=== PATIENT | male | born 1955 | race Caucasian/White ===

== ENCOUNTER → 2018-04-10 09:38 | Outpatient (CLI) | payer BC, SELFPAY ==
[2018-04-10 12:00] LABS: Absolute Lymphocyte Count 1.26 X10^3/ul (0.83-4.51); Absolute Neutrophil Count 2.5 X10^3/uL (2.0-7.7); Basophil# 0.04 X10^3/uL; Basophil% 0.9 % (0-1); Eosinophil# 0.09 X10^3/uL; Hematocrit 38.9 % (40-54); Hemoglobin 13.1 g/dl (13.0-16.5); Lymphocyte # 1.26 X10^3/ul (4.0); Lymphocyte % 28.1 % (19-41); Mean Corp Hgb Conc 33.7 g/gl (32-36); Mean Corpuscular Volume 95.1 fL (80-94); Mean Platelet Vol. 11.2 fl (6.2-12.0); Monocyte% 13.4 % (0-10); Neutrophil # 2.49 X10^3/uL (2.7-7.7); Neutrophil % 55.4 % (47-70); POSITIVE COUNT NO; POSITIVE DIFFERENTIAL NO; POSITIVE MORPHOLOGY NO; Platelet Count 169 K/mm3 (150-450); RBC Distribution Width CV 14.1 % (11.6-14.6); RBC Distribution Width SD 47.6 fl (35.1-43.9); Red Blood Count 4.09 M/mm3 (4.6-6.2); White Blood Count 4.5 K/mm3 (4.4-11.0)
[2018-04-10 12:18] LABS: Anion Gap 11 (5-15); BUN 10 mg/dL (7-18); BUN/Creat Ratio 10.7 RATIO (10-20); Calcium,Total 8.9 mg/dL (8.5-10.1); Chloride 103 mmol/L (98-107); Creatinine, Serum 0.94 mg/dL (0.70-1.30); EST Glomerular Filtration Rate 87 mL/min (>60); Est Glom Filt Rate - Afr Amer 105 mL/min (>60); Glucose 98 mg/dL (74-106); Magnesium 1.9 mg/dL (1.6-2.6); Potassium 4.1 mmol/L (3.5-5.1); Sodium Level 140 mmol/L (136-145); Thyroid Stim Hormone (TSH) 2.91 uIU/mL (0.358-3.74)
== END ==
PROVIDERS: Family Provider Family Medicine; PCP Family Medicine; Visit Provider Family Medicine
DX: I49.3 Ventricular premature depolarization (principal); I10 Essential (primary) hypertension; R73.01 Impaired fasting glucose
CPT/HCPCS: 36415; 80048; 83036; 83735; 84443; 85025

== ENCOUNTER → 2018-11-07 08:02 | Outpatient (CLI) | payer BC, SELFPAY ==
[2018-09-20 16:01] VITALS: BMI 25.9
[2018-11-08 08:57] LABS: AST(SGOT) 44 U/L (15-37); Alanine Aminotransfer ALT/SGPT 39 U/L (16-61); Albumin, Serum 3.8 g/dL (3.2-5.0); Alkaline Phosphatase 61 U/L (45-117); Bilirubin, Direct 0.16 mg/dL (0.00-0.30); Cholesterol 183 mg/dL (200); Globulin 3.6 g/dL (2.2-4.2); High Density Lipoprotein 78 mg/dL; Protein, Total 7.4 g/dL (6.4-8.2); Triglycerides 78 mg/dL; Very Low Density Lipoprotein 16 mg/dL (5-40)
== END ==
PROVIDERS: Family Provider Family Medicine; PCP Family Medicine; Referring Provider Internal Medicine Cardiovascular Disease; Visit Provider Internal Medicine Cardiovascular Disease
DX: E78.5 Hyperlipidemia, unspecified (principal)
CPT/HCPCS: 80061; 80076

== ENCOUNTER → 2019-07-23 11:14 | Outpatient (CLI) | payer BC, SELFPAY ==
[2019-04-18 13:38] VITALS: BMI 25.4
[2019-07-23 11:50] LABS: Bacteria 0 SEEN /hpf (None Seen); Mucous, Urine 0 SEEN /hpf (<or=2+); Red Blood Cells-Urine 0 SEEN /hpf (0-5); Squamous Epithelial Cells - UA 0 SEEN /hpf (0-5); White Blood Cells 0 SEEN /hpf (0-5)
[2019-07-23 15:19] LABS: Color, Urine Yellow (Yellow); Glucose, Dipstick Normal (Normal); Ketone-Dipstick Negative (Negative); Leukocyte Esterase-Dipstick Negative /ul (Negative); Nitrite-Dipstick Negative (Negative); Occult Blood-Urine Negative /ul (Negative); Protein-Dipstick Negative (Negative); Specific Gravity, Urine 1.005 (1.002-1.030); Urine Bilirubin Dipstick Negative (Negative); Urine Clarity Clear (Clear); Urine Urobilinogen Normal (Normal)
== END ==
PROVIDERS: Family Provider Family Medicine; PCP Family Medicine; Visit Provider Family Medicine
DX: N39.0 Urinary tract infection, site not specified (principal)
CPT/HCPCS: 81002; 87086

== ENCOUNTER → 2019-10-14 13:46 | Outpatient (CLI) | payer BC, SELFPAY ==
[2019-04-18 13:38] VITALS: BMI 25.4
[2019-10-14 14:39] LABS: PSA,Total - Annual Screen 1.05 ng/mL (0.00-4.00)
== END ==
PROVIDERS: PCP Family Medicine; Referring Provider Urology; Visit Provider Urology
DX: N40.1 Benign prostatic hyperplasia with lower urinary tract symptoms (principal)
CPT/HCPCS: 36415; 84153; G0103

== ENCOUNTER → 2019-11-27 06:25 | Outpatient (CLI) | payer BC, SELFPAY ==
[2019-11-22 09:43] VITALS: BMI 26.2
[2019-11-27 06:43] LABS: AST(SGOT) 46 U/L (15-37); Alanine Aminotransfer ALT/SGPT 47 U/L (16-61); Alkaline Phosphatase 69 U/L (45-117); Bilirubin, Direct 0.12 mg/dL (0.00-0.30); Cholesterol 195 mg/dL (200); Globulin 3.9 g/dL (2.2-4.2); High Density Lipoprotein 58 mg/dL; Protein, Total 7.9 g/dL (6.4-8.2); Triglycerides 166 mg/dL; Very Low Density Lipoprotein 33 mg/dL (5-40)
== END ==
PROVIDERS: PCP Family Medicine; Visit Provider Internal Medicine Cardiovascular Disease
DX: E78.5 Hyperlipidemia, unspecified (principal)
CPT/HCPCS: 80061; 80076

== ENCOUNTER → 2020-08-12 09:24 | Outpatient (CLI) | payer BC, SELFPAY ==
[2019-11-22 09:43] VITALS: BMI 26.2
[2020-08-12 12:52] LABS: Absolute Lymphocyte Count 1.55 X10^3/uL (0.83-4.51); Absolute Neutrophil Count 3.1 X10^3/uL (2.0-7.7); Basophil# 0.06 X10^3/uL; Basophil% 1.1 % (0-1); Eosinophil# 0.15 X10^3/uL; Eosinophils% 2.8 % (0-5); Hematocrit 42.8 % (40-54); Hemoglobin 14.1 g/dL (13.0-16.5); Lymphocyte # 1.55 X10^3/ul (4.0); Lymphocyte % 28.7 % (19-41); Mean Corp Hgb Conc 32.9 g/dL (32-36); Mean Corpuscular Hgb 32.4 pg (27.0-32.0); Mean Corpuscular Volume 98.4 fL (80-94); Mean Platelet Vol. 10.8 fl (6.2-12.0); Monocyte# 0.54 X10^3/uL; NRBC Flagged by Analyzer 0 % (0-5); Neutrophil # 3.09 X10^3/uL (2.7-7.7); Neutrophil % 57.2 % (47-70); Platelet Count 222 K/mm3 (150-450); RBC Distribution Width CV 12.9 % (11.6-14.6); RBC Distribution Width SD 46.5 fl (35.1-43.9); Red Blood Count 4.35 M/mm3 (4.6-6.2); White Blood Count 5.4 K/mm3 (4.4-11.0)
[2020-08-12 13:14] LABS: AST(SGOT) 33 U/L (15-37); Alanine Aminotransfer ALT/SGPT 36 U/L (16-61); Albumin, Serum 3.7 g/dL (3.2-5.0); Alkaline Phosphatase 62 U/L (45-117); Bilirubin, Direct 0.18 mg/dL (0.00-0.30); Cholesterol 176 mg/dL (200); Globulin 3.5 g/dL (2.2-4.2); High Density Lipoprotein 65 mg/dL; Protein, Total 7.2 g/dL (6.4-8.2); Triglycerides 130 mg/dL; Very Low Density Lipoprotein 26 mg/dL (5-40)
[2020-08-12 13:18] LABS: Bilirubin, Direct 0.16 mg/dL (0.00-0.30); Thyroid Stim Hormone (TSH) 2.97 uIU/mL (0.358-3.74)
[2020-08-17 08:20] LABS: Anion Gap 9 (5-15); BUN 14 mg/dL (7-18); BUN/Creat Ratio 16.2 RATIO (10-20); Calcium,Total 9.1 mg/dL (8.5-10.1); Chloride 107 mmol/L (98-107); Creatinine, Serum 0.86 mg/dL (0.70-1.30); EST Glomerular Filtration Rate 95 mL/min (>60); Est Glom Filt Rate - Afr Amer 114 mL/min (>60); Glucose 99 mg/dL (74-106); Potassium 4.2 mmol/L (3.5-5.1); Sodium Level 139 mmol/L (136-145)
== END ==
PROVIDERS: Physician Assistant Medical; PCP Family Medicine; Visit Provider Family Medicine
DX: E78.5 Hyperlipidemia, unspecified (principal); I10 Essential (primary) hypertension
CPT/HCPCS: 36415; 80048; 80061; 80076; 82248; 84443; 85025

== ENCOUNTER 2020-11-05 08:02 | Outpatient (RCR) | payer MEDICARE, SELFPAY ==
[2019-11-22 09:43] VITALS: BMI 26.2
[2020-11-05] MEDS: COVID-19 VACC, MRNA(PFIZER)/PF 30 MCG/0.3 ML SYRINGE IM (08:06)
[2020-11-26] MEDS: COVID-19 VACC, MRNA(PFIZER)/PF 30 MCG/0.3 ML SYRINGE IM (08:09)
== END 2020-11-05 23:59 ==
LOC: IMMUN 08:02
PROVIDERS: PCP Family Medicine; Visit Provider Family Medicine
DX: Z23 Encounter for immunization (principal)
CPT/HCPCS: 0001A; 0002A; 91300

== ENCOUNTER → 2021-02-10 09:31 | Outpatient (CLI) | payer BC, SELFPAY ==
[2019-11-22 09:43] VITALS: BMI 26.2
[2021-02-10 10:00] LABS: Cholesterol 170 mg/dL (200); High Density Lipoprotein 82 mg/dL; Triglycerides 118 mg/dL; Very Low Density Lipoprotein 24 mg/dL (5-40)
== END ==
PROVIDERS: PCP Family Medicine; Visit Provider Family Medicine
DX: E78.5 Hyperlipidemia, unspecified (principal)
CPT/HCPCS: 36415; 80061

== ENCOUNTER 2021-07-07 05:32 | Day surgery (SDC) | payer BC, SELFPAY ==
--- NOTE | 2021-07-07 05:39 | EKG12_ITS ---
Test Reason : PRE-OP Blood Pressure : / mmHG Vent. Rate : 084 BPM Atrial Rate : 084 BPM P-R Int : 152 ms QRS Dur : 084 ms QT Int : 368 ms P-R-T Axes : 071 066 034 degrees QTc Int : 434 ms Normal sinus rhythm Nonspecific ST abnormality Abnormal ECG When compared with ECG of 10-OCT-1996 10:22, Previous ECG has undetermined rhythm, needs review Confirmed by PAULA MALDONADO, ANSELMO ([id number]), associate entertainment editor GENNY SIDDIQUI ([id number]) on 07/13/2021 1:29:31 PM Referred By: oByd Alvarez Confirmed By:ANSELMO MITCHELL MD
[2021-07-07 06:03] VITALS: BP 149/78; PULSE 85; RESP 16; TEMP 36.4; O2SAT 100; BMI 26.0
[2021-07-07] MEDS: Lactated Ringers 1,000 ML 100 ML IV (06:18)
[2021-07-07 06:20] LABS: Hematocrit 40.3 % (40-54); Hemoglobin 13.6 g/dL (13.0-16.5); Mean Corp Hgb Conc 33.7 g/dL (32-36); Mean Corpuscular Hgb 34.7 pg (27.0-32.0); Mean Corpuscular Volume 102.8 fL (80-94); Mean Platelet Vol. 9.5 fl (6.2-12.0); Platelet Count 211 K/mm3 (150-450); RBC Distribution Width CV 12.7 % (11.6-14.6); RBC Distribution Width SD 47.7 fl (35.1-43.9); Red Blood Count 3.92 M/mm3 (4.6-6.2); White Blood Count 5.3 K/mm3 (4.4-11.0)
[2021-07-07 06:38] LABS: Anion Gap 8 (5-15); BUN 13 mg/dL (7-18); BUN/Creat Ratio 14.1 RATIO (10-20); Calcium,Total 9.3 mg/dL (8.5-10.1); Chloride 107 mmol/L (98-107); Creatinine, Serum 0.92 mg/dL (0.70-1.30); EST Glomerular Filtration Rate 87 mL/min (>60); Est Glom Filt Rate - Afr Amer 106 mL/min (>60); Estimated Creatinine Clearance 80.05 ml/min; Glucose 115 mg/dL (74-106); Potassium 4.2 mmol/L (3.5-5.1); Sodium Level 139 mmol/L (136-145)
[2021-07-07] MEDS: Cefazolin 2 GM in 0.9% Normal Saline 100 ML IV (07:28)
--- NOTE | 2021-07-07 07:30 | PROS_PTH ---
PATIENT: YAYA BETANCOURT [place]: [facility] [place] U[place][id number] AGE/SX: 66/M ROOM: RE07/07/[address]: Dr. Boyd Alvarez MD : 1955 BED: DIS: 07/07/2021 SPEC #: [id number] RECD: 07/07/21 10:29 STATUS: HUMERA MILLER #: [id number] CYNDEE: 07/07/21 07:[address]: Boyd Alvarez DEPT: SURGICAL PATHOLOGY RECD BY: Zahida Olsen ENTERED: 07/07/21 13:10 SP TYPE: TURP OTHR DR: Dr. Ramon Arias MD Tissues: Prostate, NOS Procedures: Surgery Specimen Level IV HEADER OPERATION: Cysto, TUR prostate, Olympus PRE-OP DIAGNOSIS: BPH TISSUE SUBMITTED: Prostate chips MICROSCOPIC DIAGNOSIS Prostate, transurethral resection: Benign nodular hyperplasia, glandular and stromal types. Chronic inflammation. Urothelium with chronic and mild acute inflammation. AM:ray 07/08/2021 MICROSCOPIC DESCRIPTION Slides are reviewed. GROSS DESCRIPTION Received is one container labeled with the patient's name and designated prostate tissue. The specimen consists of multiple irregular fragments of pink-ramirez, rubbery, soft tissue that in aggregate weigh 3.3 gm and measure in aggregate 5 x 6 x 0.3 cm. The entire specimen is submitted in three cassettes. / AM:ray 07/07/21 TC:3 CPT: 24579
--- NOTE | 2021-07-07 07:34 | HP.PCM_ITS ---
HPI - General HPI Narrative YAYA BETANCOURT, is a 66 M who presents for TURP. [facility] Medical History (Updated 06/30/21 @ 10:27 by Kaya Mesa) Alcohol use Asthma Asthma Cardiology follow-up encounter [place] High cholesterol History of echocardiogram history of elbow pin Hx of sinus tachycardia Hyperlipidemia Hypertension Hypertension Hypertension Leg cramps Non-smoker Prostate disease Wears dentures Wears glasses Home Medications albuterol sulfate 1 puff IH Q4H PRN PRN 07/27/17 [History Last Taken Unknown] ibuprofen 200 mg PO Q6H PRN PRN 07/27/17 [History Last Taken Unknown] lisinopril 5 mg PO DAILY 07/27/17 [History Last Taken 07/07/21] rosuvastatin 10 mg PO DAILY 07/27/17 [History Last Taken Unknown] triamcinolone acetonide 55 mcg nasal spray aerosol 1 spray INTRANASAL DAILY PRN 04/18/19 [History Last Taken Unknown] diltiazem HCl 120 mg capsule,extended release 24 hr 120 mg PO DAILY #90 cap 10/18/19 [Rx Last Taken 07/07/21] alfuzosin 10 mg tablet,extended release 24 hr 10 mg PO DAILY 11/22/19 [History Last Taken Unknown] ciprofloxacin HCl [Cipro] 500 mg PO BID #10 tab 07/07/21 [Rx Last Taken Unknown] Allergy/AdvReac Type Severity Reaction Status Date / Time shellfish derived AdvReac Intermediate vomiting Verified 07/07/21 05:56 Family History Father , age 80+ in his sleep, assumed cardiac CAD (coronary artery disease) Surgical History (Updated 06/30/21 @ 10:27 by Kaya Mesa) H/O hernia repair History of left heart catheterization (07/28/17) Hx of colonoscopy Social History (Updated 11/22/19 @ 10:[address] Moshe Bryant MD) Smoking Status: Never smoker alcohol intake: never Vital Signs Vital Signs Vital Signs: 07/07/21 06:03 Temperature 97.6 F L Temperature Source Temporal Pulse Rate 85 Respiratory Rate 16 Respiratory Pattern Normal Blood Pressure 149/78 H Blood Pressure Mean 101 Blood Pressure Source Monitor Blood Pressure Position Semi-Fowlers Blood Pressure Location Right Arm Pulse Ox 100 Oxygen Delivery Method Room Air Weight Weight: 80 kg Body Mass Index (BMI) 26.0 Results Lab / Micro Data Result Diagrams: 07/07/21 06:05 07/07/21 06:05 Labs: Laboratory Results - last 24 hr 07/07/21 06:05: WBC 5.3, RBC 3.92 L, Hgb 13.6, Hct 40.3, MCV 102.8 H, MCH 34.7 H , MCHC 33.7, RDW Std Deviation 47.7 H, RDW Coeff of Marilee 12.7, Plt Count 211, MPV 9.5 07/07/21 06:05: Sodium 139, Potassium 4.2, Chloride 107, Carbon Dioxide 24.0, Anion Gap 8, BUN 13, Creatinine 0.92, Estim Creat Clear Calc 80.05, Est GFR (MDRD) Af Amer 106, Est GFR (MDRD) Non-Af 87, BUN/Creatinine Ratio 14.1, Glucose 115 H, Calcium 9.3
--- NOTE | 2021-07-07 07:35 | PCM.OPRPT ---
Report of Operation Date of Procedure: 07/07/21 Pre-Operative Diagnosis: bph with obstruction Post-Operative Diagnosis: same Surgery/Procedure Performed:: turp Description of Surgical Findings:: In the preoperative setting I discussed with the patient how the surgery would be done with expect afterwards. We discussed how a prostate resection is done and we discussed the risk of the surgery including, bleeding, infection, retrograde ejaculation, changes with ejaculation or intercourse,. We discussed the possibility that the resection of the prostate may not alleviate his urinary symptoms. We discussed the small risk of developing scar tissue along the urethral channel and strictures. We also discussed the chance of the prostate could grow back and he may need further surgery or treatment in the future for prostate problems. Patient was taken back to the operating room, timeout procedure was performed, he was identified and marked and placed on the operating room table. He underwent general anesthesia. He was placed in dorsolithotomy position. Penis and testicles were prepped and draped in usual sterile fashion. Went into the bladder using the visual obturator with a resectoscope. Once inside the bladder identified the right and left ureteral orifice. I then identified the prostate and the anatomy of the prostate. I marked out the area of the sphincter and the verumontanum was identified. I then proceeded with the prostate resection first resected the median lobe. And then resected the right lobe of the prostate. Then to resect the left lobe of the prostate. I then resected the apical tissue of the prostate. This was a complete resection of all obstructive tissue. I then made sure that there was no injury to the sphincter or the verumontanum was still intact. At the end of the resection all the chips were Ellik out of the bladder. I then identified the left and right ureteral orifice and these were confirmed to be in good position and effluxing and not injured. The resectoscope was removed, a 22 Georgian catheter was placed into the bladder on continuous irrigation. And the urine was fairly light pink color and draining normally. He was taken back to the PACU in good condition. CPT 91619 Surgeon: hao Type of Anesthesia: General Drains: 20 fr wu Admit VTE Documentation VTE Present on Admission: No VTE Mechan Device Prophylaxis: SCD's VTE Pharm Prophylaxis ordered?: No
--- NOTE | 2021-07-07 08:18 | DCINST_ITS ---
Discharge Instructions Diet Discharge Diet: No restrictions Activity Discharge Activity: Return to Normal Activity and May Not Drive (while taking narcotic pain medications.) Dressing / Incision Call your doctor if you observe: Fever of 101 or Higher Catheter: Cardona to leg bag and Cardona to large bag Drain: [place] Additional Dressing/Incision Instructions:: remove cath in three days Follow Up Care Please Follow Up With: Boyd Alvarez MD When: Call [phone] for an appointment Test Results: Test results from this visit will be discussed in further detail at your follow-up appointment, if applicable. Discharge Plan Admission Primary Reason for Your Visit: TUR Attending Provider: Boyd Alvarez Primary Care Provider: Ramon Arias Instructions Patient Instructions: [facility] Discharge Orders/Prescriptions Prescriptions: New ciprofloxacin HCl [Cipro] 500 mg tablet 500 mg PO BID Qty: 10 RF: 0 No Action alfuzosin 10 mg tablet extended release 24 hr 10 mg PO DAILY RF: 0 ibuprofen 200 MG tablet 200 mg PO Q6H PRN PRN (Reason: Pain) RF: 0 lisinopril 5 MG tablet 5 mg PO DAILY RF: 0 albuterol sulfate 6.7 GM HFA aerosol inhaler 1 puff IH Q4H PRN PRN (Reason: Sob &/Or Wheezing) RF: 0 rosuvastatin 10 MG tablet 10 mg PO DAILY RF: 0 triamcinolone acetonide 55 mcg aerosol,spray 1 spray INTRANASAL DAILY PRN (Reason: Congestion) RF: 0 diltiazem HCl 120 mg capsule,extended release 24hr 120 mg PO DAILY Qty: 90 RF: 3 Referrals / Follow Up: Boyd Alvarez MD [STAFF PHYSICIAN] - Ramon Arias MD [Primary Care Provider] - Disposition Disposition (needs filled in before D/C Order can be placed): Home, Self Care
[2021-07-07 08:30] VITALS: BP 115/83; BP 149/78; PULSE 88; RESP 16; TEMP 36.4; O2SAT 97
[2021-07-07 08:44] VITALS: BP 117/78; BP 149/78; PULSE 86; RESP 16; O2SAT 95
[2021-07-07 09:00] VITALS: BP 117/79; BP 149/78; PULSE 77; RESP 16; O2SAT 97
[2021-07-07 09:10] VITALS: BP 120/81; BP 149/78; PULSE 75; RESP 16; TEMP 36.3; O2SAT 97
[2021-07-07] MEDS: Acetaminophen 500 MG Tablet 1000 MG PO (09:45)
[2021-07-07 10:26] VITALS: BP 120/82; BP 149/78; PULSE 83; RESP 16; TEMP 36.1; O2SAT 99
== END 2021-07-07 10:38 | disposition home or self-care (01) ==
LOC: SDC 05:34 → AC 05:35
PROVIDERS: Anesthesiology; PCP Family Medicine; Referring Provider Urology; Visit Provider Urology
PROC: (CPT 52601; principal; 2021-07-07 07:20)
DX: N40.1 Benign prostatic hyperplasia with lower urinary tract symptoms (principal); N13.8 Other obstructive and reflux uropathy; E78.5 Hyperlipidemia, unspecified; I10 Essential (primary) hypertension; E78.00 Pure hypercholesterolemia, unspecified; J45.909 Unspecified asthma, uncomplicated; Z79.899 Other long term (current) drug therapy
CPT/HCPCS: 52601; 80048; 85027; 88305; 93005; J7120; J2405

== ENCOUNTER → 2021-07-27 | Outpatient (CLI) | payer BC, SELFPAY | END | disposition home or self-care (01) | PROVIDERS: PCP Family Medicine; Referring Provider Urology; Visit Provider Urology | DX: R31.0 Gross hematuria (principal) | CPT/HCPCS: 87086; 87088 ==

== ENCOUNTER 2021-09-22 09:34 | Outpatient (CLI) | payer BC, SELFPAY ==
[2021-09-22 09:41] LABS: Absolute Lymphocyte Count 1.26 X10^3/uL (0.83-4.51); Absolute Neutrophil Count 2.6 X10^3/uL (2.0-7.7); Basophil# 0.04 X10^3/uL; Basophil% 0.9 % (0-1); Eosinophil# 0.06 X10^3/uL; Eosinophils% 1.3 % (0-5); Hematocrit 39.1 % (40-54); Hemoglobin 13.3 g/dL (13.0-16.5); Lymphocyte # 1.26 X10^3/ul (0.83-4.51); Lymphocyte % 28.1 % (19-41); Mean Corpuscular Hgb 33.5 pg (27.0-32.0); Mean Corpuscular Volume 98.5 fL (80-94); Mean Platelet Vol. 9.7 fl (6.2-12.0); Monocyte# 0.49 X10^3/uL; Monocyte% 10.9 % (0-10); NRBC Flagged by Analyzer 0 % (0-5); Neutrophil # 2.63 X10^3/uL (2.7-7.7); Neutrophil % 58.6 % (47-70); Platelet Count 193 K/mm3 (150-450); RBC Distribution Width CV 14.8 % (11.6-14.6); RBC Distribution Width SD 54.4 fl (35.1-43.9); Red Blood Count 3.97 M/mm3 (4.6-6.2); White Blood Count 4.5 K/mm3 (4.4-11.0)
[2021-09-22 10:27] LABS: ALB/GLOB Ratio 0.9 RATIO (0.9-2.4); AST(SGOT) 79 U/L (15-37); Alanine Aminotransfer ALT/SGPT 48 U/L (16-61); Albumin, Serum 3.6 g/dL (3.2-5.0); Alkaline Phosphatase 91 U/L (45-117); Anion Gap 9 (5-15); BUN 15 mg/dL (7-18); BUN/Creat Ratio 17.7 RATIO (10-20); Calcium,Total 9.1 mg/dL (8.5-10.1); Chloride 103 mmol/L (98-107); Cholesterol 167 mg/dL (200); Creatinine, Serum 0.85 mg/dL (0.70-1.30); EST Glomerular Filtration Rate 96 mL/min (>60); Est Glom Filt Rate - Afr Amer 116 mL/min (>60); Globulin 4.1 g/dL (2.2-4.2); Glucose 90 mg/dL (74-106); High Density Lipoprotein 95 mg/dL; Potassium 3.9 mmol/L (3.5-5.1); Protein, Total 7.7 g/dL (6.4-8.2); Sodium Level 138 mmol/L (136-145); Thyroid Stim Hormone (TSH) 2.38 uIU/mL (0.358-3.74); Triglycerides 114 mg/dL; Very Low Density Lipoprotein 23 mg/dL (5-40)
== END 2021-09-22 23:59 | disposition short-term general hospital (02) ==
LOC: LAB.FUTURE 09:34 → LAB 09:37
PROVIDERS: PCP Family Medicine; Visit Provider Family Medicine
DX: I47.2 Ventricular tachycardia (principal); E78.5 Hyperlipidemia, unspecified; I10 Essential (primary) hypertension
CPT/HCPCS: 36415; 80053; 80061; 84443; 85025

== ENCOUNTER 2022-01-20 05:25 | Day surgery (SDC) | payer BC, SELFPAY ==
[2022-01-20 05:59] VITALS: BP 124/80; PULSE 65; RESP 16; TEMP 36.2; O2SAT 100; BMI 25.5
[2022-01-20] MEDS: Lactated Ringers 1,000 ML 15 ML IV (06:02)
--- NOTE | 2022-01-20 06:30 | COLBX_PTH ---
PATIENT: YAYA BETANCOURT LOC: [facility] U#:[id number] AGE/SX: 66/M ROOM: RE01/20/[address]: Dr. Sagar Ulrich DO : 1955 BED: DIS: 01/20/2022 SPEC #: [id number] RECD: 01/20/22 11:26 STATUS: HUMERA PAUL #: [id number] CYNDEE: 01/20/22 06:[address]: Sagar Ulrich DEPT: SURGICAL PATHOLOGY RECD BY: Zahida Olsen ENTERED: 01/20/22 13:04 SP TYPE: COLON BX OTHR DR: Dr. Ramon Arias MD Tissues: A - Descending colon B - Transverse colon C - Descending colon Procedures: Surgery Specimen Level IV HEADER OPERATION: [place] [place] PRE-OP DIAGNOSIS: Positive colorectal cancer screening using Cologuard TISSUE SUBMITTED: A ? Descending polyp, B ? Transverse polyp, C ? Descending polyp #2 MICROSCOPIC DIAGNOSIS A. Descending colon polyp #1, biopsy: Tubular adenoma. B. Transverse colon polyp, biopsy: Fragments of tubular adenoma. C. Descending colon polyp #2, biopsy: Cauterized fragment of benign colonic mucosa. AM:ray 01/21/2022 MICROSCOPIC DESCRIPTION Slides are reviewed. GROSS DESCRIPTION A - Received in fixative is one container labeled with the patient's name and designated descending polyp. The specimen consists of one irregular fragment of light ramirez soft tissue that measures 0.6 x 0.6 x 0.2 cm. The specimen is totally submitted in one cassette. B - Received in fixative is one container labeled with the patient's name and designated transverse polyp. The specimen consists of multiple irregular fragments of light ramirez soft tissue that in aggregate measure 1 x 0.5 x 0.1 cm. The specimen is totally submitted in one cassette. C - Received in fixative is one container labeled with the patient's name and designated descending polyp #2. The specimen consists of one irregular fragment of light ramirez soft tissue that measures 0.3 x 0.3 x 0.2 cm. The specimen is totally submitted in one cassette. / AM:ray 01/20/2022 TC:5 CPT: 58578 x3
--- NOTE | 2022-01-20 06:35 | HP.PCM_ITS ---
History and Physical Date of Admission: 01/20/22 TRISH BETANCOURT, is a 66 M who presents to the office today for positive Cologuard test. He had the test done for screening for colon cancer. His last colonoscopy was in 2011. No personal or FH polyps or colon cancer. He had no GI complaints. No change in stool. No diarrhea or constipation. No hematochezia, melena. No abd pain. Rare indigestion from spicy food. No heartburn or dysphagia. ROS Const Constitutional: No fatigue, fever(s), headache(s), weight change, sleep problems, abnormal sleep pattern or change in appetite ENT ENT: No headache(s), difficulty swallowing, hoarseness or sore throat Resp Respiratory: No cough, hemoptysis or shortness of breath Cardio Cardiology: No chest pain at rest or generalized swelling Gastro GI: No abdominal pain, belching, bloating, change in bowel habits, change in stool character, coffee ground emesis, constipation, cramping, diarrhea, he artburn, difficulty swallowing, feeling full early, excessive flatus, incontinent of stools, Vomiting blood/hematemesis, Blood in stool, loose stools, Black,tarry stools, nausea/dyspepsia, pain with swallowing or vomiting Musc Musculoskeletal: Positive for muscle cramps; No joint pain, back pain, joint swelling, numbness or tingling Skin Skin: No itchy eyes or rash Neuro Neurology: No behavioral changes, confusion, headache(s), numbness or tingling Psych Psychiatric: No abnormal sleep pattern, No anxiety, No behavioral changes, No change in appetite, No confusion and No depression Endo Endocrine: No cold intolerance, fatigue, heat intolerance, increased thirst/drinking or weight change Aller/Imm Allergy/Immunologic: No food intolerance or itchy eyes Regis/Lymp Hematologic/Lymphatic: No easy bleeding, easy bruising or enlarged lymph nodes Exam Const General: cooperative, healthy appearing, no acute distress, well developed and well groomed Eyes Sclera: sclerae normal Resp Effort & Inspection: normal respiratory effort GI Inspection: normal to inspection Quality Reporting Tobacco Screening ([facility] 138) Smoking Status: Never smoker Assessment and Plan Assessment and Plan (1) Positive colorectal cancer screening using Cologuard test: Status: Acute Plan: 66-year-old man with positive Cologuard test done for colon cancer screening. He will be scheduled for colonoscopy. I have re-examined the patient. There are no clinical changes since date of exam.
[2022-01-20 07:10] VITALS: BP 102/71; BP 124/80; PULSE 68; RESP 16; TEMP 36.3; O2SAT 100
[2022-01-20 07:15] VITALS: BP 106/72; BP 124/80; PULSE 71; RESP 16; O2SAT 100
--- NOTE | 2022-01-20 07:15 | OP.CCLET_ITS ---
05/24/2022 Ramon Arias Re : Colonoscopy procedure for Yonas Brasher [place] This procedure was performed on January. My impressions and recommendations are as follows: Impressions : - Severe diverticulosis in the entire examined colon. There was no evidence of diverticular bleeding. - Three 1 to 2 mm polyps in the descending colon and in the transverse colon, removed with a hot snare. Resected and retrieved. Recommendations : - Repeat colonoscopy in 3 years for surveillance. - Continue present medications. - No aspirin, ibuprofen, naproxen, or other non-steroidal anti-inflammatory drugs for 7 days. - No aspirin, ibuprofen, naproxen, or other non-steroidal anti-inflammatory drugs for 7 days after polyp removal. My findings are described in the full procedure note, which is enclosed. If I can be of further assistance, please feel free to contact me at . Sincerely, Sagar Friend, 01/20/2022 7:14:43 AM This report has been signed electronically.
--- NOTE | 2022-01-20 07:15 | OP.COLON_ITS ---
Patient Name: Yonas Brasher Procedure Date: 01/20/2022 6:20 AM Date of : 1955 Age: 66 Procedure: Colonoscopy Indications: Screening for colorectal malignant neoplasm Providers: Sagar Ulrich DO Medicines: Monitored Anesthesia Care Patient Profile: This is a 66 year old male. Refer to note in patient chart for documentation of history and physical. Last Colonoscopy: date unknown. Unable to locate last colonoscopy report. Complications: No immediate complications. Procedure: Pre-Anesthesia Assessment: - Prior to the procedure, a History and Physical was performed, and patient medications and allergies were reviewed. The patient is competent. The risks and benefits of the procedure and the sedation options and risks were discussed with the patient. All questions were answered and informed consent was obtained. Patient identification and proposed procedure were verified by the physician. Mental Status Examination: alert and oriented. Airway Examination: normal oropharyngeal airway and neck mobility. Respiratory Examination: clear to auscultation. CV Examination: normal. Prophylactic Antibiotics: The patient does not require prophylactic antibiotics. Prior Anticoagulants: The patient has taken no previous anticoagulant or antiplatelet agents. ASA Grade Assessment: II - A patient with mild systemic disease. After reviewing the risks and benefits, the patient was deemed in satisfactory condition to undergo the procedure. The anesthesia plan was to use moderate sedation / analgesia (conscious sedation). Immediately prior to administration of medications, the patient was re-assessed for adequacy to receive sedatives. The heart rate, respiratory rate, oxygen saturations, blood pressure, adequacy of pulmonary ventilation, and response to care were monitored throughout the procedure. The physical status of the patient was re-assessed after the procedure. After I obtained informed consent, the scope was passed under direct vision. Throughout the procedure, the patient's blood pressure, pulse, and oxygen saturations were monitored continuously. The colonoscope was introduced through the anus and advanced to the ileocecal valve. The colonoscopy was performed without difficulty. The patient tolerated the procedure well. The quality of the bowel preparation was good. Scope In: 6:41:36 AM Scope Withdrawal Time 0 hours 13 minutes 51 seconds Scope Out: 7:06:10 AM Total Procedure Duration Time 0 hours 24 minutes 34 seconds Findings: The perianal and digital rectal examinations were normal. Scattered large-mouthed diverticula were found in the entire colon. There was no evidence of diverticular bleeding. Three sessile polyps were found in the descending colon and transverse colon. The polyps were 1 to 2 mm in size. These polyps were removed with a hot snare. Resection and retrieval were complete. Verification of patient identification for the specimen was done. Estimated blood loss was minimal. To prevent bleeding after the polypectomy, two hemostatic clips were successfully placed. There was no bleeding at the end of the procedure. Impression: - Severe diverticulosis in the entire examined colon. There was no evidence of diverticular bleeding. - Three 1 to 2 mm polyps in the descending colon and in the transverse colon, removed with a hot snare. Resected and retrieved. Recommendation: - Repeat colonoscopy in 3 years for surveillance. - Continue present medications. - No aspirin, ibuprofen, naproxen, or other non-steroidal anti-inflammatory drugs for 7 days. - No aspirin, ibuprofen, naproxen, or other non-steroidal anti-inflammatory drugs for 7 days after polyp removal. Procedure Code(s): --- Professional --- 92393, Colonoscopy, flexible; with removal of tumor(s), polyp(s), or other lesion(s) by snare technique CPT copyright 2017 [employer]. All rights reserved. The codes documented in this report are preliminary and upon fagoter review may be revised to meet current compliance requirements. Sagar Ulrich DO 01/20/2022 7:14:43 AM This report has been signed electronically. Number of Addenda: 1 Note Initiated On: 01/20/2022 6:20 AM Addendum Number: 1 Addendum Date: 05/24/2022 6:32:00 AM MAC was used as sedation for this procedure. Sagar Ulrich DO 05/24/2022 6:32:04 AM This report has been signed electronically.
[2022-01-20 07:20] VITALS: BP 117/79; BP 124/80; PULSE 70; RESP 16; O2SAT 100
[2022-01-20 07:24] VITALS: BP 113/83; BP 124/80; PULSE 68; RESP 16; TEMP 36.1; O2SAT 99
[2022-01-20 07:28] VITALS: BP 124/80
== END 2022-01-20 07:57 | disposition home or self-care (01) ==
LOC: EN 05:32 → AC 05:32
PROVIDERS: PCP Family Medicine; Referring Provider Family Medicine; Visit Provider Internal Medicine Gastroenterology
PROC: 0DJD8ZZ Inspection of Lower Intestinal Tract, Via Natural or Artificial Opening Endoscopic (ICD-10-PCS; CPT 45378; principal; 2022-01-20 06:25)
DX: Z12.11 Encounter for screening for malignant neoplasm of colon (principal); D12.4 Benign neoplasm of descending colon; D12.3 Benign neoplasm of transverse colon; E78.5 Hyperlipidemia, unspecified; I10 Essential (primary) hypertension; J45.909 Unspecified asthma, uncomplicated; Z79.899 Other long term (current) drug therapy; K57.30 Diverticulosis of large intestine without perforation or abscess without bleeding
CPT/HCPCS: 45385; 88305; J7120; J2405

== ENCOUNTER → 2022-04-05 | Outpatient (CLI) | payer BC, SELFPAY ==
[2022-04-05 10:46] LABS: PSA,Total - Annual Screen 0.37 ng/mL (0.00-4.00)
== END | disposition home or self-care (01) ==
PROVIDERS: PCP Family Medicine; Visit Provider Urology
DX: Z12.5 Encounter for screening for malignant neoplasm of prostate (principal)
CPT/HCPCS: 84153; G0103

== ENCOUNTER → 2022-09-22 | Outpatient (CLI) | payer BC, SELFPAY ==
[2022-09-22 18:16] LABS: Estradiol 22.9 pg/mL
[2022-09-24 14:51] LABS: HCG BETA-SUBUNIT QUANT. < 1 mIU/mL (0-3)
== END | disposition home or self-care (01) ==
LOC: BFHLAB 15:52
PROVIDERS: PCP Family Medicine; Visit Provider Family Medicine
DX: N62 Hypertrophy of breast (principal)
CPT/HCPCS: 36415; 82670; 83002; 84146; 84403; 84702

== ENCOUNTER → 2022-10-19 | Outpatient (CLI) | payer BC, SELFPAY | END | disposition home or self-care (01) | LOC: LAB.FUTURE 08:24 → LAB 08:24 | PROVIDERS: PCP Family Medicine; Visit Provider Family Medicine | DX: N62 Hypertrophy of breast (principal) | CPT/HCPCS: 36415; 84403 ==

== ENCOUNTER → 2023-04-11 | Outpatient (CLI) | payer BC, SELFPAY ==
[2023-04-11 11:17] LABS: PSA,Total - Annual Screen 0.37 ng/mL (0.00-4.00)
== END | disposition home or self-care (01) ==
LOC: LAB 10:35
PROVIDERS: Visit Provider Urology
DX: Z12.5 Encounter for screening for malignant neoplasm of prostate (principal)
CPT/HCPCS: 36415; 84153; G0103

== ENCOUNTER → 2023-06-28 | Outpatient (CLI) | payer MEDICARE, SELFPAY ==
[2023-06-28 12:15] LABS: Absolute Lymphocyte Count 0.91 X10^3/uL (0.83-4.51); Absolute Neutrophil Count 4.3 X10^3/uL (2.0-7.7); Basophil# 0.05 X10^3/uL; Basophil% 0.9 % (0-1); Eosinophil# 0.08 X10^3/uL; Eosinophils% 1.4 % (0-5); Hemoglobin 12.5 g/dL (13.0-16.5); Lymphocyte # 0.91 X10^3/ul (0.83-4.51); Lymphocyte % 15.8 % (19-41); Mean Corp Hgb Conc 32.9 g/dL (32-36); Mean Corpuscular Hgb 36.2 pg (27.0-32.0); Mean Corpuscular Volume 110.1 fL (80-94); Mean Platelet Vol. 10.6 fl (6.2-12.0); Monocyte# 0.37 X10^3/uL; Monocyte% 6.4 % (0-10); NRBC Flagged by Analyzer 0 % (0-5); Neutrophil # 4.34 X10^3/uL (2.7-7.7); Neutrophil % 75.2 % (47-70); Platelet Count 103 K/mm3 (150-450); RBC Distribution Width CV 13.8 % (11.6-14.6); RBC Distribution Width SD 56.1 fl (35.1-43.9); Red Blood Count 3.45 M/mm3 (4.6-6.2); White Blood Count 5.8 K/mm3 (4.4-11.0)
[2023-06-28 12:50] LABS: ALB/GLOB Ratio 0.7 RATIO (0.9-2.4); AST(SGOT) 217 U/L (15-37); Alanine Aminotransfer ALT/SGPT 64 U/L (16-61); Albumin, Serum 3.3 g/dL (3.2-5.0); Alkaline Phosphatase 232 U/L (45-117); Anion Gap 13 (5-15); BUN 12 mg/dL (7-18); Calcium,Total 9.1 mg/dL (8.5-10.1); Chloride 102 mmol/L (98-107); Cholesterol 136 mg/dL (200); Creatinine, Serum 0.93 mg/dL (0.70-1.30); EST Glomerular Filtration Rate 87 mL/min (>60); Est Glom Filt Rate - Afr Amer 105 mL/min (>60); Globulin 4.8 g/dL (2.2-4.2); Glucose 97 mg/dL (74-106); High Density Lipoprotein 82 mg/dL; Potassium 4.2 mmol/L (3.5-5.1); Protein, Total 8.1 g/dL (6.4-8.2); Sodium Level 136 mmol/L (136-145); Triglycerides 97 mg/dL; Very Low Density Lipoprotein 19 mg/dL (5-40)
== END | disposition home or self-care (01) ==
PROVIDERS: PCP Nurse Practitioner Family; Visit Provider Nurse Practitioner Family
DX: I10 Essential (primary) hypertension (principal); E78.5 Hyperlipidemia, unspecified
CPT/HCPCS: 36415; 80053; 80061; 85025

== ENCOUNTER → 2024-01-03 | Outpatient (CLI) | payer MEDICARE, SELFPAY ==
[2024-01-03 12:37] LABS: Absolute Lymphocyte Count 1.86 X10^3/uL (0.83-4.51); Absolute Neutrophil Count 2.4 X10^3/uL (2.0-7.7); Basophil# 0.09 X10^3/uL; Basophil% 1.8 % (0-1); Eosinophil# 0.17 X10^3/uL; Eosinophils% 3.4 % (0-5); Hematocrit 39.2 % (40-54); Hemoglobin 12.9 g/dL (13.0-16.5); Lymphocyte # 1.86 X10^3/ul (0.83-4.51); Mean Corp Hgb Conc 32.9 g/dL (32-36); Mean Corpuscular Hgb 33.1 pg (27.0-32.0); Mean Corpuscular Volume 100.5 fL (80-94); Mean Platelet Vol. 10.2 fl (6.2-12.0); Monocyte# 0.49 X10^3/uL; Monocyte% 9.7 % (0-10); NRBC Flagged by Analyzer 0 % (0-5); Neutrophil # 2.41 X10^3/uL (2.7-7.7); Neutrophil % 47.9 % (47-70); Platelet Count 268 K/mm3 (150-450); RBC Distribution Width CV 13.7 % (11.6-14.6); RBC Distribution Width SD 50.2 fl (35.1-43.9)
[2024-01-03 13:16] LABS: ALB/GLOB Ratio 0.8 RATIO (0.9-2.4); AST(SGOT) 54 U/L (15-37); Alanine Aminotransfer ALT/SGPT 38 U/L (16-61); Albumin, Serum 3.7 g/dL (3.2-5.0); Alkaline Phosphatase 102 U/L (45-117); Anion Gap 5 (5-15); BUN 9 mg/dL (7-18); Calcium,Total 9.7 mg/dL (8.5-10.1); Chloride 105 mmol/L (98-107); Cholesterol 188 mg/dL (200); EST Glomerular Filtration Rate 79 mL/min (>60); Est Glom Filt Rate - Afr Amer 96 mL/min (>60); Globulin 4.4 g/dL (2.2-4.2); Glucose 103 mg/dL (74-106); High Density Lipoprotein 64 mg/dL; Potassium 4.2 mmol/L (3.5-5.1); Protein, Total 8.1 g/dL (6.4-8.2); Sodium Level 135 mmol/L (136-145); Triglycerides 238 mg/dL; Very Low Density Lipoprotein 48 mg/dL (5-40)
== END | disposition home or self-care (01) ==
LOC: BFHLAB 10:21
PROVIDERS: PCP Nurse Practitioner Family; Referring Provider Nurse Practitioner Family; Visit Provider Nurse Practitioner Family
DX: I10 Essential (primary) hypertension (principal); Z98.890 Other specified postprocedural states; Z90.79 Acquired absence of other genital organ(s); E78.5 Hyperlipidemia, unspecified
CPT/HCPCS: 36415; 80053; 80061; 85025

== ENCOUNTER → 2025-01-03 | Outpatient (CLI) | payer MEDICARE, SELFPAY ==
[2025-01-03 12:34] LABS: Absolute Lymphocyte Count 1.02 X10^3/uL (0.83-4.51); Absolute Neutrophil Count 5.8 X10^3/uL (2.0-7.7); Basophil# 0.09 X10^3/uL; Basophil% 1.2 % (0-1); Eosinophil# 0.09 X10^3/uL; Eosinophils% 1.2 % (0-5); Hematocrit 31.3 % (40-54); Hemoglobin 10.9 g/dL (13.0-16.5); Lymphocyte # 1.02 X10^3/ul (0.83-4.51); Lymphocyte % 13.3 % (19-41); Mean Corp Hgb Conc 34.8 g/dL (32-36); Mean Corpuscular Hgb 34.7 pg (27.0-32.0); Mean Corpuscular Volume 99.7 fL (80-94); Monocyte# 0.68 X10^3/uL; Monocyte% 8.9 % (0-10); NRBC Flagged by Analyzer 0 % (0-5); Neutrophil # 5.75 X10^3/uL (2.7-7.7); Neutrophil % 74.9 % (47-70); Platelet Count 214 K/mm3 (150-450); RBC Distribution Width CV 15.9 % (11.6-14.6); RBC Distribution Width SD 57.5 fl (35.1-43.9); Red Blood Count 3.14 M/mm3 (4.6-6.2); White Blood Count 7.7 K/mm3 (4.4-11.0)
[2025-01-03 13:02] LABS: ALB/GLOB Ratio 0.7 RATIO (0.9-2.4); AST(SGOT) 119 U/L (<=37); Alanine Aminotransfer ALT/SGPT 29 U/L (<=46); Albumin, Serum 3.3 g/dL (3.4-4.8); Alkaline Phosphatase 430 U/L (40-129); Anion Gap 12 (5-15); BUN 4 mg/dL (4-19); BUN/Creat Ratio 5.6 RATIO (10-20); Carbon Dioxide 21.5 mmol/L (21.0-32.0); Chloride 96 mmol/L (98-108); Cholesterol 117 mg/dL (<=200); Creatinine, Serum 0.77 mg/dL (0.70-1.20); EST Glomerular Filtration Rate 98 (>60); Globulin 4.9 g/dL (2.2-4.2); Glucose 98 mg/dL (70-99); High Density Lipoprotein 44 mg/dL; Low Density Lipoprotein Calc. 57 mg/dL; PSA,Total - Annual Screen 0.41 ng/mL (0.02-4.00); Potassium 4.2 mmol/L (3.3-5.1); Protein, Total 8.2 g/dL (5.9-8.4); Sodium Level 129 mmol/L (133-145); Total Bilirubin 2.02 mg/dL (0.00-1.30); Triglycerides 81 mg/dL; Very Low Density Lipoprotein 16 mg/dL (5-40); cholesterol:hdl ratio screen 2.69
== END | disposition home or self-care (01) ==
LOC: MTLAB 09:32
PROVIDERS: PCP Nurse Practitioner Family; Referring Provider Nurse Practitioner Family; Visit Provider Nurse Practitioner Family
DX: I10 Essential (primary) hypertension (principal); E78.5 Hyperlipidemia, unspecified; Z12.5 Encounter for screening for malignant neoplasm of prostate; Z90.79 Acquired absence of other genital organ(s); Z98.890 Other specified postprocedural states
CPT/HCPCS: 36415; 80053; 80061; 84153; 85025; G0103

== ENCOUNTER 2025-02-12 14:00 | Outpatient (CLI) | payer MEDICARE, SELFPAY ==
--- NOTE | 2025-02-18 08:22 | EKG12_ITS ---
Test Reason : PREOP Blood Pressure : */* mmHG Vent. Rate : 82 BPM Atrial Rate : 82 BPM P-R Int : 144 ms QRS Dur : 78 ms QT Int : 396 ms P-R-T Axes : 50 51 -2 degrees QTcB Int : 462 ms Sinus rhythm with Premature atrial complexes ST & T wave abnormality, consider inferior ischemia Abnormal ECG Confirmed by PAULA MALDONADO, ANSELMO ([id number]), purchasing expeditor GENNY SIDDIQUI ([id number]) on 02/18/2025 1:31:08 PM Referred By: James Rawls Confirmed By: ANSELMO MITCHELL MD
[2025-02-18 09:54] LABS: International Normalized Ratio 1.3; Prothrombin Time (Protime)PT. 16.9 SECONDS (11.7-14.9)
[2025-02-18 09:55] LABS: Partial Thromboplast Time 37.3 Seconds (24.1-36.2)
[2025-02-18 10:22] LABS: ALB/GLOB Ratio 0.7 RATIO (0.9-2.4); AST(SGOT) 116 U/L (<=37); Alanine Aminotransfer ALT/SGPT 24 U/L (<=46); Albumin, Serum 3.5 g/dL (3.4-4.8); Alkaline Phosphatase 451 U/L (40-129); Anion Gap 13 (5-15); BUN 6 mg/dL (4-19); BUN/Creat Ratio 6.4 RATIO (10-20); Calcium,Total 9.4 mg/dL (7.6-11.0); Chloride 90 mmol/L (98-108); Creatinine, Serum 0.92 mg/dL (0.70-1.20); EST Glomerular Filtration Rate 90 (>60); Globulin 4.8 g/dL (2.2-4.2); Glucose 104 mg/dL (70-99); Potassium 4.2 mmol/L (3.3-5.1); Protein, Total 8.3 g/dL (5.9-8.4); Sodium Level 125 mmol/L (133-145); Total Bilirubin 4.27 mg/dL (0.00-1.30)
--- NOTE | 2025-02-19 19:18 | PAT.ANESEVAL ---
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 When Was Last Pacemaker Check QUESTION #4 FULL TEXT: You/Your Family Experience fever (hyperthermia) with Anesthesia Last Oral Intake Last Oral intake: Last Oral Intake NPO since Meds taken in AM with sips of water? Meds patient instructed to take am of surgery PONV PONV - beauty sales advisor: PONV - beauty sales advisor Female No 02/12/25 14:02 HX of Motion Sickness No 02/12/25 14:02 HX of N/V After Surgery No 02/12/25 14:02 Non-Smoker Yes 02/12/25 14:02 Duration of Surgery greater Yes 02/12/25 14:02 than 60 minutes Number of Risk Factors 2 02/12/25 14:02 PONV Score Moderate Risk 02/12/25 14:02 Height & Weight Height & Weight: Anesthesia: Height & Weight Height 5 ft 9 in 02/10/25 13:15 Respiratory Assessment Respiratory Assessment - beauty sales advisor: Respiratory Tract Infection Hx - beauty sales advisor Hx Respiratory Tract Infection No 02/12/25 14:02 STOP Sleep Apnea STOP Sleep Apnea - beauty sales advisor: STOP Sleep Apnea - beauty sales advisor Hx Hypertension Yes: CONTROLLED WITH MED 02/12/25 14:02 Hx Sleep Apnea No 02/12/25 14:02 CPAP BIPAP Do you snore loudly (louder No 02/12/25 14:02 than talking or can be heard Do you often feel tired/ No 02/12/25 14:02 fatigued/ sleepy during daytime? Has anyone observed you stop No 02/12/25 14:02 breathing during sleep? STOP Results Negative 02/12/25 14:02 QUESTION #5 FULL TEXT : Do you snore loudly (louder than talking or can be heard through closed doors)? 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 Specify any problems Hx of Preganancy in last 3 N/A 02/12/25 14:02 Months Nurse Filling Out Transfusion DSCHRIBER 02/12/25 14:02 & Questions: Date: 02/12/25 02/12/25 14:02 Time: 14:03 02/12/25 14:02 Patient unable to answer at this time (ie. confused, unrespo /Reproduction History /Reproductive History - beauty sales advisor: /Reproductive Hx- beauty sales advisor Hx Now No 02/12/25 14:02 Gestational Age (in weeks): EDC: Hx Hx Para Hx Section SAB No 02/12/25 14:02 [facility] Medical History (Updated 02/12/25 @ 14:08 by Kaya Mesa) Arthritis Wears glasses Wears dentures Alcohol use High cholesterol Non-smoker Asthma Hypertension History of echocardiogram Cardiology follow-up encounter Hx of sinus tachycardia history of elbow pin Home Medications ?Medication ?Instructions ?Recorded ?Last Taken ?Type albuterol sulfate 90 mcg/actuation 1 puff IH Q4H PRN PRN Sob &/Or 07/27/17 Unknown History aerosol inhaler Wheezing ibuprofen 200 mg tablet 200 mg PO Q6H PRN PRN Pain 07/27/17 Unknown History lisinopril 5 mg tablet 5 mg PO DAILY 07/27/17 01/20/22 History rosuvastatin 10 mg tablet 10 mg PO QHS 07/27/17 Unknown History diltiazem HCl 120 mg 120 mg PO DAILY #90 caps 10/18/19 01/20/22 Rx capsule,extended release 24 hr fluticasone propionate 50 1 spray intranasal PRN PRN 01/14/22 Unknown History mcg/actuation nasal ALLERGIES spray,suspension (Flonase Allergy Relief) Allergy/AdvReac Type Severity Reaction Status Date / Time shellfish derived AdvReac Intermediate vomiting Verified 02/12/25 14:00 Family History Father , age 80+ in his sleep, assumed cardiac CAD (coronary artery disease) Surgical History (Updated 02/12/25 @ 14:08 by Kaya Mes[place]) Hx of transurethral resection of prostate Hx of colonoscopy History of left heart catheterization (07/28/17) H/O hernia repair Social History Smoking Status: Never smoker alcohol intake: never Audit: Pertinent Findings Pertinent Findings EKG Perinent findings: February 18, 2025. Sinus rhythm with PACs. ST and T wave abnormality consider inferior ischemia. Additional pertinent findings: Sodium is 125 on latest chemistry. Patient needs to be above 130. May need to make arrangements for preop admission and correction prior to any planned surgery. Recommendation Anesthesia Recommendation Anesthesia recommendation: F/U recommended (Patient needs workup of ischemia on EKG. He also needs a plan of action to correct his sodium which is currently 125.)
== END 2025-02-12 19:00 | disposition home or self-care (01) ==
LOC: SDC 06-25 10:13
PROVIDERS: Student in an Organized Health Care Education/Training Program; PCP Nurse Practitioner Family; Referring Provider Surgery; Visit Provider Surgery
DX: Z01.818 Encounter for other preprocedural examination (principal)
CPT/HCPCS: 36415; 80053; 85610; 85730; 93005

== ENCOUNTER → 2025-03-25 | Outpatient (CLI) | payer MEDICARE, SELFPAY ==
--- NOTE | 2025-03-25 08:07 | US_ITS ---
PROCEDURE: ABD LIMITED W/ ELASTOGRAPHY 03/25/2025 REASON FOR EXAM: ASSESS FOR ABNORMALITIES COMPARISON: None FINDINGS: Liver: Diffusely echogenic suggesting fatty infiltration. Hepatomegaly. The liver measures 19.2 cm. Gallbladder: Multiple echogenic gallstones are identified. Small amount of pericholecystic fluid as well as small amount of fluid surrounding the liver. The gallbladder wall is thickened measuring 5 mm. Common bile duct: Normal measuring 5 mm . Pancreas: Visualized portions are unremarkable. The distal body and tail are obscured by bowel gas. Other: Visualized portions of the right kidney are unremarkable. No right upper quadrant ascites. US/ABD Limited w/ Elastography IMPRESSION: Hepatomegaly and diffuse fatty infiltration of the liver. Multiple gallstones. Mild degree of bladder wall thickening with small amount of pericholecystic and Marilyn hepatic fluid. Reading Location: [id number]
== END | disposition home or self-care (01) ==
PROVIDERS: PCP Nurse Practitioner Family; Referring Provider Nurse Practitioner Family; Visit Provider Nurse Practitioner Family
DX: R79.89 Other specified abnormal findings of blood chemistry (principal)
CPT/HCPCS: 76705; 76981

== ENCOUNTER 2025-04-09 02:24 | Inpatient (IN) | payer MEDICARE, SELFPAY ==
[2025-04-09] VITALS (36 sets, daily range): BP systolic 98–141; BP diastolic 53–97; PULSE 82–108; RESP 16–23; TEMP 36.1–37.5; O2SAT 92–100; BMI 26.1; BMI 25.9
--- NOTE | 2025-04-09 02:54 | CT_ITS ---
PROCEDURE: CTA CHST, ABD, PEL W AND/OR WO 04/09/2025 REASON FOR EXAM: GI BLEED / ? ESOPHAGEAL VARICES TECHNIQUE: CTA CHST, ABD, PEL W AND/OR WO coronal and Sagittal reconstruction series were provided. One or more dose reduction techniques were used (e.g., Automated exposure control, adjustment of the mA and/or kV according to patient size, use of iterative reconstruction technique. CONTRAST: Isovue-370 VOLUME: 100 mL RADIATION DOSE SUMMARY: CTDlvol: 16.51 mGy DLP: 178 mGycm COMPARISON: Ultrasound on 03/25/2025. FINDINGS: Moderate coronary artery calcifications. Mild left pleural effusion. Passive atelectatic airspace disease of the left lower lobe. Hepatomegaly. Hepatic steatosis. Diffuse irregularity of the hepatic contour. Cholelithiasis. Diffuse thickening of the wall of the gallbladder. Mild ascites. Right posterolateral bladder diverticulum measuring 4.3 cm. Bilateral fat containing inguinal hernias without incarceration. Ascitic fluid is noted in the left inguinal canal. Small sliding hiatal hernia. Diffuse thickening of the stomach suggestive of gastritis. Acute hemorrhagic products are noted in the gastric lumen. No CT evidence of active bleeding during the time of the exam. Diffuse thickening of the small bowels, possibly secondary to chronic parenchymal liver disease/ascites and/or enteritis. Normal enhancement of the main pulmonary artery and right and left pulmonary arteries. Normal enhancement of the bilateral peripheral pulmonary arteries. There is no demonstrated pulmonary embolism. Normal thoracic aorta and visualized great vessels. There is no demonstrated aortic dissection. Normal heart and pericardium. Normal mediastinum. Normal hilar regions. Normal visualized trachea and bronchi. Normal extrahepatic biliary system. Normal spleen. Normal pancreas. Normal bilateral adrenal glands. Normal size of the right kidney. There is no right renal mass. There are no right renal calculi. There is no right hydronephrosis. Normal visualized right ureter. Normal size of the left kidney. There is no left renal mass. There are no left renal calculi. There is no left hydronephrosis. Normal visualized left ureter. The appendix is visualized and appears normal. Mild calcified atheromatous plaques of the abdominal aorta. Normal inferior vena cava. Normal retroperitoneum. There is no pelvic mass lesion or lymphadenopathy. CT/CTA Chst, Abd, Pel W and/or WO IMPRESSION: Moderate coronary artery calcifications. Mild left pleural effusion. Passive atelectatic airspace disease of the left lower lobe. Hepatomegaly. Hepatic steatosis. Diffuse irregularity of the hepatic contour, probably chronic parenchymal liver disease. Cholelithiasis. Diffuse thickening of the wall of the gallbladder. Mild ascites. Right posterolateral bladder diverticulum measuring 4.3 cm. Bilateral fat containing inguinal hernias without incarceration. Ascitic fluid is noted in the left inguinal canal. Small sliding hiatal hernia. Diffuse thickening of the stomach suggestive of gastritis. Acute hemorrhagic products are noted in the gastric lumen. No CT evidence of active bleeding during the time of the exam. Diffuse thickening of the small bowels, possibly secondary to chronic parenchym al liver disease/ascites and/or enteritis. Reading Location: [id number]
[2025-04-09] MEDS: 0.9% Normal Saline (1000mL) 1,000 ML 999 ML IV ×2 (03:03→04:39)
[2025-04-09 03:19] LABS: Hematocrit 18.4 % (40-54); Hemoglobin 6.5 g/dL (13.0-16.5); Immature Granulocytes Count 0.040 X10^3/uL (0.0-0.0); Mean Corp Hgb Conc 35.3 g/dL (32-36); Mean Corpuscular Volume 100.5 fL (80-94); Mean Platelet Vol. 11.1 fl (6.2-12.0); NRBC Flagged by Analyzer 0 % (0-5); Platelet Count 213 K/mm3 (150-450); RBC Distribution Width CV 14.6 % (11.6-14.6); RBC Distribution Width SD 52.3 fl (35.1-43.9); Red Blood Count 1.83 M/mm3 (4.6-6.2); White Blood Count 12.8 K/mm3 (4.4-11.0)
[2025-04-09 03:33] LABS: Prothrombin Time (Protime)PT. 19.5 SECONDS (11.7-14.9)
[2025-04-09 03:34] LABS: Ammonia 37.0 umol/L (16-60); Partial Thromboplast Time 33.7 Seconds (24.1-36.2)
[2025-04-09 03:35] LABS: AST(SGOT) 44 U/L (<=37); Alanine Aminotransfer ALT/SGPT 14 U/L (<=46); Albumin, Serum 2.7 g/dL (3.4-4.8); Alcohol, Blood (Medical)-Serum < 10.1 mg/dL (<=10.0); Alkaline Phosphatase 221 U/L (40-129); Anion Gap 14 (5-15); BUN 31 mg/dL (4-19); BUN/Creat Ratio 29.6 RATIO (10-20); Bilirubin, Direct 1.64 mg/dL (0.00-0.30); Calcium,Total 9.0 mg/dL (7.6-11.0); Carbon Dioxide 19.6 mmol/L (21.0-32.0); Chloride 98 mmol/L (98-108); Estimated Creatinine Clearance 67.98 ml/min (50-250); Globulin 3.7 g/dL (2.2-4.2); Glucose 115 mg/dL (70-99); Lipase 22 U/L (13-75); Magnesium 1.8 mg/dL (1.5-2.2); Potassium 4.3 mmol/L (3.3-5.1)
--- OUTSIDE RECORDS SUMMARY | 2025-04-09 03:42 | XMS RPT_ITS | CCD ---
Author Organization [facility] Care Team Providers Care Care Center Manager Name Role Phone Iris RN, Radha A Unavailable Unavailable Iris RN, Radha A Unavailable Unavailable Iris RN, Radha A Unavailable Unavailable Barton, Natalie Unavailable Unavailable Iris RN, Radha A Unavailable Unavailable HARVEY Cleary, Amberly Caceres Unavailable Unavailabl e Dr. Ramon Arias Primary Care Provider Dr. Ramon Arias Referring Provider Telly LITIGATION LEGAL ASSISTANT, LITIGATION LEGAL ASSISTANT-C Eleanor Caceres Attending Provider Dr. Sagar Ulrich Attending Provider Dr. Sagar Ulrich Other Provider Dr. Ramon Arias Primary Care Provider Dr. Ramon Arias Referring Provider JENNIFER Fitch Attending Provider Dr. West Abbott Attending Provider Telly LITIGATION LEGAL ASSISTANT, LITIGATION LEGAL ASSISTANT-C Eleanor Caceres Attending Provider Arnulfo LITIGATION LEGAL ASSISTANT-C, Inga Primary Care Provider Arnulfo LITIGATION LEGAL ASSISTANT-C, Inga Attending Provider Arnulfo LITIGATION LEGAL ASSISTANT-C, Inga Referring Provider Sinai MALDONADO, Dr. Ramirez Attending Provider Antonio MALDONADO, Dr. Boyd Mccarty Referring Provider [phone] Dr. West Abbott MD Attending Provider Issa MALDONADO, Dr. Linton Referring Provider Unavaila ble West Abbott Attending Unavailable Inga Arredondo Primary Care Unavailable Royer Parsons Referring Unavailable Arnulfo, Inga Attending Unavailable Arnulfo, Inga Referring Unavailable Arnulfo, Inga Primary Care Unavailable Arnulfo, Inga Primary Care Unavailable Arnulfo, Inga Attending Unavailable West Abbott Attending Unavailable Scar, [place] Referring Unavailable Arnulfo, Inga Primary Care Unavailable Arnulfo, Inga Referring Unavailable West Abbott Attending Unavailable Arnulfo, Inga Primary Care Unavailable Arnulfo, Inga Primary Care Unavailable Boyd Alvarez Referring Unavailable James Rawls Attending Unavailable James Rawls Referring Unavailable Arnulfo, Inga Primary Care Unavailable Royer Parsons Consulting Unavailable James Rawls Attending Unavailable Arnulfo, Inga Referring Unavailable Arnulfo, Inga Primary Care Unavailable Arnulfo, Inga Attending Unavailable Allergies Allergy Classification Reported Allergen(s) Allergy Type Date of Onset Reaction(s) Facility (10 sources) Shellfish; Translations: [shellfish derived] Propensity to adverse reactions 01-20-2022 [facility] Medications Current Medications Medication Drug Class(es) Dates Sig (Normalized) Sig (Original) Albuterol Sulfate (15 sources) beta2-Adrenergic Agonist Start: 07-27-2017 take 1 puff(s) by inhalation every four hours as needed Albuterol Sulfate Active 1 PUFF IH EVERY 4 HOURS NEEDED July 27, 2017 2:45pm Start: 07-27-2017 Albuterol Sulf ate 6.7 GM HFA aerosol inhaler Active 1 NMA IH EVERY 4 HOURS NEEDED as needed for Sob &/Or Wheezing July 27, 2017 1:00am Start: 07-27-2017 take 1 puff(s) by in halation every four hours as needed Albuterol Sulfate Active 1 PUFF IH EVERY 4 HOURS NEEDED July 27, 2017 12:00am Start: 07-27-2017 take 1 puff(s) by in halation every four hours as needed Albuterol Sulfate Active 1 PUFF IH EVERY 4 HOURS NEEDED July 27, 2017 1:00am Start: 05-24-2017 PROVENTIL HFA AERS 90 mcg/inh - Q4H as needed ALBUTEROL SULFATE AERS [id number] Aliyah Dominguez RN fluticasone propionate 0.05 mg/actuat metered dose nasal spray (9 sources) Corticosteroid Start: 01-14-2022 Fluticasone Pr opionate (Flonase Allergy Relief) 50 mcg/actuation [place],Suspension Active 1 NMA INTRANASAL NEEDED as needed for ALLERGIES January 14, 2022 12:00am Start: 01-14-2022 Fluticasone Pr opionate (Flonase Allergy Relief) 50 mcg/actuation [place],Suspension Active 1 SPRAY INTRANASAL NEEDED January 13, 2022 11:00pm lisinopril 5 mg oral tablet (15 sources) Angiotensin Converting Enzyme Inhibitor Start: 07-27-2017 take 1 tablet by mouth once daily Lisinopril 5 MG tablet Active 5 mg PO DAILY July 27, 2017 1:00am Start: 05-24-2017 take 1 tablet by estela th once daily LISINOPRIL 5 MG TABS One tablet by mouth daily LISINOPRIL [id number] Aliyah Dominguez RN rosuvastatin calcium 10 mg oral tablet (15 sources) HMG-CoA Reductase Inhibitor Start: 07-27-2017 take 1 tablet by mouth at bedtime Rosuvastatin 10 MG tablet Active 10 mg PO AT BEDTIME July 27, 2017 1:00am Start: 05-24-2017 take 1 tablet by estela th once daily CRESTOR 10 MG TABS One tablet by mouth daily ROSUVASTATIN CALCIUM [id number] Aliyah Dominguez RN Completed/Discontinued Medications Medication Drug Class(es) Dates Sig (Normalized) Sig (Original) 24 hr alfuzosin hydrochloride 10 mg extended release oral tablet (9 sources) alpha-Adrenergic Mayela Start: 11-22-2019 End: 11-01-2021 take 1 tablet by mouth once daily at mealtime Alfuzosin 10 mg tablet extended release 24 hr Discontinued 10 mg PO DAILY November 22, 2019 12:00am November 01, 2021 10:47am administer after the same meal each day amoxicillin 875 mg / clavulanate 125 mg oral tablet (9 sources) Penicillin-class Antibacterial Start: 09-02-2017 End: 02-15-2018 Amoxicillin-Pot Clavulanate 875-125 mg tablet Discontinued 1 {tbl} PO TWICE A DAY 20 0 September 02, 2017 1:00am February 15, 2018 4:01pm Acute sinusitis, unspecified sinus infection Start: 09-02-2017 End: 02-15-2018 take 1 tablet by mouth twice daily Amoxicillin-Pot Clavulanate Discontinued 1 TABLET PO TWICE A DAY September 02, 2017 12:00am February 15, 2018 3:01pm aspirin 81 mg delayed release oral tablet (6 sources) Nonsteroidal Anti-inflammatory Drug Start: 05-24-2017 take 1 tablet by mouth once daily ASPIRIN EC 81 MG TBEC One tablet by mouth daily ASPIRIN [id number] Aliyah Dominguez RN ciprofloxacin 500 mg oral tablet (9 sources) Quinolone Antimicrobial Start: 07-07-2021 End: 11-01-2021 take 1 tablet by mouth twice daily Ciprofloxacin Hcl (Cipro) 500 mg tablet Discontinued 500 mg PO TWICE A DAY July 07, 2021 1:00am November 01, 2021 10:47am clopidogrel 75 mg oral tablet (13 sources) [id number] Platelet Inhibitor Start: 07-27-2017 End: 09-02-2017 take 1 tablet by mouth once daily Clopidogrel 75 MG tablet Discontinued 75 mg PO DAILY July 27, 2017 1:00am September 02, 2017 12:13pm Start: 07-18-2017 take 1 tablet by estela th once daily PLAVIX 75 MG TABS One tablet by mouth daily CLOPIDOGREL BISULFATE [id number] Moshe Bryant MD 24 hr dilTIAZem hydrochloride 120 mg extended release oral capsule (20 sources) Calcium Channel Mayela Start: 07-27-2017 End: 10-18-2019 take 1 capsule by mouth once daily Diltiazem Hcl 120 mg capsule,extended release 24hr Discontinued 120 mg PO DAILY 90 September 20, 2018 5:06pm October 18, 2019 2:54pm Start: 05-30-2017 take 1 tablet by estela th once daily CARDIZEM CD 120 MG [id number] One tablet by mouth daily DILTIAZEM HCL COATED BEADS [id number] Moshe Bryant MD ibuprofen 200 mg oral tablet (15 sources) Nonsteroidal Anti-inflammatory Drug Start: 07-27-2017 End: 03-20-2025 take 1 tablet by mouth every six hours as needed for pain Ibuprofen 200 MG tablet Discontinued 200 mg PO EVERY 6 HOURS NEEDED as needed for Pain July 27, 2017 1:00am March 20, 2025 11:37am Start: 05-30-2017 IBUPROFEN 200 MG TABS as needed IBUPROFEN [id number] Moshe Bryant MD sildenafil 100 mg oral tablet (15 sources) Phosphodiesterase 5 Inhibitor Start: 07-27-2017 End: 09-20-2018 take 1 tablet by mouth once daily as needed Sildenafil 100 MG tablet Discontinued 100 mg PO DAILY as needed for ED July 27, 2017 1:00am September 20, 2018 5:06pm Start: 05-24-2017 take 1 tablet by estela th once daily as needed VIAGRA 100 MG TABS 1 tablet by mouth daily as needed before intercourse SILDENAFIL CITRATE [id number] Aliyah Dominguez RN triamcinolone acetonide 0.055 mg/actuat metered dose nasal spray (20 sources) Corticosteroid Start: 04-18-2019 End: 11-01-2021 Triamcinolone Acetonide 55 mcg aerosol,spray Discontinued 1 NMA INTRANASAL DAILY as needed for Congestion April 18, 2019 1:46pm November 01, 2021 10:48am Start: 07-27-2017 End: 04-18-2019 Triamcinolone Acetonide 1 SP RAY aerosol,spray Discontinued 1 NMA NS DAILY July 27, 2017 1:00am April 18, 2019 1:46pm Start: 07-27-2017 End: 11-01-2021 Triamcinolone Acetonide Disc ontinued 1 SPRAY INTRANASAL DAILY April 18, 2019 12:46pm November 01, 2021 9:48am Start: 05-30-2017 NASACORT ALLER GY 24HR 55 MCG/ACT AERO prn TRIAMCINOLONE ACETONIDE [id number] Moshe Bryant MD Problems Active Problems Problem Classification Problem Date Documented Da te Episodic/Chronic Abdominal hernia (7 sources) Left inguinal hernia ; Translations: [Unilateral inguinal hernia, without obstruction or gangrene, not specified as recurrent] Onset: 5 02-10-2025 Episodic Asthma (15 sources) Asthma; Translations: [Unspecified asthma, uncomplicated] Onset: 7 05-24-2017 Chronic Cardiac dysrhythmias (3 sources) Wide QRS ventricular tachycardia; Translations: [Ventricular tachycardia] Onset: 5 Chronic Cardiac dysrhythmias (13 sources) Palpitations; Translations: [Tachycardia] Onset: 7 05-30-2017 Episodic Disorders of lipid metabolism (16 sources) Hyperlipidemia; Translations: [Hyperlipidemia, unspecified] Onset: 7 05-24-2017 Chronic Diverticulosis and diverticulitis (9 sources) Diverticulosis of colon; Translations: [Diverticulosis of large intestine without perforation or abscess without bleeding] Chronic Essential hypertension (20 sources) Hypertensive disorder; Translations: [Essential (primary) hypertension] Onset: 7 05-24-2017 Chronic Fracture of lower limb (9 sources) Closed fracture of medial malleolus; Translations: [Nondisplaced fracture of medial malleolus of right tibia, subsequent encounter for closed fracture with routine healing] Episodic Nonspecific chest pain (8 sources) Chest pain; Translations: [Chest pain, unspecified] Onset: 7 05-30-2017 Episodic Osteoarthritis (2 sources) Arthritis; Translations: [Unspecified osteoarthritis, unspecified site] 03-20-2025 Chronic Other and unspecified benign neoplasm (8 sources) Tubular adenoma of colon; Translations: [Benign neoplasm of colon, unspecified] 02-03-2022 Episodic Other and unspecified benign neoplasm (1 source) Benign neoplasm of colon, unspecified; Translations: [Benign neoplasm of colon] Episodic Other gastrointestinal disorders (9 sources) Stool DNA-based colorectal cancer screening positive; Translations: [Other fecal abnormalities] 11-01-2021 Episodic Other gastrointestinal disorders (1 source) Other fecal abnormalities; Translations: [Abnormal feces] Episodic Other screening for suspected conditions (not mental disorders or infectious disease) (5 sources) Electrocardiogram abnormal; Translations: [Abnormal electrocardiogram [ECG] [EKG]] Onset: 5 02-20-2025 Episodic Sprains and strains (9 sources) Strain of tendon of foot and ankle; Translations: [Strain of unspecified muscle and tendon at ankle and foot level, right foot, initial encounter] Episodic Past or Other Problems Problem Classification Problem Date Documented Da te Episodic/Chronic Conditions associated with dizziness or vertigo (6 sources) Dizziness and giddiness; Translations: [Dizziness and giddiness] Onset: 05-30-2017 05-30-2017 Episodic Other lower respiratory disease (6 sources) Dyspnea; Translations: [Shortness of breath] Onset: 05-24-2017 05-24-2017 Episodic Unclassified (8 sources) history of elbow pin 03-16-2022 Comment on above: CHILD Results Test Name Value Interpretation Reference Range Facility Cardiology Visit Reporton Cardiology Visit Report [facility] [address] [place] [address] OFFICE VISIT Date of Service: 04/02/25 MR#: [id number] Acct: [id number] Name: YAYA BETANCOURT Rep #: [id number] : 1955 Provider: Dr. West Abbott MD Age/Sex: 69/M Location[place] [facility] Status: Signed HPI HPI History of Present Illness Details: 69-year-old man who is here for preoperative cardiac evaluation for hernia surgery. He is a gentleman who was seen by us in 2017 at that time with chest discomfort and underwent a cardiac catheterization which demonstrated no evidence of obstructive coronary disease. He at that time was noted to have a stress echo with inducible ischemia. Since then he tells me that he has done well denying any chest pain or shortness of breath or paroxysmal nocturnal dyspnea or pedal edema he has had no neck arm or jaw discomfort suggest angina. He has been compliant with his medications. He had an electrocardiogram done with demonstrated sinus rhythm with premature atrial complexes at a rate of 82 bpm and T wave inversions noted in lead III and aVF and inferior ischemia cannot be completely excluded. This EKG does not appear to be terribly different from an EKG in 2020. It appears that he has not had any interim problems he denies any shortness of breath or paroxysmal nocturnal dyspnea. His physical exam today demonstrates clear lung brunner regular rate and rhythm with soft 2/6 systolic murmur noted left sternal border and no pedal edema his electrocardiogram demonstrates sinus rhythm with a rate of 98 bpm and occasional premature ventricular complexes noted. Intake Vital Signs 02/10/25 13:15 04/02/25 11:02 Height 5 ft 9 in 5 ft 9 in Weight: 178 lb BMI 26.2 BP 147/75 H Blood Pressure Location Lt brachial Position Sitting Respiration 16 Pulse 98 Pulse Source Monitor Intake Visit Reasons: ABN EKG/SURG CL (CALABRETTA Extension Service Supervisor Required: No Accompanied by: Self Is patient in pain?: No Allergies shellfish derived Adverse Reaction (Intermediate, Verified 04/02/25 11:06) vomiting Medications ???Medication ???Instructions ???Recorded ???Confirmed ???Type albuterol sulfate 90 mcg/actuation 1 puff IH Q4H PRN PRN Sob /Or 1 09/27/16 04/02/25 History aerosol inhaler Wheezing lisinopril 5 mg tablet 5 mg PO DAILY 07/27/17 04/02/25 Hi story rosuvastatin 10 mg tablet 10 mg PO QHS 07/27/17 04/02/25 His tory fluticasone propionate 50 1 spray intranasal PRN PRN 2 04/02/25 History mcg/actuation nasal ALLERGIES spray,suspension (Flonase Allergy Relief) diltiazem HCl 240 mg 240 mg PO DAILY #90 caps 04/02/25 04/02/25 Rx capsule,extended release 24 hr Have you fallen in the past year?: No PFSH Medical History Abnormal EKG Arthritis Asthma Chest pain Colonic diverticular disease Hyperlipidemia Hypertension Left inguinal hernia Preop cardiovascular exam Tubular adenoma of colon Wide-complex tachycardia Surgical History H/O hernia repair History of left heart catheterization (07/28/17) Hx of transurethral resection of prostate Family History Father , age 80+ in his sleep, assumed cardiac CAD (coronary artery disease) Social History Smoking Status: Never smoker alcohol intake: current ROS Const Const: Negative for fatigue, weakness, headache(s), daytime sleepiness or difficulty sleeping ENT ENT: Negative for headache(s), dizziness or Nosebleed/epistaxis Cardio Chest Pain: No Palpitations: No Edema: None Resp Respiratory: Negative for SOB with activity, SOB at rest, SOB orthopnea SOB lying down or Cough GI GI: Negative nausea, vomiting or heartburn Neuro Neuro: Negative for dizziness, lightheadedness, near syncope, headache(s) or weakness Endo Endo: Negative for fatigue Supplemental Info Supplemental Information Labs: LDL Cholesterol 76 mg/dL (0-130) HDL Cholesterol 44 mg/dL (40-) Cholesterol 117 mg/dL (<=200) Triglycerides 81 mg/dL (-199) Diagnostics: Electrocardiogram Pulmonary: No Data to Display Past Visits: Cardiology Visit 04/02/25 Assessment and Plan Assessment and Plan (1) Preop cardiovascular exam: Status: Acute Plan: In terms of preoperative cardiovascular evaluation he appears to be fairly stable for hernia surgery. I would recommend that we obtain an echocardiogram and unless there is wall motion abnorma lities or significant reduction in ejection fraction I would recommend that he proceed with the surgery without any other testing. I hav (more content not included)... Normal [facility] ABD Limited w/ Elastographyo n 03-25-2025 ABD Limited w/ Elastography [facility] Imaging Services [address] [place], [place] [address] ABD Limited w/ Elastography MR#: [id number] Acct: [id number] Name: YAYA BETANCOURT Rep #: [id number] : 1955 M 69 From: Jaren calvin MD PCP: SRIDEVI Miller Status: REG CLI Study: ABD Limited w/ Elastography Date of Exam: 01/12 Exam# [id number] Ordering Dr: Inga Arredondo PROCEDURE: ABD LIMITED W/ ELASTOGRAPHY 03/25/2025 REASON FOR EXAM: ASSESS FOR ABNORMALITIES COMPARISON: None FINDINGS: Liver: Diffusely echogenic suggesting fatty infiltration. Hepatomegaly. The liver measures 19.2 cm. Gallbladder: Multiple echogenic gallstones are identified. Small amount of pericholecystic fluid as well as small amount of fluid surrounding the liver. The gallbladder wall is thickened measuring 5 mm. Common bile duct: Normal measuring 5 mm . Pancreas: Visualized portions are unremarkable. The distal body and tail are obscured by bowel gas. Other: Visualized portions of the right kidney are unremarkable. No right upper quadrant ascites. US/ABD Limited w/ Elastography IMPRESSION: Hepatomegaly and diffuse fatty infiltration of the liver. Multiple gallstones. Mild degree of bladder wall thickening with small amount of pericholecystic and Marilyn hepatic fluid. Reading Location: [facility] CC: LITIGATION LEGAL ASSISTANT-C Inga Arredondo Paint Grinder: Signed Normal [facility] MR/PAT.Wanda 02-19-2025 MR/PAT.LILIA [facility] Medical Records Department [address] [place] [address] PAT - Anesthesia 02/19/251917 MR#: [id number] Acct: [id number] Name: YAYA BETANCOURT Rep #: [id number] : 1955 69 From: Abdullahi Balderas MD PCP: Inga Arredondo, LITIGATION LEGAL ASSISTANT-C Status:PRE SD Y Race: C Location: [facility] [place] Pre-Assessment Diagnosis/Proposed Procedure Planned Operative Procedure(s): LAP ROBOTIC LEFT INGUINAL HERNIA REPAIR Anesthesia History Anesthesia History - in store marketer: Anesthesia History - in store marketer Hx Hospitalization No 02/12/25 14:02 Any Problems With Anesthesia No 02/12/25 14:02 Cholinesterase deficiency No 02/12/25 14:02 You/Your Family Experience No 02/12/25 14:02 fever (hyperthermia) with Relationship Recent Exposure to Contagious No 01/20/22 05:59 Disease Does patient have nerve No 02/12/25 14:02 stimulator Patient instructed to have device shut off --Does patient have Pacemaker or ICD? When Was Last Pacemaker Check QUESTION #4 FULL TEXT: You/Your Family Experience fever (hyperthermia) with Anesthesia Last Oral Intake Last Oral intake: Last Oral Intake NPO since Meds taken in AM with sips of water? Meds patient instructed to take am of surgery PONV PONV - in store marketer: PONV - in store marketer Female No 02/12/25 14:02 HX of Motion Sickness No 02/12/25 14:02 HX of N/V After Surgery No 02/12/25 14:02 Non-Smoker Yes 02/12/25 14:02 Duration of Surgery greater Yes 02/12/25 14:02 than 60 minutes Number of Risk Factors 2 02/12/25 14:02 PONV Score Moderate Risk 02/12/25 14:02 Height Weight Height Weight: Anesthesia: Height Weight Height 5 ft 9 in 02/10/25 13:15 Respiratory Assessment Respiratory Assessment - in store marketer: Respiratory Tract Infection Hx - in store marketer Hx Respiratory Tract Infection No 02/12/25 14:02 STOP Sleep Apnea STOP Sleep Apnea - in store marketer: STOP Sleep Apnea - in store marketer Hx Hypertension Yes: CONTROLLED WITH MED 02/12/25 14:02 Hx Sleep Apnea No 02/12/25 14:02 CPAP BIPAP Do you snore loudly (louder No 02/12/25 14:02 than talking or can be heard Do you often feel tired/ No 02/12/25 14:02 fatigued/ sleepy during daytime? Has anyone observed you stop No 02/12/25 14:02 breathing during sleep? STOP Results Negative 02/12/25 14:02 QUESTION #5 FULL TEXT : Do you snore loudly (louder than talking or can be heard through closed doors)? Tobacco Use History Tobacco Use History - in store marketer: Tobacco Use History - in store marketer Tobacco Use Smoking Status Never smoker 02/12/25 14:02 Hx Tobacco Use No 02/12/25 14:02 Years Smoking Packs Smoked per Day Smoking Cessation Date was within the last 15 years Hx Smoking Cessation Date Hx Smoking Cessation Counseling Hematologic Medial History Hematologic Hx - in store marketer: Hematologic Medical Hx - internet researcher Hx of Blood Transfusion No 02/12/25 14:02 Hx of Transfusion in last 3 No 02/12/25 14:02 Months Date of Last Transfusion (if within last 3 months) Ever experience any problems No 02/12/25 14:02 with transfusion(s)? Specify any problems Hx of Preganancy in last 3 N/A 02/12/25 14:02 Months Nurse Filling Out Transfusion DSCHRIBER 02/12/25 14:02 Questions: Date: 02/12/25 02/12/25 14:02 Time: 14:03 02/12/25 14:02 Patient unable to answer at this time (ie. confused, unrespo /Reproduction History /Reproductive History - in store marketer: /Reproductive Hx- in store marketer Hx Now No 02/12/25 14:02 Gestational Age (in weeks): EDC: Hx Hx Para Hx Section SAB No 02/12/25 14:02 [facility] Medical History (Updated 02/12/25 @ 14:08 by Kaya Mesa) Arthritis Wears glasses Wears dentures Alcohol use High cholesterol Non-smoker Asthma Hypertension History of echocardiogram Cardiology follow-up encounter Hx of sinus tachycardia history of elbow pin Home Medications ???Medication ???Instructions ???Recorded ???Last Taken ???Type albuterol sulfate 90 mcg/actuation 1 puff IH Q4H PRN PRN Sob /Or 1 09/27/16 Unknown History aerosol inhaler Wheezing ibuprofen 200 mg tablet 200 mg PO Q6H PRN PRN Pain 7 Unknown History lisinopril 5 mg tablet 5 mg PO DAILY 07/27/17 01/20/22 Hi story rosuvastatin 10 mg tablet 10 mg PO QHS 07/27/17 Unknown Hist ory diltiazem HCl 120 mg 120 mg PO DAILY #90 caps 10/18/19 01/20/22 Rx capsule,extended release 24 hr fluticasone propionate 50 1 spray intranasal PRN PRN 2 Unknown History mcg/actuation nasal ALLERGIES (more content not included)... Normal [facility] 12 Lead EKGon 02-18-2025 12 Lead EKG [facility] Cardiovascular Services [address] [place] [address] 12 Lead EKG 02/18/25 0831 MR#: [id number] Acct: [id number] Name: YAYA BETANCOURT Rep #: [id number] : 1955 69 From: West Abbott MD Attending Dr: Dr. James Rawls MD Status: PRE [facility] Ordering Dr: Royer Parsons MD Date: 02/18/25 Location: [facility] Sex: M C Admitted: Test Reason : PREOP Blood Pressure : */* mmHG Vent. Rate : 82 BPM Atrial Rate : 82 BPM P-R Int : 144 ms QRS Dur : 78 ms QT Int : 396 ms P-R-T Axes : 50 51 -2 degrees QTcB Int : 462 ms Sinus rhythm with Premature atrial complexes ST T wave abnormality, consider inferior ischemia Abnormal ECG Confirmed by WEST ABBOTT MD ([id number]), editor news GENNY SIDDIQUI ([id number]) on 02/18/2025 1:31:08 PM Referred By: James Rawls Confirmed By: WEST ABBOTT MD 02/18/25 1331 Date West Abbott MD CC: SRIDEVI Arredondo; Dr. James Rawls MD; Dr. Royer Parsons MD Signed Normal [facility] Comprehensive Metabolic Prof ilon 02-18-2025 Albumin [Mass/Vol] 3.5 g/dL Normal 3.4-4.8 [facility] Comment on above: Performed By: #### L 300.3900, L500.4050, L300.4310 #### [facility] [address] [place], [address] Albumin/Globulin [Mass ratio] 0.7 {ratio} Low 0.9-2.4 [facility] Comment on above: Performed By: #### L 300.3900, L500.4050, L300.4310 #### [facility] [address] [place], [address] ALK PHOS 451 U/L High 40-129 [facility] Comment on above: Performed By: #### L 300.3900, L500.4050, L300.4310 #### [facility] [address] [place], [address] ALT [Catalytic activity/Vol] 24 U/L Normal <=46 [facility] Comment on above: Performed By: #### L 300.3900, L500.4050, L300.4310 #### [facility] [address] [place], [address] AST [Catalytic activity/Vol] 116 U/L High <=37 [facility] Comment on above: Performed By: #### L 300.3900, L500.4050, L300.4310 #### [facility] [address] [place], [address] Bilirubin [Mass/Vol] 4.27 mg/dL High 0.00-1.30 [facility] Comment on above: Performed By: #### L 300.3900, L500.4050, L300.4310 #### [facility] [address] [place], [address] BUN/CRE 6.4 RATIO Low 10-20 [facility] Comment on above: Performed By: #### L 300.3900, L500.4050, L300.4310 #### [facility] [address] [place], [address] Calcium [Mass/Vol] 9.4 mg/dL Normal 7.6-11.0 [facility] Comment on above: Performed By: #### L 300.3900, L500.4050, L300.4310 #### [facility] [address] [place], [address] Chloride [Moles/Vol] 90 mmol/L Low 98-108 [facility] Comment on above: Performed By: #### L 300.3900, L500.4050, L300.4310 #### [facility] [address] [place], [address] CO2 [Moles/Vol] 22.0 mmol/L Normal 21.0-32.0 [facility] Comment on above: Performed By: #### L 300.3900, L500.4050, L300.4310 #### [facility] [address] [place], [address] Creatinine [Mass/Vol] 0.92 mg/dL Normal 0.70-1.20 [facility] Comment on above: Performed By: #### L 300.3900, L500.4050, L300.4310 #### [facility] [address] [place], [address] GAP 13 Normal 5-15 [facility] Comment on above: Performed By: #### L 300.3900, L500.4050, L300.4310 #### [facility] [address] [place], [address] GFR/1.73 sq M.predicted among non-blacks MDRD (S/P/Bld) [Vol rate/Area] 90 mL/min/{1.73_m2} Normal >60 [facility] Comment on above: Result Comment: mL/m in/1.73m2 CKD-EPI Creatinine Equation (2020) Performed By: #### L 300.3900, L500.4050, L300.4310 #### [facility] [address] [place], [address] Globulin (S) [Mass/Vol] 4.8 g/dL High 2.2-4.2 [facility] Comment on above: Performed By: #### L 300.3900, L500.4050, L300.4310 #### [facility] [address] [place], [address] Glucose [Mass/Vol] 104 mg/dL High 70-99 [facility] Comment on above: Performed By: #### L 300.3900, L500.4050, L300.4310 #### [facility] [address] [place], [address] Potassium [Moles/Vol] 4.2 mmol/L Normal 3.3-5.1 [facility] Comment on above: Performed By: #### L 300.3900, L500.4050, L300.4310 #### [facility] [address] [place], [address] Sodium [Moles/Vol] 125 mmol/L Low 133-145 [facility] Comment on above: Performed By: #### L 300.3900, L500.4050, L300.4310 #### [facility] [address] [place], [address] T PROT 8.3 g/dL Normal 5.9-8.4 [facility] Comment on above: Performed By: #### L 300.3900, L500.4050, L300.4310 #### [facility] [address] [place], [address] Urea nitrogen [Mass/Vol] 6 mg/dL Normal 4-19 [facility] Comment on above: Performed By: #### L 300.3900, L500.4050, L300.4310 #### [facility] [address] [place], [address] Partial Thromboplast Timeon 02-18-2025 aPTT Coag (Bld) [Time] 37.3 s High 24.1-36.2 [facility] Comment on above: Performed By: #### L 300.3900, L500.4050, L300.4310 #### [facility] [address] [place], [address] Prothrombin Time w/INRon INR Coag (PPP) [Relative time] 1.3 {INR} Normal [facility] Comment on above: Performed By: #### L 300.3900, L500.4050, L300.4310 #### [facility] [address] [place], [address] PT Coag (PPP) [Time] 16.9 s High 11.7-14.9 [facility] Comment on above: Performed By: #### L 300.3900, L500.4050, L300.4310 #### [facility] [address] [place], [address] Surgery Visit Reporton 02-10 Surgery Visit Report [facility] [address] [place] [address] OFFICE VISIT Date of Service: 02/10/25 MR#: [id number] Acct: [id number] Name: YAYA BETANCOURT Rep #: [id number] : [id number] Provider: Dr. James alonso MD Age/Sex: 69/M Location: [facility] Status: Signed Intake Vital Signs 02/03/22 07:53 02/10/25 13:15 Height 5 ft 9 in 5 ft 9 in Weight: 183 lb BMI 27.0 BP 108/69 Blood Pressure Location Rt brachial Position Sitting Respiration 17 Pulse 88 Pulse Source Monitor Temp 97.4 F L Temp Source Temporal Pulse Oximetry (%) 96 Oxygen Delivery Method room air Intake Visit Reasons: INGUINAL HERNIA Chief Complaint: inguinal hernia Is patient in pain?: No Allergies shellfish derived Adverse Reaction (Intermediate, Verified 02/10/25 13:16) vomiting Medications ???Medication ???Instructions ???Recorded ???Confirmed ???Type albuterol sulfate 90 mcg/actuation 1 puff IH Q4H PRN PRN Sob /Or 1 09/27/16 02/10/25 History aerosol inhaler Wheezing ibuprofen 200 mg tablet 200 mg PO Q6H PRN PRN Pain 7 02/10/25 History lisinopril 5 mg tablet 5 mg PO DAILY 07/27/17 02/10/25 Hi story rosuvastatin 10 mg tablet 10 mg PO DAILY 07/27/17 02/10/25 H istory diltiazem HCl 120 mg 120 mg PO DAILY #90 caps 10/18/19 02/10/25 Rx capsule,extended release 24 hr fluticasone propionate 50 1 spray intranasal PRN PRN 2 02/10/25 History mcg/actuation nasal ALLERGIES spray,suspension (Flonase Allergy Relief) Have you fallen in the past year?: No PFSH Medical History (Updated 02/10/25 @ 13:14 by Maribel Kumar) Wears glasses Wears dentures Alcohol use High cholesterol Leg cramps Non-smoker Asthma Hypertension History of echocardiogram Cardiology follow-up encounter Hx of sinus tachycardia Asthma Hyperlipidemia Hypertension Hay fever Hypertension history of elbow pin Surgical History Hx of transurethral resection of prostate Hx of colonoscopy History of left heart catheterization (07/28/17) H/O hernia repair Family History Father , age 80+ in his sleep, assumed cardiac CAD (coronary artery disease) Social History Smoking Status: Never smoker alcohol intake: never HPI HPI HPI: Patient is a 69-year-old male here with left inguinal hernia. He reports has been out for several years. He says that originally it did not hurt but now when he sneezes or coughs it hurts ROS General General: No weight change, appetite, fatigue, colon cancer, breast cancer or weakness HEENT HEENT: No difficulty swallowing, eye injury, eye surgery, swollen glands or hoarseness Endo Endocrine: No thyroid disease, diabetes mellitus, thyroid cancer, Hair loss, heat intolerance or cold intolerance Skin Skin: No rash or changing moles Musc Musculoskeletal: Yes arthritis; No back problems, rheumatoid arthritis, gout or joint pain Cardio Cardiovascular: Yes high blood pressure; No murmur, pacemaker, heart disease, atrial fibrillation, heart attack, heart stent, palpitations, shortness of breath with exertion or chest pain Psych Psychiatric: No depression, anxiety or hearing voices Resp Respiratory: Yes shortness of breath, No sleep apnea, No cough, No COPD, Yes asthma, No emphysema and No wheezing Gastro Gastrointestinal: No abdominal pain, No nausea or vomiting, No diarrhea, No constipation, No blood in stool, No acid reflux, Yes hemorrhoids, No ulcers, No gallbladder problem and No black,tarry stools Regis Hematologic: No blood thinners, No blood disorders, No bleeding, No anemia and No blood clots Neuro Neurologic: No system reviewed and no additional complaints, except as documented, No as per HPI, No abnormal gait, No abnormal hearing, No abnormal movements, No abnormal speech, No behavioral changes, No burning sensations, No confusion, No convulsions, No disequilibrium, No dizziness, No localized weakness, No frequent falls, No headache(s), No lack of coordination, No loss of vision, No memory loss, No numbness, No other visual disturbances, No radicular pain, No restless legs, No sensory deficit, No syncope, No tingling, No tremor(s), No weakness and No other Exam Const General: cooperative Orientation: alert and oriented x3 HENMT Head: normal to inspection Neck Neck: normal visual inspection and full ROM Chest Chest palpation inspection: normal inspection of the chest Resp Effort Inspection: normal respiratory effort Auscultation: clear to auscultation bilaterally Cardio Rate: regular rate Rhythm: regular rhythm GI Inspection: non-distende (more content not included)... Normal [facility] Absolute lymphocyte countOrd ered By: Brookfield Arnulfo on 01-03-2025 Lymphocytes Auto (Unsp spec) [#/Vol] 1.02 10*3/uL 0.83-4.51 [facility] Absolute neutrophil countOrd ered By: [facility] 01-[facility]-2025 Neutrophils (Bld) [#/Vol] 5.8 10*3/uL 2.0-7.7 [facility] Anion gap in Serum or Plasma Ordered By: [facility] on 01-03-2025 Anion gap [Moles/Vol] 12 mmol/L 5-15 [facility] Automated lymphocyte count a s percentage of total leukocytesOrdered By: [facility] on 01-03-2025 Lymphocytes/100 WBC Auto (Unsp spec) 13.3 % Low 19-41 [facility] BUN/creatinine ratioOrdered By: [facility] on 01-03-2025 Urea nitrogen/Creatinine [Mass ratio] 5.6 mg/mg Low 10-20 [facility] Basophil percentageOrdered B y: [facility] on 01-03-2025 Basophils/100 WBC (Bld) 1.2 % High 0-1 [facility] Bilirubin, totalOrdered By: [facility] on 01-03-2025 Bilirubin [Mass/Vol] 2.02 mg/dL High 0.00-1.30 [facility] CBC W/Diff, Automatedon 12-19 Absolute Lymph 1.02 X10 3/uL Normal 0.83-4.51 [facility] Comment on above: Performed By: #### L 501.9910, L500.4050, L500.4100, L100.0100 #### [facility] [address] [place], [address] Absolute Neut 5.8 X10 3/uL Normal 2.0-7.7 [facility] Comment on above: Performed By: #### L 501.9910, L500.4050, L500.4100, L100.0100 #### [facility] [address] [place], [address] Basophils/100 WBC (Bld) 1.2 % High 0-1 [facility] Comment on above: Performed By: #### L 501.9910, L500.4050, L500.4100, L100.0100 #### [facility] [address] [place], [address] Eosinophils/100 WBC (Bld) 1.2 % Normal 0-5 [facility] Comment on above: Performed By: #### L 501.9910, L500.4050, L500.4100, L100.0100 #### [facility] [address] [place], [address] Erythrocyte distribution width (RBC) [Ratio] 15.9 % High 11.6-14.6 [facility] Comment on above: Performed By: #### L 501.9910, L500.4050, L500.4100, L100.0100 #### [facility] [address] [place], [address] Hematocrit (Bld) [Volume fraction] 31.3 % Low 40-54 [facility] Comment on above: Performed By: #### L 501.9910, L500.4050, L500.4100, L100.0100 #### [facility] [address] [place], [address] Hemoglobin (Bld) [Mass/Vol] 10.9 g/dL Low 13.0-16.5 [facility] Comment on above: Performed By: #### L 501.9910, L500.4050, L500.4100, L100.0100 #### [facility] [address] [place], [address] IG% 0.500 Normal 0.0-0.9 [facility] Comment on above: Result Comment: IG% - Immature Granulocytes (promyelocytes, myelocytes and metamyelocytes) > 1% indicates that a LEFT SHIFT is Present. Performed By: #### L 501.9910, L500.4050, L500.4100, L100.0100 #### [facility] [address] [place], [address] Lymphocytes/100 WBC (Bld) 13.3 % Low 19-41 [facility] Comment on above: Performed By: #### L 501.9910, L500.4050, L500.4100, L100.0100 #### [facility] [address] [place], [address] MCH (RBC) [Entitic mass] 34.7 pg High 27.0-32.0 [facility] Comment on above: Performed By: #### L 501.9910, L500.4050, L500.4100, L100.0100 #### [facility] [address] [place], [address] MCHC (RBC) [Mass/Vol] 34.8 g/dL Normal 32-36 [facility] Comment on above: Performed By: #### L 501.9910, L500.4050, L500.4100, L100.0100 #### [facility] [address] [place], [address] MCV (RBC) [Entitic vol] 99.7 fL High 80-94 [facility] Comment on above: Performed By: #### L 501.9910, L500.4050, L500.4100, L100.0100 #### [facility] [address] [place], [address] Monocytes/100 WBC (Bld) 8.9 % Normal 0-10 [facility] Comment on above: Performed By: #### L 501.9910, L500.4050, L500.4100, L100.0100 #### [facility] [address] [place], [address] Neutrophils/100 WBC (Bld) 74.9 % High 47-70 [facility] Comment on above: Performed By: #### L 501.9910, L500.4050, L500.4100, L100.0100 #### [facility] [address] [place], [address] Nucleated RBC (Bld) [#/Vol] 0 10*3/uL Normal 0-5 [facility] Comment on above: Performed By: #### L 501.9910, L500.4050, L500.4100, L100.0100 #### [facility] [address] [place], [address] Platelet mean volume (Bld) [Entitic vol] 11.0 fL Normal 6.2-12.0 [facility] Comment on above: Performed By: #### L 501.9910, L500.4050, L500.4100, L100.0100 #### [facility] [address] [place], [address] Platelets (Bld) [#/Vol] 214 10*3/uL Normal 150-450 [facility] Comment on above: Performed By: #### L 501.9910, L500.4050, L500.4100, L100.0100 #### [facility] [address] [place], [address] RBC (Bld) [#/Vol] 3.14 10*6/uL Low 4.6-6.2 [facility] Comment on above: Performed By: #### L 501.9910, L500.4050, L500.4100, L100.0100 #### [facility] [address] [place], [address] RDW SD 57.5 fl High 35.1-43.9 [facility] Comment on above: Performed By: #### L 501.9910, L500.4050, L500.4100, L100.0100 #### [facility] [address] [place], [address] WBC (Bld) [#/Vol] 7.7 10*3/uL Normal 4.4-11.0 [facility] Comment on above: Performed By: #### L 501.9910, L500.4050, L500.4100, L100.0100 #### [facility] [address] [place], [address] Calculated very low density lipoprotein (VLDL) cholesterol measurementOrdered By: Inga Arredondo on 01-03-2025 Calculated very low density lipoprotein (VLDL) cholesterol measurement 16 mg/dL 5-40 [facility] Carbon dioxide, total [Moles /volume] in Central venous bloodOrdered By: Inga Arredondo on 01-03-2025 CO2 [Moles/Vol] 21.5 mmol/L 21.0-32.0 [facility] Chloride assayOrdered By: Ra kerwin Arredondo on 01-03-2025 Chloride [Moles/Vol] 96 mmol/L Low 98-108 [facility] Comprehensive Metabolic Prof ilon 01-03-2025 Albumin [Mass/Vol] 3.3 g/dL Low 3.4-4.8 [facility] Comment on above: Performed By: #### L 501.9910, L500.4050, L500.4100, L100.0100 #### [facility] [address] [place], [address] Albumin/Globulin [Mass ratio] 0.7 {ratio} Low 0.9-2.4 [facility] Comment on above: Performed By: #### L 501.9910, L500.4050, L500.4100, L100.0100 #### [facility] [address] [place], [address] ALK PHOS 430 U/L High 40-129 [facility] Comment on above: Performed By: #### L 501.9910, L500.4050, L500.4100, L100.0100 #### [facility] [address] [place], [address] ALT [Catalytic activity/Vol] 29 U/L Normal <=46 [facility] Comment on above: Performed By: #### L 501.9910, L500.4050, L500.4100, L100.0100 #### [facility] [address] [place], [address] AST [Catalytic activity/Vol] 119 U/L High <=37 [facility] Comment on above: Performed By: #### L 501.9910, L500.4050, L500.4100, L100.0100 #### [facility] [address] [place], [address] Bilirubin [Mass/Vol] 2.02 mg/dL High 0.00-1.30 [facility] Comment on above: Performed By: #### L 501.9910, L500.4050, L500.4100, L100.0100 #### [facility] [address] [place], [address] BUN/CRE 5.6 RATIO Low 10-20 [facility] Comment on above: Performed By: #### L 501.9910, L500.4050, L500.4100, L100.0100 #### [facility] [address] [place], [address] Calcium [Mass/Vol] 9.0 mg/dL Normal 7.6-11.0 [facility] Comment on above: Performed By: #### L 501.9910, L500.4050, L500.4100, L100.0100 #### [facility] [address] [place], [address] Chloride [Moles/Vol] 96 mmol/L Low 98-108 [facility] Comment on above: Performed By: #### L 501.9910, L500.4050, L500.4100, L100.0100 #### [facility] [address] [place], [address] CO2 [Moles/Vol] 21.5 mmol/L Normal 21.0-32.0 [facility] Comment on above: Performed By: #### L 501.9910, L500.4050, L500.4100, L100.0100 #### [facility] [address] [place], [address] Creatinine [Mass/Vol] 0.77 mg/dL Normal 0.70-1.20 [facility] Comment on above: Performed By: #### L 501.9910, L500.4050, L500.4100, L100.0100 #### [facility] [address] [place], [address] GAP 12 Normal 5-15 [facility] Comment on above: Performed By: #### L 501.9910, L500.4050, L500.4100, L100.0100 #### [facility] [address] [place], [address] GFR/1.73 sq M.predicted among non-blacks MDRD (S/P/Bld) [Vol rate/Area] 98 mL/min/{1.73_m2} Normal >60 [facility] Comment on above: Result Comment: mL/m in/1.73m2 CKD-EPI Creatinine Equation (2020) Performed By: #### L 501.9910, L500.4050, L500.4100, L100.0100 #### [facility] [address] [place], [address] Globulin (S) [Mass/Vol] 4.9 g/dL High 2.2-4.2 [facility] Comment on above: Performed By: #### L 501.9910, L500.4050, L500.4100, L100.0100 #### [facility] [address] [place], [address] Glucose [Mass/Vol] 98 mg/dL Normal 70-99 [facility] Comment on above: Performed By: #### L 501.9910, L500.4050, L500.4100, L100.0100 #### [facility] [address] [place], [address] Potassium [Moles/Vol] 4.2 mmol/L Normal 3.3-5.1 [facility] Comment on above: Performed By: #### L 501.9910, L500.4050, L500.4100, L100.0100 #### [facility] [address] [place], [address] Sodium [Moles/Vol] 129 mmol/L Low 133-145 [facility] Comment on above: Performed By: #### L 501.9910, L500.4050, L500.4100, L100.0100 #### [facility] [address] [place], [address] T PROT 8.2 g/dL Normal 5.9-8.4 [facility] Comment on above: Performed By: #### L 501.9910, L500.4050, L500.4100, L100.0100 #### [facility] [address] [place], [address] Urea nitrogen [Mass/Vol] 4 mg/dL Normal 4-19 [facility] Comment on above: Performed By: #### L 501.9910, L500.4050, L500.4100, L100.0100 #### [facility] [address] [place], [address] Eosinophil percentageOrdered By: Inga Arredondo on 01-03-2025 Eosinophils/100 WBC (Bld) 1.2 % 0-5 [facility] Erythrocyte distribution wid th ratioOrdered By: Inga Arredondo on 01-03-2025 Erythrocyte distribution width (RBC) [Ratio] 15.9 % High 11.6-14.6 [facility] Erythrocyte distribution wid th standard deviationOrdered By: Inga Arredondo on 01-03-2025 Erythrocyte distribution width (RBC) [Ratio] 57.5 fl High 35.1-43.9 [facility] Glomerular filtration rate ( GFR) estimation/1.73 sq m using serum, plasma, or whole bOrdered By: Inga Arredondo on 01-03-2025 GFR/1.73 sq M.predicted among non-blacks MDRD (S/P/Bld) [Vol rate/Area] 98 mL/min/{1.73_m2} >60 [facility] Comment on above: mL/min/1.73m2 CKD-EP I Creatinine Equation (2020) Hematocrit Auto (Bld) [Volum e fraction]Ordered By: Inga Arredondo on 01-03-2025 Hematocrit (Bld) [Volume fraction] 31.3 % Low 40-54 [facility] Hemoglobin measurementOrdere d By: Ingasharad Arredondo on 01-03-2025 Hemoglobin (Bld) [Mass/Vol] 10.9 g/dL Low 13.0-16.5 [facility] Immature granulocytes/100 WB C Auto (Bld)Ordered By: Inga Arredondo on 01-03-2025 Immature granulocytes/100 WBC (Bld) 0.500 % 0.0-0.9 [facility] Comment on above: IG% - Immature Granu locytes (promyelocytes, myelocytes and metamyelocytes) > 1% indicates that a LEFT SHIFT is Present. LDL calc ser/plasOrdered By: Ingasharad Arredondo on 01-03-2025 Cholesterol in LDL [Mass/Vol] 57 mg/dL [facility] Comment on above: Dyhcqppary=131-948 m g/dL & Higher Ktkp=699 mg/dL or greater Laboratory - Chemistry and C hemistry - challengeOrdered By: Inga Arredondo on 01-03-2025 AST [Catalytic activity/Vol] 119 U/L High <38 [facility] Lipid Profileon 01-03-2025 CHOL:HDL 2.69 Normal [facility] Comment on above: Performed By: #### L 501.9910, L500.4050, L500.4100, L100.0100 #### [facility] [address] [place], [address] Cholesterol [Mass/Vol] 117 mg/dL Normal <=200 [facility] Comment on above: Result Comment: Chol esterol level, Desirable <200 mg/dL Borderline high cholesterol 200-239 mg/dL High cholesterol >=240 mg/dL Recommendations of the NCEP Adult Treatment Panel for the following risk-cutoff thresholds for the [place] population. Performed By: #### L 501.9910, L500.4050, L500.4100, L100.0100 #### [facility] [address] [place], [address] Cholesterol in HDL [Mass/Vol] 44 mg/dL Normal [facility] Comment on above: Result Comment: Lynette onal Cholesterol Education Program (NCEP) guidelines: <40 mg/dL: Low HDL-cholesterol (major risk factor for CHD) >= 60 mg/dL: High HDL-cholesterol (negative risk factor for CHD) HDL-cholesterol is affected by a number of factors, e.g. smoking, exercise, hormones, sex and age. Performed By: #### L 501.9910, L500.4050, L500.4100, L100.0100 #### [facility] [address] [place], [address] Cholesterol in LDL [Mass/Vol] 57 mg/dL Normal [facility] Comment on above: Result Comment: Bord tyuoro=503-825 mg/dL Higher Yhqk=742 mg/dL or greater Performed By: #### L 501.9910, L500.4050, L500.4100, L100.0100 #### [facility] [address] [place], [address] Cholesterol in VLDL [Mass/Vol] 16 mg/dL Normal 5-40 [facility] Comment on above: Performed By: #### L 501.9910, L500.4050, L500.4100, L100.0100 #### [facility] [address] [place], [address] Triglyceride [Mass/Vol] 81 mg/dL Normal [facility] Comment on above: Result Comment: The drugs N-Acetylcysteine and Metamizole may falsely depress this assay. Normal range: <150 mg/dL Borderline High: 150-199 mg/dL High: 200-499 mg/dL Very High: >500 mg/dL Performed By: #### L 501.9910, L500.4050, L500.4100, L100.0100 #### [facility] [address] [place], [address] MCV (mean corpuscular volume ) determinationOrdered By: Inga Arredondo on 01-03-2025 MCV (RBC) [Entitic vol] 99.7 fL High 80-94 [facility] Mean corpuscular hemoglobin (MCH) determinationOrdered By: Inga Arredondo on 01-03-2025 MCH (RBC) [Entitic mass] 34.7 pg High 27.0-32.0 [facility] Mean corpuscular hemoglobin concentration (MCHC) determinationOrdered By: Inga Arredondo on 01-03-2025 MCHC (RBC) [Mass/Vol] 34.8 g/dL 32-36 [facility] Mean platelet volume determi nationOrdered By: Inga Arredondo on 01-03-2025 Platelet mean volume (Bld) [Entitic vol] 11.0 fL 6.2-12.0 [facility] Monocyte percentageOrdered B y: Inga Arredondo on 01-03-2025 Monocytes/100 WBC (Bld) 8.9 % 0-10 [facility] Neutrophil percentageOrdered By: Inga Arredondo on 01-03-2025 Neutrophils/100 WBC (Bld) 74.9 % High 47-70 [facility] Nucleated red blood cell per centageOrdered By: Inga Arredondo on 01-03-2025 Nucleated RBC/100 WBC (Bld) [Ratio] 0 % 0-5 [facility] PSA,Total - Annual Screenon 01-03-2025 PSA,TOT SCREEN 0.41 ng/mL Normal 0.02-4.00 [facility] Comment on above: Result Comment: This test was performed using the [employer] tPSA method. Measured values of a patient??sample can vary depending on the testing procedure used. PSA values determined on patient samples by different testing procedures cannot be used interchangeably. If there is a change in PSA assays while monitoring therapy, sequential testing should be performed to confirm baseline values. Performed By: #### L 501.9910, L500.4050, L500.4100, L100.0100 ####[facility] [id number] [place], [address] Platelet countOrdered By: Ra kerwin Arredondo on 01-03-2025 Platelets (Bld) [#/Vol] 214 10*3/uL 150-450 [facility] Potassium measurement (mass/ volume)Ordered By: Inga Arredondo on 01-03-2025 Potassium (Unsp spec) [Mass/Vol] 4.2 mmol/L 3.3-5.1 [facility] RBC Auto (Bld) [#/Vol]Ordere d By: Inga Arredondo on 01-03-2025 RBC (Bld) [#/Vol] 3.14 10*6/uL Low 4.6-6.2 [facility] Screening total cholesterol/ high density lipoprotein (HDL) cholesterol ratioOrdered By: Inga Arredondo on 01-03-2025 Cholesterol.total/Noni sterol in HDL [Mass ratio] 2.69 {ratio} [facility] Serum creatinine measurement (mass/volume)Ordered By: Inga Arredondo on 01-03-2025 Creatinine [Mass/Vol] 0.77 mg/dL 0.70-1.20 [facility] Serum globulin measurementOr dered By: Inga Arredondo on 01-03-2025 Globulin (S) [Mass/Vol] 4.9 g/dL High 2.2-4.2 [facility] Serum glucose measurement (m ass/volume)Ordered By: Inga Arredondo on 01-03-2025 Glucose [Mass/Vol] 98 mg/dL 70-99 [facility] Serum or plasma alanine crowley otransferase (ALT) measurementOrdered By: Inga Arredondo on 01-03-2025 ALT [Catalytic activity/Vol] 29 U/L <47 [facility] Serum or plasma albumin oswald urement (mass/volume)Ordered By: Inga Arredondo on 01-03-2025 Albumin [Mass/Vol] 3.3 g/dL Low 3.4-4.8 [facility] Serum or plasma albumin/glob ulin mass ratioOrdered By: Ingasharad Arredondo on 01-03-2025 Albumin/Globulin [Mass ratio] 0.7 {ratio} Low 0.9-2.4 [facility] Serum or plasma alkaline daniel sphatase measurementOrdered By: Ingasharad Arredondo 01-03-2025 ALP [Catalytic activity/Vol] 430 U/L High 40-129 [facility] Serum or plasma calcium oswald urement (mass/volume)Ordered By: Inga Arredondo 01-03-2025 Calcium [Mass/Vol] 9.0 mg/dL 7.6-11.0 [facility] Serum or plasma cholesterol in HDL measurement (mass/volume)Ordered By: Ingasharad Arredondo 01-03-2025 Cholesterol in HDL [Mass/Vol] 44 mg/dL >40 [facility] Comment on above: National Cholesterol Education Program (NCEP) guidelines:<40 mg/dL: Low HDL-cholesterol (major risk factor for CHD)>= 60 mg/dL: High HDL-cholesterol (negative risk factor for CHD)HDL-cholesterol is affected by a number of factors, e.g. smoking, exercise, hormones, sex and age. Serum or plasma cholesterol measurement (mass/volume)Ordered By: Inga Arredondo on 01-03-2025 Cholesterol [Mass/Vol] 117 mg/dL <201 [facility] Comment on above: Cholesterol level, D esirable <200 mg/dLBorderline high cholesterol 200-239 mg/dLHigh cholesterol >=240 mg/dLRecommendations of the NCEP Adult Treatment Panel for the following risk-cutoff thresholds for the [place] population. Serum or plasma urea nitroge n measurement (mass/volume)Ordered By: Inga Arredondo on 01-03-2025 Urea nitrogen [Mass/Vol] 4 mg/dL 4-19 [facility] Sodium levelOrdered By: Suni Arredondo on 01-03-2025 Sodium [Moles/Vol] 129 mmol/L Low 133-145 [facility] Total proteinOrdered By: Tam Arredondo on 01-03-2025 Protein [Mass/Vol] 8.2 g/dL 5.9-8.4 [facility] Triglycerides measurementOrd ered By: Inga Arredondo on 01-03-2025 Triglyceride [Mass/Vol] 81 mg/dL <199 [facility] Comment on above: The drugs N-Acetylcy steine and Metamizole may falsely depress this assay. Normal range: <150 mg/dLBorderline High: 150-199 mg/dLHigh: 200-499 mg/dLVery High: >500 mg/dL White blood cell (WBC) count Ordered By: Inga Hernandezgar on 01-03-2025 WBC (Bld) [#/Vol] 7.7 10*3/uL 4.4-11.0 [facility] Absolute lymphocyte countOrd ered By: Inga Hernandezgar on 06-28-2023 Lymphocytes Auto (Unsp spec) [#/Vol] 0.91 10*3/uL 0.83-4.51 [facility] Basophil percentageOrdered B y: Inga Arredondo on 06-28-2023 Basophils/100 WBC (Bld) 0.9 % 0-1 [facility] Bilirubin [Mass/Vol] 2.00 mg/dL 0.20-1.00 [facility] Comment on above: For patients on eltr ombopag therapy, use of Dimension [place] TBIL is not recommended. Chloride [Moles/Vol] 102 mmol/L 98-107 [facility] Cholesterol [Mass/Vol] 136 mg/dL <200 [facility] Comment on above: <200 mg/dL Desirable 200-240 mg/dL Borderline >240 mg/dL High Risk Eosinophils/100 WBC (Bld) 1.4 % 0-5 [facility] Glucose [Mass/Vol] 97 mg/dL 74-106 [facility] Neutrophils (Bld) [#/Vol] 4.3 10*3/uL 2.0-7.7 [facility] Neutrophils/100 WBC (Bld) 75.2 % 47-70 [facility] Potassium [Moles/Vol] 4.2 mmol/L 3.5-5.1 [facility] Protein [Mass/Vol] 8.1 g/dL 6.4-8.2 [facility] Sodium [Moles/Vol] 136 mmol/L 136-145 [facility] Triglyceride [Mass/Vol] 97 mg/dL <199 [facility] Comment on above: The drugs N-Acetylcy steine and Metamizole may falsely depress this assay.Serum Triglycerides Reference Interval Normal <150 mg/dL Borderline high 150 - 199 mg/dL High 200 - 499 mg/dL Very High > or = 500 mg/dL WBC (Bld) [#/Vol] 5.8 10*3/uL 4.4-11.0 [facility] Blood erythrocytes count (nu mber/volume)Ordered By: Inga Arredondo on 06-28-2023 RBC (Bld) [#/Vol] 3.45 10*6/uL 4.6-6.2 [facility] Blood hemoglobin measurement (mass/volume)Ordered By: Inga Arredondo on 06-28-2023 Hemoglobin (Bld) [Mass/Vol] 12.5 g/dL 13.0-16.5 [facility] Blood lymphocytes/100 leukoc ytesOrdered By: Inga Arredondo on 06-28-2023 Lymphocytes/100 WBC (Bld) 15.8 % 19-41 [facility] Blood monocytes/100 leukocyt esOrdered By: Inga Arredondo on 06-28-2023 Monocytes/100 WBC (Bld) 6.4 % 0-10 [facility] Blood platelet mean volumeOr dered By: Inga Arredondo on 06-28-2023 Platelet mean volume (Bld) [Entitic vol] 10.6 fL 6.2-12.0 [facility] Determination of erythrocyte mean corpuscular volume (MCV)Ordered By: Inga Arredondo on 06-28-2023 MCV (RBC) [Entitic vol] 110.1 fL 80-94 [facility] Hematocrit Auto (Bld) [Volum e fraction]Ordered By: Inga Arredondo on 06-28-2023 Hematocrit (Bld) [Volume fraction] 38.0 % 40-54 [facility] Laboratory - Chemistry and C hemistry - challengeOrdered By: Inga Arredondo on 06-28-2023 ALP [Catalytic activity/Vol] 232 U/L 45-117 [facility] ALT [Catalytic activity/Vol] 64 U/L 16-61 [facility] CO2 [Moles/Vol] 21.0 mmol/L 21.0-32.0 [facility] Globulin (S) [Mass/Vol] 4.8 g/dL 2.2-4.2 [facility] Urea nitrogen/Creatinine [Mass ratio] 13.0 mg/mg 10-20 [facility] Laboratory - Hematology and Cell countsOrdered By: Inga Arredondo on 06-28-2023 Erythrocyte distribution width (RBC) [Entitic vol] 56.1 fL 35.1-43.9 [facility] Erythrocyte distribution width (RBC) [Ratio] 13.8 % 11.6-14.6 [facility] Immature granulocytes/100 WBC (Bld) 0.300 % 0.0-0.9 [facility] Comment on above: IG% - Immature Granu locytes (promyelocytes, myelocytes and metamyelocytes) > 1% indicates that a LEFT SHIFT is Present. MCH (RBC) [Entitic mass] 36.2 pg 27.0-32.0 [facility] Nucleated RBC/100 WBC (Bld) [Ratio] 0 % 0-5 [facility] MCHC Auto (RBC) [Mass/Vol]Or dered By: Inga Arredondo on 06-28-2023 MCHC (RBC) [Mass/Vol] 32.9 g/dL 32-36 [facility] No Panel InformationOrdered By: Inga Arredondo on 06-28-2023 Estimated GFR (MDRD) Amer 105 mL/min >60 [facility] Comment on above: GFR Calc Estimated GFR (MDRD) Non-Af Amer 87 mL/min >60 [facility] Comment on above: Non- GFR Calc Platelets bldOrdered By: Tam Arredondo on 06-28-2023 Platelets (Bld) [#/Vol] 103 10*3/uL 150-450 [facility] Serum or plasma albumin oswald urement (mass/volume)Ordered By: Inga Arredondo on 06-28-2023 Albumin [Mass/Vol] 3.3 g/dL 3.2-5.0 [facility] Serum or plasma albumin/glob ulin mass ratioOrdered By: Inga Arredondo on 06-28-2023 Albumin/Globulin [Mass ratio] 0.7 {ratio} 0.9-2.4 [facility] Serum or plasma calcium oswald urement (mass/volume)Ordered By: Inga Arredondo on 06-28-2023 Calcium [Mass/Vol] 9.1 mg/dL 8.5-10.1 [facility] Serum or plasma cholesterol in HDL measurement (mass/volume)Ordered By: Inga Arredondo on 06-28-2023 Cholesterol in HDL [Mass/Vol] 82 mg/dL >40 [facility] Comment on above: The drugs N-Acetylcy steine and Metamizole may falsely depress this assay. Reference Range HDL <40 mg/dL Low HDL Cholesterol HDL >or= 60 mg/dL High HDL Cholesterol Serum or plasma cholesterol in VLDL measurement (mass/volume)Ordered By: Inga Arredondo on 06-28-2023 Cholesterol in VLDL [Mass/Vol] 19 mg/dL 5-40 [facility] Serum or plasma creatinine m easurement (mass/volume)Ordered By: Inga Arredondo on 06-28-2023 Creatinine [Mass/Vol] 0.93 mg/dL 0.70-1.30 [facility] Comment on above: The validity of the calculated GFR & GFRAA in patients over 70 years has not been determined. Clinical correlation is essential. Serum or plasma low density lipoprotein (LDL) cholesterol measurement (mass/volume)Ordered By: Inga Arredondo on 06-28-2023 Cholesterol in LDL [Mass/Vol] 35 mg/dL 0-130 [facility] Serum or plasma urea nitroge n measurement (mass/volume)Ordered By: Inga Arredondo 06-28-2023 Urea nitrogen [Mass/Vol] 12 mg/dL 7-18 [facility] Thin prep Papanicolaou smear with manual screeningOrdered By: Inga Arredondo 06-28-2023 Thin prep Papanicolaou smear with manual screening 217 U/L 15-37 [facility] Thin prep Papanicolaou smear with manual screening 13 5-15 [facility] No Panel InformationOrdered By: Boyd Alvarez on 04-11-2023 Prostate Specific Antigen Screen 0.37 ng/mL 0.00-4.00 [facility] Comment on above: This test was perfor med using the TPSA assay method for the[employer] chemistry system. Values obtained with differentassay methods cannot be used interchangably.When changing PSA assays in the course of monitoring apatient, additional sequential testing should be carriedout to confirm baseline values. Basophil percentageOrdered B y: Dr. Steinberg on 09-22-2022 Testosterone [Mass/Vol] 101.16 ng/dL [facility] Comment on above: CENTRAL 90% REFERENC E RANGES MALE AGE <50 197.44 - 669.58 ng/dL MALE AGE > or = 50 187.72 - 684.19 ng/dL FEMALE AGE <50 8.38 - 35.01 ng/dL FEMALE AGE > or = 50 <7.00 - 35.92 ng/dL Effective as of 03/16/21 No Panel InformationOrdered By: Dr. Steinberg on 09-22-2022 HCG Beta Subunit < 1 mIU/mL 0-3 [facility] Comment on above: [employer] ECLIA methodol ogyPerformed at: [employer] [facility] [address] [id number] Director: Shashi Reeves PhD, Phone: [phone] Luteinizing Hormone 5.0 mIU/mL [facility] Comment on above: NORMAL REFERENCE RAN GES FEMALE FOLLICULAR 1.9 - 26.2 mIU/mL MID-CYCLE PEAK 22.8 - 76.1 mIU/mL LUTEAL 0.6 - 16.6 mIU/mL POST-MENOPAUSAL ON MHT 1.1 - 52.4 mIU/mL NOT ON MHT 8.6 - 61.8 mIU/mL MALE 1.2 - 10.6 mIU/mL Serum or plasma estradiol (E 2) measurement (mass/volume)Ordered By: Dr. Steinberg on 09-22-2022 E2 [Mass/Vol] 22.9 pg/mL [facility] Comment on above: NORMAL REFERENCE RAN GES FEMALE FOLLICULAR 21.4 - 164.8 pg/mL MID-CYCLE PEAK 49.9 - 367.2 pg/mL LUTEAL 40.2 - 259.0 pg/mL POST-MENOPAUSAL ON MHT <11.0 - 462.1 pg/mL NOT ON MHT <11.0 - 58.3 pg/mL MALE <11.0 - 52.5 pg/mL NOTE:[employer] HAS CONFIRMED THE DRUG FULVETRANT (FASLODEX) MAY CAUSE FALSELY ELEVATED ESTRADIOL RESULTS WHEN USING THIS TEST METHOD. IF PATIENT IS TAKING FULVESTRANT AN ALTERNATIVE METHOD SHOULD BE USED TO DETERMINE ESTRADIOL CONCENTRATION. Serum or plasma prolactin me asurement (mass/volume)Ordered By: Dr. Steinberg on 09-22-2022 Prolactin [Mass/Vol] 10.0 ng/mL [facility] Comment on above: NORMAL REFERENCE RAN GES FEMALE NON- 2.2 - 30.3 ng/mL 8.1 - 347.6 ng/mL POST-MENOPAUSAL 0.7 - 31.5 ng/mL MALE 2.5 - 17.4 ng/mL No Panel Informationon 04-05 Prostate Specific Antigen Screen 0.37 ng/mL 0.00-4.00 [facility] Work Phone: Comment on above: This test was perfor med using the TPSA assay method for the[employer] system. Values obtained with differentassay methods cannot be used interchangably.When changing PSA assays in the course of monitoring apatient, additional sequential testing should be carriedout to confirm baseline values. Absolute lymphocyte counton 09-22-2021 Lymphocytes Auto (Unsp spec) [#/Vol] 1.26 10*3/uL 0.83-4.51 [facility] Work Phone: Basophil percentageon 2021 Basophils/100 WBC (Bld) 0.9 % 0-1 [facility] Work Phone: Bilirubin [Mass/Vol] 0.60 mg/dL 0.20-1.00 [facility] Work Phone: Comment on above: For patients on eltr ombopag therapy, use of Dimension [place] TBIL is not recommended. Chloride [Moles/Vol] 103 mmol/L 98-107 [facility] Work Phone: Cholesterol [Mass/Vol] 167 mg/dL <200 [facility] Work Phone: [phone] Comment on above: <200 mg/dL Desirable 200-240 mg/dL Borderline >240 mg/dL High Risk Eosinophils/100 WBC (Bld) 1.3 % 0-5 [facility] Work Phone: Glucose [Mass/Vol] 90 mg/dL 74-106 [facility] Work Phone: Neutrophils (Bld) [#/Vol] 2.6 10*3/uL 2.0-7.7 [facility] Work Phone: Neutrophils/100 WBC (Bld) 58.6 % 47-70 [facility] Work Phone: Potassium [Moles/Vol] 3.9 mmol/L 3.5-5.1 [facility] Work Phone: Protein [Mass/Vol] 7.7 g/dL 6.4-8.2 [facility] Work Phone: Sodium [Moles/Vol] 138 mmol/L 136-145 [facility] Work Phone: Triglyceride [Mass/Vol] 114 mg/dL [facility] Work Phone: Comment on above: The drugs N-Acetylcy steine and Metamizole may falsely depress this assay.Serum Triglycerides Reference Interval Normal <150 mg/dL Borderline high 150 - 199 mg/dL High 200 - 499 mg/dL Very High > or = 500 mg/dL WBC (Bld) [#/Vol] 4.5 10*3/uL 4.4-11.0 [facility] Work Phone: Blood erythrocytes count (nu mber/volume)on 09-22-2021 RBC (Bld) [#/Vol] 3.97 10*6/uL 4.6-6.2 [facility] Work Phone: Blood hemoglobin measurement (mass/volume)on 09-22-2021 Hemoglobin (Bld) [Mass/Vol] 13.3 g/dL 13.0-16.5 [facility] Work Phone: Blood lymphocytes/100 leukoc yteson 09-22-2021 Lymphocytes/100 WBC (Bld) 28.1 % 19-41 [facility] Work Phone: Blood monocytes/100 leukocyt eson 09-22-2021 Monocytes/100 WBC (Bld) 10.9 % 0-10 [facility] Work Phone: Blood platelet mean volumeon 09-22-2021 Platelet mean volume (Bld) [Entitic vol] 9.7 fL 6.2-12.0 [facility] Work Phone: Determination of erythrocyte mean corpuscular volume (MCV)on 09-22-2021 MCV (RBC) [Entitic vol] 98.5 fL 80-94 [facility] Work Phone: Hematocrit Auto (Bld) [Volum e fraction]on 09-22-2021 Hematocrit (Bld) [Volume fraction] 39.1 % 40-54 [facility] Work Phone: Laboratory - Chemistry and C hemistry - challengeon 09-22-2021 ALP [Catalytic activity/Vol] 91 U/L 45-117 [facility] Work Phone: ALT [Catalytic activity/Vol] 48 U/L 16-61 [facility] Work Phone: CO2 [Moles/Vol] 26.0 mmol/L 21.0-32.0 [facility] Work Phone: Globulin (S) [Mass/Vol] 4.1 g/dL 2.2-4.2 [facility] Work Phone: Urea nitrogen/Creatinine [Mass ratio] 17.7 mg/mg 10-20 [facility] Work Phone: Laboratory - Hematology and Cell countson 09-22-2021 Erythrocyte distribution width (RBC) [Entitic vol] 54.4 fL 35.1-43.9 [facility] Work Phone: Erythrocyte distribution width (RBC) [Ratio] 14.8 % 11.6-14.6 [facility] Work Phone: Immature granulocytes/100 WBC (Bld) 0.200 % 0.0-0.9 [facility] Work Phone: Comment on above: IG% - Immature Granu locytes (promyelocytes, myelocytes and metamyelocytes) > 1% indicates that a LEFT SHIFT is Present. MCH (RBC) [Entitic mass] 33.5 pg 27.0-32.0 [facility] Work Phone: Nucleated RBC/100 WBC (Bld) [Ratio] 0 % 0-5 [facility] Work Phone: MCHC Auto (RBC) [Mass/Vol]on 09-22-2021 MCHC (RBC) [Mass/Vol] 34.0 g/dL 32-36 [facility] Work Phone: No Panel Informationon 09-22 Estimated GFR (MDRD) Amer 116 mL/min >60 [facility] Work Phone: Comment on above: GFR Calc Estimated GFR (MDRD) Non-Af Amer 96 mL/min >60 [facility] Work Phone: Comment on above: Non- GFR Calc Thyroid Stimulating Hormone (TSH) 2.38 uIU/mL 0.358-3.74 [facility] Work Phone: Platelets bldon 09-22-2021 Platelets (Bld) [#/Vol] 193 10*3/uL 150-450 [facility] Work Phone: Serum or plasma albumin owsald urement (mass/volume)on 09-22-2021 Albumin [Mass/Vol] 3.6 g/dL 3.2-5.0 [facility] Work Phone: Serum or plasma albumin/glob ulin mass ratioon 09-22-2021 Albumin/Globulin [Mass ratio] 0.9 {ratio} 0.9-2.4 [facility] Work Phone: Serum or plasma calcium oswald urement (mass/volume)on 09-22-2021 Calcium [Mass/Vol] 9.1 mg/dL 8.5-10.1 [facility] Work Phone: Serum or plasma cholesterol in HDL measurement (mass/volume)on 09-22-2021 Cholesterol in HDL [Mass/Vol] 95 mg/dL [facility] Work Phone: Comment on above: The drugs N-Acetylcy steine and Metamizole may falsely depress this assay. Reference Range HDL <40 mg/dL Low HDL Cholesterol HDL >or= 60 mg/dL High HDL Cholesterol Serum or plasma cholesterol in VLDL measurement (mass/volume)on 09-22-2021 Cholesterol in VLDL [Mass/Vol] 23 mg/dL 5-40 [facility] Work Phone: Serum or plasma creatinine m easurement (mass/volume)on 09-22-2021 Creatinine [Mass/Vol] 0.85 mg/dL 0.70-1.30 [facility] Work Phone: Comment on above: The validity of the calculated GFR & GFRAA in patients over 70 years has not been determined. Clinical correlation is essential. Serum or plasma low density lipoprotein (LDL) cholesterol measurement (mass/volume)on 09-22-2021 Cholesterol in LDL [Mass/Vol] 49 mg/dL 0-130 [facility] Work Phone: Serum or plasma urea nitroge n measurement (mass/volume)on 09-22-2021 Urea nitrogen [Mass/Vol] 15 mg/dL 7-18 [facility] Work Phone: Thin prep Papanicolaou smear with manual screeningon 09-22-2021 Thin prep Papanicolaou smear with manual screening 79 U/L 15-37 [facility] Work Phone: Thin prep Papanicolaou smear with manual screening 9 5-15 [facility] Work Phone: Lab Report: Basic Metabolic Profile (BMP)on 07-19-2017 Anion gap 8 mmol/L Invalid Interpretation Code 5-15 [facility] Work Phone: [phone] BUN/Creatinine Ratio 11.9 RATIO Invalid Interpretation Code 10-20 [facility] Work Phone: [phone] Calcium 9.3 mg/dL Invalid Interpretation Code 8.5-10.1 [facility] Work Phone: [phone] Chloride 105 mmol/L Invalid Interpretation Code 98-107 [facility] Work Phone: [phone] CO2 29.0 mmol/L Invalid Interpretation Code 21.0-32.0 [facility] Work Phone: [phone] Creatinine 1.01 mg/dL Invalid Interpretation Code 0.70-1.30 [facility] Work Phone: [phone] eGFR (non-black) 80 mL/min/{1.73_m2} Invalid Interpretation Code >60 [facility] Work Phone: [phone] eGFR (non-black) 97 mL/min/{1.73_m2} Invalid Interpretation Code >60 [facility] Work Phone: [phone] Glucose mass conc 70 mg/dL Invalid Interpretation Code 70-110 [facility] Work Phone: [phone] Potassium molar conc 3.5 mmol/L Invalid Interpretation Code 3.5-5.1 [facility] Work Phone: [phone] Sodium 142 mmol/L Invalid Interpretation Code 136-145 [facility] Work Phone: [phone] Urea nitrogen 12 mg/dL Invalid Interpretation Code 7-18 [facility] Work Phone: [phone] Lab Report: CBC W/Diff, Auto matedon 07-19-2017 Absolute Neut 3.5 X10 3/UL Invalid Interpretation Code 2.0-7.7 [facility] Work Phone: [phone] Basophils/100 WBC Auto (Bld) 0.6 % Invalid Interpretation Code 0-1 [facility] Work Phone: [phone] Eosinophils/100 leukocytes 3.2 % Invalid Interpretation Code 0-5 [facility] Work Phone: [phone] Erythrocyte distribution width Auto Ratio (RBC) 13.1 % Invalid Interpretation Code 11.6-14.6 [facility] Work Phone: [phone] Erythrocytes (RBC) 4.21 10*6/uL Low 4.6-6.[address] [facility] Work Phone: [phone] Hematocrit (HCT) 40.5 % Invalid Interpretation Code 40-54 [facility] Work Phone: [phone] Hemoglobin mass conc (Bld) 13.1 g/dL Invalid Interpretation Code 13.0-16.5 [facility] Work Phone: [phone] Immature granulocytes/100 WBC (Bld) 0.000 % Invalid Interpretation Code 0.0-0.9 [facility] Work Phone: [phone] Lymphocytes 2.60 X10 3/UL Invalid Interpretation Code 0.83-4.51 [facility] Work Phone: [phone] Lymphocytes/100 leukocytes 37.2 % Invalid Interpretation Code 19-41 [facility] Work Phone: [phone] 31.1 pg Invalid Interpretation Code 27.0-32.0 [facility] Work Phone: [phone] MCHC mass conc (RBC) 32.3 G/GL Invalid Interpretation Code 32-36 [facility] Work Phone: [phone] MCV 96.2 fL High 80-94 [facility] Work Phone: [phone] Monocytes/100 leukocytes 9.2 % Invalid Interpretation Code 0-10 [facility] Work Phone: [phone] Neutrophils/100 WBC Auto (Bld) 49.8 % Invalid Interpretation Code 47-70 [facility] Work Phone: [phone] Platelets 317 10*3/mm3 Invalid Interpretation Code 150-450 [facility] Work Phone: [phone] PMV by Mariely 9.9 fL Invalid Interpretation Code 6.2-12.0 [facility] Work Phone: RDW SD 45.7 fL High 35.1-43.9 [facility] Work Phone: [phone] WBC (Leukocytes) 7.0 10*3/uL Invalid Interpretation Code 4.4-11.0 [facility] Work Phone: Lab Report: Prothrombin Time w/INRon 07-19-2017 INR Coag RelTime (PPP) 1.0 {INR} Invalid Interpretation Code [facility] Work Phone: [phone] Prothrombin time (PT) Coag time (PPP) 13.1 s Invalid Interpretation Code 11.7-14.9 [facility] Work Phone: [phone] Office Visiton 07-18-2017 Documentation of current medications (procedure) Done Invalid Interpretation Code [facility] Work Phone: [phone] Replaced Document: Lacey Ruggiero CG Observationson 07-18-2017 EKG QRS axis 37 deg Invalid Interpretation Code [facility] Work Phone: [phone] Interpretation Sinus Rhythm WITHIN NORMAL LIMITS Invalid Interpretation Code [facility] Work Phone: [phone] P Elrod 42 deg Invalid Interpretation Code [facility] Work Phone: [phone] OK Interval 176 ms Invalid Interpretation Code [facility] Work Phone: [phone] Pulse (Heart Rate) 76 /min Invalid Interpretation Code [facility] Work Phone: [phone] QRS Duration 92 ms Invalid Interpretation Code [facility] Work Phone: [phone] QT Interval new path ms Invalid Interpretation Code [facility] Work Phone: [phone] QTc Fang 408 ms Invalid Interpretation Code [facility] Work Phone: [phone] T Elrod -1 deg Invalid Interpretation Code [facility] Work Phone: [phone] Clinical Lists Update: Prelo retirement actuary 07-10-2017 Left ventricular Ejection fraction 65 % Invalid Interpretation Code [facility] Work Phone: [phone] Lab Report: Basic Metabolic Profile (BMP)on 06-07-2017 Anion gap 8 mmol/L Invalid Interpretation Code 5-15 [facility] Work Phone: [phone] BUN/Creatinine Ratio 8.9 RATIO Low 10-[address] [facility] Work Phone: [phone] Calcium 9.2 mg/dL Invalid Interpretation Code 8.5-10.1 [facility] Work Phone: [phone] Chloride 104 mmol/L Invalid Interpretation Code 98-107 [facility] Work Phone: [phone] CO2 27.0 mmol/L Invalid Interpretation Code 21.0-32.0 [facility] Work Phone: [phone] Creatinine 0.90 mg/dL Invalid Interpretation Code 0.70-1.30 [facility] Work Phone: [phone] eGFR (non-black) 91 mL/min/{1.73_m2} Invalid Interpretation Code >60 [facility] Work Phone: [phone] eGFR (non-black) 110 mL/min/{1.73_m2} Invalid Interpretation Code >60 [facility] Work Phone: [phone] Glucose mass conc 98 mg/dL Invalid Interpretation Code 70-110 [facility] Work Phone: [phone] Potassium molar conc 3.9 mmol/L Invalid Interpretation Code 3.5-5.1 [facility] Work Phone: [phone] Sodium 139 mmol/L Invalid Interpretation Code 136-145 [facility] Work Phone: [phone] Urea nitrogen 8 mg/dL Invalid Interpretation Code 7-18 [facility] Work Phone: [phone] Lab Report: CBC W/Diff, Auto matedon 06-07-2017 Absolute Neut 2.6 X10 3/UL Invalid Interpretation Code 2.0-7.7 [facility] Work Phone: [phone] Basophils/100 WBC Auto (Bld) 0.9 % Invalid Interpretation Code 0-1 [facility] Work Phone: [phone] Eosinophils/100 leukocytes 2.6 % Invalid Interpretation Code 0-5 [facility] Work Phone: [phone] Erythrocyte distribution width Auto Ratio (RBC) 12.8 % Invalid Interpretation Code 11.6-14.6 [facility] Work Phone: [phone] Erythrocytes (RBC) 4.09 10*6/uL Low 4.6-6.2 [facility] Work Phone: [phone] Hematocrit (HCT) 40.8 % Invalid Interpretation Code 40-54 [facility] Work Phone: [phone] Hemoglobin mass conc (Bld) 13.7 g/dL Invalid Interpretation Code 13.0-16.5 [facility] Work Phone: [phone] Immature granulocytes/100 WBC (Bld) 0.200 % Invalid Interpretation Code 0.0-0.9 [facility] Work Phone: Lymphocytes 1.79 X10 3/UL Invalid Interpretation Code 0.83-4.51 [facility] Work Phone: [phone] Lymphocytes/100 leukocytes 33.6 % Invalid Interpretation Code 19-41 [facility] Work Phone: [phone] MCH 33.5 pg High 27.0-32.0 [facility] Work Phone: [phone] MCHC mass conc (RBC) 33.6 G/GL Invalid Interpretation Code 32-36 [facility] Work Phone: [phone] MCV 99.8 fL High 80-94 [facility] Work Phone: [phone] Monocytes/100 leukocytes 13.5 % High 0-10 [facility] Work Phone: [phone] Neutrophils/100 WBC Auto (Bld) 49.2 % Invalid Interpretation Code 47-70 [facility] Work Phone: [phone] Platelets 222 10*3/mm3 Invalid Interpretation Code 150-450 [facility] Work Phone: [phone] PMV by Mariely 10.1 fL Invalid Interpretation Code 6.2-12.0 [facility] Work Phone: [phone] RDW SD 45.9 fL High 35.1-43.9 [facility] Work Phone: [phone] WBC (Leukocytes) 5.3 10*3/uL Invalid Interpretation Code 4.4-11.0 [facility] Work Phone: [phone] Lab Report: Liver Profileon 06-07-2017 Alanine aminotransferase (ALT) 54 U/L Invalid Interpretation Code 12-78 [facility] Work Phone: [phone] Albumin 3.9 g/dL Invalid Interpretation Code 3.4-5.0 [facility] Work Phone: [phone] Alkaline phosphatase (ALP) 65 U/L Invalid Interpretation Code 45-117 [facility] Work Phone: [phone] Aspartate aminotransferase (AST) 38 U/L High 15-37 [facility] Work Phone: [phone] Bilirubin (direct) 0.14 mg/dL Invalid Interpretation Code 0.00-0.30 [facility] Work Phone: [phone] Bilirubin (total) 0.60 mg/dL Invalid Interpretation Code 0.20-1.00 [facility] Work Phone: [phone] Globulin 3.9 g/dL Invalid Interpretation Code 2.2-4.2 [facility] Work Phone: [phone] Protein 7.8 g/dL Invalid Interpretation Code 6.4-8.2 [facility] Work Phone: [phone] Lab Report: Magnesiumon 05-21 Magnesium 2.2 mg/dL Invalid Interpretation Code 1.8-2.4 [facility] Work Phone: [phone] Lab Report: T4 Total, Thyrox inon 06-07-2017 Thyroxine (T4) 7.0 ug/dL Invalid Interpretation Code 4.5-12.1 [facility] Work Phone: [phone] Lab Report: Thyroid Stim Hor emilie (TSH)on 06-07-2017 Thyroid stimulating hormone (TSH) 3.99 u[iU]/mL High 0.358-3.74 [facility] Work Phone: [phone] Office Visiton 05-30-2017 Documentation of current medications (procedure) Done Invalid Interpretation Code [facility] Work Phone: [phone] Fall risk assessment No Invalid Interpretation Code [facility] Work Phone: [phone] Clinical Lists Update: Prelo retirement actuary 05-24-2017 Tobacco use CPHS Never smoker Invalid Interpretation Code [facility] Work Phone: [phone] Vital Signs Date Time Vital Sign Value Performing Clinician Yudith clay 04-02-2025 11:02-0400 Body height 175.26 cm Inga Arredondo LITIGATION LEGAL ASSISTANT-C Work Phone: [facility] 04-02-2025 11:02-0400 Body mass index (BMI) [Ratio] 26.2 kg/m2 Inga Arredondo LITIGATION LEGAL ASSISTANT-C Work Phone: [facility] 04-02-2025 11:02-0400 Body weight 80.73 kg Inga Arredondo LITIGATION LEGAL ASSISTANT-C Work Phone: [facility] 04-02-2025 11:02-0400 Diastolic blood pressure 75 mm[Hg] Inga Arnulfo LITIGATION LEGAL ASSISTANT-C Work Phone: [facility] 04-02-2025 11:02-0400 Heart rate 98 /min Inga Arnulfo LITIGATION LEGAL ASSISTANT-C Work Phone: [facility] 04-02-2025 11:02-0400 Respiratory rate 16 /min Inga Arnulfo LITIGATION LEGAL ASSISTANT-C Work Phone: [facility] 04-02-2025 11:02-0400 Systolic blood pressure 147 mm[Hg] Inga Arnulfo LITIGATION LEGAL ASSISTANT-C Work Phone: [facility] 02-10-2025 13:15-0400 Body height 175.26 cm Inga Arnulfo LITIGATION LEGAL ASSISTANT-C Work Phone: [facility] 02-10-2025 13:15-0400 Body mass index (BMI) [Ratio] 27 kg/m2 Inga Arnulfo LITIGATION LEGAL ASSISTANT-C Work Phone: [facility] 02-10-2025 13:15-0400 Body temperature 97.4 [degF] Inga Arnulfo LITIGATION LEGAL ASSISTANT-C Work Phone: [facility] 02-10-2025 13:15-0400 Body weight 83 kg Inga Arnulfo LITIGATION LEGAL ASSISTANT-C Work Phone: [facility] 02-10-2025 13:15-0400 Diastolic blood pressure 69 mm[Hg] Inga Arnulfo LITIGATION LEGAL ASSISTANT-C Work Phone: [facility] 02-10-2025 13:15-0400 Heart rate 88 /min Inga Arnulfo LITIGATION LEGAL ASSISTANT-C Work Phone: [facility] 02-10-2025 13:15-0400 Respiratory rate 17 /min Inga Arnulfo LITIGATION LEGAL ASSISTANT-C Work Phone: [facility] 02-10-2025 13:15-0400 SaO2% (BldA) [Mass fraction] 96 % Inga Arnulfo LITIGATION LEGAL ASSISTANT-C Work Phone: [facility] 02-10-2025 13:15-0400 Systolic blood pressure 108 mm[Hg] Inga Arnulfo LITIGATION LEGAL ASSISTANT-C Work Phone: [facility] 02-03-2022 07:53-0400 Body height 175.[address] Ramon Arias Work Phone: [facility] Work Phone: 02-03-2022 07:53-0400 Body mass index (BMI) [Ratio] 25.9 kg/m2 Dr. Ramon Arias Work Phone: [facility] Work Phone: 02-03-2022 07:53-0400 Body weight 79.[address] Ramon Arias Work Phone: [facility] Work Phone: 02-03-2022 07:53-0400 Diastolic blood pressure 93 mm[Hg] Dr. Ramon Arias Work Phone: [facility] Work Phone: 02-03-2022 07:53-0400 Heart rate 82 /min Dr. Ramon Arias Work Phone: [facility] Work Phone: 02-03-2022 07:53-0400 SaO2% (BldA) [Mass fraction] 98 % Dr. Ramon Arias Work Phone: [facility] Work Phone: 02-03-2022 07:53-0400 Systolic blood pressure 151 mm[Hg] Dr. Ramon Arias Work Phone: [facility] Work Phone: 01-25-2022 09:20-0400 Body mass index (BMI) [Ratio] 25.9 kg/m2 Dr. Ramon Arias Work Phone: [facility] Work Phone: 01-25-2022 09:20-0400 Body temperature 97.8 [degF] Dr. Ramon Arias Work Phone: [facility] Work Phone: 01-25-2022 09:20-0400 Body weight 79.[address] Ramon Arias Work Phone: [facility] Work Phone: 01-25-2022 09:20-0400 Diastolic blood pressure 78 mm[Hg] Dr. Ramon Arias Work Phone: [facility] Work Phone: 01-25-2022 09:20-0400 Heart rate 94 /min Dr. Ramon Arias Work Phone: [facility] Work Phone: 01-25-2022 09:20-0400 Respiratory rate 15 /min Dr. Ramon Arias Work Phone: [facility] Work Phone: 01-25-2022 09:20-0400 SaO2% (BldA) [Mass fraction] 99 % Dr. Ramon Arias Work Phone: [facility] Work Phone: 01-25-2022 09:20-0400 Systolic blood pressure 138 mm[Hg] Dr. Ramon Arias Work Phone: [facility] Work Phone: 01-20-2022 07:24-0400 Body temperature 97 [degF] Dr. Ramon Arias Work Phone: [facility] Work Phone: 01-20-2022 07:24-0400 Diastolic blood pressure 83 mm[Hg] Dr. Ramon Arias Work Phone: [facility] Work Phone: 01-20-2022 07:24-0400 Heart rate 68 /min Dr. Ramon Arias Work Phone: [facility] Work Phone: 01-20-2022 07:24-0400 Respiratory rate 16 /min Dr. Ramon Arias Work Phone: [facility] Work Phone: 01-20-2022 07:24-0400 SaO2% (BldA) [Mass fraction] 99 % Dr. Ramon Arias Work Phone: [facility] Work Phone: 01-20-2022 07:24-0400 Systolic blood pressure 113 mm[Hg] Dr. Ramon Arias Work Phone: [facility] Work Phone: 01-20-2022 05:59-0400 Body height 175.[address] Ramon Arias Work Phone: [facility] Work Phone: 01-20-2022 05:59-0400 Body mass index (BMI) [Ratio] 25.5 kg/m2 Dr. Ramon Arias Work Phone: [facility] Work Phone: 01-20-2022 05:59-0400 Body weight 78.[address] Ramon Arias Work Phone: [facility] Work Phone: 07-18-2017 12:50-0500 BMI (Body Mass Index) 26.34 kg/m2 [facility] Work Phone: 07-18-2017 12:50-0500 BP Diastolic 68 mm[Hg] [facility] Work Phone: 07-18-2017 12:50-0500 BP Systolic 128 mm[Hg] Natalie Mick [facility] Work Phone: 07-18-2017 12:50-0500 Height 176.53 cm [facility] Barton [facility] Work Phone: 07-18-2017 12:50-0500 Pulse (Heart Rate) 78 /min [facility] Work Phone: 07-18-2017 12:50-0500 Respiratory Rate 16 /min [facility] Work Phone: 07-18-2017 12:50-0500 Weight 82.1 kg [facility] Work Phone: 05-30-2017 11:59-0400 BMI (Body Mass Index) 24.16 kg/m2 [facility] Work Phone: 05-30-2017 11:59-0400 BP Diastolic 78 mm[Hg] [facility] Work Phone: 05-30-2017 11:59-0400 BP Systolic 126 mm[Hg] [facility] Work Phone: 05-30-2017 11:59-0400 Height 176.53 cm [facility] Work Phone: 05-30-2017 11:59-0400 Pulse (Heart Rate) 88 /min [facility] Work Phone: 05-30-2017 11:59-0400 Respiratory Rate 18 /min [facility] Work Phone: 05-30-2017 11:59-0400 Weight 75.3 kg [facility] Work Phone: Encounters Encounter Date Encounter Type Care Provider Facility Start: 05-07-2025 ambulatory West Abbott Facility:[facility] Start: 04-02-2025 Encounter for preprocedural cardiovascular examination [facility] Start: 04-02-2025 End: 04-02-[address] West Abbott MD -[facility] Work Phone: Start: 04-02-2025 End: 04-02-2025 ambulatory Inga Arredondo NP-C Work Phone: -[facility] Start: 03-25-2025 End: 03-25-2025 ambulatory Inga Arredondo LITIGATION LEGAL ASSISTANT-C Work Phone: -[facility] Start: 03-25-2025 End: 03-25-2025 Patient encounter procedure Inga Arredondo LITIGATION LEGAL ASSISTANT-C -Ultrasound [facility] Work Phone: Start: 03-25-2025 End: 03-25-2025 ambulatory Inga Arredondo Facility:[facility] Start: 03-20-2025 Patient encounter status Inga Arredondo LITIGATION LEGAL ASSISTANT-C Work Phone: [facility] Start: 02-27-2025 ambulatory [facility] Facility:[facility] Start: 02-25-2025 Encounter for other preprocedural examination James Rawls [facility] Start: 02-18-2025 End: 02-18-2025 ambulatory West Abbott Facility:[facility] Start: 02-18-2025 End: 02-18-2025 Non-patient / Non-visit Dr. West Abbott MD -[facility] Work Phone: Start: 02-12-2025 ambulatory [facility]ls [facility] Start: 02-10-2025 End: 02-10-[address] James Rawls MD -[facility] Work Phone: Start: 02-10-2025 End: 02-10-2025 ambulatory Inga Arredondo LITIGATION LEGAL ASSISTANT-C Work Phone: [facility] Work Phone: Start: 01-03-2025 End: 01-03-2025 ambulatory Inga Arredondo LITIGATION LEGAL ASSISTANT-C Work Phone: [facility] Work Phone: Start: 01-03-2025 End: 01-03-2025 Patient encounter procedure Inga Arredondo LITIGATION LEGAL ASSISTANT-C -[facility] [place] Work Phone: Start: 01-03-2025 End: 01-03-2025 ambulatory Inga Arnulfo Facility:[facility] Start: 06-28-2023 End: 06-28-2023 ambulatory [facility] Work Phone: Start: 06-28-2023 End: 06-28-2023 [facility] Start: 04-11-2023 End: 04-11-2023 ambulatory [facility] Work Phone: Start: 04-11-2023 End: 04-11-2023 [facility] Start: 09-22-2022 End: 09-22-2022 ambulatory [facility] Work Phone: Start: 09-22-2022 End: 09-22-2022 [facility] Start: 04-05-2022 End: 04-05-[address] [facility] Start: 02-03-2022 End: 02-03-[address] Ramon Arias Work Phone: [facility] Start: 01-25-2022 End: 01-25-[address] Ramon Arias Work Phone: [facility] Start: 01-20-2022 Non-patient / Non-visit Dr. Nitin Arias Work Phone: [facility] Start: 01-20-2022 End: 01-20-2022 Admission to same day surgery center Dr. Ramon Arias Work Phone: [facility] Start: 11-01-2021 End: 11-01-[address] Ramon Arias Work Phone: [facility] Start: 09-22-2021 End: 09-22-[address] Ramon Arias Work Phone: [facility] Procedures Date Procedure Procedure Detail Performing Clinician Start: 03-25-2025 Ultrasound elastogra phy of liver Inga Arredondo LITIGATION LEGAL ASSISTANT-C Work Phone: Start: 01-03-2025 Prostate specific an tigen measurement Inga Arredondo LITIGATION LEGAL ASSISTANT-C Work Phone: Comment on above: This test was perfor med using the [employer] tPSA method. Measured values of a patient sample can vary depending on the testing procedure used. PSA values determined on patient samples by different testing procedures cannot be used interchangeably. If there is a change in PSA assays while monitoring therapy, sequential testing should be performed to confirm baseline values. Start: 01-25-[address] Homero Arias Work Phone: Start: 01-25-2022 X-ray of both feet Dr. Ramon Arias Work Phone: Start: 01-20-[address] Ramon Arias Work Phone: Start: 07-18-2017 End: 07-20-2017 *BMP Moshe Bryant MD Work Phone: Start: 07-18-2017 End: 07-20-2017 *CBC with Differential Moshe Bryant MD Work Phone: Start: 07-18-2017 End: 07-18-2017 DJN Moshe Bryant MD Work Phone: Start: 07-18-2017 End: 07-18-2017 Ecg routine ecg w/least 12 lds w/i&r Moshe Bryant MD Work Phone: Start: 07-18-2017 End: 07-18-2017 Follow Up Appt 6 months Moshe Bryant MD Work Phone: Start: 07-18-2017 End: 07-20-2017 INR in Platelet poor plasma by Coagulation assay Moshe Bryant MD Work Phone: Start: 07-03-2017 End: 07-05-2017 Stress Echocardiogram (treadmill) Moshe Bryant MD Work Phone: Start: 06-13-2017 End: 06-28-2017 Follow Up BP Check Moshe Bryant MD Work Phone: Start: 05-30-2017 End: 06-07-2017 *BMP Moshe Bryant MD Work Phone: Start: 05-30-2017 End: 06-07-2017 *CBC with Differential Moshe Bryant MD Work Phone: Start: 05-30-2017 End: 06-07-2017 *Hepatic Function Panel Moshe Bryant MD Work Phone: Start: 05-30-2017 End: 05-30-2017 DJN Moshe Bryant MD Work Phone: Start: 05-30-2017 End: 06-16-2017 Echocardiography Moshe Bryant MD Work Phone: Start: 05-30-2017 End: 06-07-2017 Lipid 1996 panel - Serum or Plasma Moshe Bryant MD Work Phone: Start: 05-30-2017 End: 06-07-2017 Magnesium [Mass/volume] in Serum or Plasma Moshe Bryant MD Work Phone: Start: 05-30-2017 End: 06-07-2017 Thyrotropin [Units/volume] in Serum or Plasma Moshe Bryant MD Work Phone: Start: 05-30-2017 End: 06-07-2017 Thyroxine (T4) [Mass/volume] in Serum or Plasma Moshe Bryant MD Work Phone: Plan of Treatment Date Care Activity Detail Author Start: 04-02-2025 Evaluation of diagnostic study results [facility] Start: 01-20-2022 Colsc flx w/rmvl of tumor polyp lesion snare tq COLONOSCOPY W/LESION REMOVAL [facility] Work Phone: Start: 02-15-2018 End: 02-15-2018 Appointment Appointment [facility] Work Phone: Start: 07-18-2017 End: 07-18-2017 Appointment Appointment [facility] Work Phone: Start: 07-18-2017 End: 07-20-2017 *BMP *BMP [facility] Work Phone: Start: 07-18-2017 End: 07-20-2017 *CBC with Differential *CBC with Differential [facility] Work Phone: Start: 07-18-2017 End: 07-18-2017 DJN DJN [facility] Work Phone: Start: 07-18-2017 End: 07-18-2017 Follow Up Appt 6 months Follow Up Appt 6 months [facility] Work Phone: Start: 07-18-2017 End: 07-20-2017 INR Coag RelTime (PPP) *PT/INR [facility] Work Phone: Start: 07-18-2017 End: 07-19-2017 Left Heart Cath Left Heart Cath [facility] Work Phone: Start: 07-11-2017 End: 07-11-2017 Appointment Appointment [facility] Work Phone: Start: 06-13-2017 End: 06-28-2017 Follow Up BP Check Follow Up BP Check [facility] Work Phone: Start: 05-30-2017 End: 06-07-2017 *BMP *BMP [facility] Work Phone: Start: 05-30-2017 End: 06-07-2017 *CBC with Differential *CBC with Differential [facility] Work Phone: Start: 05-30-2017 End: 06-07-2017 *Hepatic Function Panel *Hepatic Function Panel [facility] Work Phone: Start: 05-30-2017 End: 05-30-2017 DJN DJN [facility] Work Phone: Start: 05-30-2017 End: 05-30-2017 Echocardiography Echocardiogram (complete) [facility] Work Phone: Start: 05-30-2017 End: 05-30-2017 Follow Up Appt 1 month Follow Up Appt 1 month [facility] Work Phone: Start: 05-30-2017 End: 06-07-2017 Lipid panel [AGGREGATE] *Lipid Profile CC PCP [facility] Work Phone: Start: 05-30-2017 End: 06-07-2017 Magnesium *Magnesium [facility] Work Phone: Start: 05-30-2017 End: 06-16-2017 Stress Echocardiogram (treadmill) Stress Echocardiogram (treadmill) [facility] Work Phone: Start: 05-30-2017 End: 06-07-2017 Thyroid stimulating hormone (TSH) *TSH [facility] Work Phone: Start: 05-30-2017 End: 06-07-2017 Thyroxine (T4) *T4 (Total) [facility] Work Phone: Patient referral [facility] Work Phone: Immunizations Immunization Date Immunization Notes Care Provider Fa [facility] 11-26-2020 Covid (Pfizer) Dr. Ramon chawla Work Phone: [facility] 11-05-2020 Covid (Pfizer) Dr. Ramon chawla Work Phone: [facility] Payers Date Payer Category Payer Medicare [id number] 2025 Self-pay [id number] 2016 Unknown [id number] Medicare [id number] 229 [id number] Medicare [id number] Unknown [id number] Unknown [id number] 2.16.8 [id number] Unknown [id number] 2.16.8 [id number] Unknown [id number] 2.16.8 [id number] Unknown [id number] 2.16.8 [id number] Unknown [id number] 2.16.8 [id number] Unknown [id number] 2.16.8 [id number] Unknown [id number] 2.16.8 [id number] Unknown [id number] 2.16.8 [id number] Social History Date Type Detail Facility Start: 01-14-2022 End: 02-03-2022 Tobacco smoking status MNIS Unknown if ever smoked [facility] Start: 1955 Sex Assigned At Male W [facility] Start: 02-03-2022 End: 03-20-2025 Tobacco smoking status NHIS Never smoked tobacco (finding) [facility] Medical Equipment Procedure Code Equipment Code Equipment Origin al Text Equipment Identifier Dates Colonoscopy CLIP,RESO 360 UL TRA 235_17 FDA Start: 01-20-2022 Colonoscopy CLIP,RESO 360 UL TRA 235_17 FDA Start: 01-20-2022 Colonoscopy CLIP,RESO 360 UL TRA 235_17 FDA Start: 01-20-2022 Colonoscopy CLIP,RESO 360 UL TRA 235_17 FDA Start: 01-20-2022 Colonoscopy CLIP,RESO 360 UL TRA 235_17 FDA Start: 01-20-2022 Colonoscopy CLIP,RESO 360 UL TRA 235_17 FDA Start: 01-20-2022 Colonoscopy CLIP,RESO 360 UL TRA 235_17 FDA Start: 01-20-2022 Colonoscopy CLIP,RESO 360 UL TRA 235_17 FDA Start: 01-20-2022 Colonoscopy CLIP,RESO 360 UL TRA 235_17 FDA Start: 01-20-2022 Colonoscopy CLIP,RESO 360 UL TRA 235_17 FDA Start: 01-20-2022 Colonoscopy CLIP,RESO 360 UL TRA 235_17 FDA Start: 01-20-2022 Colonoscopy CLIP,RESO 360 UL TRA 235_17 FDA Start: 01-20-2022 Colonoscopy CLIP,RESO 360 UL TRA 235_17 FDA Start: 01-20-2022 Colonoscopy CLIP,RESO 360 UL TRA 235_17 FDA Start: 01-20-2022 Colonoscopy CLIP,RESO 360 UL TRA 235_17 FDA Start: 01-20-2022 Colonoscopy CLIP,RESO 360 UL TRA 235_17 FDA Start: 01-20-2022 Goals Date Patient Goal Desired Activity /State Mental Status Date Assessment Result Facility 01-20-2022 Cognitive function Voice/Name [facility] Work Phone: Radiology Diagnostic study note 03-25-2025 Note Date & Type Note Facility 03-25-2025 Radiology Diagnostic study note [facility] Imaging Services [address] [place] [address] ABD Limited w/ Elastography MR#: [id number] Acct: [id number] Name: YAYA BETANCOURT Rep #: [id number] : 1955 M 69 From: Ming Gonzalez MD PCP: SRIDEVI Miller Status: REG CLI Study:ABD Limited w/ Elastography Date of Exa m: 03/25/25 Exam# [id number] Ordering Dr: Ra kerwin Arredondo PROCEDURE: ABD LIMITED W/ ELASTOGRAPHY 03/25/2025 REASON FOR EXAM: ASSESS FOR ABNORMALITIES COMPARISON: None FINDINGS: Liver: Diffusely echogenic suggesting fatty infiltration. Hepatomegaly. The liver measures 19.2 cm. Gallbladder: Multiple echogenic gallstones are identified. Small amount of pericholecystic fluid as well as small amount of fluid surrounding the liver. The gallbladder wall is thickened measuring 5 mm. Common bile duct: Normal measuring 5 mm . Pancreas: Visualized portions are unremarkable. The distal body and tail are obscured by bowel gas. Other: Visualized portions of the right kidney are unremarkable. No right upperquadrant ascites. US/ABD Limited w/ Elastography IMPRESSION: Hepatomegaly and diffuse fatty infiltration of the liver. Multiple gallstones. Mild degree of bladder wall thickening with small amount of pericholecystic and Marilyn hepatic fluid. Reading Location: [id number] CC: SRIDEVI Arredondo ~ Paint Grinder: Signed [facility] Evaluation note 02-10-2025 Note Date & Type Note Facility 02-10-2025 Evaluation note Diagnosis Onset Date Resolution Left inguinal hernia acute February 10, 2025 1:01pm [facility] Work Phone: Progress note 02-10-2025 Note Date & Type Note Facility 02-10-2025 Progress note [facility] Progress note 02-10-2025 Note Date & Type Note Facility 02-10-2025 Progress note Note Date/Time February 10, 2025 1:22pm [facility] [place] [address] OFFICE VISIT Date of Service: 02/10/25 MR#: [id number] Acct: [id number] Name: YAYA BETANCOURT Rep #: [id number] : 1955 Provider: Dr. Maral Rawls MD Age/Sex: 69/M Location: [facility] Status: Signed Intake Vital Signs 02/03/22 07:53 02/10/25 13:15 Height 5 ft 9 in 5 ft 9 in Weight: 183 lb BMI 27.0 BP 108/69 Blood Pressure Location Rt brachial Position Sitting Respiration 17 Pulse 88 Pulse Source Monitor Temp 97.4 F L Temp Source Temporal Pulse Oximetry (%) 96 Oxygen Delivery Method room air Intake Visit Reasons: INGUINAL HERNIA Chief Complaint: inguinal hernia Is patient in pain?: No Allergies shellfish derived Adverse Reaction (Intermediate, Verified 02/10/25 13:16) vomiting Medications ?Medication ?Instructions ?Recorded ?Confirmed ?Type albuterol sulfate 90 mcg/actuation 1 puff IH Q4H PRN P RN Sob &/Or 07/27/17 02/10/25 History aerosol inhaler Wheezing ibuprofen 200 mg tablet 200 mg PO Q6H PRN PRN Pain 1 09/27/16 02/10/25 History lisinopril 5 mg tablet 5 mg PO DAILY 07/27/1702/10 History rosuvastatin 10 mg tablet 10 mg PO DAILY 07/27/1701/20 History diltiazem HCl 120 mg 120 mg PO DAILY #90 caps 02/10/25 Rx capsule,extended release 24 hr fluticasone propionate 50 1 spray intranasal PRN PRN 0 01/14/22 02/10/25 History mcg/actuation nasal ALLERGIES spray,suspension (Flonase Allergy Relief) Have you fallen in the past year?: No PFSH Medical History (Updated 02/10/25 @ 13:14 by Maribel Kumar) Wears glasses Wears dentures Alcohol use High cholesterol Leg cramps Non-smoker Asthma Hypertension History of echocardiogram Cardiology follow-up encounter Hx of sinus tachycardia Asthma Hyperlipidemia Hypertension Hay fever Hypertension history of elbow pin Surgical History Hx of transurethral resection of prostate Hx of colonoscopy History of left heart catheterization (07/28/17) H/O hernia repair Family History Father , age 80+ in his sleep, assumed cardiac CAD (coronary artery disease) Social History Smoking Status: Never smoker alcohol intake: never HPI HPI HPI: Patient is a 69-year-old male here with left inguinal hernia. He reports has been out for several years. He says that originally it did not hurt but now when he sneezes or coughs it hurts ROS General General: No weight change, appetite, fatigue, colon cancer, breast cancer or weakness HEENT HEENT: No difficulty swallowing, eye injury, eye surgery, swollen glands or hoarseness Endo Endocrine: No thyroid disease, diabetes mellitus, thyroid cancer, Hair loss, heat intolerance or cold intolerance Skin Skin: No rash or changing moles Musc Musculoskeletal: Yes arthritis; No back problems, rheumatoid arthritis, gout or joint pain Cardio Cardiovascular: Yes high blood pressure; No murmur, pacemaker, heart disease, atrial fibrillation, heart attack, heart stent, palpitations, shortness of breath with exertion or chest pain Psych Psychiatric: No depression, anxiety or hearing voices Resp Respiratory: Yes shortness of breath, No sleep apnea, No cough, No COPD, Yes asthma, No emphysema and No wheezing Gastro Gastrointestinal: No abdominal pain, No nausea or vomiting, No diarrhea, No constipation, No blood in stool, No acid reflux, Yes hemorrhoids, No ulcers, No gallbladder problem and No black,tarry stools Regis Hematologic: No blood thinners, No blood disorders, No bleeding, No anemia and No blood clots Neuro Neurologic: No system reviewed and no additional complaints, except as documented, No as per HPI, No abnormal gait, No abnormal hearing, No abnormal movements, No abnormal speech, No behavioral changes, No burning sensations, No confusion, No convulsions, No disequilibrium, No dizziness, No localized weakness, No frequent falls, No headache(s), No lack of coordination, No loss ofvision, No memory loss, No numbness, No other visual disturbances, No radicular pain, No restless legs, No sensory deficit, No syncope, No tingling, No tremor(s), No weakness and No other Exam Const General: cooperative Orientation: alert and oriented x3 HENMT Head: normal to inspection Neck Neck: normal visual inspection and full ROM Chest Chest palpation & inspection: normal inspection of the chest Resp Effort & Inspection: normal respiratory effort Auscultation: clear to auscultation bilaterally Cardio Rate: regular rate Rhythm: regular rhythm GI Inspection: non-distended Palpation: soft, hernia indirect inguinal on the left and nontender Skin General: no rashes or lesions noted Neuro General: patient alert and patient oriented x3 Extrem General: full ROM Psych Appearance: grossly normal Mental Status: mental status grossly normal Assessment and Plan Assessment and Plan (1) Left inguinal hernia: Status: Acute Plan: The patient has a left inguinal hernia. I was not able to reduce it fully. I discussed robotic assisted laparoscopic inguinal hernia repair with mesh. I discussed the surgery in detail as well as the risks. I discussed the risks of bleeding, infection, injury to surrounding organs such as the bowel or bladder or blood supply to the testicle. Patient understands all the risks and is wanted proceed. I discussed mesh placement in detail with him as well. I will fix the opposite side if there is a hernia present. James Rawls MD Pager: [facility] [address] [place] [address], [address] [place] [phone] Office: Coding Level of Care Code Off vis,new,level 3 Diagnoses Left inguinal hernia K40.90 Clinical Quality Measures Falls Risk Screening/Assistive Devices Have you fallen in the past year?: No 02/10/25 1322 <Electronically signed by James jackman MD> Date _ James Rawls MD Cosigner Signature: Date (if applicable) CC: ~ [facility] Work Phone: Evaluation note Note Date & Type Note Facility Evaluation note Diagnosis Onset Date Positive colorectal cancer s creening using Cologuard test acute [facility] Work Phone: Evaluation note Note Date & Type Note Facility Evaluation note Diagnosis Onset Date Closed nondisp fracture of r ight medial malleolus with routine healing acute Strain of right ankle and foot acute Colonic diverticular disease acute Tubular adenoma of colon acu te [facility] Work Phone: Evaluation note Note Date & Type Note Facility Evaluation note No assessment information availa ble [facility] Work Phone: Evaluation note Note Date & Type Note Facility Evaluation note Diagnosis Onset Date Resolution Left inguinal hernia acute February 10, 2025 1:01pm [facility] Work Phone: Reason for referral (narrative) Note Date & Type Note Facility Reason for referral (narrative) No reason for referral information available [facility] Work Phone: Chief Complaint and Reason for Visit Chief Complaint POSITIVE COLOGUARD Reason for Visit Positive colorectal cancer screening using Cologuard test Chief Complaint R LEG INJURY/2WKS PO ST FALL xray 2 WK FU Reason for Visit Closed nondisp fract ure of right medial malleolus with routine healing Strain of right ankle and foot Colonic diverticular disease Tubular adenoma of colon Chief Complaint Admit Date FASTING January 03, 2025 9:30a m Chief Complaint Admit Date FASTING January 03, 2025 9:30a m INGUINAL HERNIA February 10, 2025 1:01 pm Reason for Visit Admit Date Left inguinal hernia February 10, 2025 1:0 1pm Chief Complaint Admit Date FASTING January 03, 2025 9:30a m INGUINAL HERNIA February 10, 2025 1:01 pm PREOP February 18, 2025 8:31a m R79.89 Other specified abnormal findings of blood March 25, 2025 8:04am Chief Complaint Admit Date FASTING January 03, 2025 9:30a m INGUINAL HERNIA February 10, 2025 1:01 pm PREOP February 18, 2025 8:31a m R79.89 Other specified abnormal findings of blood March 25, 2025 8:04am ABN EKG/SURG CL ([place] April 02, 2025 11:01am Advance Directives No Advanced Directives Records Found Advance Directive Response Recorded Date/ Time Advance Directives No July 28, 2017 8:15am Living Will No January 14, 2022 1 :05pm Power of Lead Pourer No January 14, 2022 1:05pm Advance Directive Response Recorded Date/ Time Advance Directives No July 28, 2017 7:15am Living Will No January 14, 2022 1 2:05pm Power of Lead Pourer No January 14, 2022 12:05pm Advance Directive Response Recorded Date/ Time Advance Directives No July 28, 2017 8:15am Summary Purpose Family History No Family History Records Found Additional Source Comments Goals (unrecognized section and content) Goals may be documented in a n alternate sectionGoals may be documented in an alternate sectionGoals may be documented in an alternate sectionGoals may be documented in an alternate sectionGoals may be documented in an alternate sectionGoals may be documented in an alternate sectionGoals may be documented in an alternate sectionGoals may be documented in an alternate section Care Teams (unrecognized sec tion and content) Team Status: Active Member Role Status Dates Dr. Ramon Arias MD Family Provider Active Dr. Arie Steinberg DO Primary Care Provider Active Team Status: Inactive Member Role Status Dates Dr. Arie Steinberg DO [facility] Active Team Status: Active Member Role Status Dates Dr. Ramon Arias MD Family Provider Active Team Status: Inactive Member Role Status Dates Dr. Boyd Alvarez MD Attending Provider Active Team Status: Active Member Role Status Dates Dr. Ramon Arias MD Family Provider Active Inga Arnulfo , LITIGATION LEGAL ASSISTANT-C Primary Care Provider Active Team Status: Inactive Member Role Status Dates Ingasharad Arredondo , LITIGATION LEGAL ASSISTANT-C Primary Care Provider, Attending Donavon hamm Active Team Status: Inactive Member Role Status Dates Inga Arnulfo , LITIGATION LEGAL ASSISTANT-C Primary Care Provider Active Start: January 03, 2025 End: January 03, 2025 Inga Arredondo , LITIGATION LEGAL ASSISTANT-C Attending Provider Active St art: January 03, 2025 End: January 03, 2025 Ingasharad Arredondo , LITIGATION LEGAL ASSISTANT-C Referring Provider Active St art: January 03, 2025 End: January 03, 2025 Team Status: Inactive Member Role Status Dates Inga Arnulfo , LITIGATION LEGAL ASSISTANT-C Primary Care Provider Active Start: February 10, 2025 End: February 10, 2025 Dr. James Rawls MD Attending Provider Active Start: February 10, 2025 End: February 10, 2025 Dr. Boyd Alvarez MD Referring Provider Active Start: February 10, 2025 End: February 10, 2025 Team Status: Active Member Role/Relationship Status Dates Inga Arnulfo , LITIGATION LEGAL ASSISTANT-C Primary Care Provider Active Team Status: Inactive Member Role/Relationship Status Dates Ingasharad Arredondo , LITIGATION LEGAL ASSISTANT-C Primary Care Provider Active Start: January 03, 2025 End: January 03, 2025 Inga Arredondo , LITIGATION LEGAL ASSISTANT-C Attending Provider Active St art: January 03, 2025 End: January 03, 2025 Inga Arredondo , LITIGATION LEGAL ASSISTANT-C Referring Provider Active St art: January 03, 2025 End: January 03, 2025 Team Status: Inactive Member Role/Relationship Status Dates Inga Arnulfo , LITIGATION LEGAL ASSISTANT-C Primary Care Provider Active Start: February 10, 2025 End: February 10, 2025 Dr. James Rawls MD Attending Provider Active Start: February 10, 2025 End: February 10, 2025 Dr. Boyd Alvarez MD Referring Provider Active Start: February 10, 2025 End: February 10, 2025 Team Status: Active Member Role/Relationship Status Dates Inga Arnulfo , LITIGATION LEGAL ASSISTANT-C Primary Care Provider Active Start: February 18, 2025 End: February 18, 2025 Dr. West Abbott MD Attending Provider Active S tart: February 18, 2025 End: February 18, 2025 Dr. Royer Parsons MD Referring Provider Active Start: February 18, 2025 End: February 18, 2025 Team Status: Inactive Member Role/Relationship Status Dates SRIDEVI Miller Primary Care Provider Active Start: March 25, 2025 End: March 25, 2025 SRIDEVI Miller Attending Provider Active St art: March 25, 2025 End: March 25, 2025 SRIDEVI Miller Referring Provider Active St art: March 25, 2025 End: March 25, 2025 Team Status: Inactive Member Role/Relationship Status Dates SRIDEVI Miller Primary Care Provider Active Start: April 02, 2025 End: April 02, 2025 SRIDEVI Miller Referring Provider Active St art: April 02, 2025 End: April 02, 2025 Dr. West Abbott MD Attending Provider Active S tart: April 02, 2025 End: April 02, 2025 (unrecognized sect ion and content) No Status Records Found INFORMATION SOURCE (unrecogn ized section and content) DATE CREATED AUTHOR 04/06/2025 [facility] FOR RECORDS PERTAINING TO PATIENTS WHO ARE OR HAVE BEEN ENROLLED IN A CHEMICAL DEPENDENCY/SUBSTANCEABUSE PROGRAM, SOME INFORMATION MAY BE OMITTED. This clinical summary was aggregated from multiple sources. Caution should be exercised in using it in the provision of clinical care. This summary normalizes information from multiple sources, and as a consequence, information in this document may materially change the coding, format and clinical context of patient data. In addition, data may be omitted in some cases. CLINICAL DECISIONS SHOULD BE BASED ON THE PRIMARY CLINICAL RECORDS. [employer] provides no warranty or guarantee of the accuracy or completeness of information in this document.
[2025-04-09] MEDS: Pantoprazole Sodium 80 MG in 0.9% Normal Saline (50mL Bag) 15 ML 420 MG IV BOLUS (03:58)
[2025-04-09] MEDS: DEXTROSE 5% IV (03:59)
[2025-04-09] MEDS: OCTREOTIDE IV (03:59)
[2025-04-09] MEDS: WATER IV (03:59)
[2025-04-09] MEDS: Ceftriaxone 2 GM in 0.9% Normal Saline (50mL MB+) 50 ML IV (04:00)
[2025-04-09] MEDS: Pantoprazole Sodium 80 MG in 0.9% Normal Saline (100mL Bag) 80 ML 10 MG CONT INF ×2 (04:27→09:11)
--- NOTE | 2025-04-09 05:35 | PCM.HP.STD ---
HPI - General General Date of Admission: 04/09/25 Date of Service: 04/09/25 Chief Complaint: N/V, coffee ground emesis. HPI Narrative The patient is a 69 y/o M w/ PMHx: EtOH abuse, CKD stage II per GFR trending, History of severe diverticulosis, BPH with obstructive pathology, HTN, HLD, Asthma with allergic rhinitis, Chronic EKG changes who presents to the [facility] ED on 02/07/25 with history of onset of intractable nausea and emesis over the last 24 hours however the evening prior to current presentation at approximately 2200 patient noted that his emesis started to become more dark, coffee-ground appearance prompting eventual ED evaluation to be cautious. Patient denies any significant abdominal pain with his associated bouts of nausea and emesis. He notes his last intake was ~ noon on Monday. He denies any diarrhea. He noted lightheadedness and dizziness primarily with positional changes when he was up in the ED to use the restroom. He does report currently feeling improved since initial ED arrival. Patient denies any recent ill contacts and his who is present has not been ill with similar symptoms. He notes that normally he would have continued drinking through the day but secondary to beginning to not feel well had stopped. Workup in the ED included T97.6, heart 108, BP 106/56, respiratory rate 18, 100% on room air, CBC with WC 12.8, hemoglobin 6.5, MCV 100.5, platelet 213 with left shift, coags with PT 19.5, INR 1.6, PTT 33.7, CMP with sodium 131, carbon dioxide 19.6, BUN/creatinine 31/1.04, GFR 78, glucose 115, T. bili 2.45, D bili 1.64, AST/LT 44/14, alk phos 221, lactic acid 2.0, magnesium 1.8, ammonia level 37, ethyl alcohol less than 10.1, CTA chest/abdomen/pelvis with moderate coronary artery calcifications, mild left pleural effusion, passive atelectatic airspace disease left lower lobe, hepatomegaly, [place] steatosis, diffuse irregular hepatic contour probably chronic parenchymal liver disease, cholelithiasis, diffuse thickening of the wall of the gallbladder, mild ascites, right posterior lateral bladder diverticulum measuring 4.3 cm, bilateral fat-containing inguinal hernias without incarceration, ascitic fluid noted within the left inguinal canal, small sliding hiatal hernia, diffuse thickening of the stomach suggestive of gastritis with acute hemorrhagic products noted in the gastric lumen with no CT evidence of active bleeding during the time of exam, diffuse thickening of the small bowels possibly secondary to chronic parenchymal liver disease/ascites and/or enteritis. Type and cross initiated in the ED with 2 unit PRBC requested per ED physician to be initiate transfused. In the ED patient administered 1 L normal saline, Rocephin 2 g IV x 1, octreotide 0.5 mg IV x 1, Protonix bolus and drip as well as phenobarbital 100 mg IV x 1. ED physician discussed case with gastroenterology Dr. Ulrich. [facility], LAT[facility] Medical History (Updated 04/09/25 @ 05:[address] Misti Warren MD) CKD (chronic kidney disease), stage II Chronic anemia Alcohol abuse BPH (benign prostatic hyperplasia) Left inguinal hernia Colonic diverticular disease Tubular adenoma of colon Asthma Hyperlipidemia Hypertension Wide-complex tachycardia Abnormal EKG Arthritis Home Medications ?Medication ?Instructions ?Recorded ?Last Taken ?Type albuterol sulfate 90 mcg/actuation 1 puff IH Q4H PRN PRN Sob &/Or 07/27/17 Unknown History aerosol inhaler Wheezing lisinopril 5 mg tablet 5 mg PO DAILY 07/27/17 01/20/22 History rosuvastatin 10 mg tablet 10 mg PO QHS 07/27/17 Unknown History fluticasone propionate 50 1 spray intranasal PRN PRN 01/14/22 Unknown History mcg/actuation nasal ALLERGIES spray,suspension (Flonase Allergy Relief) diltiazem HCl 240 mg 240 mg PO DAILY #90 caps 04/02/25 Unknown Rx capsule,extended release 24 hr Allergy/AdvReac Type Severity Reaction Status Date / Time shellfish derived AdvReac Intermediate vomiting Verified 04/09/25 02:26 Family History Father , age 80+ in his sleep, assumed cardiac CAD (coronary artery disease) Heart disease Hypertension Mother CAD (coronary artery disease) Heart disease Hypertension Diabetes Sister CAD (coronary artery disease) Heart disease Hypertension Myocardial infarction Surgical History Hx of transurethral resection of prostate History of left heart catheterization (07/28/17) H/O hernia repair Social History household members: spouse Smoking Status: Never smoker alcohol intake: current alcohol intake frequency: 3 or more drinks per day substance use type: does not use ROS ROS Narrative Admission Review of Systems: CONSTITUTIONAL: No weight loss, fever, chills, + weakness or fatigue. HEENT: + Lightheadedness/dizziness. Eyes: No visual loss, blurred vision, double vision or yellow sclerae. Ears, Nose, Throat: No hearing loss, sneezing, congestion, runny nose or sore throat. SKIN: No rash or itching, lesions, wounds. CARDIOVASCULAR: + Lightheadedness/dizziness. No chest pain, chest pressure or chest discomfort, palpitations, edema, orthopnea, syncopal events. RESPIRATORY: No shortness of breath, cough or sputum, wheezing, hemoptysis. GASTROINTESTINAL: + anorexia, nausea, vomiting, onset of coffee-ground emesis. No diarrhea, abdominal pain, BRBPR. GENITOURINARY: + BPH with obstructive pathology, urinary frequency. No dysuria or urgency. NEUROLOGICAL: + Lightheadedness/dizziness. No headache, syncope, paralysis, ataxia, numbness or tingling in the extremities, focal weakness, change in bowel or bladder control, seizure. MUSCULOSKELETAL: + muscle, back pain, joint pain or stiffness. HEMATOLOGIC: + Acute on chronic anemia, active bleeding is noted. LYMPHATICS: No enlarged nodes. No history of splenectomy. PSYCHIATRIC: No history of depression or anxiety. ENDOCRINOLOGIC: No reports of sweating, cold or heat intolerance. No polyuria or polydipsia. ALLERGIES: + History of asthma, allergic rhinitis. Vital Signs Vital Signs Vital Signs: 04/09/25 02:27 04/09/25 03:15 04/09/25 04:00 Temperature 97.6 F L Temperature Source Oral Pulse Rate 108 H 89 87 Respiratory Rate 18 18 16 Blood Pressure 106/56 L 114/53 L 131/73 H Blood Pressure Mean 72 73 92 Pulse Ox 100 99 97 Oxygen Delivery Method Room Air Room Air Room Air 04/09/25 05:00 Temperature Temperature Source Pulse Rate 82 Respiratory Rate 18 Blood Pressure 114/72 Blood Pressure Mean 86 Pulse Ox 98 Oxygen Delivery Method Room Air Weight Weight: 177 lb 0.499 oz Body Mass Index (BMI) 26.1 Physical Exam Narrative Physical Examination: General: Awake, alert, oriented x 3 and cooperative, laying in the ED bed, fatigued, does report feeling improved since initial ED arrival. Skin: Normal color, normal turgor, no icterus, no cyanosis except occasional stage ecchymoses, abrasion. HEENT: AT/NC, EOMI, PERRLA, mildly dry MM, no carotid bruits or JVD noted. Lungs: Mildly diminished, greater bases, mildly increased respiratory rate but no distress, no appreciated rales, ronchi or wheezing. Heart: Tachycardic with regular rhythm; no gallop, rub audible. Abdomen: Soft, NTTP, hyperactive BS, no obvious distention or tympany, + HM. Extremities: No cyanosis, clubbing, or edema. Neurological: Patient awake, alert, oriented as noted, cognitive function intact; pupils equally reactive to light and accommodation, cranial nerves grossly normal, moving all 4 extremities, no focal deficits, strength severely globally decreased. Psychiatric: Affect appears fatigued, ill-appearing, no acute evidence of depressive or anxiety feelings. Results Lab / Micro Data 04/09/25 02:30 04/09/25 02:30 Labs: Laboratory Results - last 24 hr 04/09/25 02:30: WBC 12.8 H, RBC 1.83 L, Hgb 6.5 L, Hct 18.4 L, MCV 100.5 H, MCH 35.5 H, MCHC 35.3, RDW Std Deviation 52.3 H, RDW Coeff of Marilee 14.6, Plt Count 213, MPV 11.1, Immature Gran % (Auto) 0.300, Neut % (Auto) 74.0 H, Lymph % (Auto) 18.0 L, Graves % (Auto) 7.2, Eos % (Auto) 0.2, Baso % (Auto) 0.3, Absolute Neuts (auto) 9.5 H, Absolute Lymphs (auto) 2.30, Nucleated RBC % 0, PT 19.5 H, INR 1.6, APTT 33.7, Sodium 131 L, Potassium 4.3, Chloride 98, Carbon Dioxide 19.6 L, Anion Gap 14, BUN 31 H, Creatinine 1.04, Estim Creat Clear Calc 67.98, Est GFR (MDRD) Non-Af 78, BUN/Creatinine Ratio 29.6 H, Glucose 115 H, Lactic Acid 2.0, Calcium 9.0, Magnesium 1.8, Total Bilirubin 2.45 H, Direct Bilirubin 1.64 H, AST 44 H, ALT 14, Alkaline Phosphatase 221 H, Ammonia 37.0, Total Protein 6.4, Albumin 2.7 L, Globulin 3.7, Lipase 22, Ethyl Alcohol < 10.1, Blood Type A POSITIVE, Antibody Screen NEGATIVE, Crossmatch See Detail Micro: Microbiology 04/09/25 03:30 Stool Stool Occult Blood (LISBET) - Final Occult Blood Positive Imaging Radiology Impression Chest/Abdomen/Pelvis CTA 04/09/25 02:54 IMPRESSION: Moderate coronary artery calcifications. Mild left pleural effusion. Passive atelectatic airspace disease of the left lower lobe. Hepatomegaly. Hepatic steatosis. Diffuse irregularity of the hepatic contour, probably chronic parenchymal liver disease. Cholelithiasis. Diffuse thickening of the wall of the gallbladder. Mild ascites. Right posterolateral bladder diverticulum measuring 4.3 cm. Bilateral fat containing inguinal hernias without incarceration. Ascitic fluid is noted in the left inguinal canal. Small sliding hiatal hernia. Diffuse thickening of the stomach suggestive of gastritis. Acute hemorrhagic products are noted in the gastric lumen. No CT evidence of active bleeding during the time of the exam. Diffuse thickening of the small bowels, possibly secondary to chronic parenchymal liver disease/ascites and/or enteritis. Reading Location: [place] [id number] Assessment & Plan Assessment/Plan (1) GI bleed: PLAN: Plan The patient is a 69 y/o M w/ PMHx: EtOH abuse, CKD stage II per GFR trending, History of severe diverticulosis, BPH with obstructive pathology, HTN, HLD, Asthma with allergic rhinitis, Chronic EKG changes who presents to the [facility] ED on 02/07/25 with history of onset of intractable nausea and emesis over the last 24 hours however the evening prior to current presentation at approximately 2200 patient noted that his emesis started to become more dark, coffee-ground appearance prompting eventual ED evaluation to be cautious. #1. Acute GI Bleed with suspected acute gastritis with acute hemorrhagic products identified in the gastric lumen on CT imaging w/ resultant Acute Blood Loss Anemia on Chronic Macrotic Anemia with intractable recent N/V, possible viral illness and concurrent underlying chronic alcohol abuse with acute alcohol withdrawal: Admission hemoglobin 6.5, MCV 100.5, baseline previous hemoglobin most recently 01/04/2020 510.9 however no marked lab trending from 2023 onward, will admit to the ICU, will request assembler cards and announcements consultation per protocol, will continue PRBC transfusion initiated per ED with plan 2 units, will maintain on IV fluids, will continue to obtain serial H&H assessments, will maintain on continuous Protonix drip, will also maintain on octreotide drip, will maintain NPO status, maintain on aspiration precautions, GI consulted with evaluation pending for endoscopic evaluation, will continue prophylactic Rocephin given concern for underlying cirrhotic disease. #2. Acute EtOH Withdrawal: Will initiate on IV phenobarbital regimen continued until nausea/emesis improved and acute presentation #1 further evaluated, may consider transitioning to oral taper following, mag 1.8 per ED, pending Phos, will maintain on thiamine/folic acid/multivitamin as able however may necessitate IV transition pending further emesis bouts, will maintain on concurrent overlapping CIWA protocol, case management consulted. #3. Hyperbilirubinemia, acute on chronic with possible chronic parenchymal liver disease and diffusely thickened wall of the gallbladder: Admission T. bili 2.45, D bili 1.64, most recently noted T. bili 02/18/2025 4.27; however, previous D bili levels normal however this has not been obtained since 2019 that certainly could have been elevated in the interim, unclear exact etiology, but does have underlying alcohol abuse, given CT imaging liver/gallbladder ultrasound requested. #4. Chronic hyponatremia, unclear specific etiology, potential acute hypovolemic component given recent GI loss history: Admission sodium 131, chloride 98, previously had actually been in the mid to low 120 ranges, no records noted from visits corresponding to these labs, unclear exact etiology for hyponatremia, given recent GI losses certainly hypovolemic component for acute presentation currently, will continue judiciously hydrate and if persistent hyponatremia then may need to investigate further. #5. History chronic EKG changes: Patient with chronic stable T wave inversions in lead III and aVF as well as inferior ischemia type changes, previous cardiac catheterization with no notable coronary disease, most recent cardiology evaluation 04/02/2025 for preoperative assessment with no concerns at that time. #6. Chronic Kidney Disease Stage II per GFR trending: Admission BUN/Cr 31/1.04, GFR 78, baseline renal function primarily 0.8-1.0, repeat BMP in AM. #7. Hypertension: Will temporarily hold home diltiazem, lisinopril, add back once assure BP appropriate given #1. #8. Hyperlipidemia: Will temporarily hold statin therapy. #9. Chronic asthma with allergic rhinitis: Per current list does not appear to be on chronic regimen, will have PRN albuterol, HOB, IS parameters, will temporarily hold as needed home fluticasone regimen. #10. History of severe diverticulosis: Most recent noted colonoscopy 01/20/[address] Ulrcih with noted severe diverticulosis in the entire colon examined with no evidence of any diverticular bleeding, 3, 1 to 2 mm polyp in the descending colon and in the transverse colon removed with hot snare with at that time noted recommended repeat colonoscopy in 3 years for surveillance. #11. BPH with obstructive pathology: Status post TURP, not on any chronic regimen per current list. #12. DVT prophylaxis: SCDs. #13. CODE status: Patient HCPOA and living will are not in place but his who is present would be his medical decision-maker if necessary he notes. Discussed CODE status at length including difference between FULL code, DNR-CCA and DNR-CC status. Following discussions about the differences in these status, requested Full Code status. Advanced Care Planning Face to Face Time: 16 minutes. Charges/Coding Visit Charges Inpatient E&M: 80611 Init Hosp L3 Procedures Hospitalists Procedures: 74053 Advncd Care Plan 30 Min
--- NOTE | 2025-04-09 05:38 | EX.ED.DYSGE1 ---
HPI History of Present Illness Chief Complaint: GI Bleed Informant: patient and spouse/S.O. Narrative Narrative: Patient is a 69-year-old male with past medical history of hypertension hyperlipidemia who reports also roughly 40 years of drinking 8 glasses of liquor/mixed drinks per day. He states that in the last few years he has decreased his alcohol use down to approximately 4 mixed drinks per day. He states that Monday night he went to bed normally and then woke around 2 or 3 in the morning with nausea and vomiting. He states at that time the emesis was not dark or discolored. He states that then Monday evening around 10 PM or so he had a return of nausea and vomiting this time it was dark in color. He denies any history of bleeding disorder or blood thinner use. He states he has not had diarrhea and he denies any dark or bloody stool. However with his recurrent bouts of nausea and vomiting and the most recent bouts of emesis looking bloody in nature he presents for evaluation Patient states his last drink was around 11 AM on Monday [facility] Medical History CKD (chronic kidney disease), stage II Chronic anemia Alcohol abuse BPH (benign prostatic hyperplasia) Left inguinal hernia Colonic diverticular disease Tubular adenoma of colon Asthma Hyperlipidemia Hypertension Wide-complex tachycardia Abnormal EKG Arthritis Home Medications ?Medication ?Instructions ?Recorded ?Last Taken ?Type albuterol sulfate 90 mcg/actuation 1 puff IH Q4H PRN PRN Sob &/Or 07/27/17 Unknown History aerosol inhaler Wheezing lisinopril 5 mg tablet 5 mg PO DAILY 07/27/17 01/20/22 History rosuvastatin 10 mg tablet 10 mg PO QHS 07/27/17 Unknown History fluticasone propionate 50 1 spray intranasal PRN PRN 01/14/22 Unknown History mcg/actuation nasal ALLERGIES spray,suspension (Flonase Allergy Relief) diltiazem HCl 240 mg 240 mg PO DAILY #90 caps 04/02/25 Unknown Rx capsule,extended release 24 hr Allergy/AdvReac Type Severity Reaction Status Date / Time shellfish derived AdvReac Intermediate vomiting Verified 04/09/25 02:26 Family History Father , age 80+ in his sleep, assumed cardiac CAD (coronary artery disease) Heart disease Hypertension Mother CAD (coronary artery disease) Heart disease Hypertension Diabetes Sister CAD (coronary artery disease) Heart disease Hypertension Myocardial infarction Surgical History Hx of transurethral resection of prostate History of left heart catheterization (07/28/17) H/O hernia repair Social History household members: spouse Smoking Status: Never smoker alcohol intake: current alcohol intake frequency: 3 or more drinks per day substance use type: does not use ROS ROS ED Constitutional Constitutional ED: Denies chills or fever(s) Eyes Eyes: Denies change in vision ENT ENT ED: Denies sore throat Cardiovascular Cardiovascular: Reports racing heartbeat; Denies chest pain Respiratory/Chest Respiratory/Chest: Denies cough or dyspnea Gastrointestinal Gastrointestinal: Reports nausea and vomiting; Denies abdominal pain, diarrhea or melena Genitourinary Genitourinary ED: Denies dysuria or hematuria Musculoskeletal Musculoskeletal: Denies myalgias Integumentary Denies rash Neurologic Neurologic: Reports weakness; Denies headache(s) Hematologic/Lymphatic Hematologic/Lymphatic: Denies easy bleeding or easy bruising EXAM Physical Exam Const Vital Signs: 04/09/25 02:27 04/09/25 03:15 04/09/25 04:00 Temperature 97.6 F L Temperature Source Oral Pulse Rate 108 H 89 87 Respiratory Rate 18 18 16 Blood Pressure 106/56 L 114/53 L 131/73 H Blood Pressure Mean 72 73 92 Pulse Ox 100 99 97 Oxygen Delivery Method Room Air Room Air Room Air 04/09/25 05:00 Temperature Temperature Source Pulse Rate 82 Respiratory Rate 18 Blood Pressure 114/72 Blood Pressure Mean 86 Pulse Ox 98 Oxygen Delivery Method Room Air Positive well nourished and well developed General Appearance ED: well developed HEENT HEENT Narrative: Normocephalic atraumatic No tongue or lip swelling no oral lesions no airway edema or compromise No signs of infection noted in the posterior pharynx Eyes PERRL and EOMs intact bilaterally General Eye ED: Yes pale conjunctiva and scleral icterus Neck supple Neck Narrative: No nuchal rigidity or meningeal signs Resp normal respiratory effort and clear to auscultation bilaterally Resp Narrative: Breath sounds are diminished throughout with faint rhonchi in the bilateral lower lobes without nasal flaring retractions tachypnea or accessory muscle use Cardio regular rhythm Rate: tachycardic and other Other Details: Tachycardic rate with regular rhythm Radial and carotid pulses are equal and symmetric GI non-tender GI Narrative: Abdomen is soft but slightly distended with faint fluid wave consistent with ascites from cirrhosis No voluntary guarding or rigidity or pulsatile mass No peritoneal signs Auscultation: normoactive bowel sounds Palpation: soft Narrative: Rectal exam displays normal tone without hemorrhoids or fissure noted. Stool is melanotic in color and Hemoccult positive Extremity Extremity Narrative: +1 pitting edema to the bilateral lower extremities that is equal and symmetric Negative Homans' sign bilaterally All compartments are soft and compressible going against compartment syndrome Neuro oriented x3, CN's II-XII intact bilaterally and no sensory deficits noted Sensorium / Orientation: alert Motor Exam: strength 5/5 throughout Psych mental status grossly normal Skin Skin Narrative: There is faint jaundice noted consistent with history of alcohol use Capillary refill remains less than 3 seconds MDM MDM MDM Narrative Medical decision making narrative: Patient arrived to the ER tachycardic and borderline hypotensive. He reported multiple bouts of nausea and vomiting with the most recent being dark and discolored. With his history of daily alcohol use for 40 years or more there is high concern for alcoholic gastritis leading to a perforated ulcer versus esophageal varices. These could have led to acute blood loss anemia secondary to GI bleed. Patient also has physical exam findings concerning for cirrhosis with ascites. With his report of dark/coffee-ground emesis there is high concern for a bleeding ulcer therefore he was given an 80 mg bolus of Protonix followed by Protonix drip. With concern for esophageal variceal bleed he was started on 50 mcg of octreotide. He was given 2 g of IV Rocephin as well. As he was tachycardic and hypotensive he was ordered 2 L of fluid while laboratory studies are pending. Blood work came back showing a hemoglobin of 6.5 when most previous labs from approximately 3 months ago had a hemoglobin of approximately 11. This would correlate with acute blood loss anemia and 2 units of blood were ordered. A CTA was obtained of the chest abdomen and pelvis to look for source of active bleeding. The radiologist noted there are findings within the stomach consistent with acute hemorrhagic products but no signs of active bleeding. With the patient receiving his medications and fluid his blood pressure improved and his heart rate reduced. He had no further bouts of vomiting while in the ER. He was started on phenobarbital as there is high likelihood that he will progress to alcohol withdrawal as he has not had a drink for almost 18 hours. Even though the patient is showing improvement to his vital signs I have high concern that he could throw clot and decompensate or progress to alcohol withdrawal at any point and do feel he would benefit from placement in the ICU. I discussed the case with albacore fishing boat crewman on-call Dr. Ulrich. He agrees with the plan of care at this time and states that based on my report he feels safe keeping the patient here for continued care. Secondary to this I discussed the case with the hospitalist who agrees to accept the patient for continued observation and treatment. History & Record Review Discussion w/independent historian: Patient and Significant other Lab Data Attestation: I reviewed the patient's lab results. Labs: Laboratory Results - last 24 hr 04/09/25 02:30 WBC 12.8 H RBC 1.83 L Hgb 6.5 L Hct 18.4 L MCV 100.5 H MCH 35.5 H MCHC 35.3 RDW Std Deviation 52.3 H RDW Coeff of Marilee 14.6 Plt Count 213 MPV 11.1 Immature Gran % (Auto) 0.300 Neut % (Auto) 74.0 H Lymph % (Auto) 18.0 L Bradley % (Auto) 7.2 Eos % (Auto) 0.2 Baso % (Auto) 0.3 Absolute Neuts (auto) 9.5 H Absolute Lymphs (auto) 2.30 Nucleated RBC % 0 PT 19.5 H INR 1.6 APTT 33.7 Sodium 131 L Potassium 4.3 Chloride 98 Carbon Dioxide 19.6 L Anion Gap 14 BUN 31 H Creatinine 1.04 Estim Creat Clear Calc 67.98 Est GFR (MDRD) Non-Af 78 BUN/Creatinine Ratio 29.6 H Glucose 115 H Lactic Acid 2.0 Calcium 9.0 Magnesium 1.8 Total Bilirubin 2.45 H Direct Bilirubin 1.64 H AST 44 H ALT 14 Alkaline Phosphatase 221 H Ammonia 37.0 Total Protein 6.4 Albumin 2.7 L Globulin 3.7 Lipase 22 Ethyl Alcohol < 10.1 Blood Type A POSITIVE Antibody Screen NEGATIVE Crossmatch See Detail Radiography Diagnostic Testing: Clinical Impression(s) from Imaging Studies Chest/Abdomen/Pelvis CTA 04/09/25 02:54 IMPRESSION: Moderate coronary artery calcifications. Mild left pleural effusion. Passive atelectatic airspace disease of the left lower lobe. Hepatomegaly. Hepatic steatosis. Diffuse irregularity of the hepatic contour, probably chronic parenchymal liver disease. Cholelithiasis. Diffuse thickening of the wall of the gallbladder. Mild ascites. Right posterolateral bladder diverticulum measuring 4.3 cm. Bilateral fat containing inguinal hernias without incarceration. Ascitic fluid is noted in the left inguinal canal. Small sliding hiatal hernia. Diffuse thickening of the stomach suggestive of gastritis. Acute hemorrhagic products are noted in the gastric lumen. No CT evidence of active bleeding during the time of the exam. Diffuse thickening of the small bowels, possibly secondary to chronic parenchymal liver disease/ascites and/or enteritis. Reading [facility] [id number] Management Discussion w/another healthcare provider: Hospitalist and Electrical Engineering Technician Critical Care Time Critical Care Time: Yes Critical care time (excluding procedures): Discussing w/Patient &/or Family/Chief Medical Physicist, Discussing w/Consultants and - (Please note critical care time of 37 minutes) Discharge Plan Dx/Rx/DC Orders Clinical Impression: GI bleed, Hyperlipidemia, Hypertension, Acute blood loss anemia, Cirrhosis of liver with ascites, Alcohol abuse, Nausea & vomiting, Acute alcoholic gastritis with hemorrhage Disposition Disposition: [facility]
--- OUTSIDE RECORDS SUMMARY | 2025-04-09 06:01 | XMS RPT_ITS | CCD ---
Author Organization [facility] Team Providers Care Cranberry Grower Name Role Phone Iris RN, Radha A Unavailable Unavailable Iris RN, Radha A Unavailable Unavailable Iris RN, Radha A Unavailable Unavailable Barton, Natalie Unavailable Unavailable Iris RN, Radha A Unavailable Unavailable HARVEY Cleary, Amberly Caceres Unavailable Unavailabl e Dr. Ramon Arias Primary Care Provider Dr. Ramon Arias Referring Provider Telly GLOBAL TRANSPORTATION MANAGER, GLOBAL TRANSPORTATION MANAGER-C Eleanor Caceres Attending Provider Dr. Sagar Ulrich Attending Provider Dr. Sagar Ulrich Other Provider Dr. Ramon Arias Primary Care Provider Dr. Ramon Arias Referring Provider JENNIFER Fitch Attending Provider Dr. West Abbott Attending Provider Telly GLOBAL TRANSPORTATION MANAGER, GLOBAL TRANSPORTATION MANAGER-C Eleanor Caceres Attending Provider Arnulfo GLOBAL TRANSPORTATION MANAGER-C, Inga Primary Care Provider Arnulfo GLOBAL TRANSPORTATION MANAGER-C, Inga Attending Provider Arnulfo GLOBAL TRANSPORTATION MANAGER-C, Inga Referring Provider Sinai MALDONADO, Dr. Ramirez Attending Provider Antonio MALDONADO, Dr. Boyd Mccarty Referring Provider Dr. West Abbott MD Attending Provider Issa MALDONADO, Dr. Linton Referring Provider Unavaila ble West Abbott Attending Unavailable Inga Arredondo Primary Care Unavailable Royer Parsons Referring Unavailable Arnulfo, Inga Attending Unavailable Arnulfo, Inga Referring Unavailable Arnulfo, Inga Primary Care Unavailable Arnulfo, Inga Primary Care Unavailable Arnulfo, Inga Attending Unavailable West Abbott Attending Unavailable Scar, [place] Referring Unavailable Arnulfo, Inga Primary Care Unavailable [...] [shellfish derived] Propensity to adverse reactions 01-20-2022 [facility] Medications Current Medications Medication Drug Class(es) Dates [...] - Q4H as needed ALBUTEROL SULFATE AERS [id number] Aliyah Dominguez RN fluticasone propionate 0.05 mg/actuat metered dose nasal spray (9 sources) Corticosteroid Start: 01-14-2022 Fluticasone Pr opionate (Flonase Allergy Relief) 50 mcg/actuation [place],Suspension Active 1 NMA INTRANASAL NEEDED as needed for ALLERGIES January 14, 2022 12:00am Start: 01-14-2022 Fluticasone Pr opionate (Flonase Allergy Relief) 50 mcg/actuation [place],Suspension Active 1 SPRAY INTRANASAL NEEDED January 13, 2022 11:00pm lisinopril 5 mg oral tablet (15 sources) Angiotensin Converting Enzyme Inhibitor Start: 07-27-2017 take 1 tablet by mouth once daily Lisinopril 5 MG tablet Active 5 mg PO DAILY July 27, 2017 1:00am Start: 05-24-2017 take 1 tablet by estela th once daily LISINOPRIL 5 MG TABS One tablet by mouth daily LISINOPRIL [id number] Aliyah Dominguez RN rosuvastatin calcium 10 mg oral tablet (15 sources) HMG-CoA Reductase Inhibitor Start: 07-27-2017 take 1 tablet by mouth at bedtime Rosuvastatin 10 MG tablet Active 10 mg PO AT BEDTIME July 27, 2017 1:00am Start: 05-24-2017 take 1 tablet by estela th once daily CRESTOR 10 MG TABS One tablet by mouth daily ROSUVASTATIN CALCIUM [id number] Aliyah Dominguez RN Completed/Discontinued Medications Medication Drug [...] TBEC One tablet by mouth daily ASPIRIN [id number] Aliyah Dominguez RN ciprofloxacin 500 mg oral [...] One tablet by mouth daily CLOPIDOGREL BISULFATE [id number] Moshe Bryant MD 24 hr dilTIAZem hydrochloride [...] th once daily CARDIZEM CD 120 MG [id number] One tablet by mouth daily DILTIAZEM HCL COATED BEADS [id number] Moshe Bryant MD ibuprofen 200 mg oral tablet (15 sources) Nonsteroidal Anti-inflammatory Drug Start: 07-27-2017 End: 03-20-2025 take 1 tablet by mouth every six hours as needed for pain Ibuprofen 200 MG tablet Discontinued 200 mg PO EVERY 6 HOURS NEEDED as needed for Pain July 27, 2017 1:00am March 20, 2025 11:37am Start: 05-30-2017 IBUPROFEN 200 MG TABS as needed IBUPROFEN [id number] Moshe Bryant MD sildenafil 100 mg oral [...] daily as needed before intercourse SILDENAFIL CITRATE [id number] Aliyah Dominguez RN triamcinolone acetonide 0.055 mg/actuat [...] 24HR 55 MCG/ACT AERO prn TRIAMCINOLONE ACETONIDE [id number] Moshe Bryant MD Problems Active Problems Problem [...] Facility Cardiology Visit Reporton Cardiology Visit Report [facility] [address] [place] [address] OFFICE VISIT Date of Service: 04/02/25 MR#: [id number] Acct: [id number] Name: YAYA BETANCOURT Rep #: [id number] : 1955 Provider: Dr. 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 Normal [facility] ABD Limited w/ Elastographyo n 03-25-2025 ABD Limited w/ Elastography [facility] Imaging Services [address] [place], [place] [address] ABD Limited w/ Elastography MR#: [id number] Acct: [id number] Name: YAYA BETANCOURT Rep #: [id number] : 1955 M 69 From: Jaren calvin MD PCP: SRIDEVI Miller Status: REG CLI Study: ABD Limited w/ Elastography Date of Exam: 01/12 Exam# [id number] Ordering Dr: Inga Arredondo PROCEDURE: ABD LIMITED [...] Marilyn hepatic fluid. Reading Location: [facility] CC: GLOBAL TRANSPORTATION MANAGER-C Inga Arredondo Self Storage Manager: Signed Normal 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: 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 History - agri business agent Hx Hospitalization No 02/12/25 14:02 Any Problems [...] take am of surgery PONV PONV - agri business agent: PONV - agri business agent Female No 02/12/25 14:02 HX of Motion [...] 02/10/25 13:15 Respiratory Assessment Respiratory Assessment - agri business agent: Respiratory Tract Infection Hx - agri business agent Hx Respiratory Tract Infection No 02/12/25 14:02 STOP Sleep Apnea STOP Sleep Apnea - agri business agent: STOP Sleep Apnea - agri business agent Hx Hypertension Yes: CONTROLLED WITH MED 02/12/25 [...] Tobacco Use History Tobacco Use History - agri business agent: Tobacco Use History - agri business agent Tobacco Use Smoking Status Never smoker 02/12/25 14:02 Hx Tobacco Use No 02/12/25 14:02 Years Smoking Packs Smoked per Day Smoking Cessation Date was within the last 15 years Hx Smoking Cessation Date Hx Smoking Cessation Counseling Hematologic Medial History Hematologic Hx - agri business agent: Hematologic Medical Hx - solutions analyst Hx of Blood Transfusion No 02/12/25 14:02 [...] confused, unrespo /Reproduction History /Reproductive History - agri business agent: /Reproductive Hx- agri business agent Hx Now No 02/12/25 14:02 Gestational Age (in weeks): EDC: Hx Hx Para Hx Section SAB No 02/12/25 14:02 PENDING SALE TO [facility] Medical History (Updated 02/12/25 @ 14:08 by [...] nasal ALLERGIES (more content not included)... Normal [facility] 12 Lead EKGon 02-18-2025 12 Lead EKG [facility] Cardiovascular Services [address] [place] [address] 12 Lead EKG 02/18/25 0831 MR#: [id number] Acct: [id number] Name: YAYA BETANCOURT Rep #: [id number] : 1955 69 From: West Abbott MD Attending Dr: Dr. James Rawls MD Status: PRE [facility] Ordering Dr: Royer Parsons MD Date: 02/18/25 Location: [facility] Sex: M C Admitted: Test Reason : [...] Abnormal ECG Confirmed by WEST ABBOTT MD ([id number]), commercial production editor GENNY SIDDIQUI ([id number]) on 02/18/2025 1:31:08 PM Referred By: James Rawls Confirmed By: WEST ABBOTT MD 02/18/25 1331 Date West Abbott MD CC: SRIDEVI Arredondo; Dr. James Rawls MD; Dr. Royer Parsons MD Signed Normal [facility] Comprehensive Metabolic Prof ilon 02-18-2025 Albumin [Mass/Vol] 3.5 g/dL Normal 3.4-4.8 [facility] Comment on above: Performed By: #### L 300.3900, L500.4050, L300.4310 #### [facility] [address] [place], [address] Albumin/Globulin [Mass ratio] 0.7 {ratio} Low 0.9-2.4 [facility] Comment on above: Performed By: #### L 300.3900, L500.4050, L300.4310 #### [facility] [address] [place], [address] ALK PHOS 451 U/L High 40-129 [facility] Comment on above: Performed By: #### L 300.3900, L500.4050, L300.4310 #### [facility] [address] [place], [address] ALT [Catalytic activity/Vol] 24 U/L Normal <=46 [facility] Comment on above: Performed By: #### L 300.3900, L500.4050, L300.4310 #### [facility] [address] [place], [address] AST [Catalytic activity/Vol] 116 U/L High <=37 [facility] Comment on above: Performed By: #### L 300.3900, L500.4050, L300.4310 #### [facility] [address] [place], [address] Bilirubin [Mass/Vol] 4.27 mg/dL High 0.00-1.30 [facility] Comment on above: Performed By: #### L 300.3900, L500.4050, L300.4310 #### [facility] [address] [place], [address] BUN/CRE 6.4 RATIO Low 10-20 [facility] Comment on above: Performed By: #### L 300.3900, L500.4050, L300.4310 #### [facility] [address] [place], [address] Calcium [Mass/Vol] 9.4 mg/dL Normal 7.6-11.0 [facility] Comment on above: Performed By: #### L 300.3900, L500.4050, L300.4310 #### [facility] [address] [place], [address] Chloride [Moles/Vol] 90 mmol/L Low 98-108 [facility] Comment on above: Performed By: #### L 300.3900, L500.4050, L300.4310 #### [facility] [address] [place], [address] CO2 [Moles/Vol] 22.0 mmol/L Normal 21.0-32.0 [facility] Comment on above: Performed By: #### L 300.3900, L500.4050, L300.4310 #### [facility] [address] [place], [address] Creatinine [Mass/Vol] 0.92 mg/dL Normal 0.70-1.20 [facility] Comment on above: Performed By: #### L 300.3900, L500.4050, L300.4310 #### [facility] [address] [place], [address] GAP 13 Normal 5-15 [facility] Comment on above: Performed By: #### L 300.3900, L500.4050, L300.4310 #### [facility] [address] [place], [address] GFR/1.73 sq M.predicted among non-blacks MDRD (S/P/Bld) [Vol rate/Area] 90 mL/min/{1.73_m2} Normal >60 [facility] Comment on above: Result Comment: mL/m in/1.73m2 CKD-EPI Creatinine Equation (2020) Performed By: #### L 300.3900, L500.4050, L300.4310 #### [facility] [address] [place], [address] Globulin (S) [Mass/Vol] 4.8 g/dL High 2.2-4.2 [facility] Comment on above: Performed By: #### L 300.3900, L500.4050, L300.4310 #### [facility] [address] [place], [address] Glucose [Mass/Vol] 104 mg/dL High 70-99 [facility] Comment on above: Performed By: #### L 300.3900, L500.4050, L300.4310 #### [facility] [address] [place], [address] Potassium [Moles/Vol] 4.2 mmol/L Normal 3.3-5.1 [facility] Comment on above: Performed By: #### L 300.3900, L500.4050, L300.4310 #### [facility] [address] [place], [address] Sodium [Moles/Vol] 125 mmol/L Low 133-145 [facility] Comment on above: Performed By: #### L 300.3900, L500.4050, L300.4310 #### [facility] [address] [place], [address] T PROT 8.3 g/dL Normal 5.9-8.4 [facility] Comment on above: Performed By: #### L 300.3900, L500.4050, L300.4310 #### [facility] [address] [place], [address] Urea nitrogen [Mass/Vol] 6 mg/dL Normal 4-19 [facility] Comment on above: Performed By: #### L 300.3900, L500.4050, L300.4310 #### [facility] [address] [place], [address] Partial Thromboplast Timeon 02-18-2025 aPTT Coag (Bld) [Time] 37.3 s High 24.1-36.2 [facility] Comment on above: Performed By: #### L 300.3900, L500.4050, L300.4310 #### [facility] [address] [place], [address] Prothrombin Time w/INRon INR Coag (PPP) [Relative time] 1.3 {INR} Normal [facility] Comment on above: Performed By: #### L 300.3900, L500.4050, L300.4310 #### [facility] [address] [place], [address] PT Coag (PPP) [Time] 16.9 s High 11.7-14.9 [facility] Comment on above: Performed By: #### L 300.3900, L500.4050, L300.4310 #### [facility] [address] [place], [address] Surgery Visit Reporton 02-10 Surgery Visit Report [facility] [address] [place] [address] OFFICE VISIT Date of Service: 02/10/25 MR#: [id number] Acct: [id number] Name: YAYA BETANCOURT Rep #: [id number] : 1955 Provider: Dr. James alonso MD Age/Sex: 69/M Location: [facility] Status: Signed Intake Vital Signs 02/03/22 07:53 [...] Inspection: non-distende (more content not included)... Normal [facility] Absolute lymphocyte countOrd ered By: [place] Arnulfo on 01-03-2025 Lymphocytes Auto (Unsp spec) [#/Vol] 1.02 10*3/uL 0.83-4.51 [facility] Absolute neutrophil countOrd ered By: [facility] on 01-03-2025 Neutrophils (Bld) [#/Vol] 5.8 10*3/uL 2.0-7.7 [facility] Anion gap in Serum or Plasma Ordered By: [facility] on 01-03-2025 Anion gap [Moles/Vol] 12 mmol/L 5-15 [facility] Automated lymphocyte count a s percentage of total leukocytesOrdered By: [facility] on 01-03-2025 Lymphocytes/100 WBC Auto (Unsp spec) 13.3 % Low 19-41 [facility] BUN/creatinine ratioOrdered By: [facility] on 01-03-2025 Urea nitrogen/Creatinine [Mass ratio] 5.6 mg/mg Low 10-20 [facility] Basophil percentageOrdered B y: [facility] on 01-03-2025 Basophils/100 WBC (Bld) 1.2 % High 0-1 [facility] Bilirubin, totalOrdered By: [facility] on 01-03-2025 Bilirubin [Mass/Vol] 2.02 mg/dL High 0.00-1.30 [facility] CBC W/Diff, Automatedon 12-19 Absolute Lymph 1.02 X10 3/uL Normal 0.83-4.51 [facility] Comment on above: Performed By: #### L 501.9910, L500.4050, L500.4100, L100.0100 #### [facility] [address] [place], [address] Absolute Neut 5.8 X10 3/uL Normal 2.0-7.7 [facility] Comment on above: Performed By: #### L 501.9910, L500.4050, L500.4100, L100.0100 #### [facility] [address] [place], [address] Basophils/100 WBC (Bld) 1.2 % High 0-1 [facility] Comment on above: Performed By: #### L 501.9910, L500.4050, L500.4100, L100.0100 #### [facility] [address] [place], [address] Eosinophils/100 WBC (Bld) 1.2 % Normal 0-5 [facility] Comment on above: Performed By: #### L 501.9910, L500.4050, L500.4100, L100.0100 #### [facility] [address] [place], [address] Erythrocyte distribution width (RBC) [Ratio] 15.9 % High 11.6-14.6 [facility] Comment on above: Performed By: #### L 501.9910, L500.4050, L500.4100, L100.0100 #### [facility] [address] [place], [address] Hematocrit (Bld) [Volume fraction] 31.3 % Low 40-54 [facility] Comment on above: Performed By: #### L 501.9910, L500.4050, L500.4100, L100.0100 #### [facility] [address] [place], [address] Hemoglobin (Bld) [Mass/Vol] 10.9 g/dL Low 13.0-16.5 [facility] Comment on above: Performed By: #### L 501.9910, L500.4050, L500.4100, L100.0100 #### [facility] [address] [place], [address] IG% 0.500 Normal 0.0-0.9 [facility] Comment on above: Result Comment: IG% - Immature Granulocytes (promyelocytes, myelocytes and metamyelocytes) > 1% indicates that a LEFT SHIFT is Present. Performed By: #### L 501.9910, L500.4050, L500.4100, L100.0100 #### [facility] [address] [place], [address] Lymphocytes/100 WBC (Bld) 13.3 % Low 19-41 [facility] Comment on above: Performed By: #### L 501.9910, L500.4050, L500.4100, L100.0100 #### [facility] [address] [place], [address] MCH (RBC) [Entitic mass] 34.7 pg High 27.0-32.0 [facility] Comment on above: Performed By: #### L 501.9910, L500.4050, L500.4100, L100.0100 #### [facility] [address] [place], [address] MCHC (RBC) [Mass/Vol] 34.8 g/dL Normal 32-36 [facility] Comment on above: Performed By: #### L 501.9910, L500.4050, L500.4100, L100.0100 #### [facility] [address] [place], [address] MCV (RBC) [Entitic vol] 99.7 fL High 80-94 [facility] Comment on above: Performed By: #### L 501.9910, L500.4050, L500.4100, L100.0100 #### [facility] [address] [place], [address] Monocytes/100 WBC (Bld) 8.9 % Normal 0-10 [facility] Comment on above: Performed By: #### L 501.9910, L500.4050, L500.4100, L100.0100 #### [facility] [address] [place], [address] Neutrophils/100 WBC (Bld) 74.9 % High 47-70 [facility] Comment on above: Performed By: #### L 501.9910, L500.4050, L500.4100, L100.0100 #### [facility] [address] [place], [address] Nucleated RBC (Bld) [#/Vol] 0 10*3/uL Normal 0-5 [facility] Comment on above: Performed By: #### L 501.9910, L500.4050, L500.4100, L100.0100 #### [facility] [address] [place], [address] Platelet mean volume (Bld) [Entitic vol] 11.0 fL Normal 6.2-12.0 [facility] Comment on above: Performed By: #### L 501.9910, L500.4050, L500.4100, L100.0100 #### [facility] [address] [place], [address] Platelets (Bld) [#/Vol] 214 10*3/uL Normal 150-450 [facility] Comment on above: Performed By: #### L 501.9910, L500.4050, L500.4100, L100.0100 #### [facility] [address] [place], [address] RBC (Bld) [#/Vol] 3.14 10*6/uL Low 4.6-6.2 [facility] Comment on above: Performed By: #### L 501.9910, L500.4050, L500.4100, L100.0100 #### [facility] [address] [place], [address] RDW SD 57.5 fl High 35.1-43.9 [facility] Comment on above: Performed By: #### L 501.9910, L500.4050, L500.4100, L100.0100 #### [facility] [address] [place], [address] WBC (Bld) [#/Vol] 7.7 10*3/uL Normal 4.4-11.0 [facility] Comment on above: Performed By: #### L 501.9910, L500.4050, L500.4100, L100.0100 #### [facility] [address] [place], [address] Calculated very low density lipoprotein (VLDL) cholesterol measurementOrdered By: Inga Arredondo on 01-03-2025 Calculated very low density lipoprotein (VLDL) cholesterol measurement 16 mg/dL 5-40 [facility] Carbon dioxide, total [Moles /volume] in Central venous bloodOrdered By: Inga Arredondo on 01-03-2025 CO2 [Moles/Vol] 21.5 mmol/L 21.0-32.0 [facility] Chloride assayOrdered By: Ra kerwin Arredondo on 01-03-2025 Chloride [Moles/Vol] 96 mmol/L Low 98-108 [facility] Comprehensive Metabolic Prof ilon 01-03-2025 Albumin [Mass/Vol] 3.3 g/dL Low 3.4-4.8 [facility] Comment on above: Performed By: #### L 501.9910, L500.4050, L500.4100, L100.0100 #### [facility] [address] [place], [address] Albumin/Globulin [Mass ratio] 0.7 {ratio} Low 0.9-2.4 [facility] Comment on above: Performed By: #### L 501.9910, L500.4050, L500.4100, L100.0100 #### [facility] [address] [place], [address] ALK PHOS 430 U/L High 40-129 [facility] Comment on above: Performed By: #### L 501.9910, L500.4050, L500.4100, L100.0100 #### [facility] [address] [place], [address] ALT [Catalytic activity/Vol] 29 U/L Normal <=46 [facility] Comment on above: Performed By: #### L 501.9910, L500.4050, L500.4100, L100.0100 #### [facility] [address] [place], [address] AST [Catalytic activity/Vol] 119 U/L High <=37 [facility] Comment on above: Performed By: #### L 501.9910, L500.4050, L500.4100, L100.0100 #### [facility] [address] [place], [address] Bilirubin [Mass/Vol] 2.02 mg/dL High 0.00-1.30 [facility] Comment on above: Performed By: #### L 501.9910, L500.4050, L500.4100, L100.0100 #### [facility] [address] [place], [address] BUN/CRE 5.6 RATIO Low 10-20 [facility] Comment on above: Performed By: #### L 501.9910, L500.4050, L500.4100, L100.0100 #### [facility] [address] [place], [address] Calcium [Mass/Vol] 9.0 mg/dL Normal 7.6-11.0 [facility] Comment on above: Performed By: #### L 501.9910, L500.4050, L500.4100, L100.0100 #### [facility] [address] [place], [address] Chloride [Moles/Vol] 96 mmol/L Low 98-108 [facility] Comment on above: Performed By: #### L 501.9910, L500.4050, L500.4100, L100.0100 #### [facility] [address] [place], [address] CO2 [Moles/Vol] 21.5 mmol/L Normal 21.0-32.0 [facility] Comment on above: Performed By: #### L 501.9910, L500.4050, L500.4100, L100.0100 #### [facility] [address] [place], [address] Creatinine [Mass/Vol] 0.77 mg/dL Normal 0.70-1.20 [facility] Comment on above: Performed By: #### L 501.9910, L500.4050, L500.4100, L100.0100 #### [facility] [address] [place], [address] GAP 12 Normal 5-15 [facility] Comment on above: Performed By: #### L 501.9910, L500.4050, L500.4100, L100.0100 #### [facility] [address] [place], [address] GFR/1.73 sq M.predicted among non-blacks MDRD (S/P/Bld) [Vol rate/Area] 98 mL/min/{1.73_m2} Normal >60 [facility] Comment on above: Result Comment: mL/m in/1.73m2 CKD-EPI Creatinine Equation (2020) Performed By: #### L 501.9910, L500.4050, L500.4100, L100.0100 #### [facility] [address] [place], [address] Globulin (S) [Mass/Vol] 4.9 g/dL High 2.2-4.2 [facility] Comment on above: Performed By: #### L 501.9910, L500.4050, L500.4100, L100.0100 #### [facility] [address] [place], [address] Glucose [Mass/Vol] 98 mg/dL Normal 70-99 [facility] Comment on above: Performed By: #### L 501.9910, L500.4050, L500.4100, L100.0100 #### [facility] [address] [place], [address] Potassium [Moles/Vol] 4.2 mmol/L Normal 3.3-5.1 [facility] Comment on above: Performed By: #### L 501.9910, L500.4050, L500.4100, L100.0100 #### [facility] [address] [place], [address] Sodium [Moles/Vol] 129 mmol/L Low 133-145 [facility] Comment on above: Performed By: #### L 501.9910, L500.4050, L500.4100, L100.0100 #### [facility] [address] [place], [address] T PROT 8.2 g/dL Normal 5.9-8.4 [facility] Comment on above: Performed By: #### L 501.9910, L500.4050, L500.4100, L100.0100 #### [facility] [address] [place], [address] Urea nitrogen [Mass/Vol] 4 mg/dL Normal 4-19 [facility] Comment on above: Performed By: #### L 501.9910, L500.4050, L500.4100, L100.0100 #### [facility] [address] [place], [address] Eosinophil percentageOrdered By: Inga Arredondo on 01-03-2025 Eosinophils/100 WBC (Bld) 1.2 % 0-5 [facility] Erythrocyte distribution wid th ratioOrdered By: Inga Arredondo on 01-03-2025 Erythrocyte distribution width (RBC) [Ratio] 15.9 % High 11.6-14.6 [facility] Erythrocyte distribution wid th standard deviationOrdered By: Inga Arredondo on 01-03-2025 Erythrocyte distribution width (RBC) [Ratio] 57.5 fl High 35.1-43.9 [facility] Glomerular filtration rate ( GFR) estimation/1.73 sq m using serum, plasma, or whole bOrdered By: Inga Arredondo on 01-03-2025 GFR/1.73 sq M.predicted among non-blacks MDRD (S/P/Bld) [Vol rate/Area] 98 mL/min/{1.73_m2} >60 [facility] Comment on above: mL/min/1.73m2 CKD-EP I Creatinine Equation (2020) Hematocrit Auto (Bld) [Volum e fraction]Ordered By: Inga Arredondo on 01-03-2025 Hematocrit (Bld) [Volume fraction] 31.3 % Low 40-54 [facility] Hemoglobin measurementOrdere d By: Ingasharad Arredondo on 01-03-2025 Hemoglobin (Bld) [Mass/Vol] 10.9 g/dL Low 13.0-16.5 [facility] Immature granulocytes/100 WB C Auto (Bld)Ordered By: Inga Arredondo on 01-03-2025 Immature granulocytes/100 WBC (Bld) 0.500 % 0.0-0.9 [facility] Comment on above: IG% - Immature Granu locytes (promyelocytes, myelocytes and metamyelocytes) > 1% indicates that a LEFT SHIFT is Present. LDL calc ser/plasOrdered By: Ingasharad Arredondo on 01-03-2025 Cholesterol in LDL [Mass/Vol] 57 mg/dL [facility] Comment on above: Wpsxgeyuwz=145-998 m g/dL & Higher Sjxf=952 mg/dL or greater Laboratory - Chemistry and C hemistry - challengeOrdered By: Inga Arredondo on 01-03-2025 AST [Catalytic activity/Vol] 119 U/L High <38 [facility] Lipid Profileon 01-03-2025 CHOL:HDL 2.[address] [facility] Comment on above: Performed By: #### L 501.9910, L500.4050, L500.4100, L100.0100 #### [facility] [address] [place], [address] Cholesterol [Mass/Vol] 117 mg/dL Normal <=200 [facility] Comment on above: Result Comment: Chol esterol level, Desirable <200 mg/dL Borderline high cholesterol 200-239 mg/dL High cholesterol >=240 mg/dL Recommendations of the NCEP Adult Treatment Panel for the following risk-cutoff thresholds for the [place] population. Performed By: #### L 501.9910, L500.4050, L500.4100, L100.0100 #### [facility] [address] [place], [address] Cholesterol in HDL [Mass/Vol] 44 mg/dL Normal [facility] Comment on above: Result Comment: Lynette onal Cholesterol Education Program (NCEP) guidelines: <40 mg/dL: Low HDL-cholesterol (major risk factor for CHD) >= 60 mg/dL: High HDL-cholesterol (negative risk factor for CHD) HDL-cholesterol is affected by a number of factors, e.g. smoking, exercise, hormones, sex and age. Performed By: #### L 501.9910, L500.4050, L500.4100, L100.0100 #### [facility] [address] [place], [address] Cholesterol in LDL [Mass/Vol] 57 mg/dL Normal [facility] Comment on above: Result Comment: Bord wvaspx=395-575 mg/dL Higher Vfue=721 mg/dL or greater Performed By: #### L 501.9910, L500.4050, L500.4100, L100.0100 #### [facility] [address] [place], [address] Cholesterol in VLDL [Mass/Vol] 16 mg/dL Normal 5-40 [facility] Comment on above: Performed By: #### L 501.9910, [id number], L500.4100, L100.0100 #### [facility] [address] [place], [address] Triglyceride [Mass/Vol] 81 mg/dL Normal [facility] Comment on above: Result Comment: The drugs N-Acetylcysteine and Metamizole may falsely depress this assay. Normal range: <150 mg/dL Borderline High: 150-199 mg/dL High: 200-499 mg/dL Very High: >500 mg/dL Performed By: #### L 501.9910, [id number], L500.4100, L100.0100 #### [facility] [address] [place], [address] MCV (mean corpuscular volume ) determinationOrdered By: Inga Arredodno on 01-03-2025 MCV (RBC) [Entitic vol] 99.7 fL High 80-94 [facility] Mean corpuscular hemoglobin (MCH) determinationOrdered By: Inga Arredondo on 01-03-2025 MCH (RBC) [Entitic mass] 34.7 pg High 27.0-32.0 [facility] Mean corpuscular hemoglobin concentration (MCHC) determinationOrdered By: Inga Arredondo on 01-03-2025 MCHC (RBC) [Mass/Vol] 34.8 g/dL 32-36 [facility] Mean platelet volume determi nationOrdered By: Inga Arredondo on 01-03-2025 Platelet mean volume (Bld) [Entitic vol] 11.0 fL 6.2-12.0 [facility] Monocyte percentageOrdered B y: Inga Arredondo on 01-03-2025 Monocytes/100 WBC (Bld) 8.9 % 0-10 [facility] Neutrophil percentageOrdered By: Inga Arredondo on 01-03-2025 Neutrophils/100 WBC (Bld) 74.9 % High 47-70 [facility] Nucleated red blood cell per centageOrdered By: Inga Arredondo on 01-03-2025 Nucleated RBC/100 WBC (Bld) [Ratio] 0 % 0-5 [facility] PSA,Total - Annual Screenon 01-03-2025 PSA,TOT SCREEN 0.41 ng/mL Normal 0.02-4.00 [facility] Comment on above: Result Comment: This [...] By: #### L 501.9910, L500.4050, L500.4100, L100.0100 ####[facility] [id number] [place], [address] Platelet countOrdered By: Ra kerwin Arredondo on 01-03-2025 Platelets (Bld) [#/Vol] 214 10*3/uL 150-450 [facility] Potassium measurement (mass/ volume)Ordered By: Inga Arredondo on 01-03-2025 Potassium (Unsp spec) [Mass/Vol] 4.2 mmol/L 3.3-5.1 [facility] RBC Auto (Bld) [#/Vol]Ordere d By: Inga Arredondo on 01-03-2025 RBC (Bld) [#/Vol] 3.14 10*6/uL Low 4.6-6.2 [facility] Screening total cholesterol/ high density lipoprotein (HDL) cholesterol ratioOrdered By: Inga Arredondo on 01-03-2025 Cholesterol.total/Noni sterol in HDL [Mass ratio] 2.69 {ratio} [facility] Serum creatinine measurement (mass/volume)Ordered By: Inga Arredondo on 01-03-2025 Creatinine [Mass/Vol] 0.77 mg/dL 0.70-1.20 [facility] Serum globulin measurementOr dered By: Inga Arredondo on 01-03-2025 Globulin (S) [Mass/Vol] 4.9 g/dL High 2.2-4.2 [facility] Serum glucose measurement (m ass/volume)Ordered By: Inga Arredondo on 01-03-2025 Glucose [Mass/Vol] 98 mg/dL 70-99 [facility] Serum or plasma alanine crowley otransferase (ALT) measurementOrdered By: Inga Arredondo on 01-03-2025 ALT [Catalytic activity/Vol] 29 U/L <47 [facility] Serum or plasma albumin oswald urement (mass/volume)Ordered By: Inga Arredondo on 01-03-2025 Albumin [Mass/Vol] 3.3 g/dL Low 3.4-4.8 [facility] Serum or plasma albumin/glob ulin mass ratioOrdered By: Ingasharad Arredondo on 01-03-2025 Albumin/Globulin [Mass ratio] 0.7 {ratio} Low 0.9-2.4 [facility] Serum or plasma alkaline daniel sphatase measurementOrdered By: Ingasharad Arredondo 01-03-2025 ALP [Catalytic activity/Vol] 430 U/L High 40-129 [facility] Serum or plasma calcium oswald urement (mass/volume)Ordered By: Inga Arredondo 01-03-2025 Calcium [Mass/Vol] 9.0 mg/dL 7.6-11.0 [facility] Serum or plasma cholesterol in HDL measurement (mass/volume)Ordered By: Ingasharad Arredondo 01-03-2025 Cholesterol in HDL [Mass/Vol] 44 mg/dL >40 [facility] Comment on above: National Cholesterol Education Program (NCEP) guidelines:<40 mg/dL: Low HDL-cholesterol (major risk factor for CHD)>= 60 mg/dL: High HDL-cholesterol (negative risk factor for CHD)HDL-cholesterol is affected by a number of factors, e.g. smoking, exercise, hormones, sex and age. Serum or plasma cholesterol measurement (mass/volume)Ordered By: Inga Arredondo on 01-03-2025 Cholesterol [Mass/Vol] 117 mg/dL <201 [facility] Comment on above: Cholesterol level, D esirable <200 mg/dLBorderline high cholesterol 200-239 mg/dLHigh cholesterol >=240 mg/dLRecommendations of the NCEP Adult Treatment Panel for the following risk-cutoff thresholds for the [place] population. Serum or plasma urea nitroge n measurement (mass/volume)Ordered By: Inga Arredondo on 01-03-2025 Urea nitrogen [Mass/Vol] 4 mg/dL 4-19 [facility] Sodium levelOrdered By: Suni Arredondo on 01-03-2025 Sodium [Moles/Vol] 129 mmol/L Low 133-145 [facility] Total proteinOrdered By: Tam Arredondo on 01-03-2025 Protein [Mass/Vol] 8.2 g/dL 5.9-8.4 [facility] Triglycerides measurementOrd ered By: Inga Arredondo on 01-03-2025 Triglyceride [Mass/Vol] 81 mg/dL <199 [facility] Comment on above: The drugs N-Acetylcy steine and Metamizole may falsely depress this assay. Normal range: <150 mg/dLBorderline High: 150-199 mg/dLHigh: 200-499 mg/dLVery High: >500 mg/dL White blood cell (WBC) count Ordered By: Inga Hernandezgar on 01-03-2025 WBC (Bld) [#/Vol] 7.7 10*3/uL 4.4-11.0 [facility] Absolute lymphocyte countOrd ered By: Inga Hernandezgar on 06-28-2023 Lymphocytes Auto (Unsp spec) [#/Vol] 0.91 10*3/uL 0.83-4.51 [facility] Basophil percentageOrdered B y: Inga Arredondo on 06-28-2023 Basophils/100 WBC (Bld) 0.9 % 0-1 [facility] Bilirubin [Mass/Vol] 2.00 mg/dL 0.20-1.00 [facility] Comment on above: For patients on eltr ombopag therapy, use of Dimension [place] TBIL is not recommended. Chloride [Moles/Vol] 102 mmol/L 98-107 [facility] Cholesterol [Mass/Vol] 136 mg/dL <200 [facility] Comment on above: <200 mg/dL Desirable 200-240 mg/dL Borderline >240 mg/dL High Risk Eosinophils/100 WBC (Bld) 1.4 % 0-5 [facility] Glucose [Mass/Vol] 97 mg/dL 74-106 [facility] Neutrophils (Bld) [#/Vol] 4.3 10*3/uL 2.0-7.7 [facility] Neutrophils/100 WBC (Bld) 75.2 % 47-70 [facility] Potassium [Moles/Vol] 4.2 mmol/L 3.5-5.1 [facility] Protein [Mass/Vol] 8.1 g/dL 6.4-8.2 [facility] Sodium [Moles/Vol] 136 mmol/L 136-145 [facility] Triglyceride [Mass/Vol] 97 mg/dL <199 [facility] Comment on above: The drugs N-Acetylcy steine and Metamizole may falsely depress this assay.Serum Triglycerides Reference Interval Normal <150 mg/dL Borderline high 150 - 199 mg/dL High 200 - 499 mg/dL Very High > or = 500 mg/dL WBC (Bld) [#/Vol] 5.8 10*3/uL 4.4-11.0 [facility] Blood erythrocytes count (nu mber/volume)Ordered By: Inga Arredondo on 06-28-2023 RBC (Bld) [#/Vol] 3.45 10*6/uL 4.6-6.2 [facility] Blood hemoglobin measurement (mass/volume)Ordered By: Inga Arredondo on 06-28-2023 Hemoglobin (Bld) [Mass/Vol] 12.5 g/dL 13.0-16.5 [facility] Blood lymphocytes/100 leukoc ytesOrdered By: Inga Arredondo on 06-28-2023 Lymphocytes/100 WBC (Bld) 15.8 % 19-41 [facility] Blood monocytes/100 leukocyt esOrdered By: Inga Arredondo on 06-28-2023 Monocytes/100 WBC (Bld) 6.4 % 0-10 [facility] Blood platelet mean volumeOr dered By: Inga Arredondo on 06-28-2023 Platelet mean volume (Bld) [Entitic vol] 10.6 fL 6.2-12.0 [facility] Determination of erythrocyte mean corpuscular volume (MCV)Ordered By: Inga Arredondo on 06-28-2023 MCV (RBC) [Entitic vol] 110.1 fL 80-94 [facility] Hematocrit Auto (Bld) [Volum e fraction]Ordered By: Inga Arredondo on 06-28-2023 Hematocrit (Bld) [Volume fraction] 38.0 % 40-54 [facility] - Chemistry and C hemistry - challengeOrdered By: Inga Arredondo on 06-28-2023 ALP [Catalytic activity/Vol] 232 U/L 45-117 [facility] ALT [Catalytic activity/Vol] 64 U/L 16-61 [facility] CO2 [Moles/Vol] 21.0 mmol/L 21.0-32.0 [facility] Globulin (S) [Mass/Vol] 4.8 g/dL 2.2-4.2 [facility] Urea nitrogen/Creatinine [Mass ratio] 13.0 mg/mg 10-20 [facility] - Hematology and Cell countsOrdered By: Inga Arredondo on 06-28-2023 Erythrocyte distribution width (RBC) [Entitic vol] 56.1 fL 35.1-43.9 [facility] Erythrocyte distribution width (RBC) [Ratio] 13.8 % 11.6-14.6 [facility] Immature granulocytes/100 WBC (Bld) 0.300 % 0.0-0.9 [facility] Comment on above: IG% - Immature Granu locytes (promyelocytes, myelocytes and metamyelocytes) > 1% indicates that a LEFT SHIFT is Present. MCH (RBC) [Entitic mass] 36.2 pg 27.0-32.0 [facility] Nucleated RBC/100 WBC (Bld) [Ratio] 0 % 0-5 [facility] MCHC Auto (RBC) [Mass/Vol]Or dered By: Inga Arredondo on 06-28-2023 MCHC (RBC) [Mass/Vol] 32.9 g/dL 32-36 [facility] No Panel InformationOrdered By: Inga Arredondo on 06-28-2023 Estimated GFR (MDRD) Amer 105 mL/min >60 [facility] Comment on above: GFR Calc Estimated GFR (MDRD) Non-Af Amer 87 mL/min >60 [facility] Comment on above: Non- GFR Calc Platelets bldOrdered By: Tam Arredondo on 06-28-2023 Platelets (Bld) [#/Vol] 103 10*3/uL 150-450 [facility] Serum or plasma albumin oswald urement (mass/volume)Ordered By: Inga Arredondo on 06-28-2023 Albumin [Mass/Vol] 3.3 g/dL 3.2-5.0 [facility] Serum or plasma albumin/glob ulin mass ratioOrdered By: Inga Arredondo on 06-28-2023 Albumin/Globulin [Mass ratio] 0.7 {ratio} 0.9-2.4 [facility] Serum or plasma calcium oswald urement (mass/volume)Ordered By: Inga Arredondo on 06-28-2023 Calcium [Mass/Vol] 9.1 mg/dL 8.5-10.1 [facility] Serum or plasma cholesterol in HDL measurement (mass/volume)Ordered By: Inga Arredondo on 06-28-2023 Cholesterol in HDL [Mass/Vol] 82 mg/dL >40 [facility] Comment on above: The drugs N-Acetylcy steine and Metamizole may falsely depress this assay. Reference Range HDL <40 mg/dL Low HDL Cholesterol HDL >or= 60 mg/dL High HDL Cholesterol Serum or plasma cholesterol in VLDL measurement (mass/volume)Ordered By: Inga Arredondo on 06-28-2023 Cholesterol in VLDL [Mass/Vol] 19 mg/dL 5-40 [facility] Serum or plasma creatinine m easurement (mass/volume)Ordered By: Inga Arredondo on 06-28-2023 Creatinine [Mass/Vol] 0.93 mg/dL 0.70-1.30 [facility] Comment on above: The validity of the calculated GFR & GFRAA in patients over 70 years has not been determined. Clinical correlation is essential. Serum or plasma low density lipoprotein (LDL) cholesterol measurement (mass/volume)Ordered By: Inga Arredondo on 06-28-2023 Cholesterol in LDL [Mass/Vol] 35 mg/dL 0-130 [facility] Serum or plasma urea nitroge n measurement (mass/volume)Ordered By: Inga Arredondo 06-28-2023 Urea nitrogen [Mass/Vol] 12 mg/dL 7-18 [facility] Thin prep Papanicolaou smear with manual screeningOrdered By: Inga Arredondo 06-28-2023 Thin prep Papanicolaou smear with manual screening 217 U/L 15-37 [facility] Thin prep Papanicolaou smear with manual screening 13 5-15 [facility] No Panel InformationOrdered By: Boyd Alvarez on 04-11-2023 Prostate Specific Antigen Screen 0.37 ng/mL 0.00-4.00 [facility] Comment on above: This test was perfor med using the TPSA assay method for the[employer] chemistry system. Values obtained with differentassay methods cannot be used interchangably.When changing PSA assays in the course of monitoring apatient, additional sequential testing should be carriedout to confirm baseline values. Basophil percentageOrdered B y: Dr. Steinberg on 09-22-2022 Testosterone [Mass/Vol] 101.16 ng/dL [facility] Comment on above: CENTRAL 90% REFERENC E RANGES MALE AGE <50 197.44 - 669.58 ng/dL MALE AGE > or = 50 187.72 - 684.19 ng/dL FEMALE AGE <50 8.38 - 35.01 ng/dL FEMALE AGE > or = 50 <7.00 - 35.92 ng/dL Effective as of 03/16/21 No Panel InformationOrdered By: Dr. Steinberg on 09-22-2022 HCG Beta Subunit < 1 mIU/mL 0-3 [facility] Comment on above: Guang Lian Shi Dai ECLIA methodol ogyPerformed at: [facility] [address] [id number] Director: Shashi Reeves PhD, Phone: [phone] Luteinizing Hormone 5.0 mIU/mL [facility] Comment on above: NORMAL REFERENCE RAN GES FEMALE FOLLICULAR 1.9 - 26.2 mIU/mL MID-CYCLE PEAK 22.8 - 76.1 mIU/mL LUTEAL 0.6 - 16.6 mIU/mL POST-MENOPAUSAL ON MHT 1.1 - 52.4 mIU/mL NOT ON MHT 8.6 - 61.8 mIU/mL MALE 1.2 - 10.6 mIU/mL Serum or plasma estradiol (E 2) measurement (mass/volume)Ordered By: Dr. Steinberg on 09-22-2022 E2 [Mass/Vol] 22.9 pg/mL [facility] Comment on above: NORMAL REFERENCE RAN [...] Steinberg on 09-22-2022 Prolactin [Mass/Vol] 10.0 ng/mL [facility] Comment on above: NORMAL REFERENCE RAN GES FEMALE NON- 2.2 - 30.3 ng/mL 8.1 - 347.6 ng/mL POST-MENOPAUSAL 0.7 - 31.5 ng/mL MALE 2.5 - 17.4 ng/mL No Panel Informationon 04-05 Prostate Specific Antigen Screen 0.37 ng/mL 0.00-4.00 [facility] Work Phone: Comment on above: This test was perfor med using the TPSA assay method for the[employer] chemistry system. Values obtained with differentassay methods cannot be used interchangably.When changing PSA assays in the course of monitoring apatient, additional sequential testing should be carriedout to confirm baseline values. Absolute lymphocyte counton 09-22-2021 Lymphocytes Auto (Unsp spec) [#/Vol] 1.26 10*3/uL 0.83-4.51 [facility] Work Phone: Basophil percentageon 2021 Basophils/100 WBC (Bld) 0.9 % 0-1 [facility] Work Phone: Bilirubin [Mass/Vol] 0.60 mg/dL 0.20-1.00 [facility] Work Phone: Comment on above: For patients on eltr ombopag therapy, use of Dimension [place] TBIL is not recommended. Chloride [Moles/Vol] 103 mmol/L 98-107 [facility] Work Phone: Cholesterol [Mass/Vol] 167 mg/dL <200 [facility] Work Phone: Comment on above: <200 mg/dL Desirable 200-240 mg/dL Borderline >240 mg/dL High Risk Eosinophils/100 WBC (Bld) 1.3 % 0-5 [facility] Work Phone: Glucose [Mass/Vol] 90 mg/dL 74-106 [facility] Work Phone: Neutrophils (Bld) [#/Vol] 2.6 10*3/uL 2.0-7.7 [facility] Work Phone: Neutrophils/100 WBC (Bld) 58.6 % 47-70 [facility] Work Phone: [phone] Potassium [Moles/Vol] 3.9 mmol/L 3.5-5.1 [facility] Work Phone: Protein [Mass/Vol] 7.7 g/dL 6.4-8.2 [facility] Work Phone: Sodium [Moles/Vol] 138 mmol/L 136-145 [facility] Work Phone: Triglyceride [Mass/Vol] 114 mg/dL [facility] Work Phone: [phone] Comment on above: The drugs N-Acetylcy steine and Metamizole may falsely depress this assay.Serum Triglycerides Reference Interval Normal <150 mg/dL Borderline high 150 - 199 mg/dL High 200 - 499 mg/dL Very High > or = 500 mg/dL WBC (Bld) [#/Vol] 4.5 10*3/uL 4.4-11.0 [facility] Work Phone: Blood erythrocytes count (nu mber/volume)on 09-22-2021 RBC (Bld) [#/Vol] 3.97 10*6/uL 4.6-6.2 [facility] Work Phone: Blood hemoglobin measurement (mass/volume)on 09-22-2021 Hemoglobin (Bld) [Mass/Vol] 13.3 g/dL 13.0-16.5 [facility] Work Phone: Blood lymphocytes/100 leukoc yteson 09-22-2021 Lymphocytes/100 WBC (Bld) 28.1 % 19-41 [facility] Work Phone: Blood monocytes/100 leukocyt eson 09-22-2021 Monocytes/100 WBC (Bld) 10.9 % 0-10 [facility] Work Phone: Blood platelet mean volumeon 09-22-2021 Platelet mean volume (Bld) [Entitic vol] 9.7 fL 6.2-12.0 [facility] Work Phone: Determination of erythrocyte mean corpuscular volume (MCV)on 09-22-2021 MCV (RBC) [Entitic vol] 98.5 fL 80-94 [facility] Work Phone: Hematocrit Auto (Bld) [Volum e fraction]on 09-22-2021 Hematocrit (Bld) [Volume fraction] 39.1 % 40-54 [facility] Work Phone: Laboratory - Chemistry and C hemistry - challengeon 09-22-2021 ALP [Catalytic activity/Vol] 91 U/L 45-117 [facility] Work Phone: ALT [Catalytic activity/Vol] 48 U/L 16-61 [facility] Work Phone: CO2 [Moles/Vol] 26.0 mmol/L 21.0-32.0 [facility] Work Phone: Globulin (S) [Mass/Vol] 4.1 g/dL 2.2-4.2 [facility] Work Phone: Urea nitrogen/Creatinine [Mass ratio] 17.7 mg/mg 10-20 [facility] Work Phone: Laboratory - Hematology and Cell countson 09-22-2021 Erythrocyte distribution width (RBC) [Entitic vol] 54.4 fL 35.1-43.9 [facility] Work Phone: Erythrocyte distribution width (RBC) [Ratio] 14.8 % 11.6-14.6 [facility] Work Phone: Immature granulocytes/100 WBC (Bld) 0.200 % 0.0-0.9 [facility] Work Phone: Comment on above: IG% - Immature Granu locytes (promyelocytes, myelocytes and metamyelocytes) > 1% indicates that a LEFT SHIFT is Present. MCH (RBC) [Entitic mass] 33.5 pg 27.0-32.0 [facility] Work Phone: Nucleated RBC/100 WBC (Bld) [Ratio] 0 % 0-5 [facility] Work Phone: MCHC Auto (RBC) [Mass/Vol]on 09-22-2021 MCHC (RBC) [Mass/Vol] 34.0 g/dL 32-36 [facility] Work Phone: No Panel Informationon 09-22 Estimated GFR (MDRD) Amer 116 mL/min >60 [facility] Work Phone: Comment on above: GFR Calc Estimated GFR (MDRD) Non-Af Amer 96 mL/min >60 [facility] Work Phone: Comment on above: Non- GFR Calc Thyroid Stimulating Hormone (TSH) 2.38 uIU/mL 0.358-3.74 [facility] Work Phone: Platelets bldon 09-22-2021 Platelets (Bld) [#/Vol] 193 10*3/uL 150-450 [facility] Work Phone: Serum or plasma albumin oswald urement (mass/volume)on 09-22-2021 Albumin [Mass/Vol] 3.6 g/dL 3.2-5.0 [facility] Work Phone: Serum or plasma albumin/glob ulin mass ratioon 09-22-2021 Albumin/Globulin [Mass ratio] 0.9 {ratio} 0.9-2.4 [facility] Work Phone: Serum or plasma calcium oswald urement (mass/volume)on 09-22-2021 Calcium [Mass/Vol] 9.1 mg/dL 8.5-10.1 [facility] Work Phone: Serum or plasma cholesterol in HDL measurement (mass/volume)on 09-22-2021 Cholesterol in HDL [Mass/Vol] 95 mg/dL [facility] Work Phone: Comment on above: The drugs N-Acetylcy steine and Metamizole may falsely depress this assay. Reference Range HDL <40 mg/dL Low HDL Cholesterol HDL >or= 60 mg/dL High HDL Cholesterol Serum or plasma cholesterol in VLDL measurement (mass/volume)on 09-22-2021 Cholesterol in VLDL [Mass/Vol] 23 mg/dL 5-40 [facility] Work Phone: Serum or plasma creatinine m easurement (mass/volume)on 09-22-2021 Creatinine [Mass/Vol] 0.85 mg/dL 0.70-1.30 [facility] Work Phone: Comment on above: The validity of the calculated GFR & GFRAA in patients over 70 years has not been determined. Clinical correlation is essential. Serum or plasma low density lipoprotein (LDL) cholesterol measurement (mass/volume)on 09-22-2021 Cholesterol in LDL [Mass/Vol] 49 mg/dL 0-130 [facility] Work Phone: Serum or plasma urea nitroge n measurement (mass/volume)on 09-22-2021 Urea nitrogen [Mass/Vol] 15 mg/dL 7-18 [facility] Work Phone: Thin prep Papanicolaou smear with manual screeningon 09-22-2021 Thin prep Papanicolaou smear with manual screening 79 U/L 15-37 [facility] Work Phone: Thin prep Papanicolaou smear with manual screening 9 5-15 [facility] Work Phone: Lab Report: Basic Metabolic Profile (BMP)on 07-19-2017 Anion gap 8 mmol/L Invalid Interpretation Code 5-15 [facility] Work Phone: [phone] BUN/Creatinine Ratio 11.9 RATIO Invalid Interpretation Code 10-20 [facility] Work Phone: [phone] Calcium 9.3 mg/dL Invalid Interpretation Code 8.5-10.1 [facility] Work Phone: [phone] Chloride 105 mmol/L Invalid Interpretation Code 98-107 [facility] Work Phone: [phone] CO2 29.0 mmol/L Invalid Interpretation Code 21.0-32.0 [facility] Work Phone: [phone] Creatinine 1.01 mg/dL Invalid Interpretation Code 0.70-1.30 [facility] Work Phone: [phone] eGFR (non-black) 80 mL/min/{1.73_m2} Invalid Interpretation Code >60 [facility] Work Phone: [phone] eGFR (non-black) 97 mL/min/{1.73_m2} Invalid Interpretation Code >60 [facility] Work Phone: [phone] Glucose mass conc 70 mg/dL Invalid Interpretation Code 70-110 [facility] Work Phone: [phone] Potassium molar conc 3.5 mmol/L Invalid Interpretation Code 3.5-5.1 [facility] Work Phone: [phone] Sodium 142 mmol/L Invalid Interpretation Code 136-145 [facility] Work Phone: [phone] Urea nitrogen 12 mg/dL Invalid Interpretation Code 7-18 [facility] Work Phone: [phone] Lab Report: CBC W/Diff, Auto matedon 07-19-2017 Absolute Neut 3.5 X10 3/UL Invalid Interpretation Code 2.0-7.7 [facility] Work Phone: [phone] Basophils/100 WBC Auto (Bld) 0.6 % Invalid Interpretation Code 0-1 [facility] Work Phone: [phone] Eosinophils/100 leukocytes 3.2 % Invalid Interpretation Code 0-5 [facility] Work Phone: [phone] Erythrocyte distribution width Auto Ratio (RBC) 13.1 % Invalid Interpretation Code 11.6-14.6 [facility] Work Phone: [phone] Erythrocytes (RBC) 4.21 10*6/uL Low 4.6-6.[address] [facility] Work Phone: [phone] Hematocrit (HCT) 40.5 % Invalid Interpretation Code 40-54 [facility] Work Phone: [phone] Hemoglobin mass conc (Bld) 13.1 g/dL Invalid Interpretation Code 13.0-16.5 [facility] Work Phone: [phone] Immature granulocytes/100 WBC (Bld) 0.000 % Invalid Interpretation Code 0.0-0.9 [facility] Work Phone: [phone] Lymphocytes 2.60 X10 3/UL Invalid Interpretation Code 0.83-4.51 [facility] Work Phone: [phone] Lymphocytes/100 leukocytes 37.2 % Invalid Interpretation Code 19-41 [facility] Work Phone: [phone] 31.1 pg Invalid Interpretation Code 27.0-32.0 [facility] Work Phone: [phone] MCHC mass conc (RBC) 32.3 G/GL Invalid Interpretation Code 32-36 [facility] Work Phone: [phone] MCV 96.2 fL High 80-94 [facility] Work Phone: [phone] Monocytes/100 leukocytes 9.2 % Invalid Interpretation Code 0-10 [facility] Work Phone: [phone] Neutrophils/100 WBC Auto (Bld) 49.8 % Invalid Interpretation Code 47-70 [facility] Work Phone: [phone] Platelets 317 10*3/mm3 Invalid Interpretation Code 150-450 [facility] Work Phone: [phone] PMV by Mariely 9.9 fL Invalid Interpretation Code 6.2-12.0 [facility] Work Phone: RDW SD 45.7 fL High 35.1-43.9 [facility] Work Phone: [phone] WBC (Leukocytes) 7.0 10*3/uL Invalid Interpretation Code 4.4-11.0 [facility] Work Phone: Lab Report: Prothrombin Time w/INRon 07-19-2017 INR Coag RelTime (PPP) 1.0 {INR} Invalid Interpretation Code [facility] Work Phone: [phone] Prothrombin time (PT) Coag time (PPP) 13.1 s Invalid Interpretation Code 11.7-14.9 [facility] Work Phone: [phone] Office Visiton 07-18-2017 Documentation of current medications (procedure) Done Invalid Interpretation Code [facility] Work Phone: [phone] Replaced Document: Lacey Ruggiero CG Observationson 07-18-2017 EKG QRS axis 37 deg Invalid Interpretation Code [facility] Work Phone: [phone] Interpretation Sinus Rhythm WITHIN NORMAL LIMITS Invalid Interpretation Code [facility] Work Phone: [phone] P Trimble 42 deg Invalid Interpretation Code [facility] Work Phone: [phone] UT Interval 176 ms Invalid Interpretation Code [facility] Work Phone: [phone] Pulse (Heart Rate) 76 /min Invalid Interpretation Code [facility] Work Phone: [phone] QRS Duration 92 ms Invalid Interpretation Code [facility] Work Phone: [phone] QT Interval new path ms Invalid Interpretation Code [facility] Work Phone: [phone] QTc Fang 408 ms Invalid Interpretation Code [facility] Work Phone: [phone] T Trimble -1 deg Invalid Interpretation Code [facility] Work Phone: [phone] 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 Left ventricular Ejection fraction 65 % Invalid Interpretation Code [facility] Work Phone: [phone] Lab Report: Basic Metabolic Profile (BMP)on 06-07-2017 Anion gap 8 mmol/L Invalid Interpretation Code 5-15 [facility] Work Phone: [phone] BUN/Creatinine Ratio 8.9 RATIO Low 10-[address] [facility] [address] [facility] Work Phone: [phone] Calcium 9.2 mg/dL Invalid Interpretation Code 8.5-10.1 [facility] Work Phone: [phone] Chloride 104 mmol/L Invalid Interpretation Code 98-107 [facility] Work Phone: [phone] CO2 27.0 mmol/L Invalid Interpretation Code 21.0-32.0 [facility] Work Phone: [phone] Creatinine 0.90 mg/dL Invalid Interpretation Code 0.70-1.30 [facility] Work Phone: [phone] eGFR (non-black) 91 mL/min/{1.73_m2} Invalid Interpretation Code >60 [facility] Work Phone: [phone] eGFR (non-black) 110 mL/min/{1.73_m2} Invalid Interpretation Code >60 [facility] Work Phone: [phone] Glucose mass conc 98 mg/dL Invalid Interpretation Code 70-110 [facility] Work Phone: [phone] Potassium molar conc 3.9 mmol/L Invalid Interpretation Code 3.5-5.1 [facility] Work Phone: [phone] Sodium 139 mmol/L Invalid Interpretation Code 136-145 [facility] Work Phone: [phone] Urea nitrogen 8 mg/dL Invalid Interpretation Code 7-18 [facility] Work Phone: [phone] Lab Report: CBC W/Diff, Auto matedon 06-07-2017 Absolute Neut 2.6 X10 3/UL Invalid Interpretation Code 2.0-7.7 [facility] Work Phone: [phone] Basophils/100 WBC Auto (Bld) 0.9 % Invalid Interpretation Code 0-1 [facility] Work Phone: [phone] Eosinophils/100 leukocytes 2.6 % Invalid Interpretation Code 0-5 [facility] Work Phone: [phone] Erythrocyte distribution width Auto Ratio (RBC) 12.8 % Invalid Interpretation Code 11.6-14.6 [facility] Work Phone: [phone] Erythrocytes (RBC) 4.09 10*6/uL Low 4.6-6.2 [facility] Work Phone: [phone] Hematocrit (HCT) 40.8 % Invalid Interpretation Code 40-54 [facility] Work Phone: [phone] Hemoglobin mass conc (Bld) 13.7 g/dL Invalid Interpretation Code 13.0-16.5 [facility] Work Phone: [phone] Immature granulocytes/100 WBC (Bld) 0.200 % Invalid Interpretation Code 0.0-0.9 [facility] Work Phone: Lymphocytes 1.79 X10 3/UL Invalid Interpretation Code 0.83-4.51 [facility] Work Phone: [phone] Lymphocytes/100 leukocytes 33.6 % Invalid Interpretation Code 19-41 [facility] Work Phone: [phone] MCH 33.5 pg High 27.0-32.0 [facility] Work Phone: [phone] MCHC mass conc (RBC) 33.6 G/GL Invalid Interpretation Code 32-36 [facility] Work Phone: [phone] MCV 99.8 fL High 80-94 [facility] Work Phone: [phone] Monocytes/100 leukocytes 13.5 % High 0-10 [facility] Work Phone: [phone] Neutrophils/100 WBC Auto (Bld) 49.2 % Invalid Interpretation Code 47-70 [facility] Work Phone: [phone] Platelets 222 10*3/mm3 Invalid Interpretation Code 150-450 [facility] Work Phone: [phone] PMV by Mariely 10.1 fL Invalid Interpretation Code 6.2-12.0 [facility] Work Phone: [phone] RDW SD 45.9 fL High 35.1-43.9 [facility] Work Phone: [phone] WBC (Leukocytes) 5.3 10*3/uL Invalid Interpretation Code 4.4-11.0 [facility] Work Phone: [phone] Lab Report: Liver Profileon 06-07-2017 Alanine aminotransferase (ALT) 54 U/L Invalid Interpretation Code 12-78 [facility] Work Phone: [phone] Albumin 3.9 g/dL Invalid Interpretation Code 3.4-5.0 [facility] Work Phone: [phone] Alkaline phosphatase (ALP) 65 U/L Invalid Interpretation Code 45-117 [facility] Work Phone: [phone] Aspartate aminotransferase (AST) 38 U/L High 15-37 [facility] Work Phone: [phone] Bilirubin (direct) 0.14 mg/dL Invalid Interpretation Code 0.00-0.30 [facility] Work Phone: [phone] Bilirubin (total) 0.60 mg/dL Invalid Interpretation Code 0.20-1.00 [facility] Work Phone: [phone] Globulin 3.9 g/dL Invalid Interpretation Code 2.2-4.2 [facility] Work Phone: [phone] Protein 7.8 g/dL Invalid Interpretation Code 6.4-8.2 [facility] Work Phone: [phone] Lab Report: Magnesiumon 05-21 Magnesium 2.2 mg/dL Invalid Interpretation Code 1.8-2.4 [facility] Work Phone: [phone] Lab Report: T4 Total, Thyrox inon 06-07-2017 Thyroxine (T4) 7.0 ug/dL Invalid Interpretation Code 4.5-12.1 [facility] Work Phone: [phone] Lab Report: Thyroid Stim Hor emilie (TSH)on 06-07-2017 Thyroid stimulating hormone (TSH) 3.99 u[iU]/mL High 0.358-3.74 [facility] Work Phone: [phone] Office Visiton 05-30-2017 Documentation of current medications (procedure) Done Invalid Interpretation Code [facility] Work Phone: [phone] Fall risk assessment No Invalid Interpretation Code [facility] Work Phone: [phone] Clinical Lists Update: [employer]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 04-02-2025 11:02-0400 Body mass index (BMI) [Ratio] 26.2 kg/m2 Inga Arredondo GLOBAL TRANSPORTATION MANAGER-C Work Phone: [facility] 04-02-2025 11:02-0400 Body weight 80.73 kg Inga Arredondo GLOBAL TRANSPORTATION MANAGER-C Work Phone: [facility] 04-02-2025 11:02-0400 Diastolic blood pressure 75 mm[Hg] Inga Arnulfo GLOBAL TRANSPORTATION MANAGER-C Work Phone: [facility] 04-02-2025 11:02-0400 Heart rate 98 /min Inga Arnulfo GLOBAL TRANSPORTATION MANAGER-C Work Phone: [facility] 04-02-2025 11:02-0400 Respiratory rate 16 /min Inga Arnulfo GLOBAL TRANSPORTATION MANAGER-C Work Phone: [facility] 04-02-2025 11:02-0400 Systolic blood pressure 147 mm[Hg] Inga Arnulfo GLOBAL TRANSPORTATION MANAGER-C Work Phone: [facility] 02-10-2025 13:15-0400 Body height 175.26 cm Inga Arnulfo GLOBAL TRANSPORTATION MANAGER-C Work Phone: [facility] 02-10-2025 13:15-0400 Body mass index (BMI) [Ratio] 27 kg/m2 Inga Arnulfo GLOBAL TRANSPORTATION MANAGER-C Work Phone: [facility] 02-10-2025 13:15-0400 Body temperature 97.4 [degF] Inga Arnulfo GLOBAL TRANSPORTATION MANAGER-C Work Phone: [facility] 02-10-2025 13:15-0400 Body weight 83 kg Inga Arnulfo GLOBAL TRANSPORTATION MANAGER-C Work Phone: [facility] 02-10-2025 13:15-0400 Diastolic blood pressure 69 mm[Hg] Inga Arnulfo GLOBAL TRANSPORTATION MANAGER-C Work Phone: [facility] 02-10-2025 13:15-0400 Heart rate 88 /min Inga Arnulfo GLOBAL TRANSPORTATION MANAGER-C Work Phone: [facility] 02-10-2025 13:15-0400 Respiratory rate 17 /min Inga Arnulfo GLOBAL TRANSPORTATION MANAGER-C Work Phone: [facility] 02-10-2025 13:15-0400 SaO2% (BldA) [Mass fraction] 96 % Inga Arnulfo GLOBAL TRANSPORTATION MANAGER-C Work Phone: [facility] 02-10-2025 13:15-0400 Systolic blood pressure 108 mm[Hg] Inga Arnulfo GLOBAL TRANSPORTATION MANAGER-C Work Phone: [facility] 02-03-2022 07:53-0400 Body height 175.[address] Ramon Arias Work Phone: [facility] Work Phone: 02-03-2022 07:53-0400 Body mass index (BMI) [Ratio] 25.9 kg/m2 Dr. Ramon Arias Work Phone: [facility] Work Phone: 02-03-2022 07:53-0400 Body weight 79.[address] Ramon Arias Work Phone: [facility] Work Phone: 02-03-2022 07:53-0400 Diastolic blood pressure 93 mm[Hg] Dr. Ramon Arias Work Phone: [facility] Work Phone: 02-03-2022 07:53-0400 Heart rate 82 /min Dr. Ramon Arias Work Phone: [facility] Work Phone: 02-03-2022 07:53-0400 SaO2% (BldA) [Mass fraction] 98 % Dr. Ramon Arias Work Phone: [facility] Work Phone: 02-03-2022 07:53-0400 Systolic blood pressure 151 mm[Hg] Dr. Ramon Arias Work Phone: [facility] Work Phone: 01-25-2022 09:20-0400 Body mass index (BMI) [Ratio] 25.9 kg/m2 Dr. Ramon Arias Work Phone: [facility] Work Phone: 01-25-2022 09:20-0400 Body temperature 97.8 [degF] Dr. Ramon Arias Work Phone: [facility] Work Phone: 01-25-2022 09:20-0400 Body weight 79.[address] Ramon Arias Work Phone: [facility] Work Phone: 01-25-2022 09:20-0400 Diastolic blood pressure 78 mm[Hg] Dr. Ramon Arias Work Phone: [facility] Work Phone: 01-25-2022 09:20-0400 Heart rate 94 /min Dr. Ramon Arias Work Phone: [facility] Work Phone: 01-25-2022 09:20-0400 Respiratory rate 15 /min Dr. Ramon Arias Work Phone: [facility] Work Phone: 01-25-2022 09:20-0400 SaO2% (BldA) [Mass fraction] 99 % Dr. Ramon Arias Work Phone: [facility] Work Phone: 01-25-2022 09:20-0400 Systolic blood pressure 138 mm[Hg] Dr. Ramon Arias Work Phone: [facility] Work Phone: 01-20-2022 07:24-0400 Body temperature 97 [degF] Dr. Ramon Arias Work Phone: [facility] Work Phone: 01-20-2022 07:24-0400 Diastolic blood pressure 83 mm[Hg] Dr. Ramon Arias Work Phone: [facility] Work Phone: 01-20-2022 07:24-0400 Heart rate 68 /min Dr. Ramon Arias Work Phone: [facility] Work Phone: 01-20-2022 07:24-0400 Respiratory rate 16 /min Dr. Ramon Arias Work Phone: [facility] Work Phone: 01-20-2022 07:24-0400 SaO2% (BldA) [Mass fraction] 99 % Dr. Ramon Arias Work Phone: [facility] Work Phone: 01-20-2022 07:24-0400 Systolic blood pressure 113 mm[Hg] Dr. Ramon Arias Work Phone: [facility] Work Phone: 01-20-2022 05:59-0400 Body height 175.[address] Ramon Arias Work Phone: [facility] Work Phone: 01-20-2022 05:59-0400 Body mass index (BMI) [Ratio] 25.5 kg/m2 Dr. Ramon Arias Work Phone: [facility] Work Phone: 01-20-2022 05:59-0400 Body weight 78.[address] Ramon Arias Work Phone: [facility] Work Phone: 07-18-2017 12:50-0500 BMI (Body Mass Index) 26.34 kg/m2 [facility] Work Phone: 07-18-2017 12:50-0500 BP Diastolic 68 mm[Hg] [facility] Work Phone: 07-18-2017 12:50-0500 BP Systolic 128 mm[Hg] Natalie Mick [facility] Work Phone: 07-18-2017 12:50-0500 Height 176.53 cm [facility] Work Phone: 07-18-2017 12:50-0500 Pulse (Heart Rate) 78 /min [facility] Work Phone: 07-18-2017 12:50-0500 Respiratory [...] Provider Facility Start: 05-07-2025 ambulatory West Abbott Facility:[facility] Start: 04-02-2025 Encounter for preprocedural cardiovascular examination [place] [facility] Start: 04-02-2025 End: 04-02-[address] West Abbott MD -[facility] Work Phone: Start: 04-02-2025 End: 04-02-2025 ambulatory Inga Arredondo NP-C Work Phone: -[facility] Start: 03-25-2025 End: 03-25-2025 ambulatory Inga Arredondo GLOBAL TRANSPORTATION MANAGER-C Work Phone: -Ul[facility] Start: 03-25-2025 End: 03-25-2025 Patient encounter procedure Inga Arredondo GLOBAL TRANSPORTATION MANAGER-C -Ultrasound [facility] Work Phone: Start: 03-25-2025 End: 03-25-2025 ambulatory Inga Arredondo Facility:[facility] Start: 03-20-2025 Patient encounter status Inga Arredondo GLOBAL TRANSPORTATION MANAGER-C Work Phone: [facility] Start: 02-27-2025 ambulatory [facility] Facility:[facility] Start: 02-25-2025 Encounter for other preprocedural examination James Rawls [facility] Start: 02-18-2025 End: 02-18-2025 ambulatory West Abbott Facility:[facility] Start: 02-18-2025 End: 02-18-2025 Non-patient / Non-visit Dr. West Abbott MD -[facility] Work Phone: Start: 02-12-2025 [facility]ulatory [facility] Start: 02-10-2025 End: 02-10-[address] James Rawls MD -[facility] Work Phone: Start: 02-10-2025 End: 02-10-2025 ambulatory Inga Arredondo GLOBAL TRANSPORTATION MANAGER-C Work Phone: [facility] Work Phone: Start: 01-03-2025 End: 01-03-2025 ambulatory Inga Arredondo GLOBAL TRANSPORTATION MANAGER-C Work Phone: [facility] Work Phone: Start: 01-03-2025 End: 01-03-2025 Patient encounter procedure Inga Arredondo GLOBAL TRANSPORTATION MANAGER-C -[facility] [place] Work Phone: Start: 01-03-2025 End: 01-03-2025 ambulatory Inga Arnulfo Facility:[facility] Start: 06-28-2023 End: 06-28-[address] [facility] Work Phone: Start: 06-28-2023 End: 06-28-2023 [facility] Start: 04-11-2023 End: 04-11-[address] [facility] Work Phone: Start: 04-11-2023 End: 04-11-2023 [facility] Start: 09-22-2022 End: 09-22-[address] [facility] Work Phone: Start: 09-22-2022 End: 09-22-2022 [facility] Start: 04-05-2022 End: 04-05-[address] [facility] Start: 02-03-2022 End: 02-03-[address] Ramon Arias Work Phone: [facility] Start: 01-25-2022 End: 01-25-[address] Ramon Arias Work Phone: [facility] Start: 01-20-2022 Non-patient / Non-visit Dr. Nitin Arias Work Phone: [facility] Start: 01-20-2022 End: 01-20-2022 Admission to same day surgery center Dr. Ramon Arias Work Phone: [facility] Start: 11-01-2021 End: 11-01-[address] Ramon Arias Work Phone: [facility] Start: 09-22-2021 End: 09-22-[address] Ramon Arias Work Phone: [facility] Procedures Date Procedure Procedure Detail Performing Clinician Start: 03-25-2025 Ultrasound elastogra phy of liver Inga Arredondo GLOBAL TRANSPORTATION MANAGER-C Work Phone: Start: 01-03-2025 Prostate specific an tigen measurement Inga Arredondo GLOBAL TRANSPORTATION MANAGER-C Work Phone: Comment on above: This test [...] Start: 04-02-2025 Evaluation of diagnostic study results [facility] Start: 01-20-2022 Colsc flx w/rmvl of tumor polyp lesion snare tq COLONOSCOPY W/LESION REMOVAL [facility] Work Phone: Start: 02-15-2018 End: 02-15-2018 Appointment Appointment [facility] Work Phone: Start: 07-18-2017 End: 07-18-2017 Appointment Appointment [facility] Work Phone: Start: 07-18-2017 End: 07-20-2017 *BMP *BMP [facility] Work Phone: Start: 07-18-2017 End: 07-20-2017 *CBC with Differential *CBC with Differential [facility] Work Phone: Start: 07-18-2017 End: 07-18-2017 DJN DJN [facility] Work Phone: Start: 07-18-2017 End: 07-18-2017 Follow Up Appt 6 months Follow Up Appt 6 months [facility] Work Phone: Start: 07-18-2017 [...] Phone: Start: 05-30-2017 End: 06-07-2017 *BMP *BMP [facility] Work Phone: Start: 05-30-2017 End: 06-07-2017 *CBC with Differential *CBC with Differential [facility] Work Phone: Start: 05-30-2017 End: 06-07-2017 *Hepatic Function Panel *Hepatic Function Panel [facility] Work Phone: Start: 05-30-2017 End: 05-30-2017 DJN DJN [facility] Work Phone: Start: 05-30-2017 End: 05-30-2017 Echocardiography Echocardiogram (complete) [facility] Work Phone: Start: 05-30-2017 End: 05-30-2017 Follow Up Appt 1 month Follow Up Appt 1 month [facility] Work Phone: Start: 05-30-2017 End: 06-07-2017 Lipid panel [AGGREGATE] *Lipid Profile CC PCP [facility] Work Phone: Start: 05-30-2017 End: 06-07-2017 Magnesium *Magnesium [facility] Work Phone: Start: 05-30-2017 End: 06-16-2017 Stress Echocardiogram (treadmill) Stress Echocardiogram (treadmill) [facility] Work Phone: Start: 05-30-2017 End: 06-07-2017 Thyroid stimulating hormone (TSH) *TSH [facility] Work Phone: Start: 05-30-2017 End: 06-07-2017 Thyroxine (T4) *T4 (Total) [facility] Work Phone: Patient referral [facility] Work Phone: Immunizations Immunization Date Immunization Notes Care Provider Fa [facility] 11-26-2020 Covid (Pfizer) Dr. Ramon chawla Work Phone: [facility] 11-05-2020 Covid (Pfizer) Dr. Ramon chawla Work Phone: [facility] Payers Date Payer Category Payer Medicare [id number] 2025 Self-pay [id number] 2016 Unknown [id number] Medicare [id number] Medicare [id number] Unknown [id number] Unknown [id number] 2.16.8 [id number] Unknown [id number] 2.16.8 [id number] Unknown [id number] 2.16.8 [id number] Unknown [id number] 2.16.8 [id number] Unknown [id number] 2.16.8 [id number] Unknown [id number] 2.16.8 [id number] Unknown [id number] 2.16.8 [id number] Unknown [id number] 2.16.8 [id number] Social History Date Type Detail Facility Start: 01-14-2022 End: 02-03-2022 Tobacco smoking status NVIS Unknown if ever smoked [facility] Start: 1955 Sex Assigned At Male [facility] Start: 02-03-2022 End: 03-20-2025 Tobacco smoking status NHIS Never smoked tobacco (finding) [facility] Medical Equipment Procedure Code Equipment Code [...] Assessment Result Facility 01-20-2022 Cognitive function Voice/Name [facility] Work Phone: Radiology Diagnostic study note 03-25-2025 Note Date & Type Note Facility 03-25-2025 Radiology Diagnostic study note [facility] Imaging Services [address] [place] [place] [address] ABD Limited w/ Elastography MR#: [id number] Acct: [id number] Name: YAYA BETANCOURT Rep #: [id number] : 1955 M 69 From: Ming Gonzalez MD PCP: SRIDEVI Miller Status: REG CLI Study:ABD Limited w/ Elastography Date of Exa m: 03/25/25 Exam# [id number] Ordering Dr: Ra kerwin Arredondo PROCEDURE: ABD [...] pericholecystic and Marilyn hepatic fluid. Reading Location: [id number] CC: SRIDEVI Arredondo ~ Self Storage Manager: Signed [facility] Evaluation note 02-10-2025 Note Date & Type Note Facility 02-10-2025 Evaluation note Diagnosis Onset Date Resolution Left inguinal hernia acute February 10, 2025 1:01pm [facility] Work Phone: Progress note 02-10-2025 Note Date & Type Note Facility 02-10-2025 Progress note [facility] Progress note 02-10-2025 Note Date & Type Note Facility 02-10-2025 Progress note Note Date/Time February 10, 2025 1:22pm [facility] H ealt System [facility] [place] [address] OFFICE VISIT Date of Service: 02/10/25 MR#: [id number] Acct: [id number] Name: YAYA BETANCOURT Rep #: [id number] : 1955 Provider: Dr. Maral Rawls MD Age/Sex: 69/M Location: [facility] Status: Signed Intake Vital Signs 02/03/22 07:53 [...] a hernia present. James Rawls MD Pager: [phone] [address] [place] [address], [address] [place] [id number] Office: Coding Level of Care Code Off vis,new,level 3 Diagnoses Left inguinal hernia K40.90 Clinical Quality Measures Falls Risk Screening/Assistive Devices Have you fallen in the past year?: No 02/10/25 1322 <Electronically signed by James jackman MD> Date _ James Rawls MD Cosigner Signature: Date (if applicable) CC: ~ [facility] Work Phone: Evaluation note Note Date & Type Note Facility Evaluation note Diagnosis Onset Date Positive colorectal cancer s creening using Cologuard test acute [facility] Work Phone: Evaluation note Note Date & Type Note Facility Evaluation note Diagnosis Onset Date Closed nondisp fracture of r ight medial malleolus with routine healing acute Strain of right ankle and foot acute Colonic diverticular disease acute Tubular adenoma of colon acu te [facility] Work Phone: Evaluation note Note Date & Type Note Facility Evaluation note No assessment information availa ble [facility] Work Phone: Evaluation note Note Date & Type Note Facility Evaluation note Diagnosis Onset Date Resolution Left inguinal hernia acute February 10, 2025 1:01pm [facility] Work Phone: Reason for referral (narrative) Note Date & Type Note Facility Reason for referral (narrative) No reason for referral information available [facility] Work Phone: Chief Complaint and Reason [...] January 14, 2022 1 :05pm Power of Oil Recovery Operator No January 14, 2022 1:05pm Advance Directive Response Recorded Date/ Time Advance Directives No July 28, 2017 7:15am Living Will No January 14, 2022 1 2:05pm Power of Oil Recovery Operator No January 14, 2022 12:05pm Advance Directive [...] Dr. Arie Steinberg DO [facility] Active Team Status: Active Member Role Status Dates Dr. Ramon Arias MD Family Provider Active Team Status: Inactive Member Role Status Dates Dr. Boyd Alvarez MD Attending Provider Active Team Status: Active Member Role Status Dates Dr. Ramon Arias MD Family Provider Active Inga Arnulfo , GLOBAL TRANSPORTATION MANAGER-C Primary Care Provider Active Team Status: Inactive Member Role Status Dates Ingasharad Arredondo , GLOBAL TRANSPORTATION MANAGER-C Primary Care Provider, Attending Donavon hamm Active Team Status: Inactive Member Role Status Dates Inga Arnulfo , GLOBAL TRANSPORTATION MANAGER-C Primary Care Provider Active Start: January 03, 2025 End: January 03, 2025 Inga Arredondo , GLOBAL TRANSPORTATION MANAGER-C Attending Provider Active St art: January 03, 2025 End: January 03, 2025 Ingasharad Arredondo , GLOBAL TRANSPORTATION MANAGER-C Referring Provider Active St art: January 03, 2025 End: January 03, 2025 Team Status: Inactive Member Role Status Dates Inga Arnulfo , GLOBAL TRANSPORTATION MANAGER-C Primary Care Provider Active Start: February 10, 2025 End: February 10, 2025 Dr. James Rawls MD Attending Provider Active Start: February 10, 2025 End: February 10, 2025 Dr. Boyd Alvarez MD Referring Provider Active Start: February 10, 2025 End: February 10, 2025 Team Status: Active Member Role/Relationship Status Dates Inga Arnulfo , GLOBAL TRANSPORTATION MANAGER-C Primary Care Provider Active Team Status: Inactive Member Role/Relationship Status Dates Ingasharad Arredondo , GLOBAL TRANSPORTATION MANAGER-C Primary Care Provider Active Start: January 03, 2025 End: January 03, 2025 Inga Arredondo , GLOBAL TRANSPORTATION MANAGER-C Attending Provider Active St art: January 03, 2025 End: January 03, 2025 Inga Arredondo , GLOBAL TRANSPORTATION MANAGER-C Referring Provider Active St art: January 03, 2025 End: January 03, 2025 Team Status: Inactive Member Role/Relationship Status Dates Inga Arnulfo , GLOBAL TRANSPORTATION MANAGER-C Primary Care Provider Active Start: February 10, 2025 End: February 10, 2025 Dr. James Rawls MD Attending Provider Active Start: February 10, 2025 End: February 10, 2025 Dr. Boyd Alvarez MD Referring Provider Active Start: February 10, 2025 End: February 10, 2025 Team Status: Active Member Role/Relationship Status Dates Inga Arnulfo , GLOBAL TRANSPORTATION MANAGER-C Primary Care Provider Active Start: February 18, [...] section and content) DATE CREATED AUTHOR 04/06/2025 [facility] FOR RECORDS PERTAINING TO PATIENTS WHO ARE [...] BE BASED ON THE PRIMARY CLINICAL RECORDS. [employer] provides no warranty or guarantee of the accuracy or completeness of information in this document.
[2025-04-09 07:13] LABS: Reflex Lactate? Y
[2025-04-09] MEDS: Octreotide 0.5 MG in Dextrose 5%-Water (100mL Bag) 99 ML 5 MG CONT INF (08:29)
[2025-04-09] MEDS: 0.9% Normal Saline (1000mL) 1,000 ML 100 ML IV (08:56)
[2025-04-09] MEDS: 0.9% Saline Lock 10 ML Syringe IV (08:59)
--- NOTE | 2025-04-09 09:03 | EX.PCM.CONCC ---
Assessment & Plan Assessment/Plan (1) UGIB (upper gastrointestinal bleed): PLAN: Plan RECOMMENDATIONS: 1. Check H&H posttransfusion. Goal to maintain a hemoglobin at or above 7 g/dL. 2. Octreotide and PPI therapy per gastroenterology. 3. Maintain n.p.o. status for now. 4. Tentative plans for endoscopic evaluation later today. IMPRESSIONS: 1. Acute blood loss anemia Clinical concern for upper gastrointestinal hemorrhage in the setting of longstanding alcohol dependency. There are tentative plans for endoscopic evaluation by gastroenterology later today. In the interim, the patient has been started on octreotide and PPI therapy, both of which will be continued. The patient will remain n.p.o. for now. Recommend checking H&H posttransfusion, with a goal to maintain a hemoglobin at or above 7 g/dL. 2. Longstanding alcohol dependency Continue phenobarbital, along with thiamine and folic acid, as ordered. Maintain CIWA protocol. 3. History of hypertension/hyperlipidemia/asthma/BPH Complicates care, management, recovery and prognosis. Continue supportive measures as noted above. This note was generated with [employer] dictation software. It may contain incorrect words, spelling, and punctuation that were not noted in checking the note before signing. HPI Consult Data Date of Consult: 04/09/25 HPI Narrative Reason for Consultation: Blood loss anemia HPI Narrative: The patient is a 69-year-old male, with a history as outlined below, who presented to the emergency department on April 09 with nausea and coffee-ground emesis. The patient has a longstanding alcohol abuse history, reporting that he typically drinks 4-5 bourbon containing beverages daily. His last drink occurred yesterday. The patient did report associated dizziness and lightheadedness. On presentation to the emergency department, the patient was noted to be afebrile with a blood pressure of 106/56 mmHg. He was maintaining appropriate oxygen saturations on room air. Laboratory evaluation revealed a white blood cell count of 13,000 with a hemoglobin of 6.5 g/dL. Previously, in December 2024, the patient was last noted to have a hemoglobin of 11 g/dL. Platelet count was within normal limits. Chemistry profile was notable for a sodium of 131 with a BUN of 31 and creatinine of 1.04. Lactate was within normal limits. Total bilirubin was elevated at 2.45 with an AST of 44 and alkaline phosphatase of 221. CTA chest/abdomen/pelvis demonstrated a small left pleural effusion with compressive atelectasis, diffuse thickening of the wall of the gallbladder, bilateral fat-containing inguinal hernias without incarceration and diffuse thickening of the stomach suggestive of gastritis. The patient was subsequently ordered to be transfused packed red blood cells and received supplemental IV fluid hydration. He was started on octreotide and pantoprazole. Lastly, the patient was initiated on phenobarbital, thiamine and folic acid. He was subsequently admitted to the medical intensive care unit. [facility] Medical History CKD (chronic kidney disease), stage II Chronic anemia Alcohol abuse BPH (benign prostatic hyperplasia) Left inguinal hernia Colonic diverticular disease Tubular adenoma of colon Asthma Hyperlipidemia Hypertension Wide-complex tachycardia Abnormal EKG Arthritis Home Medications ?Medication ?Instructions ?Recorded ?Last Taken ?Type albuterol sulfate 90 mcg/actuation 1 puff IH Q4H PRN PRN Sob &/Or 07/27/17 Unknown History aerosol inhaler Wheezing lisinopril 5 mg tablet 5 mg PO DAILY 07/27/17 01/20/22 History rosuvastatin 10 mg tablet 10 mg PO QHS 07/27/17 Unknown History fluticasone propionate 50 1 spray intranasal PRN PRN 01/14/22 Unknown History mcg/actuation nasal ALLERGIES spray,suspension (Flonase Allergy Relief) diltiazem HCl 240 mg 240 mg PO DAILY #90 caps 04/02/25 Unknown Rx capsule,extended release 24 hr Allergy/AdvReac Type Severity Reaction Status Date / Time shellfish derived AdvReac Intermediate vomiting Verified 04/09/25 02:26 Family History Father , age 80+ in his sleep, assumed cardiac CAD (coronary artery disease) Heart disease Hypertension Mother CAD (coronary artery disease) Heart disease Hypertension Diabetes Sister CAD (coronary artery disease) Heart disease Hypertension Myocardial infarction Surgical History Hx of transurethral resection of prostate History of left heart catheterization (07/28/17) H/O hernia repair Social History household members: spouse Smoking Status: Never smoker alcohol intake: current alcohol intake frequency: 3 or more drinks per day substance use type: does not use ROS ROS Narrative 10 systems were reviewed with pertinent positives as noted in the HPI above. Physical Exam Const alert and no apparent distress General Appearance: cooperative HEENT normocephalic, head/scalp atraumatic and moist oral mucous membranes Eyes PERRL, EOMs intact bilaterally and conjunctivae normal Neck supple General: trachea midline Chest inspection of chest normal Resp normal respiratory effort Auscultation: Negative for rales, rhonchi or wheezes Cardio regular rate and regular rhythm GI soft to palpation and non-tender Extremity no clubbing, cyanosis or edema Skin no rashes or lesions noted Neuro CN's II-XII intact bilaterally, moves all extremities and no focal motor deficits Psych cooperative and affect normal Lab / Micro Data 04/09/25 02:30 04/09/25 02:30 Labs: Laboratory Results - last 24 hr 04/09/25 02:30: WBC 12.8 H, RBC 1.83 L, Hgb 6.5 L, Hct 18.4 L, MCV 100.5 H, MCH 35.5 H, MCHC 35.3, RDW Std Deviation 52.3 H, RDW Coeff of Marilee 14.6, Plt Count 213, MPV 11.1, Immature Gran % (Auto) 0.300, Neut % (Auto) 74.0 H, Lymph % (Auto) 18.0 L, [place] % (Auto) 7.2, Eos % (Auto) 0.2, Baso % (Auto) 0.3, Absolute Neuts (auto) 9.5 H, Absolute Lymphs (auto) 2.30, Nucleated RBC % 0, PT 19.5 H, INR 1.6, APTT 33.7, Sodium 131 L, Potassium 4.3, Chloride 98, Carbon Dioxide 19.6 L, Anion Gap 14, BUN 31 H, Creatinine 1.04, Estim Creat Clear Calc 67.98, Est GFR (MDRD) Non-Af 78, BUN/Creatinine Ratio 29.6 H, Glucose 115 H, Lactic Acid 2.0, Calcium 9.0, Phosphorus 2.6 L, Magnesium 1.8, Total Bilirubin 2.45 H, Direct Bilirubin 1.64 H, AST 44 H, ALT 14, Alkaline Phosphatase 221 H, Ammonia 37.0, Total Protein 6.4, Albumin 2.7 L, Globulin 3.7, Lipase 22, Ethyl Alcohol < 10.1, Blood Type A POSITIVE, Antibody Screen NEGATIVE, Crossmatch See Detail 04/09/25 08:05: Lactic Acid 1.4 Micro: Microbiology 04/09/25 03:30 Stool Stool Occult Blood (LISBET) - Final Occult Blood Positive Imaging Radiology Impression Chest/Abdomen/Pelvis CTA 04/09/25 02:54 IMPRESSION: Moderate coronary artery calcifications. Mild left pleural effusion. Passive atelectatic airspace disease of the left lower lobe. Hepatomegaly. Hepatic steatosis. Diffuse irregularity of the hepatic contour, probably chronic parenchymal liver disease. Cholelithiasis. Diffuse thickening of the wall of the gallbladder. Mild ascites. Right posterolateral bladder diverticulum measuring 4.3 cm. Bilateral fat containing inguinal hernias without incarceration. Ascitic fluid is noted in the left inguinal canal. Small sliding hiatal hernia. Diffuse thickening of the stomach suggestive of gastritis. Acute hemorrhagic products are noted in the gastric lumen. No CT evidence of active bleeding during the time of the exam. Diffuse thickening of the small bowels, possibly secondary to chronic parenchymal liver disease/ascites and/or enteritis. [facility] Charges/Coding Visit Charges Inpatient E&M: 37111 Init Hosp L3
--- NOTE | 2025-04-09 09:41 | EX.PCM.CON.G ---
HPI Consult Data Date of Consult: 04/09/25 HPI Narrative Reason for Consultation: GIB HPI Narrative: 69y/o male presents to ED with complaints of hematemesis. PMH significant for HTN, tachycardia, HLD, CKD II, arthrits, colon polyps, diverticulosis, and alcohol abuse (40 years of drinking 8 glasses of liquor/mixed drinks per day). He reports a recent decrease in EtOH intake to 4 glasses per day, reporting his last drink was around 11am on Monday morning. He reports waking early Monday morning with N/V. He then had recurrent emesis around 10pm last evening which was dark in color. He denies any h/o bleeding disorder or anticoagulation. He denies any melena. Vitals on admission BP 106/56, HR 108, 100% RA, afebrile. Admission labs revealing HGB 6.5, WBC 12.8, PLT 213, INR 1.6, Na 131, Creat 1.04, T. Bili 2.45, Albumin 2.7, LA 2.0, AST 44, ALT 14, ALP 221, Lipase 22 MELD 15 He was given an 80 mg bolus of Protonix followed by Protonix drip. With concern for esophageal variceal bleed he was started on 50 mcg of octreotide. He was given 2 g of IV Rocephin as well. CTA C/A/P 04/09/2025 Diffuse thickening of the stomach suggestive of gastritis. Acute hemorrhagic products are noted in the gastric lumen. Hepatomegaly. Hepatic steatosis. Diffuse irregularity of the hepatic contour, probably chronic parenchymal liver disease. Cholelithiasis. Diffuse thickening of the wall of the gallbladder. Mild ascites. Diffuse thickening of the small bowels, possibly secondary to chronic parenchymal liver disease/ascites and/or enteritis. ABD US 03/25/2025 Hepatomegaly and diffuse fatty infiltration of the liver. Multiple gallstones. Mild degree of bladder wall thickening with small amount of pericholecystic and Marilyn hepatic fluid. CBD 5mm COLON 01/20/2022 - TA's - Severe diverticulosis in the entire examined colon. There was no evidence of diverticular bleeding. - Three 1 to 2 mm polyps in the descending colon and in the transverse colon, removed with a hot snare. Resected and retrieved. Recommendation: - Repeat colonoscopy in 3 years for surveillance. Due to concerns for alcohol withdrawal he was started on phenobarbital - seen at bedside, present - reports having dark, sticky stools the past few days - c/o nausea and hematemesis - denies any prior EGD - denies any EtOH since 11am yesterday - NPO since 7pm last evening - taking IBU 400mg daily for generalized aches and pains, NO - Vitals: BP 115/73, HR 97 - currently receiving 2nd unit PRBC [facility] Medical History CKD (chronic kidney disease), stage II Chronic anemia Alcohol abuse BPH (benign prostatic hyperplasia) Left inguinal hernia Colonic diverticular disease Tubular adenoma of colon Asthma Hyperlipidemia Hypertension Wide-complex tachycardia Abnormal EKG Arthritis Home Medications ?Medication ?Instructions ?Recorded ?Last Taken ?Type albuterol sulfate 90 mcg/actuation 1 puff IH Q4H PRN PRN Sob &/Or 07/27/17 Unknown History aerosol inhaler Wheezing lisinopril 5 mg tablet 5 mg PO DAILY 07/27/17 01/20/22 History rosuvastatin 10 mg tablet 10 mg PO QHS 07/27/17 Unknown History fluticasone propionate 50 1 spray intranasal PRN PRN 01/14/22 Unknown History mcg/actuation nasal ALLERGIES spray,suspension (Flonase Allergy Relief) diltiazem HCl 240 mg 240 mg PO DAILY #90 caps 04/02/25 Unknown Rx capsule,extended release 24 hr Allergy/AdvReac Type Severity Reaction Status Date / Time shellfish derived AdvReac Intermediate vomiting Verified 04/09/25 02:26 Family History Father , age 80+ in his sleep, assumed cardiac CAD (coronary artery disease) Heart disease Hypertension Mother CAD (coronary artery disease) Heart disease Hypertension Diabetes Sister CAD (coronary artery disease) Heart disease Hypertension Myocardial infarction Surgical History Hx of transurethral resection of prostate History of left heart catheterization (07/28/17) H/O hernia repair Social History household members: spouse Smoking Status: Never smoker alcohol intake: current alcohol intake frequency: 3 or more drinks per day substance use type: does not use ROS ROS Narrative denies pain, weight loss, early satiety, angina, SOB Constitutional Constitutional: Reports as per HPI Gastrointestinal Gastrointestinal: Reports as per HPI Genitourinary Genitourinary: Denies burning urination, difficulty urinating or scrotal swelling Musculoskeletal Musculoskeletal: Reports joint pain and joint stiffness Psychiatric Psychiatric: Denies abnormal sleep pattern, change in appetite, confusion or memory loss Endocrine Endocrinology: Denies polydipsia, polyphagia or polyuria Allergic/Immunologic Allergic/Immunologic: Denies GI upset w/certain foods, urticaria or asthma Physical Exam Const no apparent distress General Appearance: well developed Neck full ROM Resp Effort and Inspection: able to speak in complete sentences Auscultation: clear to auscultation bilaterally GI GI Narrative: ABD softly distended, BS+ x4 Quad, no pain with palpation Skin skin turgor normal Medical Records Data Attestation: I reviewed the patient's medical records Lab / Micro Data Attestation: I reviewed the patient's lab results. 04/09/25 02:30 04/09/25 02:30 Labs: Laboratory Results - last 24 hr 04/09/25 02:30: WBC 12.8 H, RBC 1.83 L, Hgb 6.5 L, Hct 18.4 L, MCV 100.5 H, MCH 35.5 H, MCHC 35.3, RDW Std Deviation 52.3 H, RDW Coeff of Marilee 14.6, Plt Count 213, MPV 11.1, Immature Gran % (Auto) 0.300, Neut % (Auto) 74.0 H, Lymph % (Auto) 18.0 L, [place] % (Auto) 7.2, Eos % (Auto) 0.2, Baso % (Auto) 0.3, Absolute Neuts (auto) 9.5 H, Absolute Lymphs (auto) 2.30, Nucleated RBC % 0, PT 19.5 H, INR 1.6, APTT 33.7, Sodium 131 L, Potassium 4.3, Chloride 98, Carbon Dioxide 19.6 L, Anion Gap 14, BUN 31 H, Creatinine 1.04, Estim Creat Clear Calc 67.98, Est GFR (MDRD) Non-Af 78, BUN/Creatinine Ratio 29.6 H, Glucose 115 H, Lactic Acid 2.0, Calcium 9.0, Phosphorus 2.6 L, Magnesium 1.8, Total Bilirubin 2.45 H, Direct Bilirubin 1.64 H, AST 44 H, ALT 14, Alkaline Phosphatase 221 H, Ammonia 37.0, Total Protein 6.4, Albumin 2.7 L, Globulin 3.7, Lipase 22, Ethyl Alcohol < 10.1, Blood Type A POSITIVE, Antibody Screen NEGATIVE, Crossmatch See Detail 04/09/25 08:05: Lactic Acid 1.4 Micro: Microbiology 04/09/25 03:30 Stool Stool Occult Blood (LISBET) - Final Occult Blood Positive Imaging Radiology Impression Chest/Abdomen/Pelvis CTA 04/09/25 02:54 IMPRESSION: Moderate coronary artery calcifications. Mild left pleural effusion. Passive atelectatic airspace disease of the left lower lobe. Hepatomegaly. Hepatic steatosis. Diffuse irregularity of the hepatic contour, probably chronic parenchymal liver disease. Cholelithiasis. Diffuse thickening of the wall of the gallbladder. Mild ascites. Right posterolateral bladder diverticulum measuring 4.3 cm. Bilateral fat containing inguinal hernias without incarceration. Ascitic fluid is noted in the left inguinal canal. Small sliding hiatal hernia. Diffuse thickening of the stomach suggestive of gastritis. Acute hemorrhagic products are noted in the gastric lumen. No CT evidence of active bleeding during the time of the exam. Diffuse thickening of the small bowels, possibly secondary to chronic parenchymal liver disease/ascites and/or enteritis. Reading Location: [place] [id number] Assessment & Plan Assessment/Plan (1) UGIB (upper gastrointestinal bleed): (2) Alcohol abuse: PLAN: Plan 69y/o male with history of HTN, tachycardia, HLD, CKD-II, diverticulosis, colon polyps, arthritis, and significant alcohol abuse (40 years, recent reduction) presenting with hematemesis. He presented to the ED Monday evening after developing sudden onset hematemesis. Initial HGB 6.5, WBC 12.8, INR 1.6, T. bili 2.45, albumin 2.7, ALP 221, LA 2.4, MELD 15. Received 2u PRBC, IV protonix bolus + gtt, octreotide, and ceftriaxone. CTA C/A/P reveals diffuse gastric thickening (likely gastritis), blood in gastric lumen, hepatomegaly with irregular contour, ascites, gallstones, GB wall thickening, SB thickening. No evidence of active bleeding based on CTA. Concern for variceal bleed, hemorrhagic/erosive gastritis, PUD. Plan to proceed with EGD today, maintain NPO status until procedure. Continue close monitoring of H&H, protonix gtt., CIWA protocol. He will require GI follow-up upon discharge for management of cirrhosis and he is also due for routine screening colonoscopy for history of colon polyps.
--- NOTE | 2025-04-09 12:17 | CASEMGMT ---
HARVEY ACUÑA Assessment Face to Face with patient for initial transition planning/care coordination assessment. HARVEY ACUÑA introduced self and role at [facility], pt voices understanding. Pt is A&Ox4 and is resting comfortably in bed and is calm. Care providers, pharmacy, and demographics verified. Admitting dx: Acute GI Bleed, EtOH abuse with withdrawal LACE Strata: 1 PCP: Inga Arredondo Specialists: [facility]. Rawls (Gen surg) Preferred Pharmacy: [facility] Insurance: [facility] Prescription Benefit: Yes LNOK: Moni (W) Living Arrangements: Pt lives with his in a 2 story home with a FFSU and 1 step to enter ADLs/IADLs: Pt states that he is indep and denies any concerns or needs Transportation: Self, DME: [employer]. Denies all other DME uses or needs HHC/SNF: Denies hx or needs EtOH Abuse: Pt reports that he drinks 4-5 bourbon drinks daily. Pt denies wanting any cessation resources or SW follow up. Pt denies smoking or illicit drug use. Pt?s goal: Home Plan: Home with pt once medically ready. Pt denies the need for any additional resources or therapy. Pt states that he feels more than comfortable returning home with his @ DC and denies any further questions or concerns. Amairani Tran RN, CM
[2025-04-09 12:22] LABS: Hematocrit 21.6 % (40-54); Hemoglobin 7.4 g/dL (13.0-16.5)
--- NOTE | 2025-04-09 13:53 | PCM.PRE.AN2 ---
ASA Classification* ASA Classification ASA Classification: 3 and E (in ICU s/p ER visit for acute blood loss) Assessment & Plan Anesthesia* Anesthesia Assessment Anesthesia Assessment: Discussed sedation and/or anesthesia options, risks, benefits, and alternatives with patient/parents/legal guardian/POA. Questions invited. The patient/parents/legal guardian/POA seems to understand and agrees to proceed with anesthesia plan. Reviewed the physical assessment, medical history, allergy history and patient home medications list prior to surgery/procedure/anesthetic and documented any changes. Performed airway and anesthesia risk assessments. Anesthesia Type Anesthesia Type: MAC History Source History Obtained from:: Patient and Chart Anesthesia Focused Assessment* Temperature: 98.5 F Pulse Rate: 97 Blood Pressure: 130/69 Respiratory Rate: 18 Pulse Ox: 99 Airway Assessment Mouth opens: >3 cm Mallampati Score: II Teeth Condition: Dentures Neck Range of motion (ROM): Limited ROM Labs Anesthesia Preop lab: CBC WBC 12.8 K/mm3 (4.4-11.0) H 04/09/25 02:30 04/09/25 RBC 1.83 M/mm3 (4.6-6.2) L 04/09/25 02:30 04/09/25 Hgb 7.4 g/dL (13.0-16.5) L 04/09/25 11:20 04/09/25 Hct 21.6 % (40-54) L 04/09/25 11:20 04/09/25 Plt Count 213 K/mm3 (150-450) 04/09/25 02:30 04/09/25 CHEMISTRY Potassium 4.3 mmol/L (3.3-5.1) 04/09/25 02:30 04/09/25 Sodium 131 mmol/L (133-145) L 04/09/25 02:30 04/09/25 Magnesium 1.8 mg/dL (1.5-2.2) 04/09/25 02:30 04/09/25 Phosphorus 2.6 mg/dL (2.7-4.5) L 04/09/25 02:30 04/09/25 BUN 31 mg/dL (4-19) H 04/09/25 02:30 04/09/25 Creatinine 1.04 mg/dL (0.70-1.20) 04/09/25 02:30 04/09/25 Glucose 115 mg/dL (70-99) H 04/09/25 02:30 04/09/25 TSH 2.38 uIU/mL (0.358-3.74) 09/22/21 09:34 09/22/21 COAG PT 19.5 SECONDS (11.7-14.9) H 04/09/25 02:30 04/09/25 Pre-Assessment Diagnosis/Proposed Procedure Planned Operative Procedure(s): EGD Anesthesia History 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 When Was Last Pacemaker Check QUESTION #4 FULL TEXT: You/Your Family Experience fever (hyperthermia) with Anesthesia Last Oral Intake Last Oral intake: Last Oral Intake NPO since Meds taken in AM with sips of water? Meds patient instructed to take am of surgery PONV PONV - net front end developer: PONV - net front end developer Female HX of Motion Sickness HX of N/V After Surgery Non-Smoker Duration of Surgery greater than 60 minutes Number of Risk Factors PONV Score Height & Weight Height & Weight: Anesthesia: Height & Weight Height 5 ft 9 in 04/09/25 11:02 Weight: 79.832 kg 04/09/25 11:02 Body Mass Index (BMI) 25.9 04/09/25 06:10 Respiratory Assessment Respiratory Assessment - net front end developer: Respiratory Tract Infection Hx - net front end developer Hx Respiratory Tract Infection No 02/12/25 14:02 STOP Sleep Apnea STOP Sleep Apnea - net front end developer: STOP Sleep Apnea - net front end developer Hx Hypertension Yes: CONTROLLED WITH MED 04/09/25 06:10 Hx Sleep Apnea No 04/09/25 06:10 CPAP BIPAP Do you snore loudly (louder No 04/09/25 06:10 than talking or can be heard Do you often feel tired/ No 08/20/25 06:10 fatigued/ sleepy during daytime? Has anyone observed you stop No 04/09/25 06:10 breathing during sleep? STOP Results Negative 04/09/25 06:10 QUESTION #5 FULL TEXT : Do you snore loudly (louder than talking or can be heard through closed doors)? 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 Specify any problems Hx of Preganancy in last 3 N/A 04/09/25 06:10 Months Nurse Filling Out Transfusion LFORREST 04/09/25 06:10 & Questions: Date: 04/09/25 04/09/25 06:10 Time: 06:12 04/09/25 06:10 Patient unable to answer at this time (ie. confused, unrespo /Reproduction History /Reproductive History - net front end developer: /Reproductive Hx- net front end developer Hx Now Gestational Age (in weeks): EDC: Hx Hx Para Hx Section SAB No 02/12/25 14:02 Active Medications Active Medications: Current Medications Generic Name Dose Route Start Last Admin Trade Name Freq PRN Reason Stop Dose Admin Acetaminophen 650 mg 04/09/25 06:10 Acetaminophen 325 Mg Tablet PO Q4H PRN PRN Fever, pain 1-1010 Al Hydroxide/Mg Hydroxide 30 ml 04/09/25 06:10 Mag Hydrox/Al Hydrox/Simeth 30 Ml Udc PO Q6H PRN PRN Gastric Burning Albuterol Sulfate 2.5 mg 04/09/25 06:10 Albuterol 2.5 Mg/3 Ml Vial.Neb. INHALATION Q2H PRN PRN Dyspnea, wheezing Folic Acid 1 mg 08/20/25 08:00 04/09/25 08:31 Folic Acid 1 Mg Tablet PO Not Given BREAKFAST BURT Guaifenesin 10 ml 04/09/25 06:10 Guaifenesin 10 Ml Udc (200mg/10ml) PO Q4H PRN PRN COUGH Hydralazine HCl 10 mg 04/09/25 06:10 Hydralazine 20 Mg/Ml Vial IV Q4H PRN PRN SBP > 160 Protocol Sodium Chloride 1,000 mls @ 100 mls/hr 04/09/25 06:10 04/09/25 08:56 IV 04/09/25 16:09 100 mls/hr .Q10H BURT Administration Ceftriaxone Sodium 1 gm in 50 mls @ 100 mls/hr 04/09/25 22:00 Rocephin IV 2200 BURT Sodium Chloride 250 mls @ 15 mls/hr 04/09/25 06:16 IV .[id number] PRN Additional IVPB Infusion Sodium Chloride 500 mls @ 15 mls/hr 04/09/25 06:16 IV PRN PRN Blood Transfusion Sodium Chloride 250 mls @ 15 mls/hr 04/09/25 06:16 IV .[id number] PRN Saline Flush Pantoprazole Sodium 40 mg/ 100 mls @ 300 mls/hr 04/09/25 22:00 Sodium Chloride IV Q12 BURT Lorazepam 2 mg 04/09/25 06:10 Lorazepam 1 Mg Tablet PO UD PRN CIWA score >/=15. Protocol Lorazepam 2 mg 04/09/25 06:10 Lorazepam 1 Mg Tablet PO Q2H PRN PRN CIWA score > 8 but <15 Protocol Melatonin 3 mg 04/09/25 06:10 Melatonin 3 Mg Tablet PO QHS PRN PRN INSOMNIA Multivitamins/Minerals 1 tablet 04/10/25 08:00 Multivitamins,Ther W-Minerals Tablet PO BREAKFAST BURT Ondansetron HCl 4 mg 04/09/25 06:10 Ondansetron 4 Mg/2 Ml Vial IV Q8H PRN PRN NAUSEA/VOMITING Phenobarbital 100 mg 04/09/25 08:30 04/09/25 13:35 Phenobarbital Sodium 65 Mg/Ml Vial IV 04/10/25 04:31 Not Given Q4H BURT Sodium Chloride 10 - 40 ml 04/09/25 06:16 04/09/25 08:59 0.9% Saline Lock 10 Ml Syringe IV 40 ml UD PRN Administration SALINE FLUSH Thiamine HCl 100 mg 04/09/25 08:00 04/09/25 08:31 Thiamine Hydrochloride 100 Mg Tablet PO Not Given BREAKFAST [facility] Medical History CKD (chronic kidney disease), stage II Chronic anemia Alcohol abuse BPH (benign prostatic hyperplasia) Left inguinal hernia Colonic diverticular disease Tubular adenoma of colon Asthma Hyperlipidemia Hypertension Wide-complex tachycardia Abnormal EKG Arthritis Home Medications ?Medication ?Instructions ?Recorded ?Last Taken ?Type albuterol sulfate 90 mcg/actuation 1 puff IH Q4H PRN PRN Sob &/Or 07/27/17 Unknown History aerosol inhaler Wheezing lisinopril 5 mg tablet 5 mg PO DAILY 07/27/17 01/20/22 History rosuvastatin 10 mg tablet 10 mg PO QHS 07/27/17 Unknown History fluticasone propionate 50 1 spray intranasal PRN PRN 01/14/22 Unknown History mcg/actuation nasal ALLERGIES spray,suspension (Flonase Allergy Relief) diltiazem HCl 240 mg 240 mg PO DAILY #90 caps 04/02/25 Unknown Rx capsule,extended release 24 hr Allergy/AdvReac Type Severity Reaction Status Date / Time shellfish derived AdvReac Intermediate vomiting Verified 04/09/25 02:26 Family History Father , age 80+ in his sleep, assumed cardiac CAD (coronary artery disease) Heart disease Hypertension Mother CAD (coronary artery disease) Heart disease Hypertension Diabetes Sister CAD (coronary artery disease) Heart disease Hypertension Myocardial infarction Surgical History Hx of transurethral resection of prostate History of left heart catheterization (07/28/17) H/O hernia repair Social History household members: spouse Smoking Status: Never smoker alcohol intake: current alcohol intake frequency: 3 or more drinks per day substance use type: does not use Review of Systems (Anesthesia) ROS Narrative System reviewed and no additional complaints, except as documented.
--- NOTE | 2025-04-09 14:20 | PCM.POST.ANE ---
Anesthesia: Postop Eval I Current Vital Signs Temperature: 97 F Pulse Rate: 94 Blood Pressure: 113/84 Respiratory Rate: 16 Pulse Ox: 97 Oxygen Delivery Method: Nasal Cannula Oxygen Flow Rate (L/min): 2 Assessment Airway patent: Yes Spontaneous unlabored respirations: Yes Mental status: Asleep nausea: No Vomiting: No Anesthesia Complication: No Fluid Hydration Crystalloid volume administer (ml): 100 Total IV fluid infused: 100 Progress Note Anesthesia document: Postop Eval 1 completed: Yes
--- NOTE | 2025-04-09 15:15 | PCM.POSTANE2 ---
Anesthesia Postop Eval I Sum Postop Eval Completion status Anesthesia document: Postop Eval 1 completed: Yes Anesthesia Postop Eval I Summary Anesthesia Postop Eval I Summary: Anesthesia Postop Eval I: Assessment Summary Airway patent Yes 04/09/25 15:12 [email or web address] Spontaneous unlabored Yes 04/09/25 15:12 [email or web address] respirations Mental status Asleep 04/09/25 15:12 [email or web address] nausea No 04/09/25 15:12 [email or web address] Vomiting No 04/09/25 15:12 [email or web address] Anesthesia Postop Eval I: Fluid Summary Crystalloid volume administer 100 04/09/25 15:12 [email or web address] (ml) Colloids volume administered ( ml) Blood Product volume administered (ml) Total IV fluid infused 100 04/09/25 15:12 [email or web address] Anesthesia Postop Eval I: Summary Notes Anesthesia Complication No 04/09/25 15:12 [email or web address] Anesthesia Complication Comment: Post-operative progress note Anesthesia: Postop Eval II Evaluation Mental status: Awake and Calm Pain Level: 0 nausea: No Vomiting: No Complications Anesthesia Complication: No
[2025-04-09 16:14] LABS: Hematocrit 20.7 % (40-54); Hemoglobin 7.1 g/dL (13.0-16.5)
--- NOTE | 2025-04-09 17:02 | OP.EGD_ITS ---
Patient Name: Yonas Brasher Procedure Date: 04/09/2025 2:01 PM Date of : 1955 Age: 69 Procedure: Upper GI endoscopy Indications: Hematemesis, Active gastrointestinal bleeding Providers: Sagar Ulrich DO Medicines: Monitored Anesthesia Care Patient Profile: This is a 69 year old male. Refer to note in patient chart for documentation of history and physical. Patient has symptoms of acute vomiting. Complications: No immediate complications. Procedure: Pre-Anesthesia Assessment: - Prior to the procedure, a History and Physical was performed, and patient medications and allergies were reviewed. The patient is competent. The risks and benefits of the procedure and the sedation options and risks were discussed with the patient. All questions were answered and informed consent was obtained. Patient identification and proposed procedure were verified by the physician in the pre-procedure area. Mental Status Examination: alert and oriented. Airway Examination: normal oropharyngeal airway and neck mobility. Respiratory Examination: clear to auscultation. CV Examination: normal. Prophylactic Antibiotics: The patient does not require prophylactic antibiotics. Prior Anticoagulants: The patient has taken no anticoagulant or antiplatelet agents except for NSAID medication. ASA Grade Assessment: II - A patient with mild systemic disease. After reviewing the risks and benefits, the patient was deemed in satisfactory condition to undergo the procedure. The anesthesia plan was to use monitored anesthesia care (MAC). Immediately prior to administration of medications, the patient was re-assessed for adequacy to receive sedatives. The heart rate, respiratory rate, oxygen saturations, blood pressure, adequacy of pulmonary ventilation, and response to care were monitored throughout the procedure. The physical status of the patient was re-assessed after the procedure. After obtaining informed consent, the endoscope was passed under direct vision. Throughout the procedure, the patient's blood pressure, pulse, and oxygen saturations were monitored continuously. The gastroscope was introduced through the mouth, and advanced to the fourth part of the duodenum. Small bowel enteroscopy was deemed necessary. The upper GI endoscopy was accomplished without difficulty. The patient tolerated the procedure well. Scope In: 2:05:20 PM Scope Out: 2:10:11 PM Total Procedure Duration Time 0 hours 4 minutes 51 seconds Findings: Small (< 5 mm) varices were found in the lower third of the esophagus. They were 3 mm in largest diameter. Two oozing cratered gastric ulcers with a visible vessel were found in the gastric antrum and in the prepyloric region of the stomach. The largest lesion was 15 mm in largest dimension. Coagulation for hemostasis using heater probe was successful. Estimated blood loss was minimal. No gross lesions were noted in the entire examined duodenum. Impression: - Small (< 5 mm) esophageal varices. - Oozing gastric ulcers with a visible vessel. Treated with a heater probe. - No gross lesions in the entire examined duodenum. - No specimens collected. Recommendation: - [facility]. - Resume previous diet. - Continue present medications. Procedure Code(s): --- Professional --- 22214, Small intestinal endoscopy, enteroscopy beyond second portion of duodenum, not including ileum; with control of bleeding (eg, injection, bipolar cautery, unipolar cautery, laser, heater probe, stapler, plasma painting worker) CPT copyright 2021 [employer]. All rights reserved. The codes documented in this report are preliminary and upon telegraph inspector review may be revised to meet current compliance requirements. Sagar Ulrich DO 04/09/2025 5:01:56 PM This report has been signed electronically. Number of Addenda: 0 Note Initiated On: 04/09/2025 2:01 PM
--- NOTE | 2025-04-09 17:02 | OP.PROVAT_ITS ---
04/09/2025 Dacia [facility] Re : Upper GI endoscopy procedure for Yonas Brasher Dear Arnulfo This procedure was performed on Wednesday, April 09, 2025. My impressions and recommendations are as follows: Impressions : - Small (< 5 mm) esophageal varices. - Oozing gastric ulcers with a visible vessel. Treated with a heater probe. - No gross lesions in the entire examined duodenum. - No specimens collected. Recommendations : - [facility]. - Resume previous diet. - Continue present medications. My findings are described in the full procedure note, which is enclosed. If I can be of further assistance, please feel free to contact me at . Sincerely, Sagar Ulrich, 04/09/2025 5:01:56 PM This report has been signed electronically.
--- NOTE | 2025-04-09 17:52 | PCM.HOSP.N ---
Hospitalist Note Patient was seen and examined today, after talking extensively with the patient and his , I decided to discontinue the IV phenobarbital and stay with oral Ativan as needed based on CIWA scores. Patient denies ever going through withdrawal when he does not drink and the confirms this. Patient does not appear anxious or nervous at the time of my examination. Both his and the patient confirmed that he drinks only 4 drinks a day of alcohol, he says he does not exceed this. Patient's repeat hemoglobin will result with 6 PM labs. I made the decision to make the patient a PCU status, EGD today showed small esophageal varices and 2 oozing cratered ulcers in the stomach with a visible vessel in the gastric antrum in the prepyloric region of the stomach. These were treated with a heater probe no gross lesions were found in the duodenum. There is an ultrasound ordered on the patient-I discussed this with gastroenterology and they did not feel the patient needed it, gastroenterology feels the patient has alcoholic hepatitis, he had an abdomen limited ultrasound with elastography on 03/25/2025, there is no evidence of cirrhosis but the patient does have fatty liver and gallstones.
[2025-04-09 19:26] LABS: Hematocrit 19.5 % (40-54); Hemoglobin 6.7 g/dL (13.0-16.5)
[2025-04-09] MEDS: Pantoprazole Sodium 40 MG in 0.9% Normal Saline (100mL MB+) 100 ML 300 MG IV (21:00)
--- NOTE | 2025-04-09 21:29 | PCM.HOSP.N ---
Hospitalist Note Repeat Hgb this evening 6.7, will request 2 u PRBC with repeat Hgb check in AM.
[2025-04-10] VITALS (23 sets, daily range): BP systolic 96–137; BP diastolic 57–85; PULSE 77–98; RESP 15–100; TEMP 36.9–37.2; O2SAT 93–100
[2025-04-10 06:48] LABS: Hematocrit 22.8 % (40-54); Hemoglobin 8.0 g/dL (13.0-16.5); Immature Granulocytes Count 0.030 X10^3/uL (0.0-0.0); Mean Corp Hgb Conc 35.1 g/dL (32-36); Mean Corpuscular Volume 93.1 fL (80-94); Mean Platelet Vol. 10.5 fl (6.2-12.0); NRBC Flagged by Analyzer 0 % (0-5); Platelet Count 125 K/mm3 (150-450); RBC Distribution Width CV 17.1 % (11.6-14.6); RBC Distribution Width SD 56.8 fl (35.1-43.9); Red Blood Count 2.45 M/mm3 (4.6-6.2); White Blood Count 6.0 K/mm3 (4.4-11.0)
--- NOTE | 2025-04-10 06:50 | PCM.PN.INT ---
Assessment & Plan Assessment/Plan (1) UGIB (upper gastrointestinal bleed): PLAN: Plan RECOMMENDATIONS: 1. Continue to monitor blood counts and transfuse to maintain hemoglobin at or above 7 g/dL. 2. Continue PPI therapy. 3. Continue thiamine and folic acid along with as needed Ativan per [facility] protocol. 4. Encourage incentive spirometer use and mobilize patient as tolerated. 5. The patient is medically stable for transfer out of the intensive care unit. Will sign off from a critical care perspective. IMPRESSIONS: 1. Acute blood loss anemia Clinical concern for upper gastrointestinal hemorrhage in the setting of longstanding alcohol dependency. The patient subsequently completed an EGD with intervention performed. Hemoglobin has improved this morning to 8.0 g/dL. Plan to continue PPI therapy. Continue to monitor H&H and transfuse to maintain hemoglobin at or above 7 g/dL. 2. Longstanding alcohol dependency Continue thiamine and folic acid, as ordered, along with as needed Ativan per [facility] protocol. 3. History of hypertension/hyperlipidemia/asthma/BPH Complicates care, management, recovery and prognosis. Continue supportive measures as noted above. This note was generated with [employer] dictation software. It may contain incorrect words, spelling, and punctuation that were not noted in checking the note before signing. Subjective Subjective The patient was seen and examined at the bedside this morning. Events from the last 24 hours have been reviewed. The patient is currently afebrile, hemodynamically stable and maintaining appropriate oxygen saturations on room air. Hemoglobin has improved to 8.0 g/dL this morning, following additional transfusion of blood products. The patient underwent EGD yesterday, during which time, gastric ulcers were identified that were treated. Objective Data Objective Data The patient's most recent lab work, culture data and imaging studies have all been personally reviewed. Vital Signs: Vital Signs Temp Pulse Resp BP Pulse Ox O2 Del Method O2 Flow Rate 98.7 F 78 16 106/58 L 94 Room Air 2 04/10/25 05:30 04/10/25 06:00 04/10/25 06:00 04/10/25 06:00 04/10/25 06:00 04/10/25 06:00 04/09/25 18:00 Oxygen Flow Rate (L/min) 2 Oxygen Delivery Method Room Air Weight: 175 lb 15.991 oz Body Mass Index (BMI) 25.9 Intake & Output: Intake and Output for Last 24 Hours 04/08/25 04/09/25 04/10/25 23:59 23:59 23:59 Intake Total 4197.01 / 4197.01 800 / 800 Output Total / Balance 4195.01 / 4195. 800 / 800 Lab / Micro Data Attestation: I reviewed the patient's lab results. 04/10/25 06:35 04/10/25 06:35 Labs: Laboratory Results - last 24 hr 04/09/25 02:30: Crossmatch See Detail 04/09/25 03:00: Crossmatch See Detail 04/09/25 08:05: Lactic Acid 1.4 04/09/25 11:20: Hgb 7.4 L, Hct 21.6 L 04/09/25 16:00: Hgb 7.1 L, Hct 20.7 L 04/09/25 18:55: Hgb 6.7 L, Hct 19.5 L Micro: Microbiology 04/09/25 07:50 Nasal Secretion MRSA (PCR) - Final 04/09/25 03:30 Stool Stool Occult Blood (LISBET) - Final Occult Blood Positive Physical Exam Const alert and no apparent distress General Appearance: cooperative HEENT normocephalic, head/scalp atraumatic and moist oral mucous membranes Eyes PERRL, EOMs intact bilaterally and conjunctivae normal Neck supple General: trachea midline Chest inspection of chest normal Resp normal respiratory effort Auscultation: Negative for rales, rhonchi or wheezes Cardio regular rate and regular rhythm GI soft to palpation and non-tender Extremity no clubbing, cyanosis or edema Skin no rashes or lesions noted Neuro CN's II-XII intact bilaterally, moves all extremities and no focal motor deficits Psych cooperative and affect normal Charges/Coding Visit Charges Inpatient E&M: 50248 Subs Hosp L2
[2025-04-10 07:19] LABS: AST(SGOT) 57 U/L (<=37); Alanine Aminotransfer ALT/SGPT 13 U/L (<=46); Albumin, Serum 2.1 g/dL (3.4-4.8); Alkaline Phosphatase 145 U/L (40-129); Anion Gap 9 (5-15); BUN 18 mg/dL (4-19); BUN/Creat Ratio 26.9 RATIO (10-20); Calcium,Total 6.7 mg/dL (7.6-11.0); Carbon Dioxide 15.9 mmol/L (21.0-32.0); Chloride 112 mmol/L (98-108); Estimated Creatinine Clearance 88.38 ml/min (50-250); Globulin 2.8 g/dL (2.2-4.2); Glucose 99 mg/dL (70-99); Potassium 3.6 mmol/L (3.3-5.1)
[2025-04-10] MEDS: Albuterol 2.5 MG/3 ML VIAL.NEB. INHALATION (09:17)
[2025-04-10] MEDS: Thiamine Hydrochloride 100 MG Tablet PO (09:46)
[2025-04-10] MEDS: Pantoprazole Sodium 40 MG in 0.9% Normal Saline (100mL MB+) 100 ML 300 MG IV (11:08)
[2025-04-10 13:20] LABS: Hematocrit 25.8 % (40-54); Hemoglobin 8.8 g/dL (13.0-16.5)
--- NOTE | 2025-04-10 14:32 | PCM.PN.BLA ---
Progress Note The patient underwent an upper endoscopy yesterday for acute upper GI bleed. Findings were as follows: Findings: Small (< 5 mm) varices were found in the lower third of the esophagus. They were 3 mm in largest diameter. Two oozing cratered gastric ulcers with a visible vessel were found in the gastric antrum and in the prepyloric region of the stomach. The largest lesion was 15 mm in largest dimension. Coagulation for hemostasis using heater probe was successful. Estimated blood loss was minimal. No gross lesions were noted in the entire examined duodenum. Impression: - Small (< 5 mm) esophageal varices. - Oozing gastric ulcers with a visible vessel. Treated with a heater probe. - No gross lesions in the entire examined duodenum. - No specimens collected. Recommendation: - [facility]. - Resume previous diet. - Continue present medications. Assessment & Plan Assessment/Plan (1) UGIB (upper gastrointestinal bleed): PLAN: Upper GI bleed secondary to peptic ulcer disease. Lesion treated endoscopically. They were not biopsied for H. pylori. He will need repeat upper endoscopy in approximately 3 months after he has completed a course of PPI therapy and Carafate therapy. Visit Charges Inpatient E&M: 25811 [facility] L3
--- NOTE | 2025-04-10 16:49 | PCM.DC ---
Discharge Instructions DC O2, CPAP, BIPAP needs Home O2 Discharge instructions: No Dressing / Incision Discharge Activity: Return to Normal Activity Weight Bearing Status: Full weight bearing Follow Up Care Test Results: Test results from this visit will be discussed in further detail at your follow-up appointment, if applicable. Discharge Plan Admission Admit Date/Time: 04/09/25 05:36 Primary Reason for Your Visit: Upper GI bleed secondary to gastric ulcers, small esophageal varices Attending Provider: Arie Kapoor Primary Care Provider: Inga Arredondo Consulting Providers: Misti Warren Discharge Orders/Prescriptions Prescriptions: New pantoprazole [Protonix] 40 mg tablet,delayed release (DR/EC) 40 mg PO BID Qty: 60 0RF Continued diltiazem HCl 240 mg capsule,extended release 24hr 240 mg PO DAILY Qty: 90 3RF lisinopril 5 MG tablet 5 mg PO DAILY albuterol sulfate 6.7 GM HFA aerosol inhaler 1 puff IH Q4H PRN PRN (Reason: Sob &/Or Wheezing) rosuvastatin 10 MG tablet 10 mg PO QHS fluticasone propionate [Flonase Allergy Relief] 50 mcg/actuation [place],Suspension 1 spray INTRANASAL PRN PRN (Reason: ALLERGIES) Referrals / Follow Up: Sagar Ulrich DO [Med Staff - Active Staff] - See Referral Note (In 3 weeks, call for an appointment) Inga Arredondo, FINISHING RANGE OPERATOR-C [Primary Care Provider] - Within 2 Weeks Disposition Disposition (needs filled in before D/C Order can be placed): Home, Self Care
--- NOTE | 2025-04-10 16:56 | DS.PCM_ITS ---
Providers Date of Admission: 04/09/25 Date of Discharge: 04/10/25 Primary Care Physician: SRIDEVI Miller Consultations 04/09/25 06:10 Consult: Gastroenterology Routine Consulting Provider: [facility] Reason for Consult: GI bleed, ABLA EMERGENT Consult: No Notified: Yes Date Notified: 04/09/25 Time Notified: 05:39 Method of Notification: ED Physician Initiated Consult: [employer] / Pulmonary Medicine Routine Consulting Provider: [facility]/Pulmonary Med Reason for Consult: GI Bleed, ABLA EMERGENT Consult: No Notified: Yes Date Notified: 04/09/25 Time Notified: 08:10 Method of Notification: Verbal Reason For Visit: ACUTE GI BLEED, ABLA, ETOH ABUSE W/ WITHDRAWAL Diagnosis Discharge Diagnosis (1) UGIB (upper gastrointestinal bleed): Status: Acute Code(s): K92.2 - Gastrointestinal hemorrhage, unspecified Plan 1. Acute upper GI bleed requiring blood transfusion secondary to gastric ulcers and small esophageal varices #2 essential hypertension #3 hyperlipidemia Medications at Discharge Home Medications albuterol sulfate 90 mcg/actuation aerosol inhaler 1 puff IH Q4H PRN PRN Sob &/Or Wheezing 07/27/17 lisinopril 5 mg tablet 5 mg PO DAILY 07/27/17 rosuvastatin 10 mg tablet 10 mg PO QHS 07/27/17 fluticasone propionate 50 mcg/actuation nasal spray,suspension (Flonase Allergy Relief) 1 spray intranasal PRN PRN ALLERGIES 01/14/22 diltiazem HCl 240 mg capsule,extended release 24 hr 240 mg PO DAILY #90 caps 04/02/25 pantoprazole 40 mg tablet,delayed release (Protonix) 40 mg PO BID #60 tabs 04/10/25 Hospital Course Operations None Procedures EGD Summary of Care Provided Minutes Spent on Discharge: 31 Hospital Course: This 69-year-old white male was seen in the emergency room at [facility] with complaints of emesis that was dark in color. Patient denied any diarrhea or dark or bloody stool. Workup in the emergency room showed the patient have an elevated white blood cell count of 12.8, hemoglobin was 6.5, bilirubin was elevated at 2.45 and AST was elevated at 44. Chest abdomen and pelvic CTA was performed other than cholelithiasis and possible parenchymal liver disease with mild ascites , there was thickening of the stomach suggestive of gastritis and acute hemorrhage products were noted to be present in the gastric lumen. Patient was admitted to ICU and given blood transfusions, labs were monitored, he was placed on a PPI and seen in consultation by gastroenterology. 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 Patient's blood counts stabilized during his hospitalization, on 04/10/2025, patient was seen and examined: On examination he appeared in good health and spirits. Vital signs as documented. Skin warm and dry and without overt rashes. Neck without JVD, neck was supple, trachea midline, thyroid was normal. Lungs clear bilaterally, normal air movement was noted. Heart exam notable for regular rhythm, normal sounds and absence of murmurs, rubs or gallops. Abdomen unremarkable and without evidence of organomegaly, masses, or abdominal aortic enlargement. Bowel sounds are present, abdomen is not distended. Extremities nonedematous, no cyanosis was noted, no clubbing was noted. Neuro: Cranial nerves II through XII are grossly intact, no focal motor deficits were noted, sensation to light touch and pinprick intact, motor exam 5/5 throughout. Psych: Patient is alert and oriented x3, he does not appear anxious or depressed, he does not appear agitated. Patient was felt to be stable for discharge home on 04/10/2025. Weight / BMI Weight Weight: 79.832 kg Body Mass Index (BMI) 25.9 ABG / Lab / Microbiology Data 04/10/25 13:10 04/10/25 06:35 Laboratory: Laboratory Results - last 24 hr 04/09/25 03:00: Crossmatch See Detail 04/09/25 18:55: Hgb 6.7 L, Hct 19.5 L 04/10/25 06:35: WBC 6.0, RBC 2.45 L, Hgb 8.0 L, Hct 22.8 L, MCV 93.1 D, MCH 32.7 H, MCHC 35.1, RDW Std Deviation 56.8 H, RDW Coeff of [place] 17.1 H, Plt Count 125 L, MPV 10.5, Immature Gran % (Auto) 0.500, Neut % (Auto) 64.9, Lymph % (Auto) 21.3, [place] % (Auto) 9.7, Eos % (Auto) 2.3, Baso % (Auto) 1.3 H, Absolute Neuts (auto) 3.9, Absolute Lymphs (auto) 1.27, Nucleated RBC % 0, Sodium 137, Potassium 3.6, Chloride 112 H, Carbon Dioxide 15.9 L, Anion Gap 9, BUN 18, C reatinine 0.68 L, Estim Creat Clear Calc 88.38, Est GFR (MDRD) Non-Af 101, B UN/Creatinine Ratio 26.9 H, Glucose 99, Calcium 6.7 L, Total Bilirubin 2.83 H, A ST 57 H, ALT 13, Alkaline Phosphatase 145 H, Total Protein 4.9 L, Albumin 2.1 L, Globulin 2.8, Albumin/Globulin Ratio 0.7 L 04/10/25 13:10: Hgb 8.8 L, Hct 25.8 L Microbiology: Microbiology 04/09/25 07:50 Nasal Secretion MRSA (PCR) - Final 04/09/25 03:30 Stool Stool Occult Blood (LISBET) - Final Occult Blood Positive D/C Instructions Weight Bearing Status: Full weight bearing DC O2, CPAP, BIPAP Needs Home O2 Discharge instructions: No Meaningful Use Info Meaningful Use Meaningful Use Diagnoses (Choose all that apply): None applicable Discharge Plan Admission Admit Date/Time: 04/09/25 05:36 Primary Reason for Your Visit: Upper GI bleed secondary to gastric ulcers, small esophageal varices Attending Provider: Arie Kapoor Primary Care Provider: Inga Arredondo Consulting Providers: Misti Warren Discharge Orders/Prescriptions Prescriptions: New pantoprazole [Protonix] 40 mg tablet,delayed release (DR/EC) 40 mg PO BID Qty: 60 0RF Continued diltiazem HCl 240 mg capsule,extended release 24hr 240 mg PO DAILY Qty: 90 3RF lisinopril 5 MG tablet 5 mg PO DAILY albuterol sulfate 6.7 GM HFA aerosol inhaler 1 puff IH Q4H PRN PRN (Reason: Sob &/Or Wheezing) rosuvastatin 10 MG tablet 10 mg PO QHS fluticasone propionate [Flonase Allergy Relief] 50 mcg/actuation [place],Suspension 1 spray INTRANASAL PRN PRN (Reason: ALLERGIES) Referrals / Follow Up: Friend,DO Sagar [Med Staff - Active Staff] - See Referral Note (In 3 weeks, call for an appointment) Inga Arredondo NP-C [Primary Care Provider] - Within 2 Weeks Disposition Disposition (needs filled in before D/C Order can be placed): Home, Self Care Charges/Coding Visit Charges Inpatient E&M: 76740 Disch Hosp >30min
== END 2025-04-10 17:45 | disposition home or self-care (01) | DRG 378 ==
LOC: ED 05:38 → ICU 05:58
PROVIDERS: Internal Medicine Gastroenterology; Admitting Provider Family Medicine; Emergency Provider Emergency Medicine; PCP Nurse Practitioner Family; Visit Provider Internal Medicine
PROC: 0DJ08ZZ Inspection of Upper Intestinal Tract, Via Natural or Artificial Opening Endoscopic (ICD-10-PCS; CPT 43235; principal; 2025-04-09 13:10)
DX: K25.4 Chronic or unspecified gastric ulcer with hemorrhage (principal); D62 Acute posthemorrhagic anemia; N13.8 Other obstructive and reflux uropathy; F10.239 Alcohol dependence with withdrawal, unspecified; I85.00 Esophageal varices without bleeding; J45.909 Unspecified asthma, uncomplicated; I12.9 Hypertensive chronic kidney disease with stage 1 through stage 4 chronic kidney disease, or unspecified chronic kidney disease; K76.0 Fatty (change of) liver, not elsewhere classified; N18.2 Chronic kidney disease, stage 2 (mild); E78.5 Hyperlipidemia, unspecified; K80.20 Calculus of gallbladder without cholecystitis without obstruction; N40.1 Benign prostatic hyperplasia with lower urinary tract symptoms; Z79.899 Other long term (current) drug therapy; Z79.51 Long term (current) use of inhaled steroids; Y90.0 Blood alcohol level of less than 20 mg/100 ml
CPT/HCPCS: 71275; 74174; 80048; 80053; 80076; 82077; 82140; 82274; 83605; 83690; 83735; 84100; 85014; 85018; 85025; 85610; 85730; 86850; 86900; 86901; 87641; 94640; 94668; 94762; 99284; C1889; P9016; Q9967; A4216; J0696; J2354; J2405

== ENCOUNTER → 2025-05-07 | Outpatient (CLI) | payer MEDICARE, SELFPAY ==
--- NOTE | 2025-05-07 08:52 | ECHOD_ITS ---
Reason For Study Reason For Study: ABNL EKG, HTN Procedure This was a 2D Doppler, Color Flow transthoracic echocardiogram. Exam performed in department. Left Ventricle Normal LV size. Left ventricular systolic function is normal. The left ventricular ejection fraction is 75 %. No regional wall motion abnormalities noted. Right Ventricle Normal RV size. Normal systolic function. Atria Normal left atrium. Normal right atrium. Mitral Valve Mild focal mitral valve calcification, bileaflet. Tricuspid Valve Normal tricuspid valve. Mild (1+) tricuspid valve insufficiency. Pulmonary artery systolic pressure is 34 mmHg. Aortic Valve Trisinus/trileaflet aortic valve. Pulmonic Valve Normal pulmonic valve. Great Vessels Normal aortic root. The pulmonary artery is normal size. Inferior vena cava collapse with respiration. Pericardium/Pleural No pericardial effusion. MMode/2D Measurements & Calculations LVIDd: 4.7 cm IVSd: 0.75 cm LVOT diam: 2.2 cm LVIDs: 2.5 cm LVPWd: 0.95 cm LVOT area: 3.8 cm2 RVDd: 4.0 cm FS: 47.4 % Ao root diam: 3.5 cm asc Aorta Diam: 3.5 cm LAV(MOD- bp): 77.1 ml LAV(MOD- bp) Indexed: 39.2 ml/m2 LAV(MOD- sp2): 78.7 ml LAV(MOD- sp4): 76.8 ml SV(MOD- sp4): 62.9 ml LVAd ap4: 28.0 cm2 LVAd ap2: 28.2 cm2 LVLd ap4: 8.2 cm LVLd ap2: 8.0 cm SI(MOD- sp4): 32.0 ml/m2 EDV(MOD-sp4): 80.5 ml EDV(MOD-sp2): 80.6 ml EDV(sp4-el): 81.6 ml EDV(sp2-el): 83.9 ml LVAs ap4: 11.4 cm2 LVAs ap2: 11.3 cm2 LVLs ap4: 6.4 cm LVLs ap2: 6.1 cm ESV(MOD-sp4): 17.6 ml ESV(MOD-sp2): 17.9 ml ESV(sp4-el): 17.3 ml ESV(sp2-el): 17.8 ml EF(MOD-sp4): 78.1 % EF(MOD-sp2): 77.8 % EF(sp4-el): 78.8 % SV(MOD-sp2): 62.7 ml SV(sp4-el): 64.3 ml LA A4 area: 23.9 cm2 SI(MOD-sp2): 31.9 ml/m2 LA dimension(2D): 5.0 cm TAPSE: 2.7 cm RA A4 area: 19.3 cm2 Time Measurements MV dec time: 0.19 sec Doppler Measurements & Calculations MV E max todd: 130.7 cm/sec Lat Peak E' Todd: 14.0 cm/sec Med Peak E' Todd: 15.4 cm/sec MV A max todd: 58.4 cm/sec E/E' lat: 9.3 E/E' med: 8.5 MV E/A: 2.2 MV V2 max: 131.4 cm/sec MV P1/2t max tdod: 119.7 cm/sec Ao V2 max: 185.0 cm/sec MV max P.9 mmHg MV P1/2t: 49.1 msec Ao max P.7 mmHg MV V2 mean: 63.6 cm/sec MV dec slope: 713.5 cm/sec2 Ao V2 mean: 121.4 cm/sec MV mean P.9 mmHg Ao mean P.9 mmHg MV V2 VTI: 25.8 cm MVA(P1/2t): 4.5 cm2 Ao V2 VTI: 39.3 cm MVA(VTI): 4.6 cm2 AV (velocity ratio): 0.78 JERO(I,D): 3.0 cm2 JERO(V,D): 2.9 cm2 LV V1 max: 141.7 cm/sec MR max todd: 514.8 cm/sec SV(LVOT): 117.6 ml LV V1 max P.0 mmHg MR max P.0 mmHg LV V1 mean P.8 mmHg MR mean todd: 441.0 cm/sec LV V1 mean: 101.6 cm/sec MR mean P.5 mmHg LV V1 VTI: 30.7 cm MR VTI: 150.1 cm PA V2 max: 124.5 cm/sec TR max todd: 272.5 cm/sec PA V2 mean: 89.2 cm/sec TR max P.9 mmHg ECHO/Echo Complete Interpretation Summary Normal LV size. Left ventricular systolic function is normal. The left ventricular ejection fraction is 75 %. Mild (1+) tricuspid valve insufficiency. Pulmonary artery systolic pressure is 34 mmHg. The global longitudinal strain is normal. The global longitudinal strain = -27 % (normal). Ordering Physician: [place] Abbott Referring Physician: Inga Arredondo Performed By: Vero Arnold, REYNA, RVT
== END | disposition home or self-care (01) ==
LOC: CVS 08:52
PROVIDERS: PCP Nurse Practitioner Family; Referring Provider Internal Medicine Cardiovascular Disease; Visit Provider Internal Medicine Cardiovascular Disease
DX: I10 Essential (primary) hypertension (principal); R94.31 Abnormal electrocardiogram [ECG] [EKG]
CPT/HCPCS: 93306

== ENCOUNTER → 2025-05-14 | Outpatient (CLI) | payer MEDICARE, SELFPAY ==
[2025-05-14 08:57] LABS: Hematocrit 28.9 % (40-54); Hemoglobin 9.6 g/dL (13.0-16.5); Immature Granulocytes Count 0.020 X10^3/uL (0.0-0.0); Mean Corp Hgb Conc 33.2 g/dL (32-36); Mean Corpuscular Volume 98.0 fL (80-94); Mean Platelet Vol. 9.9 fl (6.2-12.0); NRBC Flagged by Analyzer 0 % (0-5); Platelet Count 222 K/mm3 (150-450); RBC Distribution Width CV 16.7 % (11.6-14.6); RBC Distribution Width SD 60.2 fl (35.1-43.9); Red Blood Count 2.95 M/mm3 (4.6-6.2); White Blood Count 6.3 K/mm3 (4.4-11.0)
[2025-05-14 09:05] LABS: Prothrombin Time (Protime)PT. 19.2 SECONDS (11.7-14.9)
[2025-05-14 10:14] LABS: AST(SGOT) 56 U/L (<=37); Alanine Aminotransfer ALT/SGPT 16 U/L (<=46); Albumin, Serum 2.8 g/dL (3.4-4.8); Alkaline Phosphatase 409 U/L (40-129); Anion Gap 10 (5-15); BUN 6 mg/dL (4-19); BUN/Creat Ratio 6.5 RATIO (10-20); Bilirubin, Direct 1.38 mg/dL (0.00-0.30); Calcium,Total 8.7 mg/dL (7.6-11.0); Carbon Dioxide 21.4 mmol/L (21.0-32.0); Chloride 103 mmol/L (98-108); Globulin 5.1 g/dL (2.2-4.2); Glucose 113 mg/dL (70-99); Hepatitis B Surface Antigen Nonreactive (Nonreactive); Hepatitis C Antibody Nonreactive (Nonreactive); Potassium 4.1 mmol/L (3.3-5.1)
== END | disposition home or self-care (01) ==
LOC: LAB 08:18
PROVIDERS: PCP Nurse Practitioner Family; Referring Provider Nurse Practitioner Acute Care; Visit Provider Nurse Practitioner Acute Care
DX: K74.60 Unspecified cirrhosis of liver (principal); D64.9 Anemia, unspecified; R18.8 Other ascites; K29.21 Alcoholic gastritis with bleeding; Z86.0100 Personal history of colon polyps, unspecified
CPT/HCPCS: 36415; 80048; 80076; 82105; 85025; 85610; 86704; 86706; 86708; 86803; 87340

== ENCOUNTER 2025-06-07 14:06 | Emergency (ER) | payer MEDICARE, SELFPAY ==
[2025-06-07] VITALS (7 sets, daily range): BP systolic 113–142; BP diastolic 68–102; PULSE 78–97; RESP 16–19; TEMP 36.7–36.9; O2SAT 97–99; BMI 27.2
[2025-06-07 14:54] LABS: Mucous, Urine 0 SEEN /hpf (<or=2+); Red Blood Cells-Urine 0 SEEN /hpf (0-5); Squamous Epithelial Cells - UA 0 SEEN /hpf (0-5)
[2025-06-07 15:15] LABS: Hematocrit 27.6 % (40-54); Hemoglobin 9.1 g/dL (13.0-16.5); Immature Granulocytes Count 0.020 X10^3/uL (0.0-0.0); Mean Corp Hgb Conc 33.0 g/dL (32-36); Mean Corpuscular Volume 98.6 fL (80-94); Mean Platelet Vol. 10.5 fl (6.2-12.0); NRBC Flagged by Analyzer 0 % (0-5); POSITIVE DIFFERENTIAL YES; Platelet Count 203 K/mm3 (150-450); RBC Distribution Width CV 17.6 % (11.6-14.6); RBC Distribution Width SD 63.7 fl (35.1-43.9); Red Blood Count 2.80 M/mm3 (4.6-6.2); White Blood Count 5.9 K/mm3 (4.4-11.0)
[2025-06-07 15:20] LABS: Color, Urine Yellow (Yellow); Glucose, Dipstick Normal (Normal); Ketone-Dipstick Negative (Negative); Leukocyte Esterase-Dipstick Negative /ul (Negative); Nitrite-Dipstick Negative (Negative); Occult Blood-Urine Negative /ul (Negative); Protein-Dipstick 30 mg/dl (Negative); Specific Gravity, Urine 1.020 (1.002-1.030)
--- NOTE | 2025-06-07 15:20 | CT_ITS ---
PROCEDURE: CT ABDOMEN/PELVIS W IV CONT ONLY 06/07/2025 REASON FOR EXAM: LEFT SIDED ABD PAIN, HERNIA TECHNIQUE: Procedure Code: [id number] Modality: CT Procedure: ABDOMEN/PELVIS W IV CONT ONLY Coronal and Sagittal reconstruction series were provided. CONTRAST: Isovue-300 VOLUME: 89 mL One or more dose reduction techniques were used (e.g., Automated exposure control, adjustment of the mA and/or kV according to patient size, use of iterative reconstruction technique. RADIATION DOSE SUMMARY: CTDlvol: 19.27 mGy DLP: 1347.02 mGycm COMPARISON: 04/09/2025 FINDINGS: Lung bases: Small-moderate left and trace right pleural effusions with adjacent passive atelectasis. Heart base mildly enlarged, with moderate coronary artery calcification. No pericardial effusion. Liver: Hepatic cirrhosis. No focal hepatic lesion. Findings of portal venous hypertension with recanalization of the umbilical vein with mild periumbilical and gastrosplenic venous collaterals. Gallbladder: Cholelithiasis. No definite evidence for acute cholecystitis or significant biliary ductal dilatation. Generalized abdominal ascites with some in the gallbladder fossa, nonspecific. Spleen: Normal size and morphology. Pancreas: Unremarkable. No ductal dilatation. Adrenals: Unremarkable. Kidneys: Unremarkable. No urolithiasis or hydronephrosis. Bladder: Unremarkable. No disproportionate wall thickening. Reproductive Organs: Nonenlarged prostate. Small right and moderate left fat containing inguinal hernias, containing ascites fluid on the left. Bowel: No evidence of obstruction. Appendix is normal caliber. Extensive colonic diverticulosis without discrete evidence for acute diverticulitis/colitis. Lymph nodes: No suspicious lymph node enlargement. Vasculature: Normal caliber abdominal aorta and IVC. Mild-moderate atherosclerotic disease. Peritoneum / Retroperitoneum: Moderate volume generalized ascites. No free air. Musculoskeletal: Intramuscular hematoma anterior abdominal wall expanding the left rectus abdominis above the level of the umbilicus. Foci of internal hyperdensity suggesting active hemorrhage. Mild gynecomastia. Mild multilevel degenerative changes of the spine. CT/Abdomen/Pelvis W IV Cont ONLY IMPRESSION: 1. Intramuscular hematoma within the left rectus abdominis, with internal hyper dense foci suggesting active hemorrhage. Suspect iatrogenic from recent paracentesis procedure. Correlate clinically. 2. Hepatic cirrhosis with moderate volume abdominal ascites. 3. Small-moderate left and trace right pleural effusions in the visualized lowe r thorax. 4. Cholelithiasis. No findings suspicious for acute cholecystitis. 5. Bilateral fat containing inguinal hernias, small on the right and moderate s ized on the left which also contains a substantial amount of ascites fluid. 6. Extensive colonic diverticulosis without discrete active diverticulitis. Reading Location: [id number]
[2025-06-07 15:34] LABS: Urine Bilirubin Dipstick 1 mg/dL (Negative)
[2025-06-07 15:47] LABS: AST(SGOT) 86 U/L (<=37); Alanine Aminotransfer ALT/SGPT 23 U/L (<=46); Albumin, Serum 2.5 g/dL (3.4-4.8); Alkaline Phosphatase 375 U/L (40-129); Anion Gap 8 (5-15); BUN 11 mg/dL (4-19); BUN/Creat Ratio 16.3 RATIO (10-20); Calcium,Total 8.8 mg/dL (7.6-11.0); Carbon Dioxide 21.9 mmol/L (21.0-32.0); Chloride 102 mmol/L (98-108); Estimated Creatinine Clearance 87.15 ml/min (50-250); Globulin 5.4 g/dL (2.2-4.2); Glucose 134 mg/dL (70-99); Lipase 49 U/L (13-75); Potassium 3.8 mmol/L (3.3-5.1)
--- NOTE | 2025-06-07 15:54 | EDS_ITS ---
HPI HPI - GI History of Present Illness Chief Complaint: Abd Pain Informant: patient Narrative Narrative: Patient 70-year-old male with history of left inguinal hernia, asthma, cirrhosis secondary to alcohol abuse (states has not had a drink in the past week), hypertension hyperlipidemia as well as recent upper respiratory symptoms (recently started on Z-Hamilton, Tessalon Perles and Medrol Dosepak) presenting for sudden onset of left-sided abdominal pain. Patient states he was up all night coughing. He was sitting in his chair when he suddenly had pain in the left side of his abdomen and fullness. He states this occurred at approximately 10:45 AM. Came in for further evaluation of this. Denies associated nausea or vomiting. States he had a normal bowel movement this morning. Notes he is scheduled for an inguinal hernia repair with Dr. Bentley next week. Denies any recent fever or chills. Does note that he has been using his inhaler and coughing more over the past few days. [facility] Medical History Wears dentures Wears glasses High cholesterol History of ulceration History of GI bleed Non-smoker Shortness of breath on exertion History of stress test History of echocardiogram Cardiology follow-up encounter UGIB (upper gastrointestinal bleed) Alcohol abuse CKD (chronic kidney disease), stage II Chronic anemia Alcohol abuse BPH (benign prostatic hyperplasia) GI bleed Abnormal EKG Arthritis Left inguinal hernia Colonic diverticular disease Tubular adenoma of colon Asthma Hyperlipidemia Hypertension Wide-complex tachycardia Home Medications ?Medication ?Instructions ?Recorded ?Last Taken ?Type albuterol sulfate 90 mcg/actuation 1 puff IH Q4H PRN P RN Sob &/Or 07/27/17 Unknown History aerosol inhaler Wheezing lisinopril 5 mg tablet 5 mg PO DAILY 07/27/1701/20 History rosuvastatin 10 mg tablet 10 mg PO QHS 07/27/17 Unknow n History fluticasone propionate 50 1 spray intranasal PRN PRN 0 01/14/22 Unknown History mcg/actuation nasal ALLERGIES spray,suspension (Flonase Allergy Relief) diltiazem HCl 120 mg 120 mg PO QAM 04/28/25 Unkno wn History capsule,extended release 24 hr (Cartia XT) ibuprofen 200 mg tablet 200 mg PO Q6H PRN pain 05/08 Unknown History lactulose 10 gram/15 mL oral 20 g (30 mL) PO BID #1,80 0 mL 05/08/25 Unknown Rx solution albuterol sulfate 90 mcg/actuation 2 puff inhalation Q 4-6H PRN 06/06/25 Unknown Rx aerosol inhaler (Ventolin HFA) shortness of breath or wheezing #8.5 grams azithromycin 250 mg tablet See Rx Instructions PO .COM PLEX #6 06/06/25 Unknown Rx tabs benzonatate 100 mg capsule 200 mg (2 x 100 mg) PO TID PRN 06/06/25 Unknown Rx cough #30 caps methylprednisolone 4 mg tablets in 4 mg PO PER PKG DIR 6 days #21 tabs 06/06/25 Unknown Rx a dose pack (Medrol (Hamilton)) Allergy/AdvReac Type Severity Reaction Status Date / Time shellfish derived AdvReac Intermediate vomiting Verified 06/07/25 14:07 Family History Father , age 80+ in his sleep, assumed cardiac CAD (coronary artery disease) Heart disease Hypertension Mother CAD (coronary artery disease) Heart disease Hypertension Diabetes Sister CAD (coronary artery disease) Heart disease Hypertension Myocardial infarction Surgical History History of esophagogastroduodenoscopy (EGD) Hx of transurethral resection of prostate History of left heart catheterization (07/28/17) H/O hernia repair Social History household members: spouse Smoking Status: Never smoker alcohol intake: current alcohol intake frequency: 3 or more drinks per day substance use type: does not use ROS ROS ED Constitutional Constitutional ED: Denies chills or fever(s) Cardiovascular Cardiovascular: Denies chest pain Respiratory/Chest Respiratory/Chest: Reports cough; Denies dyspnea or sputum Gastrointestinal Gastrointestinal: Reports abdominal pain; Denies constipation, diarrhea, nausea or vomiting Musculoskeletal Musculoskeletal: Denies arthralgias or myalgias Integumentary Denies rash Neurologic Neurologic: Denies weakness Hematologic/Lymphatic Hematologic/Lymphatic: Denies easy bleeding or easy bruising EXAM Physical Exam Const Vital Signs: 06/07/25 14:08 06/07/25 16:27 06/07/25 18:00 Temperature 98.4 F Temperature Source Oral Pulse Rate 97 79 78 Respiratory Rate 18 18 18 Blood Pressure 142/73 H Blood Pressure Mean 96 Pulse Ox 98 99 97 Oxygen Delivery Method Room Air Room Air Room Air 06/07/25 19:04 06/07/25 21:00 Temperature Temperature Source Pulse Rate 88 81 Respiratory Rate 16 18 Blood Pressure 124/102 H 117/72 Blood Pressure Mean 109 87 Pulse Ox 98 98 Oxygen Delivery Method Room Air Room Air Positive well nourished and well developed General Appearance ED: well developed and NAD; Negative for pallor HEENT Reports moist mucous membranes Neck supple and no JVD Resp normal respiratory effort Resp Narrative: Coarse breath sounds are slightly rhonchorous and more pronounced on the right side compared to the left. No wheezing appreciated Cardio regular rate, regular rhythm and no murmurs GI GI Narrative: Protuberant abdomen with mild fluid wave present. Tenderness of the left mid abdomen with associated fullness to the area (concerning for possible hernia) as well as some tenderness to the suprapubic region just inferior to the umbilicus. No overlying skin changes present. Auscultation: normoactive bowel sounds Palpation: soft and hernia ventral (left mid); Negative for guarding, rigid or rebound tenderness present Back/Spine no CVA tenderness Extremity full ROM General Extremety ED: Negative for edema General Extremity: Negative for edema Neuro moves all extremities Sensorium / Orientation: alert Motor Exam: Negative for general weakness Psych mental status grossly normal and thought process normal Skin no wounds General Skin Exam: Negative for jaundice or pallor MDM MDM MDM Narrative Medical decision making narrative: Patient valuated for relatively sudden onset of left-sided abdominal pain. He has a fullness in his left abdomen concerning for hernia however differential also includes hematoma and mass. He is not reporting change in his bowel movements, nausea or vomiting concerning for obstruction. CBC shows mild anemia hemoglobin 9.1 which is near his baseline. No leukocytosis. CMP does show elevated bilirubin and elevated alkaline phosphatase as well as ALT however this appears near his baseline. This is likely associated with his history of alcohol abuse and cirrhosis. Urinalysis largely normal. Lipase is normal. CT of the abdomen pelvis showed intramuscular hematoma within the left rectus abdominis with signs of active hemorrhage. There is also hepatic cirrhosis with moderate volume abdominal ascites and trace effusion. Case discussed with general surgery, Dr. Hewitt, who thinks that he would benefit from transfer with IR capability facility in case he needs any intervention or drainage. He has not had any trauma to this area recent paracentesis. Suspect this is spontaneous associated with his recent coughing. Because of his coughing and chest x-ray was obtained looking for underlying pneumonia. No acute infiltrate was noted on my review as well as with radiology however he does have some mild pulmonary vascular congestion. BNP is added on however this is normal for age. Case was discussed with hospitalist at [facility], Dr. Gimenez and he is excepted. As patient is in the ER 6 hours later repeat H&H is obtained which is now 8.8. This is relatively stable which is reassuring. Patient is awaiting transportation at this time to [facility]. He initially was given a dose of morphine but denies any further need for pain medication on repeat evaluation. Lab Data Attestation: I reviewed the patient's lab results. Labs: Laboratory Results - last 24 hr 06/07/25 06/07/25 06/07/25 14:30 17:05 20:45 WBC 5.9 RBC 2.80 L Hgb 9.1 L 8.8 L Hct 27.6 L 25.8 L MCV 98.6 H MCH 32.5 H MCHC 33.0 RDW Std Deviation 63.7 H RDW Coeff of Marilee 17.6 H Plt Count 203 MPV 10.5 Immature Gran % (Auto) 0.300 Neut % (Auto) 85.6 H Lymph % (Auto) 8.5 L [place] % (Auto) 5.1 Eos % (Auto) 0.2 Baso % (Auto) 0.3 Absolute Neuts (auto) 5.0 Absolute Lymphs (auto) 0.50 L Nucleated RBC % 0 PT 20.4 H INR 1.7 APTT 35.7 Sodium 132 L Potassium 3.8 Chloride 102 Carbon Dioxide 21.9 Anion Gap 8 BUN 11 Creatinine 0.70 Estim Creat Clear Calc 87.15 Est GFR (MDRD) Non-Af 100 BUN/Creatinine Ratio 16.3 Glucose 134 H Calcium 8.8 Total Bilirubin 2.48 H AST 86 H ALT 23 Alkaline Phosphatase 375 H NT pro BNP II 578 Total Protein 7.9 Albumin 2.5 L Globulin 5.4 H Albumin/Globulin Ratio 0.5 L Lipase 49 Urine Color Yellow Urine Clarity Clear Urine pH 6.5 Ur Specific [place] 1.020 Urine Protein 30 H Urine Glucose (UA) Normal Urine Ketones Negative Urine Occult Blood Negative Urine Nitrite Negative Urine Bilirubin 1 H Urine Urobilinogen 4 H Ur Leukocyte Esterase Negative Urine RBC 0 SEEN Urine WBC 0 SEEN Ur Squamous Epith Cells 0 SEEN Urine Bacteria 0 SEEN Urine Mucus 0 SEEN Radiography Diagnostic Testing: Clinical Impression(s) from Imaging Studies Abdomen/Pelvis CT 06/07/25 15:20 IMPRESSION: 1. Intramuscular hematoma within the left rectus abdominis, with internal hyperdense foci suggesting active hemorrhage. Suspect iatrogenic from recent paracentesis procedure. Correlate clinically. 2. Hepatic cirrhosis with moderate volume abdominal ascites. 3. Small-moderate left and trace right pleural effusions in the visualized lower thorax. 4. Cholelithiasis. No findings suspicious for acute cholecystitis. 5. Bilateral fat containing inguinal hernias, small on the right and moderate sized on the left which also contains a substantial amount of ascites fluid. 6. Extensive colonic diverticulosis without discrete active diverticulitis. Reading Location: [facility] Chest X-Ray 06/07/25 15:57 IMPRESSION: No focal consolidations. Mild pulmonary vascular congestion and interstitial edema. Mild cardiomegaly. Reading Location: [facility] Management Discussion w/another healthcare provider: Hospitalist and Compliance Nurse Discharge Plan Triage Chief Complaint: Abd Pain ED Provider: Leanne Davis Dx/Rx/DC Orders Clinical Impression: Hematoma of rectus sheath, Cirrhosis of liver with ascites, Hepatic steatosis, Chronic anemia, Abdominal pain, Cough Prescriptions: No Action ibuprofen 200 mg tablet 200 mg PO Q6H PRN (Reason: pain) lactulose 10 gram/15 mL solution 20 g PO BID Qty: 1800 1RF Rx Instructions: goal of 2-3 bowel movements daily, titrate as needed azithromycin 250 mg tablet See Rx Instructions PO .COMPLEX Qty: 6 0RF Rx Instructions: take 500 mg today (day 1), then 250 mg for 4 days (days 2-5) PO benzonatate 100 mg capsule 200 mg PO TID PRN (Reason: cough) Qty: 30 0RF methylprednisolone [Medrol (Hamilton)] 4 mg tablets,dose pack 4 mg PO PER PKG DIR 6 Days Qty: 21 0RF albuterol sulfate [Ventolin HFA] 90 mcg/actuation HFA aerosol inhaler 2 puff inhalation Q4-6H PRN (Reason: shortness of breath or wheezing) Qty: 8.5 1RF lisinopril 5 MG tablet 5 mg PO DAILY albuterol sulfate 6.7 GM HFA aerosol inhaler 1 puff IH Q4H PRN PRN (Reason: Sob &/Or Wheezing) rosuvastatin 10 MG tablet 10 mg PO QHS fluticasone propionate [Flonase Allergy Relief] 50 mcg/actuation [place],Suspension 1 spray INTRANASAL PRN PRN (Reason: ALLERGIES) diltiazem HCl [Cartia XT] 120 mg capsule,extended release 24hr 120 mg PO QAM Primary Care Provider: Inga Arredondo Referrals: Inga Arredondo, [employer] [Primary Care Provider, Family Practice] Print Language: Setswana Disposition Disposition: Acute Care Hospital Discharge Location: [facility]
--- OUTSIDE RECORDS SUMMARY | 2025-06-07 15:54 | XMS RPT_ITS | CCD ---
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 Ramon Arias Primary Care Provider Dr. Ramon rAias Referring Provider Telly DAIRY HUSBANDRY WORKER, DAIRY HUSBANDRY WORKER-C Eleanor Caceres Attending Provider [phone] FriendDr. Keith Attending Provider FriendDr. Keith Other Provider Dr. Ramon Arias Primary Care Provider Dr. Ramon Arias Referring Provider JENNIFER Fitch Attending Provider Dr. West Abbott Attending Provider Telly DAIRY HUSBANDRY WORKER, DAIRY HUSBANDRY WORKER-C Eleanor Caceres Attending Provider Arnulfo DAIRY HUSBANDRY WORKER-C, Inga Primary Care Provider Arnulfo DAIRY HUSBANDRY WORKER-C, Inga Attending Provider Arnulfo DAIRY HUSBANDRY WORKER-C, Inga Referring Provider Sinai MALDONADO, Dr. Ramirez Attending Provider Antonio MALDONADO, Dr. Boyd Mccarty Referring Provider Dr. West Abbott MD Attending Provider Issa MALDONADO, Dr. Linton Referring Provider Unavaila ble Lilian BENTLEY, Dr. Pierce Emergency Provider Kelvin MALDONADO, Dr. Misti Davis Admit Provider Kelvin MALDONADO, Dr. Misti Davis Attending Provider Kelvin MALDONADO, Dr. Misti Davis Other Provider Antwon BENTLEY, Dr. Sargent Attending Provider Antwon BENTLEY, Dr. Sargent Other Provider Ron MALDONADO, Dr. Padilla Other Provider Mitzi MALDONADO, Dr. Weber Other Provider Rodolfo MALDONADO, Dr. العلي Other Provider Ben BENTLEY, Dr. Aponte Attending Provider Ben BENTLEY, Dr. Aponte Other Provider Vernell MALDONADO, Dr. Marek Raphael Other Provider Savannah MALDONADO, Dr. Weaver Other Provider Efren MALDONADO, Dr. Cooper Other Provider Roz MALDONADO, Dr. Arguello Other Provider [phone], [address] Peng Other Provider Maldonado MALDONADO, Dr. Jimenez Other Provider [phone] Gaston MALDONADO, Dr. Pierce Other Provider [phone] Dr. Precious Shelley MD Other Provider Demario MALDONADO, Dr. Kincaid Other [facility] Orozco MD, Dr. Silvestre Other Provider Niki MALDONADO, Dr. Hewitt Other Provider Keith MALDONADO, Dr. Jackson Other Provider Moi MALDONADO, Dr. Belcher Other Provider Alona BENTLEY, Dr. Murrieta Other Provider Marleny MALDONADO, Dr. Vazquez Other Provider [phone] Teresa Martines MD, Dr. Jones Other Provider Denisse BENTLEY, Dr. Dangelo Other Provider Abdullahi MALDONADO, Dr. Chin Other Provider Jeffery MALDONADO, Dr. Menjivar Other Provider James DAIRY HUSBANDRY WORKER-C, Destiny Attending Provider Serg BENTLEY, Dr. Keith Attending Provider Arnulfo DAIRY HUSBANDRY WORKER-C, Inga Primary Care Physician Sinai MALDONADO, Dr. Ramirez Attending Physician Scar MALDONADO, Dr. Dodson Attending Physician Arnulfo DAIRY HUSBANDRY WORKER-C, Inga Attending Physician Arnulfo DAIRY HUSBANDRY WORKER-C, Inga Referring Provider Lilian BENTLEY, Dr. Pierce Emergency Department Physic lavon Kelvin MALDONADO, Dr. Misti Davis Admitting Physician Kelvin MALDONADO, Dr. Misti Davis Nurse Practitioner Antwon BENTLEY, Dr. Sargent Attending Physician Dr. Misti Warren MD Referring Provider Antwon BENTLEY, Dr. Sargent Nurse Practitioner Ron MALDONADO, Dr. Padilla Nurse Practitioner [phone] Mitzi MALDONADO, Dr. Weber Nurse Practitioner Rodolfo MALDONADO, Dr. العلي Nurse Practitioner Dr. Fadi Contreras DO Attending Physician Dr. Fadi Contreras DO Nurse Practitioner Vernell MALDONADO, Dr. Marek Raphael Nurse Practitioner Savannah MALDONADO, Dr. Weaver Nurse Practitioner Efren MALDONADO, Dr. Cooper Nurse Practitioner Roz MALDONADO, Dr. Arguello Nurse Practitioner Lisa MALDONADO, Dr. Peng Nurse Practitioner [phone] Maldonado MALDONADO, Dr. Jimenez Nurse Practitioner Gaston MALDONADO, Dr. Pierce Nurse Practitioner [phone] Daphney MALDONADO, Dr. Lang Nurse Practitioner Demario MALDONADO, Dr. Kincaid Nurse Practitioner Unavail prabhu Orozco MD, Dr. Silvestre Nurse Practitioner [phone] Niki MALDONADO, Dr. Hewitt Nurse Practitioner [phone] Keith MALDONADO, Dr. Jackson Nurse Practitioner Moi MALDONADO, Dr. Belcher Nurse Practitioner [phone] Alona BENTLEY, Dr. Murrieta Nurse Practitioner Marleny MALDONADO, Dr. Vazquez Nurse Practitioner [phone] Conrad MALDONADO, Dr. Jones Nurse Practitioner Denisse BENTLEY, Dr. Dangelo Nurse Practitioner [phone] Abdullahi MALDONADO, Dr. Chin Nurse Practitioner [phone] Jeffery MALDONADO, Dr. Menjivar Nurse Practitioner [phone] James PIERSON-Destiny Wyman Attending Physician Dr. Sagar Ulrich DO Attending Physician Dr. Arie Kapoor DO Referring Provider [phone] Scar MALDONADO, Dr. Dodson Referring Provider James DAIRY HUSBANDRY WORKER-CDestiny Referring Provider Arnulfo, Inga Attending Unavailable Arnulfo, Inga Primary Care Unavailable Arnulfo, Inga Referring Unavailable Arnulfo, Inga Primary Care Unavailable Sagar Ulrich Attending Unavailable Arnulfo, Inga Primary Care Unavailable Arnulfo, Inga Referring Unavailable Brooks Fitch Attending Unavailable Arnulfo, Inga Primary Care Unavailable Arnulfo, Inga Referring Unavailable Destiny Ramirez Attending Unavailable James Rawls Referring Unavailable Arnulfo, Inga Primary Care Unavailable Royer Parsons Consulting Unavailable James Rawls Attending Unavailable Arnulfo, Inga Primary Care Unavailable White, Misti L Consulting Unavailable Arie Kapoor Attending Unavailable White, Misti L Admitting Unavailable James Rawls Attending Unavailable Arnulfo, Inga Primary Care Unavailable Arnulfo, Inga Primary Care Unavailable Arnulfo, Inga Attending Unavailable Arnulfo, Inga Primary Care Unavailable Arnulfo, Inga Referring Unavailable ScarTo rossril Attending Unavailable Arnulfo, Inga Primary Care Unavailable ScarTo rossril Attending Unavailable Scar, [place] Referring Unavailable Arnulfo, Inga Primary Care Unavailable Arnulfo, Inga Referring Unavailable Arnulfo, Inga Attending Unavailable Arnulfo, Inga Primary Care Unavailable White, Misti L Attending Unavailable White, Misti L Admitting Unavailable White, Misti L Consulting Unavailable Destiny Ramirez Attending Unavailable White, Misti L Referring Unavailable Randy Velasquez Consulting Unavailable Gus Cartagena Consulting Unavailable Severiano Reynolds Consulting Unavailable Fadi Contreras Consulting Unavailable Marek Matt Consulting Unavailable Owen Nuñez Consulting Unavailable Kenneth Schwartz Consulting Unavailable Saundra Courtney Consulting UnavailDanish Carter Consulting Unavailable Tony Okeefe Consulting Unavailable Stan Feldman Consulting Unavailable Precious Shelley Consulting Unavailable Codi Hanks Consulting Unavailable Nirmala Orozco Consulting Unavailable Kash Prince Consulting Unavailable Manuel Parker Consulting Unavailable Ye Prater Consulting Unavailable Lit Sage Consulting Unavailable George Farmer Consulting Unavailable Robert Martines Consulting Unavailable Antolin Salcedo Consulting Unavailable Giuseppe Fernando Consulting Unavailable Otto Gil Consulting Unavailable Arie Kapoor Consulting Unavailable Fadi Contreras Attending Unavailable Arie Kapoor Referring Unavailable Serg, Sagar Attending Unavailable Arie Kapoor Attending Unavailable Arnulfo, [place] Primary Care Unavailable Scar, West Attending Unavailable Arnulfo, Inga Primary Care Unavailable Issa, Royer Referring Unavailable Scar, [place] Attending Unavailable Friend, Sagar Attending Unavailable Antwon, Arie Referring Unavailable Arnulfo, [place] Primary Care Unavailable James Rawls Attending Unavailable Arnuflo, [place] Primary Care Unavailable Boyd Alvarez Referring Unavailable Arnulfo, [place] Primary Care Unavailable Destiny Ramirez Attending Unavailable Destiny Ramirez Referring Unavailable Allergies Allergy Classification Reported Allergen(s) Allergy Type Date of Hospital Work Phone: 01-20-2022 05:59-0400 Body weight 78.[address] Ramon Arias Work Phone: [facility] Work Phone: 07-18-2017 12:50-0500 BMI (Body Mass Index) 26.34 kg/m2 [facility] Work Phone: 07-18-2017 12:50-0500 BP Diastolic 68 mm[Hg] [facility] Work Phone: 07-18-2017 12:50-0500 BP Systolic 128 mm[Hg] [facility] Work Phone: 07-18-2017 12:50-0500 Height 176.[address] [facility] Work Phone: 07-18-2017 12:50-0500 Pulse (Heart Rate) 78 /min [facility] Work Phone: 07-18-2017 12:50-0500 Respiratory Rate 16 /min [facility] Work Phone: 07-18-2017 12:50-0500 Weight 82.1 kg [facility] Work Phone: 05-30-2017 11:59-0400 BMI (Body Mass Index) 24.16 kg/m2 Amberly Cleary RN [facility] Work Phone: 05-30-2017 11:59-0400 BP Diastolic 78 mm[Hg] Amberly Cleary RN [facility] Work Phone: 05-30-2017 11:59-0400 BP Systolic 126 mm[Hg] Amberly Cleary RN [facility] Work Phone: 05-30-2017 11:59-0400 Height 176.53 cm Amberly Cleary RN [facility] Work Phone: 05-30-2017 11:59-0400 Pulse (Heart Rate) 88 /min [facility] Work Phone: 05-30-2017 11:59-0400 Respiratory Rate 18 /min [facility] Work Phone: 05-30-2017 11:59-0400 Weight 75.3 kg [facility] Work Phone: Encounters Encounter Date Encounter Type Care Provider Facility Start: 06-06-2025 End: 06-06-2025 ambulatory [facility] Facility:[facility] [place] Start: 05-14-2025 End: 05-14-2025 ambulatory Inga Arnulfo DAIRY HUSBANDRY WORKER-C Work Phone: -Laboratory Start: 05-14-2025 End: 05-14-2025 Patient encounter procedure Destiny GILC -Laboratory Work Phone: Start: 05-14-2025 End: 05-14-2025 ambulatory [facility] Facility:[facility] Start: 05-08-2025 End: 05-08-2025 Patient encounter procedure Destiny LAUREANO -[facility] Work Phone: Start: 05-08-2025 End: 05-08-2025 ambulatory Inga Arnulfo DAIRY HUSBANDRY WORKER-C Work Phone: -[facility] Start: 05-07-2025 Non-patient / Non-visit Dr. Kathy MALDONADO -[facility] Start: 05-07-2025 End: 05-07-2025 ambulatory Ingasharad Arredondo DAIRY HUSBANDRY WORKER-C Work Phone: -Cardiovascular Services Start: 05-07-2025 End: 05-07-[address] West Abbott MD -Cardiovascular Services Work Phone: Start: 05-07-2025 End: 05-07-2025 [facility] Facility:[facility] Start: 04-10-2025 Non-patient / Non-visit Dr. Marly Kapoor DO -[facility] Work Phone: Start: 04-10-2025 Non-patient / Non-visit Sagar Ulloa stu DO -[facility] Start: 04-10-2025 Non-patient / Non-visit Dr. Fadi donaldson DO -[facility] Start: 04-09-2025 ambulatory [facility] Facility :[facility] Start: 04-09-2025 Non-patient / Non-visit Sagar Ulloa stu DO -[facility] Start: 04-09-2025 Non-patient / Non-visit Beronica Ramirez DAIRY HUSBANDRY WORKER-C -[facility] Start: 04-09-2025 ambulatory [facility] Facility:[facility] Start: 04-09-2025 End: 04-10-2025 Evaluation and management of inpatient Dr. Misti Warren MD -Intensive Care Unit Work Phone: Start: 04-02-2025 Encounter for preprocedural cardiovascular examination West Abbott [facility] Start: 04-02-2025 End: 04-02-[address] West Abbott MD -[facility] Work Phone: Start: 04-02-2025 End: 04-02-[address] West Abbott MD [facility] Start: 04-02-2025 End: 04-02-2025 ambulatory [facility] DAIRY HUSBANDRY WORKER-C Work Phone: -[facility] Start: 03-25-2025 End: 03-25-2025 ambulatory Inga Arnulfo DAIRY HUSBANDRY WORKER-C Work Phone: -Ultrasound [facility] Start: 03-25-2025 End: 03-25-2025 Patient encounter procedure Inga Arnulfo DAIRY HUSBANDRY WORKER-C -Ultrasound [facility] Work Phone: Start: 03-25-2025 End: 03-25-2025 ambulatory [facility] Facility:[facility] Start: 03-20-2025 Patient encounter status Inga Arnulfo DAIRY HUSBANDRY WORKER-C Work Phone: [facility] Start: 02-27-2025 ambulatory [facility] Facility:[facility] Start: 02-25-2025 Encounter for other preprocedural examination James Rawls [facility] Start: 02-18-2025 End: 02-18-2025 ambulatory Ingasharad Arredondo Facility:[facility] [place] [place] Start: 02-18-2025 End: 02-18-2025 Non-patient / Non-visit Dr. West Abbott MD -[facility] Work Phone: Start: 02-12-2025 ambulatory [facility] Start: 02-10-2025 End: 02-10-[address] James Rawls MD -[facility] Work Phone: Start: 02-10-2025 End: 02-10-2025 ambulatory Inga Hernandezgar DAIRY HUSBANDRY WORKER-C Work Phone: [facility] Work Phone: Start: 01-03-2025 End: 01-03-2025 ambulatory Inga Arredondo DAIRY HUSBANDRY WORKER-C Work Phone: [facility] Work Phone: Start: 01-03-2025 End: 01-03-2025 Patient encounter procedure Inga Arredondo DAIRY HUSBANDRY WORKER-C -Laboratory [facility] Work Phone: Start: 01-03-2025 End: 01-03-2025 ambulatory Inga Arnulfo Facility:[facility] Start: 06-28-2023 End: 06-28-2023 ambulatory [facility] Work Phone: Start: 06-28-2023 End: 06-28-2023 Patient encounter procedure [facility]atory[facility] Start: 04-11-2023 End: 04-11-2023 ambulatory [facility] Work Phone: Start: 04-11-2023 End: 04-11-2023 Patient encounter procedure [facility]-Laboratory Work Phone: Start: 09-22-2022 End: 09-22-2022 ambulatory [facility] Work Phone: Start: 09-22-2022 End: 09-22-2022 Patient encounter procedure [facility]-Laboratory, Joshua Ortega [facility] Start: 04-05-2022 End: 04-05-[address] Ramon Arias Work Phone: [facility]-Laboratory Start: 02-03-2022 End: 02-03-[address] Ramon Arias Work Phone: [facility] Start: 01-25-2022 End: 01-25-[address] Ramon Arias Work Phone: [facility] Start: 01-20-2022 Non-patient / Non-visit Dr. Nitin Arias Work Phone: [facility] Start: 01-20-2022 End: 01-20-2022 Admission to same day surgery center Dr. Ramon Arias Work Phone: [facility]-Endoscopy Start: 11-01-2021 End: 11-01-[address] Ramon Arias Work Phone: [facility] Start: 09-22-2021 End: 09-22-[address] Ramon Arias Work Phone: [facility]-Laboratory Procedures Date Procedure Procedure Detail Performing Clinician Start: 05-14-2025 Zbakt-2-Fibhamkyzfm measurement Inga nowak DAIRY HUSBANDRY WORKER-C Work Phone: Comment on above: [employer] Electrochemiluminescen ce Immunoassay(ECLIA)Values obtained with different assay methods or kits cannotbe used interchangeably. Results cannot be interpreted asabsolute evidence of the presence or absence of malignantdisease.This test is not interpretable in females. Start: 05-14-2025 Hepatitis A virus antibody, total measurement Inga Arredondo DAIRY HUSBANDRY WORKER-C Work Phone: Comment on above: Comment: The HAV total antibody assay de tects both IgG andIgM but does not differentiate between them. A negativeresult suggests susceptibility to infection. A positiveresult could be due to vaccination, previously resolvedinfection or active infection. Testing for HAV IgM shouldbe performed if active HAV infection is suspected. Labcorpoffers profiles that will automatically reflex positive HAVtotal antibody results to IgM (e.g., panel #[id number] HAVAntibody w/ Rfx).Performed at: [facility] [id number] Director: Shashi Reeves PhD, Phone: [phone] Start: 05-14-2025 Hepatitis C antibody measurement Inga Arredondo NP-C Work Phone: Comment on above: Reactive: Presumptive evidence of antibo dies to HCV. Follow CDC recommendations for supplemental testing.Non-Reactive: Antibodies to HCV were not detected; does not exclude the possibility of exposure to HCVReactive Results are presumptive evidence of antibodies to HCV. Follow CDC recommendations for supplemental testing.Order confirmation testing: HCV Quant by PCR testing - HCVPCR #[id number] Non Reactive: < 0.8 Equivocal: >/= 0.8 to < 1.0 Reactive: >/= 1.0The [facility] requires that a reactive/equivocal HCV antibody result be sent out for confirmation. HCV Quant by PCR testing. Start: 05-14-2025 Procedure Inga Arredondo NP- Work Phone: Comment on above: Test Ordered: [id number] Phosphatidylethanol (PEth)PHOSPHATIDYLETHANOL Positive [A ] MX Reference Range: .Phosphatidylethanol (PEth) 201 ng/mL MX Reference Range: .Analyzed compound: PEth 16:0/18:1. 8-tteozknbz-6-kpqdax-xg-nssvyxo-3-phosphoethanol.Analysis performed by Liquid Chromatography withTandem Mass Spectrometry (LC/MS/MS).Detection limit: 20 ng/mLPEth levels in excess of 20 ng/mL are considered evidenceof moderate to heavy ethanol consumption. However,the Center for Substance Abuse Treatment (CSAT) advisescaution in interpretation and use of biomarkers aloneto assess alcohol use. Results should be interpretedin the context of all available clinical and behavioralinformation.Reference: Substance Abuse and Mental Health Services Administration (2012). The Role of Biomarkers in the Treatment of Alcohol Use Disorders, 2012 Revision. Advisory, Volume 11, Issue 2.This test was developed and its performance characteristicsdetermined by [employer]. It has not been cleared or approvedby the Food and Drug Administration.Performed at: [facility] [place] [id number] Director: Debra Miller [facility], Phone: [phone] at: [address] [id number] Director: Shashi Reeves PhD, Phone: [phone] Start: 04-10-2025 Estimated creatinine clearance Inga Ed gar DAIRY HUSBANDRY WORKER-C Work Phone: Start: 04-09-2025 Bacterial nucleic acid assay Inga Edga r DAIRY HUSBANDRY WORKER-C Work Phone: Start: 04-09-2025 Measurement of occult blood in stool specimen using immunoassay Inga Arnulfo DAIRY HUSBANDRY WORKER-C Work Phone: Start: 04-09-2025 Esophagogastroduodenoscopy Inga Arnulfo DAIRY HUSBANDRY WORKER-C Work Phone: Start: 04-09-2025 CT of thorax, abdomen and pelvis with contrast Inga Arnulfo DAIRY HUSBANDRY WORKER-C Work Phone: Start: 04-09-2025 Estimated creatinine clearance Inga Ed gar DAIRY HUSBANDRY WORKER-C Work Phone: Start: 04-09-2025 Serum inorganic phosphate measurement Inga Arnulfo DAIRY HUSBANDRY WORKER-C Work Phone: Start: 03-25-2025 Ultrasound elastography of liver Inga Arnulfo DAIRY HUSBANDRY WORKER-C Work Phone: Start: 01-03-2025 Prostate specific antigen measurement Inga Arnulfo DAIRY HUSBANDRY WORKER-C Work Phone: Comment on above: This test was performed using the [employer] tPSA method. Measured values of a patient sample can vary depending on the testing procedure used. PSA values determined on patient samples by different testing procedures cannot be used interchangeably. If there is a change in PSA assays while monitoring therapy, sequential testing should be performed to confirm baseline values. Start: 01-25-[address] Ramon Arias Work Phone: Start: 01-25-2022 X-ray of both feet Dr. Ramon Arias Work Phone: Start: 01-20-[address] Ramon Arias Work Phone: Start: 07-18-2017 End: 07-20-2017 *BMP Moshe Bryant MD Work Phone: Start: 07-18-2017 End: 07-20-2017 *CBC with Differential Moshe Bryant MD Work Phone: Start: 07-18-2017 End: 07-18-2017 ANDREAS Bryant MD Work Phone: Start: 07-18-2017 End: [...] MD Work Phone: Start: 05-30-2017 End: 05-30-2017 ANDREAS Bryant MD Work Phone: Start: 05-30-2017 End: 06-16-2017 Echocardiography Moshe Bryant MD Work Phone: Start: 05-30-2017 End: 06-07-2017 Lipid 1996 panel - Serum or Plasma Mikey Bryant MD Work Phone: Start: 05-30-2017 End: 06-07-2017 Magnesium [Mass/volume] in Serum or Plasma Moshe Bryant MD Work Phone: Start: 05-30-2017 End: 06-07-2017 Thyrotropin [Units/volume] in Serum or Plasma Moshe Bryant MD Work Phone: Start: 05-30-2017 End: 06-07-2017 Thyroxine (T4) [Mass/volume] in Serum or Plasma Moshe Bryant MD Work Phone: Plan of Treatment Date Care Activity Detail Author Start: 07-03-2025 ambulatory Ambulatory Facility:[facility] Start: 06-16-2025 ambulatory Ambulatory Facility:[facility] Start: 05-08-2025 Hepatic function panel [facility] Start: 05-08-2025 Hepatitis C antibody measurement [facility] Start: 05-08-2025 Procedure [facility] Start: 05-08-2025 Prothrombin time [facility] Start: 05-08-2025 [facility] Start: 04-10-2025 Patient discharge [facility] Start: 04-10-2025 Care planning and problem solving actions [facility] Start: 04-10-2025 Abdomen Limited Abdomen Limited [facility] Start: 04-10-2025 US Abdomen limited [facility] Start: 04-09-2025 Administration of blood product [facility] Start: 04-09-2025 Esophagogastroduodenoscopy EGD (Not Applicable) [facility] Start: 04-09-2025 Application of intermittent pneumatic compression device [facility] Start: 04-09-2025 End: 04-09-2025 [facility] Start: 04-09-2025 Following clinical pathway protocol [facility] Start: 04-09-2025 Transfusion of blood product [facility] Start: 04-09-2025 Aspiration precautions [facility] Start: 04-09-2025 Assessment of risk of venous thromboembolism [facility] Start: 04-09-2025 Consultation [facility] Start: 04-09-2025 Continuous pulse oximetry [facility] Start: 04-09-2025 Elevation of head of bed [facility] Start: 04-09-2025 Fall prevention [facility] Start: 04-09-2025 Incentive spirometry [facility] Start: 04-09-2025 Inhalation therapy procedure [facility] Start: 04-09-2025 Insertion of catheter into peripheral vein [facility] Start: 04-09-2025 Introduction of urinary catheter [facility] Start: 04-09-2025 Measuring intake and output [facility] Start: 04-09-2025 Methicillin resistant Staphylococcus aureus (MRSA) DNA [Presence] in Nose by KAEL with probe detection [facility] Start: 04-09-2025 Methicillin resistant Staphylococcus aureus screening test [facility] Start: 04-09-2025 Oxygen therapy [facility] Start: 04-09-2025 Patient referral to [facility] Start: 04-09-2025 Providing care according to standard [facility] Start: 04-09-2025 Provision of activity privileges [facility] Start: 04-09-2025 Referral to gastroenterology service [facility] Start: 04-09-2025 Referral to service [facility] Start: 04-09-2025 Vital signs measurements [facility] Start: 04-09-2025 Verification routine [facility] Start: 04-09-2025 Admission procedure [facility] Start: 04-09-2025 Administration of blood product [facility] Start: 04-09-2025 Transfusion of red blood cells [facility] Start: 04-09-2025 Leukocyte reduced red blood cells [facility] Start: 04-09-2025 Patient referral to [facility] Start: 04-02-2025 End: 04-02-2025 Evaluation of diagnostic study results [facility] Start: 01-20-2022 Colsc flx w/rmvl of tumor polyp lesion snare tq COLONOSCOPY W/LESION REMOVAL [facility] Work Phone: Start: 02-15-2018 End: 02-15-2018 Appointment Appointment [facility] Work Phone: Start: 07-18-2017 End: 07-18-2017 Appointment Appointment [facility] Work Phone: Start: 07-18-2017 End: 07-20-2017 *BMP *BMP [facility] Work Phone: Start: 07-18-2017 End: 07-20-2017 *CBC with Differential *CBC with Differential [facility] Work Phone: Start: 07-18-2017 End: 07-18-2017 ANDREAS JOHNS [facility] Work Phone: Start: 07-18-2017 End: 07-18-2017 Follow Up Appt 6 months Follow Up Appt 6 months [facility] Work Phone: Start: 07-18-2017 End: 07-20-2017 INR Coag RelTime (PPP) *PT/INR [facility] Work Phone: Start: 07-18-2017 End: 07-19-2017 Left Heart Cath Left Heart Cath [facility] Work Phone: Start: 07-11-2017 End: 07-11-2017 Appointment Appointment [facility] Work Phone: Start: 06-13-2017 End: 06-28-2017 Follow Up BP Check Follow Up BP Check [facility] Work Phone: Start: 05-30-2017 End: 06-07-2017 *BMP *BMP [facility] Work Phone: Start: 05-30-2017 End: 06-07-2017 *CBC with Differential *CBC with Differential [facility] Work Phone: Start: 05-30-2017 End: 06-07-2017 *Hepatic Function Panel *Hepatic Function Panel [facility] Work Phone: Start: 05-30-2017 End: 05-30-2017 ANDREAS JOHNS [facility] Work Phone: Start: 05-30-2017 End: 05-30-2017 Echocardiography Echocardiogram (complete) [facility] Work Phone: Start: 05-30-2017 End: 05-30-2017 Follow Up Appt 1 month Follow Up Appt 1 month [facility] Work Phone: Start: 05-30-2017 End: 06-07-2017 Lipid panel [AGGREGATE] *Lipid Profile CC PCP [facility] Work Phone: Start: 05-30-2017 End: 06-07-2017 Magnesium *Magnesium [facility] Work Phone: Start: 05-30-2017 End: 06-16-2017 Stress Echocardiogram (treadmill) Stress Echocardiogra m (treadmill) [facility] Work Phone: Start: 05-30-2017 End: 06-07-2017 Thyroid stimulating hormone (TSH) *[facility] Work Phone: Start: 05-30-2017 End: 06-07-2017 Thyroxine (T4) *T4 (Total) [facility] Work Phone: Alanine aminotransfe rase [Enzymatic activity/volume] in Serum or Plasma [facility] Albumin [Mass/volume ] in Serum or Plasma [facility] Alkaline phosphatase [Enzymatic activity/volume] in Serum or Plasma [facility] [id number]. tumor marker [Units/volume] in Serum or Plasma [facility] Anion gap in Serum or Plasma [facility] Basic metabolic 2008 panel with ionized calcium - Serum or Plasma [facility] Bilirubin, total measurement [facility] BUN/Creatinine ratio [facility] Calcium [Mass/volume ] in Serum or Plasma [facility] Carbon dioxide, tota l [Moles/volume] in Central venous blood [facility] CBC W Auto Different ial panel - Blood [facility] Creatinine [Mass/vol ume] in Serum or Plasma [facility] Erythrocyte mean cor puscular volume determination [facility] Glucose [Mass/volume ] in Serum or Plasma [facility] Hematocrit [Volume F raction] of Blood [facility] Hematocrit [Volume F raction] of Blood [facility] Hemoglobin [Mass/volume] in Blood [facility] Hemoglobin [Mass/volume] in Blood [facility] Hepatitis A virus Ab [Presence] in Serum [facility] Hepatitis B virus co re Ab [Presence] in Serum [facility] Hepatitis B virus pierce rface Ab [Presence] in Serum [facility] Lactic acid measurement [facility] Leukocytes [#/volume] in Blood [facility] Mean corpuscular hem oglobin concentration determination [facility] Mean corpuscular hem oglobin determination [facility] Measurement of renal function [facility] Neutrophil count [facility] Neutrophil percent d ifferential count [facility] Patient referral [facility] Work Phone: Platelets [#/volume] in Blood [facility] Potassium measurement [facility] Red blood cell count [facility] Red cell distributio n width determination [facility] Serum chloride measurement [facility] Sodium measurement [facility] Total protein measurement [facility] Urea nitrogen [Mass/ volume] in Serum or Plasma [facility] Immunizations Immunization Date Immunization Notes Care Provider Fa cility 06-04-2024 Covid (Moderna) Inga Arnulfo [employer] Work Phone: [facility] 06-04-2024 influenza, high dose seasonal, preservative-free Inga Arnulfo [employer] Work Phone: [facility] 12-12-2023 zoster vaccine recombinant Inga Arnulfo [employer] Work Phone: [facility] 10-10-2023 zoster vaccine recombinant Inga Arnulfo [employer] Work Phone: [facility] 05-02-2022 Covid Pfizer Bivalen t Booster Inga Arnulfo [employer] Work Phone: [facility] 05-02-2022 influenza, injectabl e, quadrivalent, preservative free Inga Arnulfo [employer] Work Phone: [facility] 06-10-2021 Covid (Pfizer) Inga Arnulfo [employer] Work Phone: [facility] 11-26-2020 Covid (Pfizer) Dr. Ramon chawla Work Phone: [facility] 11-05-2020 Covid (Pfizer) Dr. Ramon chawla Work Phone: [facility] 10-07-2016 zoster vaccine, live Inga Arredondo [employer] Work Phone: [facility] 08-10-2009 novel [id number]-[id number], preservative-free, injectable Inga Arredondo [employer] Work Phone: [facility] Payers Date Payer Category Payer Medicare [id number] 2025 Self-pay [id number] 2016 Unknown [id number] Medicare [id number] Medicare [id number] Unknown [id number] Unknown [id number] 2.16.8 [id number] Unknown [id number] 2.16.8 40.1.127326.3.579.2.462 Unknown [id number] 2.16.8 40.1.581323.3.579.2.462 Unknown [id number] 2.16.8 40.1.902007.3.579.2.462 Unknown [id number] 2.16.8 40.1.729194.3.579.2.462 Unknown [id number] 2.16.8 40.1.309414.3.579.2.462 Unknown [id number] 2.16.8 40.1.190185.3.579.2.462 Unknown [id number] 2.16.8 40.1.664377.3.579.2.462 Unknown [id number] 2.16.8 40.1.140504.3.579.2.462 Unknown [id number] 2.16.8 40.1.136621.3.579.2.462 Unknown [id number] 2.16.8 40.1.834992.3.579.2.462 Unknown [id number] 2.16.8 40.1.009412.3.579.2.462 Unknown [id number] 2.16.8 40.1.549219.3.579.2.462 Unknown [id number] 2.16.8 40.1.106472.3.579.2.462 Unknown [id number] 2.16.8 40.1.031458.3.579.2.462 Unknown [id number] 2.16.8 40.1.433474.3.579.2.462 Unknown [id number] 2.16.8 40.1.063331.3.579.2.462 Unknown [id number] 2.16.8 40.1.972733.3.579.2.462 Unknown [id number] 2.16.8 40.1.454571.3.579.2.462 Unknown [id number] 2.16.8 40.1.890286.3.579.2.462 Unknown [id number] 2.16.8 40.1.578066.3.579.2.462 Unknown [id number] 2.16.8 [id number] Social History Date Type Detail Facility Start: 01-14-2022 End: 02-03-2022 Tobacco smoking status NHIS Unknown if ever smoked [facility] Start: 1955 Sex Assigned At Male [facility] Start: 02-03-2022 End: 05-08-2025 Tobacco smoking status NHIS Never smoked tobacco (finding) [facility] Sex Male [facility] Medical Equipment Procedure Code Equipment Code Equipment Origin al Text Equipment Identifier Dates Colonoscopy CLIP,RESO 360 UL TRA 235_17 FDA Start: 01-20-2022 Colonoscopy CLIP,RESO 360 UL TRA 235_17 FDA Start: 01-20-2022 Colonoscopy CLIP,RESO 360 UL TRA 235_ FDA Start: 01-20-2022 Colonoscopy CLIP,RESO 360 UL TRA 235_17 FDA Start: 01-20-2022 Colonoscopy CLIP,RESO 360 UL TRA 235_ FDA Start: 01-20-2022 Colonoscopy CLIP,RESO 360 UL TRA 235_ FDA Start: 01-20-2022 Colonoscopy CLIP,RESO 360 UL TRA 235_ FDA Start: 01-20-2022 Colonoscopy CLIP,RESO 360 UL TRA 235_ FDA Start: 01-20-2022 Colonoscopy CLIP,RESO 360 UL TRA 235_ FDA Start: 01-20-2022 Colonoscopy CLIP,RESO 360 UL TRA 235_ FDA Start: 01-20-2022 Colonoscopy CLIP,RESO 360 UL TRA 235_ FDA Start: 01-20-2022 Colonoscopy CLIP,RESO 360 UL TRA 235_ FDA Start: 01-20-2022 Colonoscopy CLIP,RESO 360 UL TRA 235_ FDA Start: 01-20-2022 Colonoscopy CLIP,RESO 360 UL TRA 235_ FDA Start: 01-20-2022 Colonoscopy CLIP,RESO 360 UL TRA 235_ FDA Start: 01-20-2022 Colonoscopy CLIP,RESO 360 UL [...] Goals Date Patient Goal Desired Activity /State Functional Status Date Assessment Result Facility 04-10-2025 Functional status Ambulates;Bedside Commo de [facility] Work Phone: Mental Status Date Assessment Result Facility 04-10-2025 Cognitive function Voice/Name;Touch/Shaki ng [facility] Work Phone: 01-20-2022 Cognitive function Voice/Name [facility] Work Phone: Clinical Notes 02-10-2025 to 05-08-2025 Note Date & Type Note Facility 05-08-2025 Progress note [facility] 05-08-2025 Progress note Note Date/Time May 08, 2025 2:00pm [facility] [address] [place] [address] OFFICE VISIT Date of Service: 05/08/25 MR#: [id number] Acct: [id number] Name: YAYA BETANCOURT Rep #: [id number] : 1955 Provider: SRIDEVI Ramirez Age/Sex: 69/M Location: [facility] Status: Signed Intake Vital Signs 04/09/25 11:02 05/08/25 13:16 Height 5 ft 9 in 5 ft 9 in Weight: 185 lb 8 oz BMI 27.3 BP 124/70 H Respiration 16 Pulse 87 Temp 97.9 F Temp Source Temporal Pulse Oximetry (%) 95 Oxygen Delivery Method room air Intake Visit Reasons: HOSP FU-Hematemesis, Active gi bleeding Chief Complaint: hospital follow-up Solutions Delivery Consultant Required: No Accompanied by: Self Is patient in pain?: No Allergies shellfish derived Adverse Reaction (Intermediate, Verified 05/08/25 13:08) vomiting Medications ?Medication ?Instructions ?Recorded ?Confirmed ?Type albuterol sulfate 90 mcg/actuation 1 puff IH Q4H PRN P RN Sob &/Or 07/27/17 05/08/25 History aerosol inhaler Wheezing lisinopril 5 mg tablet 5 mg PO DAILY 07/27/1705/08 History rosuvastatin 10 mg tablet 10 mg PO QHS 07/27/17 History fluticasone propionate 50 1 spray intranasal PRN PRN 0 01/14/22 05/08/25 History mcg/actuation nasal ALLERGIES spray,suspension (Flonase Allergy Relief) pantoprazole 40 mg tablet,delayed 40 mg PO BID #60 tab s 04/10/25 05/08/25 Rx release (Protonix) diltiazem HCl 120 mg 120 mg PO QAM 04/28/2505/08 History capsule,extended release 24 hr (Cartia XT) furosemide 20 mg tablet (Lasix) 20 mg PO QAM 04/28/25 05/08/25 History carvedilol 3.125 mg tablet 3.125 mg PO BID #60 tabs 05/08/25 Rx ibuprofen 200 mg tablet 200 mg PO Q6H PRN 05/08/25 0 05/08/25 History lactulose 10 gram/15 mL oral 20 g (30 mL) PO BID #1,80 0 mL 05/08/25 05/08/25 Rx solution peg 3350-sod sulf,biobw-yui-seb See Rx Instructions PO .COMPLEX #2 05/08/25 05/08/25 Rx 178.7-7.3-0.5-1.12-0.9 gram oral mL soln (Suflave) rifaximin 550 mg tablet (Xifaxan) 550 mg PO BID #60 ta bs 05/08/25 05/08/25 Rx Have you fallen in the past year?: No PFSH Medical History UGIB (upper gastrointestinal bleed) Alcohol abuse GI bleed CKD (chronic kidney disease), stage II Chronic anemia Alcohol abuse BPH (benign prostatic hyperplasia) Left inguinal hernia Colonic diverticular disease Tubular adenoma of colon Asthma Hyperlipidemia Hypertension Wide-complex tachycardia Abnormal EKG Arthritis Surgical History Hx of transurethral resection of prostate History of left heart catheterization (07/28/17) H/O hernia repair Family History Father , age 80+ in his sleep, assumed cardiac CAD (coronary artery disease) Heart disease Hypertension Mother CAD (coronary artery disease) Heart disease Hypertension Diabetes Sister CAD (coronary artery disease) Heart disease Hypertension Myocardial infarction Social History household members: spouse Smoking Status: Never smoker alcohol intake: current alcohol intake frequency: 3 or more drinks per day substance use type: does not use HPI HPI Chief Complaint: hospital follow-up Details: GI CONSULT 04/09/2025 69y/o male with history of HTN, tachycardia, HLD, CKD-II, diverticulosis, colon polyps, arthritis, and significant alcohol abuse (40 years, recent reduction) presenting with hematemesis. He presented to the ED Monday evening after developing sudden onset hematemesis. Initial HGB 6.5, WBC 12.8, INR 1.6, T. bili2.45, albumin 2.7, ALP 221, LA 2.4, MELD 15. Received 2u PRBC, IV protonix bolus+ gtt, octreotide, and ceftriaxone. CTA C/A/P reveals diffuse gastric thickening(likely gastritis), blood in gastric lumen, hepatomegaly with irregular contour,ascites, gallstones, GB wall thickening, SB thickening. No evidence of active bleeding based on CTA. Concern for variceal bleed, hemorrhagic/erosive gastritis, PUD. Plan to proceed with EGD today, maintain NPO status until procedure. Continue close monitoring of H&H, protonix gtt., CIWA protocol. He will require GI follow-up upon discharge for management of cirrhosis and he is also due for routine screening colonoscopy for history of colon polyps. EGD 04/09/2025 - Small (< 5 mm) esophageal varices. - Oozing gastric ulcers with a visible vessel. Treated with a heater probe. - No gross lesions in the entire examined duodenum. - No specimens collected. DISCHARGE 04/13/2025 This 69-year-old white male was seen in the emergency room at [facility] with complaints of emesis that was dark in color. Patient denied any diarrhea or dark or bloody stool. Workup in the emergency room showed the patient have an elevated white blood cell count of 12.8, hemoglobin was 6.5, bilirubin was elevated at 2.45 and AST was elevated at 44. Chest abdomen and pelvic CTA was performed other than cholelithiasis and possible parenchymal liver disease with mild ascites , there was thickening of the stomach suggestiveof gastritis and acute hemorrhage products were noted to be present in the gastric lumen. Patient was admitted to ICU and given blood transfusions, labs were monitored, he was placed on a PPI and seen in consultation by gastroenterology. 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 Patient's blood counts stabilized during his hospitalization, on 04/10/2025, patient was seen and examined: On examination he appeared in good health and spirits. Vital signs as documented. Skin warm and dry and without overt rashes. Neck without JVD, neck was supple, trachea midline, thyroid was normal. Lungs clear bilaterally, normal air movement was noted. Heart exam notable for regular rhythm, normal sounds and absence of murmurs, rubs or gallops.Abdomen unremarkable and without evidence of organomegaly, masses, or abdominal aortic enlargement. Bowel sounds are present, abdomen is not distended. Extremities nonedematous, no cyanosis was noted, no clubbing was noted. Neuro: Cranial nerves II through XII are grossly intact, no focal motor deficits were noted, sensation to light touch and pinprick intact, motor exam 5/5 throughout. Psych: Patient is alert and oriented x3, he does not appear anxious or depressed, he does not appear agitated. Patient was felt to be stable for discharge home on 04/10/2025. LABS 04/10/2025 HGB 8.8 04/09/2025 HGB 6.5 - 7.4 CMP: 04/10/2025 T. Bili 2.83, AST 57, ALT 13, ALP 145, Albumin 2.1 ABD US Hepatomegaly and diffuse fatty infiltration of the liver. Multiple gallstones. Mild degree of bladder wall thickening with small amount of pericholecystic and Marilyn hepatic fluid. - IBU 400mg TIW for aches and pains - has decreased alcohol intake to 2-3 cocktails a day - [place] 750ml bottle, 1 bottle will now last him 10 days, prior to admission this bottle would not last him a week - Father was an alcoholic - states he has been drinking his entire life - weight is stable - having a BM daily - he is not intersted in alcohol cessation ROS Const Constitutional: No fatigue, fever(s) or weight change ENT ENT: No difficulty swallowing Gastro GI: No abdominal pain, belching, bloating, change in bowel habits, change in stool character, coffee ground emesis, constipation, cramping, diarrhea, heartburn, difficulty swallowing, feeling full early, excessive flatus, incontinent of stools, Vomiting blood/hematemesis, Blood in stool, loose stools,Black,tarry stools, nausea/dyspepsia, pain with swallowing, vomiting or other Musc Musculoskeletal: Positive for Arthritis; No joint pain Skin Skin: No yellowing of the eye or itchy eyes Psych Psychiatric: No anxiety and No depression Endo Endocrine: No fatigue or weight change Aller/Imm Allergy/Immunologic: No itchy eyes Regis/Lymp Hematologic/Lymphatic: No easy bleeding or easy bruising ROS Narrative - Gastrointestinal: Denies recent bleeding, black tarry stools, or hematemesis. Reports regular bowel movements and denies constipation. - Cardiovascular: Reports leg swelling, managed with Lasix. - Respiratory: Reports asthma. Denies shortness of breath. - Neurological: Denies memory loss or confusion. - Musculoskeletal: Reports occasional neck pain, managed with ibuprofen. - General: Denies weight loss and states appetite is improved. Exam Const General: cooperative, healthy appearing, no acute distress and well developed Nutritional Appearance: average body habitus and well nourished Orientation: alert and oriented x3 [facility] Head: normocephalic Ears: hearing grossly normal bilaterally Mouth: moist mucous membranes Other: upper dentures Eyes Conjunctivae: conjunctivae normal Sclera: sclerae normal Neck Neck: normal visual inspection, full ROM and trachea midline Resp Effort & Inspection: normal respiratory effort, able to speak in complete sentences and symmetric chest movement Auscultation: Bilateral: Clear to Auscultation Cardio Other: 2/6 systolic murmur Skin General: no rashes or lesions noted and turgor normal Neuro General: patient alert and patient oriented x3 Cranial Nerves: other (CN's grossly intact, non-focal exam) Cognition: normal cognition Speech: speech normal Gait: normal gait Extrem Other: 2+ pitting edema bilateral ankles Psych Appearance: grossly normal and well kempt Affect: normal affect Attitude: cooperative Thought Process: normal Assessment and Plan Assessment and Plan (1) Cirrhosis of liver with ascites: Status: Acute Plan: Maintain blood pressure and heart rate control to prevent hemorrhage. Schedule consultation with Dr. Hernandez for liver disease management and evaluate risk mitigation with ongoing alcohol use. Educate on low sodium diet to manage fluid retention, and start recommended medications for encephalopathy prevention. Perform routine lab tests and imaging to monitor disease progression I have started him on carvedilol, lactulose, and rifaxamin. (2) Acute alcoholic gastritis with hemorrhage: Status: Acute Orders: Orders CBC W/Diff, Automated Today D64.9 - Anemia, unspecified, K29.21 - Alcoholic gastritis with bleeding, K74.60 - Unspecified cirrhosis of liver, R18.8 - Other ascites, Z86.0100 - Personal history of colon polyps, unspecified Liver Profile Today K29.21 - Alcoholic gastritis with bleeding, K74.60 - Unspecified cirrhosis of liver, R18.8 - Other ascites, Z86.0100 - Personal history of colon polyps, unspecified Basic Metabolic Profile (BMP) Today K29.21 - Alcoholic gastritis with bleeding,K74.60 - Unspecified cirrhosis of liver, R18.8 - Other ascites, Z86.0100 - Personal history of colon polyps, unspecified [facility] Misc. Today K29.21 - Alcoholic gastritis with bleeding, K74.60 - Unspecified cirrhosis of liver, R18.8 - Other ascites, Z86.0100 - Personal history of colon polyps, unspecified Hepatitis A AB, Total Today K29.21 - Alcoholic gastritis with bleeding, K74.60 - Unspecified cirrhosis of liver, R18.8 - Other ascites, Z86.0100 - Personal history of colon polyps, unspecified Hepatitis B Core Ab Total Today K29.21 - Alcoholic gastritis with bleeding, K74.60 - Unspecified cirrhosis of liver, R18.8 - Other ascites, Z86.0100 - Personal history of colon polyps, unspecified Hepatitis B Surface Antibody Today K29.21 - Alcoholic gastritis with bleeding, K74.60 - Unspecified cirrhosis of liver, R18.8 - Other ascites, Z86.0100 - Personal history of colon polyps, unspecified Hepatitis B Surface Antigen Today K29.21 - Alcoholic gastritis with bleeding, K74.60 - Unspecified cirrhosis of liver, R18.8 - Other ascites, Z86.0100 - Personal history of colon polyps, unspecified Hepatitis C Antibody Today K29.21 - Alcoholic gastritis with bleeding, K74.60 -Unspecified cirrhosis of liver, R18.8 - Other ascites, Z86.0100 - Personal history of colon polyps, unspecified AFP, Tumor Marker Today K29.21 - Alcoholic gastritis with bleeding, K74.60 - Unspecified cirrhosis of liver, R18.8 - Other ascites, Z86.0100 - Personal history of colon polyps, unspecified Prothrombin Time w/INR Today K29.21 - Alcoholic gastritis with bleeding, K74.60- Unspecified cirrhosis of liver, R18.8 - Other ascites, Z86.0100 - Personal history of colon polyps, unspecified Medications: New rifaximin (Xifaxan) 550 mg PO BID 60 tabs 2RF carvedilol must administer with a meal/food 3.125 mg PO BID 60 tabs 2RF peg 3350-sod sulf,rdhi-veo-khh 178.7-7.3-0.5 gram (Suflave) Take as directed forsplit dose bowel prep 2 mL 0RF lactulose goal of 2-3 bowel movements daily, titrate as needed 20 grams (30 mL) PO BID 1,800 mL 1RF Plan 69-year-old male with history of cirrhosis presenting with follow-up for gastrointestinal bleeding and liver disease management. The patient's condition is linked to chronic alcohol use, with esophageal varices and gastric ulcers managed with pantoprazole 40mg BID. His reduced alcohol consumption over the past months is likely beneficial, but continued intake poses a risk of progression in liver disease and possible variceal bleeding. I have ordered labsand recommended a consult with Dr. Hernandez (hepatology). Patient Instructions: - Continue taking pantoprazole as prescribed to help heal stomach ulcers. - Reduce sodium intake in your diet to manage fluid retention. - Consult with Dr. Hernandez for liver disease assessment and management. - Schedule your colonoscopy and EGD for late June after ulcer healing. - If cleared by cardiology, consult with surgery about hernia repair. - Report any episodes of lightheadedness, unusual bleeding, or severe pain promptly. - Reduce alcohol intake at your comfort while assessing potential for cessation. Coding Level of Care Code Off vis,est,level 4 Diagnoses Cirrhosis of liver with ascites K74.60; R18.8 Acute alcoholic gastritis with hemorrhage K29.21 Clinical Quality Measures Falls Risk Screening/Assistive Devices Have you fallen in the past year?: No Smoking Screening Smoking Status: Never smoker 05/08/25 1540 <Electronically signed by Destiny LAUREANO> Date _ Destiny LAUREANO Cosigner Signature: Date (if applicable) CC: ~ [facility] [employer] [facility] Work Phone: 1(410) 116-446508-21-2025 Discharge summary [facility] Medical Records Department [address] [facility] [place] [address] Instructions for Home/Discharge Instructions 04/10/25 1649 MR#: [id number] Acct: [id number] Name: YAYA BETANCOURT OWEN Rep #:[id number] : 1955 69 From: Arie Kapoor DO PCP: SRIDEVI Miller Status:ADM IN Discharge Instructions DC O2, CPAP, BIPAP needs Home O2 Discharge instructions: No Dressing / Incision Discharge Activity: Return to Normal Activity Weight Bearing Status: Full weight bearing Follow Up Care Test Results: Test results from this visit will be discussed in further detail at your follow- up appointment, if applicable. Discharge Plan Admission Admit Date/Time: 04/09/25 05:36 Primary Reason for Your Visit: Upper GI bleed secondary to gastric ulcers, smallesophageal varices Attending Provider: Arie Kapoor Primary Care Provider: Inga Arredondo Consulting Providers: Misti Warren Discharge Orders/Prescriptions Prescriptions: New pantoprazole [Protonix] 40 mg tablet,delayed release (DR/EC) 40 mg PO BID Qty: 60 0RF Continued diltiazem HCl 240 mg capsule,extended release 24hr 240 mg PO DAILY Qty: 90 3RF lisinopril 5 MG tablet 5 mg PO DAILY albuterol sulfate 6.7 GM HFA aerosol inhaler 1 puff IH Q4H PRN PRN (Reason: Sob &/Or Wheezing) rosuvastatin 10 MG tablet 10 mg PO QHS fluticasone propionate [Flonase Allergy Relief] 50 mcg/actuation Index,Suspension 1 spray INTRANASAL PRN PRN (Reason: ALLERGIES) Referrals / Follow Up: Sagar Ulrich DO [Med Staff - Active Staff] - See Referral Note (In 3 weeks, call for an appointment) Inga Arredondo NP-C [Primary Care Provider] - Within 2 Weeks Disposition Disposition (needs filled in before D/C Order can be placed): Home, Self Care 04/10/25 Francisca6Arie Kapoor DO CC: DAIRY HUSBANDRY WORKER-C Inga Arredondo; Dr. Misti Warren MD ~ Signed [facility]08-21-2025 [facility] Medical Records Department [address] [place] [address] Discharge Summary 04/10/251655 MR#: [id number] Acct: [id number] Name: YAYA BETANCOURT Rep #: [id number] : 1955 69 From: Arie Kapoor DO PCP: SRIDEVI Miller Status:DIS IN Location: ICU ICU-1 Providers Date of Admission: 04/09/25 Date of Discharge: 04/10/25 Primary Care Physician: SRIDEVI Miller Consultations 04/09/25 06:10 Consult: Gastroenterology Routine Consulting Provider: [facility] Reason for Consult: GI bleed, ABLA EMERGENT Consult: No Notified: Yes Date Notified: 04/09/25 Time Notified: 05:39 Method of Notification: ED Physician Initiated Consult: Transformation Lead / Pulmonary Medicine Routine Consulting Provider: Intensivists/Pulmonary Med Reason for Consult: GI Bleed, ABLA EMERGENT Consult: No Notified: Yes Date Notified: 04/09/25 Time Notified: 08:10 Method of Notification: Verbal Reason For Visit: ACUTE GI BLEED, ABLA, ETOH ABUSE W/ WITHDRAWAL Diagnosis Discharge Diagnosis (1) UGIB (upper gastrointestinal bleed): Status: Acute Code(s): K92.2 - Gastrointestinal hemorrhage, unspecified Plan 1. Acute upper GI bleed requiring blood transfusion secondary to gastric ulcers and small esophageal varices #2 essential hypertension #3 hyperlipidemia Medications at Discharge Home Medications albuterol sulfate 90 mcg/actuation aerosol inhaler 1 puff IH Q4H PRN PRN Sob /Or Wheezing 07/27/17 lisinopril 5 mg tablet 5 mg PO DAILY 07/27/17 rosuvastatin 10 mg tablet 10 mg PO QHS 07/27/17 fluticasone propionate 50 mcg/actuation nasal spray,suspension (Flonase Allergy Relief) 1 spray intranasal PRN PRN ALLERGIES 01/14/22 diltiazem HCl 240 mg capsule,extended release 24 hr 240 mg PO DAILY #90 caps 04/02/25 pantoprazole 40 mg tablet,delayed release (Protonix) 40 mg PO BID #60 tabs 04/10/25 Hospital Course Operations None Procedures EGD Summary of Care Provided Minutes Spent on Discharge: 31 Hospital Course: This 69-year-old white male was seen in the emergency room at [facility] with complaints of emesis that was dark in color. Patient denied any diarrhea or dark or bloody stool. Workup in the emergency room showed the patient have an elevated white blood cell count of 12.8, hemoglobin was 6.5, bilirubin was elevated at 2.45 and AST was elevated at 44. Chest abdomen and pelvic CTA was performed other than cholelithiasis and possible parenchymal liver disease with mild ascites , there was thickening of the stomach suggestive of gastritis and acute hemorrhage products were noted to be present in the gastric lumen. Patient was admitted to ICU and given blood transfusions, labs were monitored, he was placed on a PPI and seen in consultation by gastroenterology. 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 Patient's blood counts stabilized during his hospitalization, on 04/10/2025, patient was seen and examined: On examination he appeared in good health and spirits. Vital signs as documented. Skin warm and dry and without overt rashes. Neck without JVD, neck was supple, trachea midline, thyroid was normal. Lungs clear bilaterally, normal air movement was noted. Heart exam notable for regular rhythm, normal sounds and absence of murmurs, rubs or gallops. Abdomen unremarkable and without evidence of organomegaly, masses, or abdominal aortic enlargement. Bowel sounds are present, abdomen is not distended. Extremities nonedematous, no cyanosis was noted, no clubbing was noted. Neuro: Cranial nerves II through XII are grossly intact, no focal motor deficits were noted, sensation to light touch and pinprick intact, motor exam 5/5 throughout. Psych: Patient is alert and oriented x3, he does not appear anxious or depressed, he does not appear agitated. Patient was felt to be stable for discharge home on 04/10/2025. Weight / BMI Weight Weight: 79.832 kg Body Mass Index (BMI) 25.9 ABG / Lab / Microbiology Data 04/10/25 13:10 04/10/25 06:35 Laboratory: Laboratory Results - last 24 hr 04/09/25 03:00: Crossmatch See Detail 04/09/25 18:55: Hgb 6.7 L, Hct 19.5 L 04/10/25 06:35: WBC 6.0, RBC 2.45 L, Hgb 8.0 L, Hct 22.8 L, MCV 93.1 D, MCH 32.7 H, MCHC 35.1, RDW Std Deviation 56.8 H, RDW Coeff of Marilee 17.1 H, Plt Count 125 L, MPV 10.5, Immature Gran % (Auto) 0.500, Neut % (Auto) 64.9, Lymph % (Auto) 21.3, Atlantic % (Auto) 9.7, Eos % (Auto) 2.3, Baso % (Auto) 1.3 H, Absolute Neuts (auto) 3.9, Absolute Lymphs (auto) 1.27, Nucleated RBC % 0, Sodium 137, Potassium 3.6, Chloride 112 H, Carbon Dioxide 15.9 L, Anion Gap 9, BUN 18, Creatinine 0.68 L, Estim Creat Clear Calc 88.38, Est GFR (MDRD) Non-Af 101, BUN/Creatin (more content not included)...[facility]08-21-2025 Progress note Author Sagar Friend [facility] Note Date/Time April 10, 2025 2: 34pm [facility] Medical Records Department [address] [place] [address] Progress Note 04/10/25 1432 MR#: [id number] Acct: [id number] Name: YAYA BETANCOURT Rep #:[id number] : 1955 69 From: Sagar Ulrich DO PCP: SRIDEVI Miller Status:ADM IN Location: ICU ICU07- Progress Note The patient underwent an upper endoscopy yesterday for acute upper GI bleed. Findings were as follows: Findings: Small (< 5 mm) varices were found in the lower third of the esophagus. They were 3 mm in largest diameter. Two oozing cratered gastric ulcers with a visible vessel were found in the gastric antrum and in the prepyloric region of the stomach. The largest lesion was 15 mm in largest dimension. Coagulation for hemostasis using heater probe was successful. Estimated blood loss was minimal. No gross lesions were noted in the entire examined duodenum. Impression: - Small (< 5 mm) esophageal varices. - Oozing gastric ulcers with a visible vessel. Treated with a heater probe. - No gross lesions in the entire examined duodenum. - No specimens collected. Recommendation: - [facility] to [facility] for [facility] care. - Resume previous diet. - Continue present medications. Assessment & Plan Assessment/Plan (1) UGIB (upper gastrointestinal bleed): PLAN: Upper GI bleed secondary to peptic ulcer disease. Lesion treated endoscopically. They were not biopsied for H. pylori. He will need repeat upper endoscopy in approximately 3 months after he has completed a course of PPItherapy and Carafate therapy. Visit Charges Inpatient E&M: 98208 [facility] Hosp 04/10/25 1434 <Electronically signed by Sagar Ulrich DO> Sagar Ulrich DO Cosigner Signature (if applicable): CC: ~ Signed [facility] Work Phone: 1(268) 219-425208-21-2025 Progress note [facility] Medical Records Department [address] [place] [address] Progress Note 04/10/25 1432 MR#: [id number] Acct: [id number] Name: YAYA BETANCOURT Rep #:[id number] : 1955 69 From: Sagar Ulrich DO PCP: SRIDEVI Miller Status:ADM IN Location: ICU ICU07-1 Progress Note The patient underwent an upper endoscopy yesterday for acute upper GI bleed. Findings were as follows: Findings: Small (< 5 mm) varices were found in the lower third of the esophagus. They were 3 mm in largest diameter. Two oozing cratered gastric ulcers with a visible vessel were found in the gastric antrum and in the prepyloric region of the stomach. The largest lesion was 15 mm in largest dimension. Coagulation for hemostasis using heater probe was successful. Estimated blood loss was minimal. No gross lesions were noted in the entire examined duodenum. Impression: - Small (< 5 mm) esophageal varices. - Oozing gastric ulcers with a visible vessel. Treated with a heater probe. - No gross lesions in the entire examined duodenum. - No specimens collected. Recommendation: - [facility] patient to [facility] for [facility] care. - Resume previous diet. - Continue present medications. Assessment & Plan Assessment/Plan (1) UGIB (upper gastrointestinal bleed): PLAN: Upper GI bleed secondary to peptic ulcer disease. Lesion treated endoscopically. They were not biopsied for H. pylori. He will need repeat upper endoscopy in approximately 3 months after he hascompleted a course of PPItherapy and Carafate therapy. Visit Charges Inpatient E&M: 35055 [facility] Hosp 04/10/25 1434 [facility] Friend DO Lane Signature (if applicable): CC: ~ Signed [facility]08-21-2025 Hospital Discharge instructionsAdditional Instructions Date of Discharge: 04/10/25[facility] Work Phone: 1([phone]) 199-646608-21-2025 Progress note Author Fadi Contreras [facility] Note Date/Time April 10, 2025 11 :48am [facility] Medical Records Department [address] [place] [address] Progress Note - Transformation Lead 04/10/25 0650 MR#: [id number] Acct: [id number] Name: YAYA BETANCOURT Rep #:[id number] : 1955 69 From: Fadi Contreras DO PCP: SRIDEVI Miller Status:ADM IN Location: ICU ICU07-1 Assessment & Plan Assessment/Plan (1) UGIB (upper gastrointestinal bleed): PLAN: Plan RECOMMENDATIONS: 1. Continue to monitor blood counts and transfuse to maintain hemoglobin at or above 7 g/dL. 2. Continue PPI therapy. 3. Continue thiamine and folic acid along with as needed Ativan per CINJ protocol. 4. Encourage incentive spirometer use and mobilize patient as tolerated. 5. The patient is medically stable for transfer out of the intensive care unit. Will sign off from a critical care perspective. IMPRESSIONS: 1. Acute blood loss anemia Clinical concern for upper gastrointestinal hemorrhage in the setting of longstanding alcohol dependency. The patient subsequently completed an EGD withintervention performed. Hemoglobin has improved this morning to 8.0 g/dL. Planto continue PPI therapy. Continue to monitor H&H and transfuse to maintain hemoglobin at or above 7 g/dL. 2. Longstanding alcohol dependency Continue thiamine and folic acid, as ordered, along with as needed Ativan per CINJ protocol. 3. History of hypertension/hyperlipidemia/asthma/BPH Complicates care, management, recovery and prognosis. Continue supportive measures as noted above. This note was generated with [employer] dictation software. It may contain incorrectwords, spelling, and punctuation that were not noted in checking the note beforesigning. Subjective Subjective The patient was seen and examined at the bedside this morning. Events from the last 24 hours have been reviewed. The patient is currently afebrile, hemodynamically stable and maintaining appropriate oxygen saturations on room air. Hemoglobin has improved to 8.0 g/dL this morning, following additional transfusion of blood products. The patient underwent EGD yesterday, during which time, gastric ulcers were identified that were treated. Objective Data Objective Data The patient's most recent lab work, culture data and imaging studies have all been personally reviewed. Vital Signs: Vital Signs Temp Pulse Resp BP Pulse Ox O2 Del Method O2 Flow Rate 98.7 F 78 16 106/58 L 94 Room Air 2 04/10/25 05:30 04/10/25 06:00 04/10/25 06:00 04/10/25 06:00 04/10/25 06:00 04/10/25 06:00 04/09/25 18:00 Oxygen Flow Rate (L/min) 2 Oxygen Delivery Method Room Air Weight: 175 lb 15.991 oz Body Mass Index (BMI) 25.9 Intake & Output: Intake and Output for Last 24 Hours 04/08/25 04/09/25 04/10/25 23:59 23:59 23:59 Intake Total 4197.01 / 4197.01 800 / 800 Output Total 2 / 2 Balance 4195. / 4195. 800 / 800 Lab / Micro Data Attestation: I reviewed the patient's lab results. 04/10/25 06:35 04/10/25 06:35 Labs: Laboratory Results - last 24 hr 04/09/25 02:30: Crossmatch See Detail 04/09/25 03:00: Crossmatch See Detail 04/09/25 08:05: Lactic Acid 1.4 04/09/25 11:20: Hgb 7.4 L, Hct 21.6 L 04/09/25 16:00: Hgb 7.1 L, Hct 20.7 L 04/09/25 18:55: Hgb 6.7 L, Hct 19.5 L Micro: Microbiology 04/09/25 07:50 Nasal Secretion MRSA (PCR) - Final 04/09/25 03:30 Stool Stool Occult Blood (LISBET) - Final Occult Blood Positive Physical Exam Const alert and no apparent distress General Appearance: cooperative HEENT normocephalic, head/scalp atraumatic and moist oral mucous membranes Eyes PERRL, EOMs intact bilaterally and conjunctivae normal Neck supple General: trachea midline Chest inspection of chest normal Resp normal respiratory effort Auscultation: Negative for rales, rhonchi or wheezes Cardio regular rate and regular rhythm GI soft to palpation and non-tender Extremity no clubbing, cyanosis or edema Skin no rashes or lesions noted Neuro CN's II-XII intact bilaterally, moves all extremities and no focal motor deficits Psych cooperative and affect normal Charges/Coding Visit Charges Inpatient E&M: 99847 Subs Hosp L2 04/10/25 1148 <Electronically signed by Fadi Contreras DO> Cosigner Signature (if applicable): CC: ~ Signed [facility] Work Phone: 1(705) 554-318008-21-2025 Progress note [facility] Medical Records Department [address] [place] [address] Progress Note - Transformation Lead 04/10/25 0650 MR#: [id number] Acct: [id number] Name: YAYA BETANCOURT Rep #:[id number] : 1955 69 From: Fadi Contreras DO PCP: Inga Arnulfo, DAIRY HUSBANDRY WORKER-C Status:ADM IN Location: ICU ICU07-1 Assessment & Plan Assessment/Plan (1) UGIB (upper gastrointestinal bleed): PLAN: Plan RECOMMENDATIONS: 1. Continue to monitor blood counts and transfuse to maintain hemoglobin at or above 7 g/dL. 2. Continue PPI therapy. 3. Continue thiamine and folic acid along with as needed Ativan per CINJ protocol. 4. Encourage incentive spirometer use and mobilize patient as tolerated. 5. The patient is medically stable for transfer out of the intensive care unit. Will sign off from a critical care perspective. IMPRESSIONS: 1. Acute blood loss anemia Clinical concern for upper gastrointestinal hemorrhage in the setting of longstanding alcohol dependency. The patient subsequently completed an EGD withintervention performed. Hemoglobin has improvedthis morning to 8.0 g/dL. Planto continue PPI therapy. Continue to monitor H&H and transfuse tomaintain hemoglobin at or above 7 g/dL. 2. Longstanding alcohol dependency Continue thiamine and folic acid, as ordered, along with as needed Ativan per CINJ protocol. 3. History of hypertension/hyperlipidemia/asthma/BPH Complicates care, management, recovery and prognosis. Continue supportive measures as noted above. This note was generated with [employer] dictation software. It may contain incorrectwords, spelling, and punctuation that were not noted in checking the note beforesigning. Subjective Subjective The patient was seen and examined at the bedside this morning. Events from the last 24 hours have been reviewed. The patient is currently afebrile, hemodynamically stable and maintaining appropriate oxygen saturations on room air. Hemoglobin has improved to 8.0 g/dL this morning, following additional transfusion of blood products. The patient underwent EGD yesterday, during which time, gastric ulcers were identified that were treated. Objective Data Objective Data The patient's most recent lab work, culture data and imaging studies have all been personally reviewed. Vital Signs: Vital Signs Temp Pulse Resp BP Pulse Ox O2 Del Method O2 Flow Rate 98.7 F 78 16 106/58 L 94 Room Air 2 04/10/25 05:30 04/10/25 06:00 04/10/25 06:00 04/10/25 06:00 04/10/25 06:00 04/10/25 06:00 04/09/25 18:00 Oxygen Flow Rate (L/min) 2 Oxygen Delivery Method Room Air Weight: 175 lb 15.991 oz Body Mass Index (BMI) 25.9 Intake & Output: Intake and Output for Last 24 Hours 04/08/25 04/09/25 04/10/25 23:59 23:59 23:59 Intake Total 4197.01 / 4197.01 800 / 800 Output Total 2 / 2 Balance 4195.01 / 4195.01 800 / 800 Lab / Micro Data Attestation: I reviewed the patient's lab results. 04/10/25 06:35 04/10/25 06:35 Labs: Laboratory Results - last 24 hr 04/09/25 02:30: Crossmatch See Detail 04/09/25 03:00: Crossmatch See Detail 04/09/25 08:05: Lactic Acid 1.4 04/09/25 11:20: Hgb 7.4 L, Hct 21.6 L 04/09/25 16:00: Hgb 7.1 L, Hct 20.7 L 04/09/25 18:55: Hgb 6.7 L, Hct 19.5 L Micro: Microbiology 04/09/25 07:50 Nasal Secretion MRSA (PCR) - Final 04/09/25 03:30 Stool Stool Occult Blood (LISBET) - Final Occult Blood Positive Physical Exam Const alert and no apparent distress General Appearance: cooperative HEENT normocephalic, head/scalp atraumatic and moist oral mucous membranes Eyes PERRL, EOMs intact bilaterally and conjunctivae normal Neck supple General: trachea midline Chest inspection of chest normal Resp normal respiratory effort Auscultation: Negative for rales, rhonchi or wheezes Cardio regular rate and regular rhythm GI soft to palpation and non-tender Extremity no clubbing, cyanosis or edema Skin no rashes or lesions noted Neuro CN's II-XII intact bilaterally, moves all extremities and no focal motor deficits Psych cooperative and affect normal Charges/Coding Visit Charges Inpatient E&M: 64290 Subs Hosp L2 04/10/25 1148 Cosigner Signature (if applicable): CC: ~ Signed [facility]08-20-2025 Progress note Author Misti Warren [facility] Note Date/Time April 09, 2025 9: 30pm [facility] Medical Records Department [address] [place] [address] Progress Note - Hospitalist 04/09/252128 MR#: [id number] Acct: [id number] Name: YAYA BETANCOURT OWEN Rep #:[id number] : 1955 69 From: Misti Warren MD PCP: SRIDEVI Miller Status:ADM IN Location: ICU ICU07-1 Hospitalist Note Repeat Hgb this evening 6.7, will request 2 u PRBC with repeat Hgb check in AM. 04/09/252129 <Electronically signed by Misti Warren MD> Cosigner Signature (if applicable): CC: ~ Signed [facility] Work Phone: 1(689) 710-933508-20-2025 Progress note [facility] Medical Records Department [address] [place] [address] Progress Note - Hospitalist 04/09/252128 MR#: [id number] Acct: [id number] Name: SERAFINYAYA WEAVER Rep #:[id number] : 1955 69 From: Misti Warren MD PCP: JEFFERY MillerC Status:ADM IN Location: ICU ICU07 Hospitalist Note Repeat Hgb this evening 6.7, will request 2 u PRBC with repeat Hgb check in AM. 04/09/252129 Cosigner Signature (if applicable): CC: ~ Signed [facility]08-20-2025 Progress note Author Arie Kapoor [facility] Note Date/Time April 09, 2025 5: 56pm [facility] Medical Records Department [address] [place] [address] Progress Note - Hospitalist 04/09/251751 MR#: [id number] Acct: [id number] Name: JACQUEChelROSENDOHEATHERYAYA Rep #:[id number] : 1955 69 From: Arie Kapoor DO PCP: SRIDEVI Miller Status:ADM IN Location: ICU ICU07- Hospitalist Note Patient was seen and examined today, after talking extensively with the patient and his , I decided to discontinue the IV phenobarbital and stay with oral Ativan as needed based on CIWA scores. Patient denies ever going through withdrawal when he does not drink and the confirms this. Patient does not appear anxious or nervous at the time of my examination. Both his and the patient confirmed that he drinks only 4 drinks a day of alcohol, he says he doesnot exceed this. Patient's repeat hemoglobin will result with 6 PM labs. I made the decision to make the patient a PCU status, EGD today showed small esophageal varices and 2 oozing cratered ulcers in the stomach with a visible vessel in the gastric antrum in the prepyloric region of the stomach. These were treated with a heater probe no gross lesions were found in the duodenum. There is an ultrasound ordered on the patient-I discussed this with gastroenterology and they did not feel the patient needed it, gastroenterology feels the patient has alcoholic hepatitis, he had an abdomen limited ultrasound with elastography on 03/25/2025, there is no evidence of cirrhosis but the patient doeshave fatty liver and gallstones. 04/09/251755 <Electronically signed by Arie Kapoor DO> Cosigner Signature (if applicable): CC: ~ Signed [facility] Work Phone: 1(909) 855-430008-20-2025 Progress note [facility] Medical Records Department [address] [place] [address] Progress Note - Hospitalist 04/09/251751 MR#: [id number] Acct: [id number] Name: YAYA BETANCOURT Rep #:[id number] : 1955 69 From: Arie Kapoor DO PCP: SRIDEVI Miller Status:ADM IN Location: ICU ICU07-1 Hospitalist Note Patient was seen and examined today, after talking extensively with the patient and his , I decided to discontinue the IV phenobarbital and stay with oral Ativan as needed based on CIWA scores. Patient denies ever going through withdrawal when he does not drink and the confirms this. Patient does not appear anxious or nervous at the time of my examination. Both his and the patient confirmed that he drinks only 4 drinks a day of alcohol, he says he doesnot exceed this. Patient's repeat hemoglobin will result with 6 PM labs. I made the decision to make the patient a PCU status, EGD today showed small esophageal varices and 2 oozing cratered ulcers in the stomach with a visible ve ssel in the gastric antrum in the prepyloric region of the stomach. These were treated with a heater probe no gross lesions were found in the duodenum. There is an ultrasound ordered on the patient-Idiscussed this with gastroenterology and they did not feel the patient needed it, gastroenterology feels the patient has alcoholic hepatitis, he had an abdomen limited ultrasound with elastography on03/25/2025, there is no evidence of cirrhosis but the patient doeshave fatty liver and gallstones. 04/09/25 1756 Cosigner Signature (if applicable): CC: ~ Signed [facility]08-20-2025 Consult note Author Angel Turcios [facility] Note Date/Time April 09, 2025 3: 15pm [facility] Medical Records Department [address] [place] [address] Anesthesia Postop Eval II 04/09/25 1515 MR#: [id number] Acct: [id number] Name: YAYA BETANCOURT Rep #:[id number] : 1955 69 From: Angel Turcios PCP: SRIDEVI Miller Status:ADM IN Y Race: C [facility] Eval I Sum Postop Eval Completion status Anesthesia document: Postop Eval 1 completed: Yes Anesthesia Postop Eval I Summary Anesthesia Postop Eval I Summary: Anesthesia Postop Eval I: Assessment Summary Airway patent Yes 04/09/25 15:12 [email or web address] Spontaneous unlabored Yes 04/09/25 15:12 [email or web address] respirations Mental status Asleep 04/09/25 15:12 [email or web address] nausea No 04/09/25 15:12 [email or web address] Vomiting No 04/09/25 15:12 [email or web address] Anesthesia Postop Eval I: Fluid Summary Crystalloid volume administer 100 04/09/25 15:12 [email or web address] (ml) Colloids volume administered ( ml) Blood Product volume administered (ml) Total IV fluid infused 100 04/09/25 15:12 [email or web address] Anesthesia Postop Eval I: Summary Notes Anesthesia Complication No 04/09/25 15:12 [email or web address] Anesthesia Complication Comment: Post-operative progress note Anesthesia: Postop Eval II Evaluation Mental status: Awake and Calm Pain Level: 0 nausea: No Vomiting: No Complications Anesthesia Complication: No 04/09/251514 <Electronically signed by Angel Turcios > Date _ Angel Hampton Signature: Date CC: ~ Signed [facility] Work Phone: 1(582) 908-921408-20-2025 Consult note Author Angel Turcios [facility] Note Date/Time April 09, 2025 3: 12pm [facility] Medical Records Department [address] [place] [address] Anesthesia Postop Eval I 04/09/25 1420 MR#: [id number] Acct: [id number] Name: YAYA BETANCOURT Rep #:[id number] : 1955 69 From: Angel Turcios PCP: SRIDEVI Miller Status:ADM IN Y Race: C Location: ICU ICU -1 Anesthesia: Postop Eval I Current Vital Signs Temperature: 97 F Pulse Rate: 94 Blood Pressure: 113/84 Respiratory Rate: 16 Pulse Ox: 97 Oxygen Delivery Method: Nasal Cannula Oxygen Flow Rate (L/min): 2 Assessment Airway patent: Yes Spontaneous unlabored respirations: Yes Mental status: Asleep nausea: No Vomiting: No Anesthesia Complication: No Fluid Hydration Crystalloid volume administer (ml): 100 Total IV fluid infused: 100 Progress Note Anesthesia document: Postop Eval 1 completed: Yes 04/09/251511 <Electronically signed by Angel Turcios > Date _ Angel Hampton Signature: Date CC: ~ Signed [facility] Work Phone: 1(304) 607-197508-20-2025 Procedure note [facility] Medical Records Department [address] [place] [address] EGD Report MR#: [id number] Acct: [id number] Name: YAYA BETANCOURT Rep #:[id number] : 1955 69 From: Sagar Ulrich DO PCP: SRIDEVI Miller Status:ADM IN Patient Name: Yaya Betancourt Procedure Date: 04/09/2025 2:01 PM Date of : 1955 Age: 69 Procedure: Upper GI endoscopy Indications: Hematemesis, Active gastrointestinal bleeding Providers: Sagar Ulrich DO Medicines: Monitored Anesthesia Care Patient Profile: This is a 69 year old male. Refer to note in patient chart for documentation of history and physical. Patient has symptoms of acute vomiting. Complications: No immediate complications. Procedure: Pre-Anesthesia Assessment: - Prior to the procedure, a History and Physical was performed, and patient medications and allergies were reviewed. The patient is competent. The risks and benefits of the procedure and the sedation options and risks were discussed with the patient. All questions were answered and informed consent was obtained. Patient identification and proposed procedure were verified by the physician in the pre-procedure area. Mental Status Examination: alert and oriented. Airway Examination: normal oropharyngeal airway and neck mobility. Respiratory Examination: clear to auscultation. CV Examination: normal. Prophylactic Antibiotics: The patient does not require prophylactic antibiotics. Prior Anticoagulants: The patient has taken no anticoagulant or antiplatelet agents except for NSAID medication. ASA Grade Assessment: II - A patient with mild systemic disease. After reviewing the risks and benefits, the patient was deemed in satisfactory condition to undergo the procedure. The anesthesia plan was to use monitored anesthesia care (MAC). Immediately prior to administration of medications, the patient was re-assessed for adequacy to receive sedatives. The heart rate, respiratory rate, oxygen saturations, blood pressure, adequacy of pulmonary ventilation, and response to care were monitored throughout the procedure. The physical status of the patient was re-assessed after the procedure. After obtaining informed consent, the endoscope was passed under direct vision. Throughout the procedure, the patient's blood pressure, pulse, and oxygen saturations were monitored continuously. The gastroscope was introduced through the mouth, and advanced to the fourth part of the duodenum. Small bowel enteroscopy was deemed necessary. The upper GI endoscopy was accomplished without difficulty. The patient tolerated the procedure well. Scope In: 2:05:20 PM Scope Out: 2:10:11 PM Total Procedure Duration Time 0 hours 4 minutes 51 seconds Findings: Small (< 5 mm) varices were found in the lower third of the esophagus. They were 3 mm in largest diameter. Two oozing cratered gastric ulcers with a visible vessel were found in the gastric antrum and in the prepyloric region of the stomach. The largest lesion was 15 mm in largest dimension. Coagulation for hemostasis using heater probe was successful. Estimated blood loss was minimal. No gross lesions were noted in the entire examined duodenum. Impression: - Small (< 5 mm) esophageal varices. - Oozing gastric ulcers with a visible vessel. Treated with a heater probe. - No gross lesions in the entire examined duodenum. - No specimens collected. Recommendation: - [facility]. - Resume previous diet. - Continue present medications. Procedure Code(s): --- Professional --- 66016, Small intestinal endoscopy, enteroscopy beyond second portion of duodenum, not including ileum; with control of bleeding (eg, injection, bipolar cautery, unipolar cautery, laser, heater probe, stapler, plasma tool and machine maintainer) CPT copyright 2021 [employer]. All rights reserved. The codes documented in this report are preliminary and upon flower buncher or picker review may be revised to meet current compliance requirements. Sagar Ulrich DO 04/09/2025 5:01:56 PM This report has been signed electronically. Number of Addenda: 0 Note Initiated On: 04/09/2025 2:01 PM 04/09/25 1702 Date _ Sagar Friend DO Cosigner Signature: Date (if indicated) CC: SRIDEVI Arredondo; Sagar Ulrich DO ~ Date Dictated: 04/09/25 1401 Date Transcribed: Supply Chain Analyst: RF Signed [facility]08-20-2025 Procedure note [facility] Medical Records Department [address] [place] [address] Provation Physician Letter MR#: [id number] Acct: [id number] Name: YAYA BETANCOURT Rep #:[id number] : 1955 69 From: Sagar Ulrich DO PCP: SRIDEVI Miller Status:ADM IN 04/09/2025 Sridevi Miller Re : Upper GI endoscopy procedure for Yaya Betancourt Gueritar Arnulfo This procedure was performed on Monday, April 09, 2025. My impressions and recommendations are as follows: Impressions : - Small (< 5 mm) esophageal varices. - Oozing gastric ulcers with a visible vessel. Treated with a heater probe. - No gross lesions in the entire examined duodenum. - No specimens collected. Recommendations : - [facility]. - Resume previous diet. - Continue present medications. My findings are described in the full procedure note, which is enclosed. If I can be of further assistance, please feel free to contact me at . Sincerely, Sagar Ulrich DO 04/09/2025 5:01:56 PM This report has been signed electronically. 04/09/25 1702 Date _ Sagar Yo Signature: Date (if indicated) CC: DAIRY HUSBANDRY WORKER-C Inga Arredondo; Dr. Gus Cartagena MD; Dr. Randy Velasquez MD; Dr. Misti Warren MD; Dr. Severiano Reynolds MD; Dr. Marek Matt MD; Dr. Fadi Contreras DO; Dr. Owen Nuñez MD; Dr. Kenneth Schwartz MD; Dr. Danish Gonzalez MD;Dr. Tony Okeefe MD; Dr. Stan Feldman MD; Dr. Precious Shelley MD; Dr. Codi Hanks MD; Dr. Nirmala Orozco MD; Dr. Arie Kapoor DO; Dr. Manuel Parker MD; Dr. Kash Prince MD; Dr. Ye Prater MD; Dr. Robert Martines MD; Dr. George Farmer MD; Dr. Lit Sage DO; Dr. Antolin Salcedo DO; Dr. Giuseppe Fernando MD; Dr. Otto Gil MD; Dr. Saundra Courtney MD ~ Date Dictated: 04/09/25 1401 Date Transcribed: Supply Chain Analyst: RF Signed [facility]08-20-2025 Consult note [facility] Medical Records Department [address] [place] [address] Anesthesia Postop Eval II 04/09/25 1515 MR#: [id number] Acct: [id number] Name: YAYA BETANCOURT Rep #:[id number] : 1955 69 From: Angel Turcios PCP: SRIDEVI Miller Status:ADM IN Y Race: C Location: ICU ICU07 -1 Anesthesia Postop Eval I Sum Postop Eval Completion status Anesthesia document: Postop Eval 1 completed: Yes Anesthesia Postop Eval I Summary Anesthesia Postop Eval I Summary: Anesthesia Postop Eval I: Assessment Summary Airway patent Yes 04/09/25 15:12 [email or web address] Spontaneous unlabored Yes 04/09/25 15:12 [email or web address] respirations Mental status Asleep 04/09/25 15:12 [email or web address] nausea No 04/09/25 15:12 [email or web address] Vomiting No 04/09/25 15:12 [email or web address] Anesthesia Postop Eval I: Fluid Summary Crystalloid volume administer 100 04/09/25 15:12 [email or web address] (ml) Colloids volume administered ( ml) Blood Product volume administered (ml) Total IV fluid infused 100 04/09/25 15:12 [email or web address] Anesthesia Postop Eval I: Summary Notes Anesthesia Complication No 04/09/25 15:12 [email or web address] Anesthesia Complication Comment: Post-operative progress note Anesthesia: Postop Eval II Evaluation Mental status: Awake and Calm Pain Level: 0 nausea: No Vomiting: No Complications Anesthesia Complication: No 04/09/25 1515 > Date _ Angel Hampton Signature: Date CC: ~ Signed [facility]08-20-2025 Consult note [facility] Medical Records Department [address] [place] [address] Anesthesia Postop Eval I 04/09/25 1420 MR#: [id number] Acct: [id number] Name: YAYA BETANCOURT Rep #:[id number] : 1955 69 From: Angel Turcios PCP: SRIDEVI Miller Status:ADM IN Y Race: C Location: ICU ICU - Anesthesia: Postop Eval I Current Vital Signs Temperature: 97 F Pulse Rate: 94 Blood Pressure: 113/84 Respiratory Rate: 16 Pulse Ox: 97 Oxygen Delivery Method: Nasal Cannula Oxygen Flow Rate (L/min): 2 Assessment Airway patent: Yes Spontaneous unlabored respirations: Yes Mental status: Asleep nausea: No Vomiting: No Anesthesia Complication: No Fluid Hydration Crystalloid volume administer (ml): 100 Total IV fluid infused: 100 Progress Note Anesthesia document: Postop Eval 1 completed: Yes 04/09/25 1512 > Date _ Angel Turcios Berta Signature: Date CC: ~ Signed [facility]08-20-2025 Consult note Author Destiny Ramirez [facility] Note Date/Time April 09, 2025 12 :57pm [facility] Medical Records Department [address] [place] [address] Consultation - GI 04/09/25 0941 MR#: [id number] Acct: [id number] Name: YAYA BETANCOURT Rep #:[id number] : 1955 69 From: Destiny giordano DAIRY HUSBANDRY WORKER-C PCP: SRIDEVI Miller Status:ADM IN Location: ICU ICU07-1 ADDENDUM by Sagar Ulrich DO on 04/09/25 at 1257 Addendum The patient was independently evaluated at the bedside. I agree with the assessment above. 04/09/25 1257<Electronically signed by Sagar Ulrich DO> Cosigner Signature (if applicable): cc: DAIRY HUSBANDRY WORKER-C Inga Arredondo ~* Signed HPI Consult Data Date of Consult: 04/09/25 HPI Narrative Reason for Consultation: GIB HPI Narrative: 69y/o male presents to ED with complaints of hematemesis. PMH significant for HTN, tachycardia, HLD, CKD II, arthrits, colon polyps, diverticulosis, and alcohol abuse (40 years of drinking 8 glasses of liquor/mixed drinks per day). He reports a recent decrease in EtOH intake to 4 glasses per day, reporting his last drink was around 11am on Monday morning. He reports waking early Monday morning with N/V. He then had recurrent emesis around 10pm last evening which was dark in color. He denies any h/o bleeding disorder or anticoagulation. He denies any melena. Vitals on admission BP 106/56, HR 108, 100% RA, afebrile. Admission labs revealing HGB 6.5, WBC 12.8, PLT 213, INR 1.6, Na 131, Creat 1.04, T. Bili 2.45, Albumin 2.7, LA 2.0, AST 44, ALT 14, ALP 221, Lipase 22 MELD 15 He was given an 80 mg bolus of Protonix followed by Protonix drip. With concernfor esophageal variceal bleed he was started on 50 mcg of octreotide. He was given 2 g of IV Rocephin as well. CTA C/A/P 04/09/2025 Diffuse thickening of the stomach suggestive of gastritis. Acute hemorrhagic products are noted in the gastric lumen. Hepatomegaly. Hepatic steatosis. Diffuse irregularity of the hepatic contour, probably chronic parenchymal liver disease. Cholelithiasis. Diffuse thickening of the wall of the gallbladder. Mild ascites. Diffuse thickening of the small bowels, possibly secondary to chronic parenchymal liver disease/ascites and/or enteritis. ABD US 03/25/2025 Hepatomegaly and diffuse fatty infiltration of the liver. Multiple gallstones. Mild degree of bladder wall thickening with small amount of pericholecystic and Marilyn hepatic fluid. CBD 5mm COLON 01/20/2022 - TA's - Severe diverticulosis in the entire examined colon. There was no evidence of diverticular bleeding. - Three 1 to 2 mm polyps in the descending colon and in the transverse colon, removed with a hot snare. Resected and retrieved. Recommendation: - Repeat colonoscopy in 3 years for surveillance. Due to concerns for alcohol withdrawal he was started on phenobarbital - seen at bedside, present - reports having dark, sticky stools the past few days - c/o nausea and hematemesis - denies any prior EGD - denies any EtOH since 11am yesterday - NPO since 7pm last evening - taking IBU 400mg daily for generalized aches and pains, NO - Vitals: BP 115/73, HR 97 - currently receiving 2nd unit PRBC [facility] Medical History CKD (chronic kidney disease), stage II Chronic anemia Alcohol abuse BPH (benign prostatic hyperplasia) Left inguinal hernia Colonic diverticular disease Tubular adenoma of colon Asthma Hyperlipidemia Hypertension Wide-complex tachycardia Abnormal EKG Arthritis Home Medications ?Medication ?Instructions ?Recorded ?Last Taken ?Type albuterol sulfate 90 mcg/actuation 1 puff IH Q4H PRN P RN Sob &/Or 07/27/17 Unknown History aerosol inhaler Wheezing lisinopril 5 mg tablet 5 mg PO DAILY 07/27/1701/20 History rosuvastatin 10 mg tablet 10 mg PO QHS 07/27/17 Unknow n History fluticasone propionate 50 1 spray intranasal PRN PRN 0 01/14/22 Unknown History mcg/actuation nasal ALLERGIES spray,suspension (Flonase Allergy Relief) diltiazem HCl 240 mg 240 mg PO DAILY #90 caps Unknown Rx capsule,extended release 24 hr Allergy/AdvReac Type Severity Reaction Status Date / Time shellfish derived AdvReac Intermediate vomiting Verified 04/09/25 02:26 Family History Father , age 80+ in his sleep, assumed cardiac CAD (coronary artery disease) Heart disease Hypertension Mother CAD (coronary artery disease) Heart disease Hypertension Diabetes Sister CAD (coronary artery disease) Heart disease Hypertension Myocardial infarction Surgical History Hx of transurethral resection of prostate History of left heart catheterization (07/28/17) H/O hernia repair Social History household members: spouse Smoking Status: Never smoker alcohol intake: current alcohol intake frequency: 3 or more drinks per day substance use type: does not use ROS ROS Narrative denies pain, weight loss, early satiety, angina, SOB Constitutional Constitutional: Reports as per HPI Gastrointestinal Gastrointestinal: Reports as per HPI Genitourinary Genitourinary: Denies burning urination, difficulty urinating or scrotal swelling Musculoskeletal Musculoskeletal: Reports joint pain and joint stiffness Psychiatric Psychiatric: Denies abnormal sleep pattern, change in appetite, confusion or memory loss Endocrine Endocrinology: Denies polydipsia, polyphagia or polyuria Allergic/Immunologic Allergic/Immunologic: Denies GI upset w/certain foods, urticaria or asthma Physical Exam Const no apparent distress General Appearance: well developed Neck full ROM Resp Effort and Inspection: able to speak in complete sentences Auscultation: clear to auscultation bilaterally GI GI Narrative: ABD softly distended, BS+ x4 Quad, no pain with palpation Skin skin turgor normal Medical Records Data Attestation: I reviewed the patient's medical records Lab / Micro Data Attestation: I reviewed the patient's lab results. 04/09/25 02:30 04/09/25 02:30 Labs: Laboratory Results - last 24 hr 04/09/25 02:30: WBC 12.8 H, RBC 1.83 L, Hgb 6.5 L, Hct 18.4 L, MCV 100.5 H, MCH 35.5 H, MCHC 35.3, RDW Std Deviation 52.3 H, RDW Coeff of Marilee 14.6, Plt Count 213, MPV 11.1, Immature Gran % (Auto) 0.300, Neut % (Auto) 74.0 H, Lymph % (Auto) 18.0 L, Atlantic % (Auto) 7.2, Eos % (Auto) 0.2, Baso % (Auto) 0.3, Absolute Neuts (auto) 9.5 H, Absolute Lymphs (auto) 2.30, Nucleated RBC % 0, PT 19.5 H, INR 1.6, APTT 33.7, Sodium 131 L, Potassium 4.3, Chloride 98, Carbon Dioxide 19.6 L, Anion Gap 14, BUN 31 H, Creatinine 1.04, Estim Creat Clear Calc 67.98, Est GFR (MDRD) Non-Af 78, BUN/Creatinine Ratio 29.6 H, Glucose 115 H, Lactic Acid 2.0, Calcium 9.0, Phosphorus 2.6 L, Magnesium 1.8, Total Bilirubin 2.45 H, Direct Bilirubin 1.64 H, AST 44 H, ALT 14, Alkaline Phosphatase 221 H, Ammonia 37.0, Total Protein 6.4, Albumin 2.7 L, Globulin 3.7, Lipase 22, Ethyl Alcohol <10.1, Blood Type A POSITIVE, Antibody Screen NEGATIVE, Crossmatch See Detail 04/09/25 08:05: Lactic Acid 1.4 Micro: Microbiology 04/09/25 03:30 Stool Stool Occult Blood (LISBET) - Final Occult Blood Positive Imaging Radiology Impression Chest/Abdomen/Pelvis CTA 04/09/25 02:54 IMPRESSION: Moderate coronary artery calcifications. Mild left pleural effusion. Passive atelectatic airspace disease of the left lower lobe. Hepatomegaly. Hepatic steatosis. Diffuse irregularity of the hepatic contour, probably chronic parenchymal liver disease. Cholelithiasis. Diffuse thickening of the wall of the gallbladder. Mild ascites. Right posterolateral bladder diverticulum measuring 4.3 cm. Bilateral fat containing inguinal hernias without incarceration. Ascitic fluid is noted in the left inguinal canal. Small sliding hiatal hernia. Diffuse thickening of the stomach suggestive of gastritis. Acute hemorrhagic products are noted in the gastric lumen. No CT evidence of active bleeding during the time of the exam. Diffuse thickening of the small bowels, possibly secondary to chronic parenchymal liver disease/ascites and/or enteritis. Reading Location: [place] [address] Assessment & Plan Assessment/Plan (1) UGIB (upper gastrointestinal bleed): (2) Alcohol abuse: PLAN: Plan 69y/o male with history of HTN, tachycardia, HLD, CKD-II, diverticulosis, colon polyps, arthritis, and significant alcohol abuse (40 years, recent reduction) presenting with hematemesis. He presented to the ED Monday evening after developing sudden onset hematemesis. Initial HGB 6.5, WBC 12.8, INR 1.6, T. bili2.45, albumin 2.7, ALP 221, LA 2.4, MELD 15. Received 2u PRBC, IV protonix bolus+ gtt, octreotide, and ceftriaxone. CTA C/A/P reveals diffuse gastric thickening(likely gastritis), blood in gastric lumen, hepatomegaly with irregular contour,ascites, gallstones, GB wall thickening, SB thickening. No evidence of active bleeding based on CTA. Concern for variceal bleed, hemorrhagic/erosive gastritis, PUD. Plan to proceed with EGD today, maintain NPO status until procedure. Continue close monitoring of H&H, protonix gtt., CIWA protocol. He will require GI follow-up upon discharge for management of cirrhosis and he is also due for routine screening colonoscopy for history of colon polyps. 04/09/25 1029 <Electronically signed by Destiny LAUREANO> Cosigner Signature (if applicable): CC: SRIDEVI Arredondo~ Signed [facility] Work Phone: 1(234) 584-311808-20-2025 Consult note Author Fadi Contreras [facility] Note Date/Time April 09, 2025 11 :47am [facility] Medical Records Department [address] [place] [address] Consultation - Transformation Lead 04/09/25 0903 MR#: [id number] Acct: [id number] Name: YAYA BETANCOURT Rep #:[id number] : 1955 69 From: Fadi Contreras DO PCP: SRIDEVI Miller Status:ADM IN Location: ICU ICU07-1 Assessment & Plan Assessment/Plan (1) UGIB (upper gastrointestinal bleed): PLAN: Plan RECOMMENDATIONS: 1. Check H&H posttransfusion. Goal to maintain a hemoglobin at or above 7 g/dL. 2. Octreotide and PPI therapy per gastroenterology. 3. Maintain n.p.o. status for now. 4. Tentative plans for endoscopic evaluation later today. IMPRESSIONS: 1. Acute blood loss anemia Clinical concern for upper gastrointestinal hemorrhage in the setting of longstanding alcohol dependency. There are tentative plans for endoscopic evaluation by gastroenterology later today. In the interim, the patient has been started on octreotide and PPI therapy, both of which will be continued. The patient will remain n.p.o. for now. Recommend checking H&H posttransfusion,with a goal to maintain a hemoglobin at or above 7 g/dL. 2. Longstanding alcohol dependency Continue phenobarbital, along with thiamine and folic acid, as ordered. Maintain CIWA protocol. 3. History of hypertension/hyperlipidemia/asthma/BPH Complicates care, management, recovery and prognosis. Continue supportive measures as noted above. This note was generated with [employer] dictation software. It may contain incorrectwords, spelling, and punctuation that were not noted in checking the note beforesigning. HPI Consult Data Date of Consult: 04/09/25 HPI Narrative Reason for Consultation: Blood loss anemia HPI Narrative: The patient is a 69-year-old male, with a history as outlined below, who presented to the emergency department on April 09 with nausea and coffee-groundemesis. The patient has a longstanding alcohol abuse history, reporting that hetypically drinks 4-5 bourbon containing beverages daily. His last drink occurred yesterday. The patient did report associated dizziness and lightheadedness. On presentation to the emergency department, the patient was noted to be afebrile with a blood pressure of 106/56 mmHg. He was maintaining appropriate oxygen saturations on room air. Laboratory evaluation revealed a white blood cell count of 13,000 with a hemoglobin of 6.5 g/dL. Previously, in December 2024, the patient was last noted to have a hemoglobin of 11 g/dL. Platelet count was within normal limits. Chemistry profile was notable for a sodium of 131 with a BUN of 31 and creatinine of 1.04. Lactate was within normal limits. Total bilirubin was elevated at 2.45 with an AST of 44 and alkaline phosphatase of 221. CTA chest/abdomen/pelvis demonstrated a small left pleural effusion with compressive atelectasis, diffuse thickening of the wall of the gallbladder, bilateral fat-containing inguinal hernias without incarceration and diffuse thickening of the stomach suggestive of gastritis. The patient was subsequentlyordered to be transfused packed red blood cells and received supplemental IV fluid hydration. He was started on octreotide and pantoprazole. Lastly, the patient was initiated on phenobarbital, thiamine and folic acid. He was subsequently admitted to the medical intensive care unit. [facility] Medical History CKD (chronic kidney disease), stage II Chronic anemia Alcohol abuse BPH (benign prostatic hyperplasia) Left inguinal hernia Colonic diverticular disease Tubular adenoma of colon Asthma Hyperlipidemia Hypertension Wide-complex tachycardia Abnormal EKG Arthritis Home Medications ?Medication ?Instructions ?Recorded ?Last Taken ?Type albuterol sulfate 90 mcg/actuation 1 puff IH Q4H PRN P RN Sob &/Or 07/27/17 Unknown History aerosol inhaler Wheezing lisinopril 5 mg tablet 5 mg PO DAILY 07/27/1701/20 History rosuvastatin 10 mg tablet 10 mg PO QHS 07/27/17 Unknow n History fluticasone propionate 50 1 spray intranasal PRN PRN 0 01/14/22 Unknown History mcg/actuation nasal ALLERGIES spray,suspension (Flonase Allergy Relief) diltiazem HCl 240 mg 240 mg PO DAILY #90 caps Unknown Rx capsule,extended release 24 hr Allergy/AdvReac Type Severity Reaction Status Date / Time shellfish derived AdvReac Intermediate vomiting Verified 04/09/25 02:26 Family History Father , age 80+ in his sleep, assumed cardiac CAD (coronary artery disease) Heart disease Hypertension Mother CAD (coronary artery disease) Heart disease Hypertension Diabetes Sister CAD (coronary artery disease) Heart disease Hypertension Myocardial infarction Surgical History Hx of transurethral resection of prostate History of left heart catheterization (07/28/17) H/O hernia repair Social History household members: spouse Smoking Status: Never smoker alcohol intake: current alcohol intake frequency: 3 or more drinks per day substance use type: does not use ROS ROS Narrative 10 systems were reviewed with pertinent positives as noted in the HPI above. Physical Exam Const alert and no apparent distress General Appearance: cooperative HEENT normocephalic, head/scalp atraumatic and moist oral mucous membranes Eyes PERRL, EOMs intact bilaterally and conjunctivae normal Neck supple General: trachea midline Chest inspection of chest normal Resp normal respiratory effort Auscultation: Negative for rales, rhonchi or wheezes Cardio regular rate and regular rhythm GI soft to palpation and non-tender Extremity no clubbing, cyanosis or edema Skin no rashes or lesions noted Neuro CN's II-XII intact bilaterally, moves all extremities and no focal motor deficits Psych cooperative and affect normal Lab / Micro Data 04/09/25 02:30 04/09/25 02:30 Labs: Laboratory Results - last 24 hr 04/09/25 02:30: WBC 12.8 H, RBC 1.83 L, Hgb 6.5 L, Hct 18.4 L, MCV 100.5 H, MCH 35.5 H, MCHC 35.3, RDW Std Deviation 52.3 H, RDW Coeff of Marilee 14.6, Plt Count 213, MPV 11.1, Immature Gran % (Auto) 0.300, Neut % (Auto) 74.0 H, Lymph % (Auto) 18.0 L, Atlantic % (Auto) 7.2, Eos % (Auto) 0.2, Baso % (Auto) 0.3, Absolute Neuts (auto) 9.5 H, Absolute Lymphs (auto) 2.30, Nucleated RBC % 0, PT 19.5 H, INR 1.6, APTT 33.7, Sodium 131 L, Potassium 4.3, Chloride 98, Carbon Dioxide 19.6 L, Anion Gap 14, BUN 31 H, Creatinine 1.04, Estim Creat Clear Calc 67.98, Est GFR (MDRD) Non-Af 78, BUN/Creatinine Ratio 29.6 H, Glucose 115 H, Lactic Acid 2.0, Calcium 9.0, Phosphorus 2.6 L, Magnesium 1.8, Total Bilirubin 2.45 H, Direct Bilirubin 1.64 H, AST 44 H, ALT 14, Alkaline Phosphatase 221 H, Ammonia 37.0, Total Protein 6.4, Albumin 2.7 L, Globulin 3.7, Lipase 22, Ethyl Alcohol <10.1, Blood Type A POSITIVE, Antibody Screen NEGATIVE, Crossmatch See Detail 04/09/25 08:05: Lactic Acid 1.4 Micro: Microbiology 04/09/25 03:30 Stool Stool Occult Blood (LISBET) - Final Occult Blood Positive Imaging Radiology Impression Chest/Abdomen/Pelvis CTA 04/09/25 02:54 IMPRESSION: Moderate coronary artery calcifications. Mild left pleural effusion. Passive atelectatic airspace disease of the left lower lobe. Hepatomegaly. Hepatic steatosis. Diffuse irregularity of the hepatic contour, probably chronic parenchymal liver disease. Cholelithiasis. Diffuse thickening of the wall of the gallbladder. Mild ascites. Right posterolateral bladder diverticulum measuring 4.3 cm. Bilateral fat containing inguinal hernias without incarceration. Ascitic fluid is noted in the left inguinal canal. Small sliding hiatal hernia. Diffuse thickening of the stomach suggestive of gastritis. Acute hemorrhagic products are noted in the gastric lumen. No CT evidence of active bleeding during the time of the exam. Diffuse thickening of the small bowels, possibly secondary to chronic parenchymal liver disease/ascites and/or enteritis. Reading [facility] Charges/Coding Visit Charges Inpatient E&M: 42548 Init Hosp L3 04/09/25 1147 <Electronically signed by Fadi Contreras DO> Cosigner Signature (if applicable): CC: SRIDEVI Arredondo~ Signed [facility] Work Phone: [phone] 688-377408-20-2025 Consult note [facility] Medical Records Department [address] [place] [id number] Consultation - GI 04/09/25 0941 MR#: [id number] Acct: [id number] Name: YAYA BETANCOURT Rep #:[id number] : 1955 69 From: Destiny Shipley PCP: SRIDEVI Miller Status:ADM IN Location: ICU ICU07-1 ADDENDUM by Sagar Ulrich, DO on 04/09/25 at 1257 Addendum The patient was independently evaluated at the bedside. I agree with the assessment above. 04/09/25 1257 Cosigner Signature (if applicable): cc: DAIRY HUSBANDRY WORKER-C Inga Arredondo ~* Signed HPI Consult Data Date of Consult: 04/09/25 HPI Narrative Reason for Consultation: GIB HPI Narrative: 69y/o male presents to ED with complaints of hematemesis. PMH significant for HTN, tachycardia, HLD, CKD II, arthrits, colon polyps, diverticulosis, and alcohol abuse (40 years of drinking 8 glasses of liquor/mixed drinks per day). He reports a recent decrease in EtOH intake to 4 glasses per day, reporting his last drink was around 11am on Monday morning. He reports waking early Monday morning with N/V. He then had recurrent emesis around 10pm last evening which was dark in color. He denies any h/o bleeding disorder or anticoagulation. He denies any melena. Vitals on admission BP 106/56, HR 108, 100% RA, afebrile. Admission labs revealing HGB 6.5, WBC 12.8, PLT 213, INR 1.6, Na 131, Creat 1.04, T. Bili 2.45, Albumin 2.7, LA 2.0, AST 44, ALT 14, ALP 221, Lipase 22 MELD 15 He was given an 80 mg bolus of Protonix followed by Protonix drip. With concernfor esophageal variceal bleed he was started on 50 mcg of octreotide. He was given 2 g of IV Rocephin as well. CTA C/A/P 04/09/2025 Diffuse thickening of the stomach suggestive of gastritis. Acute hemorrhagic products are noted in the gastric lumen. Hepatomegaly. Hepatic steatosis. Diffuse irregularity of the hepatic contour, probably chronic parenchymal liver disease. Cholelithiasis. Diffuse thickening of the wall of the gallbladder. Mild ascites. Diffuse thickening of the small bowels, possibly secondary to chronic parenchymal liver disease/ascites and/or enteritis. ABD US 03/25/2025 Hepatomegaly and diffuse fatty infiltration of the liver. Multiple gallstones. Mild degree of bladder wall thickening with small amount of pericholecystic and Marilyn hepatic fluid. CBD 5mm COLON 01/20/2022 - TA's - Severe diverticulosis in the entire examined colon. There was no evidence of diverticular bleeding. - Three 1 to 2 mm polyps in the descending colon and in the transverse colon, removed with a hot snare. Resected and retrieved. Recommendation: - Repeat colonoscopy in 3 years for surveillance. Due to concerns for alcohol withdrawal he was started on phenobarbital - seen at bedside, present - reports having dark, sticky stools the past few days - c/o nausea and hematemesis - denies any prior EGD - denies any EtOH since 11am yesterday - NPO since 7pm last evening - taking IBU 400mg daily for generalized aches and pains, NO - Vitals: BP 115/73, HR 97 - currently receiving 2nd unit PRBC [facility] Medical History CKD (chronic kidney disease), stage II Chronic anemia Alcohol abuse BPH (benign prostatic hyperplasia) Left inguinal hernia Colonic diverticular disease Tubular adenoma of colon Asthma Hyperlipidemia Hypertension Wide-complex tachycardia Abnormal EKG Arthritis Home Medications ?Medication ?Instructions ?Recorded ?Last Taken ?Type albuterol sulfate 90 mcg/actuation 1 puff IH Q4H PRN P RN Sob &/Or 07/27/17 Unknown History aerosol inhaler Wheezing lisinopril 5 mg tablet 5 mg PO DAILY 07/27/1701/20 History rosuvastatin 10 mg tablet 10 mg PO QHS 07/27/17 Unknow n History fluticasone propionate 50 1 spray intranasal PRN PRN 0 01/14/22 Unknown History mcg/actuation nasal ALLERGIES spray,suspension (Flonase Allergy Relief) diltiazem HCl 240 mg 240 mg PO DAILY #90 caps Unknown Rx capsule,extended release 24 hr Allergy/AdvReac Type Severity Reaction Status Date / Time shellfish derived AdvReac Intermediate vomiting Verified 04/09/25 02:26 Family History Father , age 80+ in his sleep, assumed cardiac CAD (coronary artery disease) Heart disease Hypertension Mother CAD (coronary artery disease) Heart disease Hypertension Diabetes Sister CAD (coronary artery disease) Heart disease Hypertension Myocardial infarction Surgical History Hx of transurethral resection of prostate History of left heart catheterization (07/28/17) H/O hernia repair Social History household members: spouse Smoking Status: Never smoker alcohol intake: current alcohol intake frequency: 3 or more drinks per day substance use type: does not use ROS ROS Narrative denies pain, weight loss, early satiety, angina, SOB Constitutional Constitutional: Reports as per HPI Gastrointestinal Gastrointestinal: Reports as per HPI Genitourinary Genitourinary: Denies burning urination, difficulty urinating or scrotal swelling Musculoskeletal Musculoskeletal: Reports joint pain and joint stiffness Psychiatric Psychiatric: Denies abnormal sleep pattern, change in appetite, confusion or memory loss Endocrine Endocrinology: Denies polydipsia, polyphagia or polyuria Allergic/Immunologic Allergic/Immunologic: Denies GI upset w/certain foods, urticaria or asthma Physical Exam Const no apparent distress General Appearance: well developed Neck full ROM Resp Effort and Inspection: able to speak in complete sentences Auscultation: clear to auscultation bilaterally GI GI Narrative: ABD softly distended, BS+ x4 Quad, no pain with palpation Skin skin turgor normal Medical Records Data Attestation: I reviewed the patient's medical records Lab / Micro Data Attestation: I reviewed the patient's lab results. 04/09/25 02:30 04/09/25 02:30 Labs: Laboratory Results - last 24 hr 04/09/25 02:30: WBC 12.8 H, RBC 1.83 L, Hgb 6.5 L, Hct 18.4 L, MCV 100.5 H, MCH 35.5 H, MCHC 35.3, RDW Std Deviation 52.3 H, RDW Coeff of Marilee 14.6, Plt Count 213, MPV 11.1, Immature Gran % (Auto) 0.300, Neut % (Auto) 74.0 H, Lymph % (Auto) 18.0 L, Atlantic % (Auto) 7.2, Eos % (Auto) 0.2, Baso % (Auto) 0.3, Absolute Neuts (auto) 9.5 H, Absolute Lymphs (auto) 2.30, Nucleated RBC % 0, PT 19.5 H, INR 1.6, APTT 33.7, Sodium 131 L, Potassium 4.3, Chloride 98, Carbon Dioxide 19.6 L, Anion Gap 14, BUN 31 H, Creatinine 1.04, Estim Creat Clear Calc 67.98, Est GFR (MDRD) Non-Af 78, BUN/Creatinine Ratio 29.6H, Glucose 115 H, Lactic Acid 2.0, Calcium 9.0, Phosphorus 2.6 L, Magnesium 1.8, Total Bilirubin 2.45 H, Direct Bilirubin 1.64 H, AST 44 H, ALT 14, Alkaline Phosphatase 221 H, Ammonia 37.0, Total Protein 6.4, Albumin 2.7 L, Globulin 3.7, Lipase 22, Ethyl Alcohol <10.1, Blood Type A POSITIVE, Antibody Screen NEGATIVE, Crossmatch See Detail 04/09/25 08:05: Lactic Acid 1.4 Micro: Microbiology 04/09/25 03:30 Stool Stool Occult Blood (LISBET) - Final Occult Blood Positive Imaging Radiology Impression Chest/Abdomen/Pelvis CTA 04/09/25 02:54 IMPRESSION: Moderate coronary artery calcifications. Mild left pleural effusion. Passive atelectatic airspace disease of the left lower lobe. Hepatomegaly. Hepatic steatosis. Diffuse irregularity of the hepatic contour, probably chronic parenchymal liver disease. Cholelithiasis. Diffuse thickening of the wall of the gallbladder. Mild ascites. Right posterolateral bladder diverticulum measuring 4.3 cm. Bilateral fat containing inguinal hernias without incarceration. Ascitic fluid is noted in the left inguinal canal. Small sliding hiatal hernia. Diffuse thickening of the stomach suggestive of gastritis. Acute hemorrhagic products are noted in the gastric lumen. No CT evidence of active bleeding during the time of the exam. Diffuse thickening of the small bowels, possibly secondary to chronic parenchymal liver disease/ascites and/or enteritis. Reading Location: [place] [address] Assessment & Plan Assessment/Plan (1) UGIB (upper gastrointestinal bleed): (2) Alcohol abuse: PLAN: Plan 69y/o male with history of HTN, tachycardia, HLD, CKD-II, diverticulosis, colon polyps, arthritis, and significant alcohol abuse (40 years, recent reduction) presenting with hematemesis. He presentedto the ED Micaela evening after developing sudden onset hematemesis. Initial HGB 6.5, WBC 12.8, INR1.6, T. bili2.45, albumin 2.7, ALP 221, LA 2.4, MELD 15. Received 2u PRBC, IV protonix bolus+ gtt, octreotide, and ceftriaxone. CTA C/A/P reveals diffuse gastric thickening(likely gastritis), blood in gastric lumen, hepatomegaly with irregular contour,ascites, gallstones, GB wall thickening, SB thickening. No evidence of active bleeding based on CTA. Concern for variceal bleed, hemorrhagic/erosive gastritis, PUD. Plan to proceed with EGD today, maintain NPO status until procedure. Continue close monitoring of H&H, protonix gtt., CIWA protocol. He will require GI follow-up upon discharge for management of cirrhosis and he is also due for routine screening colonoscopy for history of colonpolyps. 04/09/25 1029 Cosigner Signature (if applicable): CC: DAIRY HUSBANDRY WORKER-Zamzam Arredondo~ Signed [facility]08-20-2025 Consult note [facility] Medical Records Department [address] [place] [address] Consultation - Transformation Lead 04/09/25 0903 MR#: [id number] Acct: [id number] Name: YAYA BETANCOURT Rep #:[id number] : 1955 69 From: Fadi Contreras DO PCP: SRIDEVI Miller Status:ADM IN Location: ICU ICU07-1 Assessment & Plan Assessment/Plan (1) UGIB (upper gastrointestinal bleed): PLAN: Plan RECOMMENDATIONS: 1. Check H&H posttransfusion. Goal to maintain a hemoglobin at or above 7 g/dL. 2. Octreotide and PPI therapy per gastroenterology. 3. Maintain n.p.o. status for now. 4. Tentative plans for endoscopic evaluation later today. IMPRESSIONS: 1. Acute blood loss anemia Clinical concern for upper gastrointestinal hemorrhage in the setting of longstanding alcohol dependency. There are tentative plans for endoscopic evaluation by gastroenterology later today. In the interim, the patient has been started on octreotide and PPI therapy, both of which will be continued.The patient will remain n.p.o. for now. Recommend checking H&H posttransfusion,with a goal to maintain a hemoglobin at or above 7 g/dL. 2. Longstanding alcohol dependency Continue phenobarbital, along with thiamine and folic acid, as ordered. Maintain CIWA protocol. 3. History of hypertension/hyperlipidemia/asthma/BPH Complicates care, management, recovery and prognosis. Continue supportive measures as noted above. This note was generated with GeoMe dictation software. It may contain incorrectwords, spelling, and punctuation that were not noted in checking the note beforesigning. HPI Consult Data Date of Consult: 04/09/25 HPI Narrative Reason for Consultation: Blood loss anemia HPI Narrative: The patient is a 69-year-old male, with a history as outlined below, who presented to the emergencydepartment on April 09 with nausea and coffee- groundemesis. The patient has a longstanding alcoholabuse history, reporting that hetypically drinks 4-5 bourbon containing beverages daily. His last drink occurred yesterday. The patient did report associated dizziness and lightheadedness. On presentation to the emergency department, the patient was noted to be afebrile with a blood pressure of 106/56 mmHg. He was maintaining appropriate oxygen saturations on room air. Laboratory evaluation revealed a white blood cell count of 13,000 with a hemoglobin of 6.5 g/dL. Previously, in December 2024, the patient was last noted to have a hemoglobin of 11 g/dL. Platelet count was within normal limits. Chemistry profile was notable for a sodium of 131 with a BUN of 31 and creatinine of 1.04. Lactate was within normal limits. Total bilirubin was elevated at 2.45 with an AST of 44 and alkaline phosphatase of 221. CTA chest/abdomen/pelvis demonstrated a small left pleural effusion with compressive atelectasis, diffuse thickening of the wall of the gallbladder, bilateral fat-containing inguinal hernias without incarceration and diffuse thickening of the stomach suggestive of gastritis. The patient was subsequentlyordered to be transfused packed red blood cells and received supplemental IVfluid hydration. He was started on octreotide and pantoprazole. Lastly, the patient was initiated on phenobarbital, thiamine and folic acid. He was subsequently admitted to the medical intensive careunit. [facility] Medical History CKD (chronic kidney disease), stage II Chronic anemia Alcohol abuse BPH (benign prostatic hyperplasia) Left inguinal hernia Colonic diverticular disease Tubular adenoma of colon Asthma Hyperlipidemia Hypertension Wide-complex tachycardia Abnormal EKG Arthritis Home Medications ?Medication ?Instructions ?Recorded ?Last Taken ?Type albuterol sulfate 90 mcg/actuation 1 puff IH Q4H PRN P RN Sob &/Or 07/27/17 Unknown History aerosol inhaler Wheezing lisinopril 5 mg tablet 5 mg PO DAILY 07/27/1701/20 History rosuvastatin 10 mg tablet 10 mg PO QHS 07/27/17 Unknow n History fluticasone propionate 50 1 spray intranasal PRN PRN 0 01/14/22 Unknown History mcg/actuation nasal ALLERGIES spray,suspension (Flonase Allergy Relief) diltiazem HCl 240 mg 240 mg PO DAILY #90 caps Unknown Rx capsule,extended release 24 hr Allergy/AdvReac Type Severity Reaction Status Date / Time shellfish derived AdvReac Intermediate vomiting Verified 04/09/25 02:26 Family History Father , age 80+ in his sleep, assumed cardiac CAD (coronary artery disease) Heart disease Hypertension Mother CAD (coronary artery disease) Heart disease Hypertension Diabetes Sister CAD (coronary artery disease) Heart disease Hypertension Myocardial infarction Surgical History Hx of transurethral resection of prostate History of left heart catheterization (07/28/17) H/O hernia repair Social History household members: spouse Smoking Status: Never smoker alcohol intake: current alcohol intake frequency: 3 or more drinks per day substance use type: does not use ROS ROS Narrative 10 systems were reviewed with pertinent positives as noted in the HPI above. Physical Exam Const alert and no apparent distress General Appearance: cooperative HEENT normocephalic, head/scalp atraumatic and moist oral mucous membranes Eyes PERRL, EOMs intact bilaterally and conjunctivae normal Neck supple General: trachea midline Chest inspection of chest normal Resp normal respiratory effort Auscultation: Negative for rales, rhonchi or wheezes Cardio regular rate and regular rhythm GI soft to palpation and non-tender Extremity no clubbing, cyanosis or edema Skin no rashes or lesions noted Neuro CN's II-XII intact bilaterally, moves all extremities and no focal motor deficits Psych cooperative and affect normal Lab / Micro Data 04/09/25 02:30 04/09/25 02:30 Labs: Laboratory Results - last 24 hr 04/09/25 02:30: WBC 12.8 H, RBC 1.83 L, Hgb 6.5 L, Hct 18.4 L, MCV 100.5 H, MCH 35.5 H, MCHC 35.3, RDW Std Deviation 52.3 H, RDW Coeff of Marilee 14.6, Plt Count 213, MPV 11.1, Immature Gran % (Auto) 0.300, Neut % (Auto) 74.0 H, Lymph % (Auto) 18.0 L, Atlantic % (Auto) 7.2, Eos % (Auto) 0.2, Baso % (Auto) 0.3, Absolute Neuts (auto) 9.5 H, Absolute Lymphs (auto) 2.30, Nucleated RBC % 0, PT 19.5 H, INR 1.6, APTT 33.7, Sodium 131 L, Potassium 4.3, Chloride 98, Carbon Dioxide 19.6 L, Anion Gap 14, BUN 31 H, Creatinine 1.04, Estim Creat Clear Calc 67.98, Est GFR (MDRD) Non-Af 78, BUN/Creatinine Ratio 29.6H, Glucose 115 H, Lactic Acid 2.0, Calcium 9.0, Phosphorus 2.6 L, Magnesium 1.8, Total Bilirubin 2.45 H, Direct Bilirubin 1.64 H, AST 44 H, ALT 14, Alkaline Phosphatase 221 H, Ammonia 37.0, Total Protein 6.4, Albumin 2.7 L, Globulin 3.7, Lipase 22, Ethyl Alcohol <10.1, Blood Type A POSITIVE, Antibody Screen NEGATIVE, Crossmatch See Detail 04/09/25 08:05: Lactic Acid 1.4 Micro: Microbiology 04/09/25 03:30 Stool Stool Occult Blood (LISBET) - Final Occult Blood Positive Imaging Radiology Impression Chest/Abdomen/Pelvis CTA 04/09/25 02:54 IMPRESSION: Moderate coronary artery calcifications. Mild left pleural effusion. Passive atelectatic airspace disease of the left lower lobe. Hepatomegaly. Hepatic steatosis. Diffuse irregularity of the hepatic contour, probably chronic parenchymal liver disease. Cholelithiasis. Diffuse thickening of the wall of the gallbladder. Mild ascites. Right posterolateral bladder diverticulum measuring 4.3 cm. Bilateral fat containing inguinal hernias without incarceration. Ascitic fluid is noted in the left inguinal canal. Small sliding hiatal hernia. Diffuse thickening of the stomach suggestive of gastritis. Acute hemorrhagic products are noted in the gastric lumen. No CT evidence of active bleeding during the time of the exam. Diffuse thickening of the small bowels, possibly secondary to chronic parenchymal liver disease/ascites and/or enteritis. Reading Location: [place] [address] Charges/Coding Visit Charges Inpatient E&M: 57357 Init Hosp L3 04/09/25 1147 Cosigner Signature (if applicable): CC: SRIDEVI Arredondo~ Signed [facility]08-20-2025 Discharge summary Author Stan Quintana [facility] Note Date/Time April 09, 2025 6: 23am [facility] Medical Records Department [address] [place] [address] Emergency Department Summary 04/09/25 MR#: [id number] Acct: [id number] Name: YAYA BETANCOURT Rep #:[id number] : 1955 69 From: Stan Quintana DO PCP: SRIDEVI Miller Status:ADM IN Location: ICU ICU07-1 HPI History of Present Illness Chief Complaint: GI Bleed Informant: patient and spouse/S.O. Narrative Narrative: Patient is a 69-year-old male with past medical history of hypertension hyperlipidemia who reports also roughly 40 years of drinking 8 glasses of liquor/mixed drinks per day. He states that in the last few years he has decreased his alcohol use down to approximately 4 mixed drinks per day. He states that Monday night he went to bed normally and then woke around 2 or 3 in the morning with nausea and vomiting. He states at that time the emesis was not dark or discolored. He states that then Monday evening around 10 PM or so he had a return of nausea and vomiting this time it was dark in color. He denies any history of bleeding disorder or blood thinner use. He states he has not had diarrhea and he denies any dark or bloody stool. However with his recurrent bouts of nausea and vomiting and the most recent bouts of emesis looking bloody in nature he presents for evaluation Patient states his last drink was around 11 AM on Monday [facility] Medical History CKD (chronic kidney disease), stage II Chronic anemia Alcohol abuse BPH (benign prostatic hyperplasia) Left inguinal hernia Colonic diverticular disease Tubular adenoma of colon Asthma Hyperlipidemia Hypertension Wide-complex tachycardia Abnormal EKG Arthritis Home Medications ?Medication ?Instructions ?Recorded ?Last Taken ?Type albuterol sulfate 90 mcg/actuation 1 puff IH Q4H PRN P RN Sob &/Or 07/27/17 Unknown History aerosol inhaler Wheezing lisinopril 5 mg tablet 5 mg PO DAILY 07/27/1701/20 History rosuvastatin 10 mg tablet 10 mg PO QHS 07/27/17 Unknow n History fluticasone propionate 50 1 spray intranasal PRN PRN 0 01/14/22 Unknown History mcg/actuation nasal ALLERGIES spray,suspension (Flonase Allergy Relief) diltiazem HCl 240 mg 240 mg PO DAILY #90 caps Unknown Rx capsule,extended release 24 hr Allergy/AdvReac Type Severity Reaction Status Date / Time shellfish derived AdvReac Intermediate vomiting Verified 04/09/25 02:26 Family History Father , age 80+ in his sleep, assumed cardiac CAD (coronary artery disease) Heart disease Hypertension Mother CAD (coronary artery disease) Heart disease Hypertension Diabetes Sister CAD (coronary artery disease) Heart disease Hypertension Myocardial infarction Surgical History Hx of transurethral resection of prostate History of left heart catheterization (07/28/17) H/O hernia repair Social History household members: spouse Smoking Status: Never smoker alcohol intake: current alcohol intake frequency: 3 or more drinks per day substance use type: does not use ROS ROS ED Constitutional Constitutional ED: Denies chills or fever(s) Eyes Eyes: Denies change in vision ENT ENT ED: Denies sore throat Cardiovascular Cardiovascular: Reports racing heartbeat; Denies chest pain Respiratory/Chest Respiratory/Chest: Denies cough or dyspnea Gastrointestinal Gastrointestinal: Reports nausea and vomiting; Denies abdominal pain, diarrhea or melena Genitourinary Genitourinary ED: Denies dysuria or hematuria Musculoskeletal Musculoskeletal: Denies myalgias Integumentary Denies rash Neurologic Neurologic: Reports weakness; Denies headache(s) Hematologic/Lymphatic Hematologic/Lymphatic: Denies easy bleeding or easy bruising EXAM Physical Exam Const Vital Signs: 04/09/25 02:27 04/09/25 03:15 04/09/25 04:00 Temperature 97.6 F L Temperature Source Oral Pulse Rate 108 H 89 87 Respiratory Rate 18 18 16 Blood Pressure 106/56 L 114/53 L 131/73 H Blood Pressure Mean 72 73 92 Pulse Ox 100 99 97 Oxygen Delivery Method Room Air Room Air Room Air 04/09/25 05:00 Temperature Temperature Source Pulse Rate 82 Respiratory Rate 18 Blood Pressure 114/72 Blood Pressure Mean 86 Pulse Ox 98 Oxygen Delivery Method Room Air Positive well nourished and well developed General Appearance ED: well developed HEENT HEENT Narrative: Normocephalic atraumatic No tongue or lip swelling no oral lesions no airway edema or compromise No signs of infection noted in the posterior pharynx Eyes PERRL and EOMs intact bilaterally General Eye ED: Yes pale conjunctiva and scleral icterus Neck supple Neck Narrative: No nuchal rigidity or meningeal signs Resp normal respiratory effort and clear to auscultation bilaterally Resp Narrative: Breath sounds are diminished throughout with faint rhonchi in the bilateral lower lobes without nasal flaring retractions tachypnea or accessory muscle use Cardio regular rhythm Rate: tachycardic and other Other Details: Tachycardic rate with regular rhythm Radial and carotid pulses are equal and symmetric GI non-tender GI Narrative: Abdomen is soft but slightly distended with faint fluid wave consistent with ascites from cirrhosis No voluntary guarding or rigidity or pulsatile mass No peritoneal signs Auscultation: normoactive bowel sounds Palpation: soft Narrative: Rectal exam displays normal tone without hemorrhoids or fissure noted. Stool ismelanotic in color and Hemoccult positive Extremity Extremity Narrative: +1 pitting edema to the bilateral lower extremities that is equal and symmetric Negative Homans' sign bilaterally All compartments are soft and compressible going against compartment syndrome Neuro oriented x3, CN's II-XII intact bilaterally and no sensory deficits noted Sensorium / Orientation: alert Motor Exam: strength 5/5 throughout Psych mental status grossly normal Skin Skin Narrative: There is faint jaundice noted consistent with history of alcohol use Capillary refill remains less than 3 seconds MDM MDM MDM Narrative Medical decision making narrative: Patient arrived to the ER tachycardic and borderline hypotensive. He reported multiple bouts of nausea and vomiting with the most recent being dark and discolored. With his history of daily alcohol use for 40 years or more there ishigh concern for alcoholic gastritis leading to a perforated ulcer versus esophageal varices. These could have led to acute blood loss anemia secondary to GI bleed. Patient also has physical exam findings concerning for cirrhosis with ascites. With his report of dark/coffee-ground emesis there is high concern for a bleeding ulcer therefore he was given an 80 mg bolus of Protonix followed by Protonix drip. With concern for esophageal variceal bleed he was started on 50 mcg of octreotide. He was given 2 g of IV Rocephin as well. As he was tachycardic and hypotensive he was ordered 2 L of fluid while laboratory studies are pending. Blood work came back showing a hemoglobin of 6.5 when mostprevious labs from approximately 3 months ago had a hemoglobin of approximately 11. This would correlate with acute blood loss anemia and 2 units of blood wereordered. A CTA was obtained of the chest abdomen and pelvis to look for source of active bleeding. The radiologist noted there are findings within the stomachconsistent with acute hemorrhagic products but no signs of active bleeding. With the patient receiving his medications and fluid his blood pressure improvedand his heart rate reduced. He had no further bouts of vomiting while in the ER. He was started on phenobarbital as there is high likelihood that he will progress to alcohol withdrawal as he has not had a drink for almost 18 hours. Even though the patient is showing improvement to his vital signs I have high concern that he could throw clot and decompensate or progress to alcohol withdrawal at any point and do feel he would benefit from placement in the ICU. I discussed the case with forest aide on-call Dr. Ulrich. He agrees withthe plan of care at this time and states that based on my report he feels safe keeping the patient here for continued care. Secondary to this I discussed the case with the hospitalist who agrees to accept the patient for continued observation and treatment. History & Record Review Discussion w/independent historian: Patient and Significant other Lab Data Attestation: I reviewed the patient's lab results. Labs: Laboratory Results - last 24 hr 04/09/25 02:30 WBC 12.8 H RBC 1.83 L Hgb 6.5 L Hct 18.4 L MCV 100.5 H MCH 35.5 H MCHC 35.3 RDW Std Deviation 52.3 H RDW Coeff of Marilee 14.6 Plt Count 213 MPV 11.1 Immature Gran % (Auto) 0.300 Neut % (Auto) 74.0 H Lymph % (Auto) 18.0 L Atlantic % (Auto) 7.2 Eos % (Auto) 0.2 Baso % (Auto) 0.3 Absolute Neuts (auto) 9.5 H Absolute Lymphs (auto) 2.30 Nucleated RBC % 0 PT 19.5 H INR 1.6 APTT 33.7 Sodium 131 L Potassium 4.3 Chloride 98 Carbon Dioxide 19.6 L Anion Gap 14 BUN 31 H Creatinine 1.04 Estim Creat Clear Calc 67.98 Est GFR (MDRD) Non-Af 78 BUN/Creatinine Ratio 29.6 H Glucose 115 H Lactic Acid 2.0 Calcium 9.0 Magnesium 1.8 Total Bilirubin 2.45 H Direct Bilirubin 1.64 H AST 44 H ALT 14 Alkaline Phosphatase 221 H Ammonia 37.0 Total Protein 6.4 Albumin 2.7 L Globulin 3.7 Lipase 22 Ethyl Alcohol < 10.1 Blood Type A POSITIVE Antibody Screen NEGATIVE Crossmatch See Detail Radiography Diagnostic Testing: Clinical Impression(s) from Imaging Studies Chest/Abdomen/Pelvis CTA 04/09/25 02:54 IMPRESSION: Moderate coronary artery calcifications. Mild left pleural effusion. Passive atelectatic airspace disease of the left lower lobe. Hepatomegaly. Hepatic steatosis. Diffuse irregularity of the hepatic contour, probably chronic parenchymal liver disease. Cholelithiasis. Diffuse thickening of the wall of the gallbladder. Mild ascites. Right posterolateral bladder diverticulum measuring 4.3 cm. Bilateral fat containing inguinal hernias without incarceration. Ascitic fluid is noted in the left inguinal canal. Small sliding hiatal hernia. Diffuse thickening of the stomach suggestive of gastritis. Acute hemorrhagic products are noted in the gastric lumen. No CT evidence of active bleeding during the time of the exam. Diffuse thickening of the small bowels, possibly secondary to chronic parenchymal liver disease/ascites and/or enteritis. Reading Location: [place] [address] Management Discussion w/another healthcare provider: Hospitalist and [employer] [facility] Critical Care Time Critical Care Time: Yes Critical care time (excluding procedures): Discussing w/Patient &/or Family/CareGiver, Discussing w/Consultants and - (Please note critical care time of 37 minutes) Discharge Plan Dx/Rx/DC Orders Clinical Impression: GI bleed, Hyperlipidemia, Hypertension, Acute blood loss anemia, Cirrhosis of liver with ascites, Alcohol abuse, Nausea & vomiting, Acute alcoholic gastritis with hemorrhage Disposition Disposition: [facility] What to do if you have Problems For any increased pain, shortness of breath, bleeding, nausea or vomiting, chestpain, or any unexpected problems, contact your Primary Care Provider. Call [facility] ([phone]) or report to the closest Emergency Room. Call 911 if necessary. 04/09/25622 <Electronically signed by Stan Quintana DO> Cosigner Signature (if applicable): CC: DAIRY HUSBANDRY WORKER-C Inga Arredondo ~ Signed [facility] Work Phone: [phone] History and physical note Author Misti Warren [facility] Note Date/Time April 09, 2025 6: 14am [facility] Medical Records Department [address] [place] [id number] H&P Exam - Hospitalist 04/09/25 0535 MR#: [id number] Acct: [id number] Name: YAYA BETANCOURT Rep #:[id number] : [id number] 69 From: Misti Warren MD PCP: SRIDEVI Miller Status:ADM IN Location: ICU ICU07-1 HPI - General General Date of Admission: 04/09/25 Date of Service: 04/09/25 Chief Complaint: N/V, coffee ground emesis. HPI Narrative The patient is a 69 y/o M w/ PMHx: EtOH abuse, CKD stage II per GFR trending, History of severe diverticulosis, BPH with obstructive pathology, HTN, HLD, Asthma with allergic rhinitis, Chronic EKG changes who presents to the [facility] ED on02/07/25 with history of onset of intractable nausea and emesis over the last 24 hours however the evening prior to current presentation at approximately 2200 patient noted that his emesis started to become more dark, coffee-ground appearance prompting eventual ED evaluation to be cautious. Patient denies any significant abdominal pain with his associated bouts of nausea and emesis. He notes his last intake was ~ noon on Monday. He denies any diarrhea. He noted lightheadedness and dizziness primarily with positional changes when he was up in the ED to use the restroom. He does report currently feeling improved since initial ED arrival. Patient denies any recent ill contacts and his who is present has not been ill with similar symptoms. He notes that normally he wouldhave continued drinking through the day but secondary to beginning to not feel well had stopped. Workup in the ED included T97.6, heart 108, BP 106/56, respiratory rate 18, 100% on room air, CBC with WC 12.8, hemoglobin 6.5, MCV 100.5, platelet 213 with left shift, coags with PT 19.5, INR 1.6, PTT 33.7, CMP with sodium 131, carbon dioxide 19.6, BUN/creatinine 31/1.04, GFR 78, glucose 115, T. bili 2.45, D bili 1.64, AST/LT 44/14, alk phos 221, lactic acid 2.0, magnesium 1.8, ammonia level 37, ethyl alcohol less than 10.1, CTA chest/abdomen/pelvis with moderate coronary artery calcifications, mild left pleural effusion, passive atelectatic airspace disease left lower lobe, hepatomegaly, [place] steatosis, diffuse irregular hepatic contour probably chronic parenchymal liver disease, cholelithiasis, diffuse thickening of the wall of the gallbladder, mild ascites, right posterior lateral bladder diverticulum measuring 4.3 cm, bilateral fat-containing inguinal hernias withoutincarceration, ascitic fluid noted within the left inguinal canal, small slidinghiatal hernia, diffuse thickening of the stomach suggestive of gastritis with acute hemorrhagic products noted in the gastric lumen with no CT evidence of active bleeding during the time of exam, diffuse thickening of the small bowels possibly secondary to chronic parenchymal liver disease/ascites and/or enteritis. Type and cross initiated in the ED with 2 unit PRBC requested per EDphysician to be initiate transfused. In the ED patient administered 1 L normal saline, Rocephin 2 g IV x 1, octreotide 0.5 mg IV x 1, Protonix bolus and drip as well as phenobarbital 100 mg IV x 1. ED physician discussed case with gastroenterology Dr. Ulrich. [facility] Medical History (Updated 04/09/25 @ 05:[address] Misti Warren MD) CKD (chronic kidney disease), stage II Chronic anemia Alcohol abuse BPH (benign prostatic hyperplasia) Left inguinal hernia Colonic diverticular disease Tubular adenoma of colon Asthma Hyperlipidemia Hypertension Wide-complex tachycardia Abnormal EKG Arthritis Home Medications ?Medication ?Instructions ?Recorded ?Last Taken ?Type albuterol sulfate 90 mcg/actuation 1 puff IH Q4H PRN P RN Sob &/Or 07/27/17 Unknown History aerosol inhaler Wheezing lisinopril 5 mg tablet 5 mg PO DAILY 07/27/1701/20 History rosuvastatin 10 mg tablet 10 mg PO QHS 07/27/17 Unknow n History fluticasone propionate 50 1 spray intranasal PRN PRN 0 01/14/22 Unknown History mcg/actuation nasal ALLERGIES spray,suspension (Flonase Allergy Relief) diltiazem HCl 240 mg 240 mg PO DAILY #90 caps Unknown Rx capsule,extended release 24 hr Allergy/AdvReac Type Severity Reaction Status Date / Time shellfish derived AdvReac Intermediate vomiting Verified 04/09/25 02:26 Family History Father , age 80+ in his sleep, assumed cardiac CAD (coronary artery disease) Heart disease Hypertension Mother CAD (coronary artery disease) Heart disease Hypertension Diabetes Sister CAD (coronary artery disease) Heart disease Hypertension Myocardial infarction Surgical History Hx of transurethral resection of prostate History of left heart catheterization (07/28/17) H/O hernia repair Social History household members: spouse Smoking Status: Never smoker alcohol intake: current alcohol intake frequency: 3 or more drinks per day substance use type: does not use ROS ROS Narrative Admission Review of Systems: CONSTITUTIONAL: No weight loss, fever, chills, + weakness or fatigue. HEENT: + Lightheadedness/dizziness. Eyes: No visual loss, blurred vision, double vision or yellow sclerae. Ears, Nose, Throat: No hearing loss, sneezing, congestion, runny nose or sore throat. SKIN: No rash or itching, lesions, wounds. CARDIOVASCULAR: + Lightheadedness/dizziness. No chest pain, chest pressure or chest discomfort, palpitations, edema, orthopnea, syncopal events. RESPIRATORY: No shortness of breath, cough or sputum, wheezing, hemoptysis. GASTROINTESTINAL: + anorexia, nausea, vomiting, onset of coffee-ground emesis. No diarrhea, abdominal pain, BRBPR. GENITOURINARY: + BPH with obstructive pathology, urinary frequency. No dysuria or urgency. NEUROLOGICAL: + Lightheadedness/dizziness. No headache, syncope, paralysis, ataxia, numbness or tingling in the extremities, focal weakness, change in bowelor bladder control, seizure. MUSCULOSKELETAL: + muscle, back pain, joint pain or stiffness. HEMATOLOGIC: + Acute on chronic anemia, active bleeding is noted. LYMPHATICS: No enlarged nodes. No history of splenectomy. PSYCHIATRIC: No history of depression or anxiety. ENDOCRINOLOGIC: No reports of sweating, cold or heat intolerance. No polyuria orpolydipsia. ALLERGIES: + History of asthma, allergic rhinitis. Vital Signs Vital Signs Vital Signs: 04/09/25 02:27 04/09/25 03:15 04/09/25 04:00 Temperature 97.6 F L Temperature Source Oral Pulse Rate 108 H 89 87 Respiratory Rate 18 18 16 Blood Pressure 106/56 L 114/53 L 131/73 H Blood Pressure Mean 72 73 92 Pulse Ox 100 99 97 Oxygen Delivery Method Room Air Room Air Room Air 04/09/25 05:00 Temperature Temperature Source Pulse Rate 82 Respiratory Rate 18 Blood Pressure 114/72 Blood Pressure Mean 86 Pulse Ox 98 Oxygen Delivery Method Room Air Weight Weight: 177 lb 0.499 oz Body Mass Index (BMI) 26.1 Physical Exam Narrative Physical Examination: General: Awake, alert, oriented x 3 and cooperative, laying in the ED bed, fatigued, does report feeling improved since initial ED arrival. Skin: Normal color, normal turgor, no icterus, no cyanosis except occasional stage ecchymoses, abrasion. HEENT: AT/NC, EOMI, PERRLA, mildly dry MM, no carotid bruits or JVD noted. Lungs: Mildly diminished, greater bases, mildly increased respiratory rate but no distress, no appreciated rales, ronchi or wheezing. Heart: Tachycardic with regular rhythm; no gallop, rub audible. Abdomen: Soft, NTTP, hyperactive BS, no obvious distention or tympany, + HM. Extremities: No cyanosis, clubbing, or edema. Neurological: Patient awake, alert, oriented as noted, cognitive function intact; pupils equally reactive to light and accommodation, cranial nerves grossly normal, moving all 4 extremities, no focal deficits, strength severely globally decreased. Psychiatric: Affect appears fatigued, ill-appearing, no acute evidence of depressive or anxiety feelings. Results Lab / Micro Data 04/09/25 02:30 04/09/25 02:30 Labs: Laboratory Results - last 24 hr 04/09/25 02:30: WBC 12.8 H, RBC 1.83 L, Hgb 6.5 L, Hct 18.4 L, MCV 100.5 H, MCH 35.5 H, MCHC 35.3, RDW Std Deviation 52.3 H, RDW Coeff of Marilee 14.6, Plt Count 213, MPV 11.1, Immature Gran % (Auto) 0.300, Neut % (Auto) 74.0 H, Lymph % (Auto) 18.0 L, Atlantic % (Auto) 7.2, Eos % (Auto) 0.2, Baso % (Auto) 0.3, Absolute Neuts (auto) 9.5 H, Absolute Lymphs (auto) 2.30, Nucleated RBC % 0, PT 19.5 H, INR 1.6, APTT 33.7, Sodium 131 L, Potassium 4.3, Chloride 98, Carbon Dioxide 19.6 L, Anion Gap 14, BUN 31 H, Creatinine 1.04, Estim Creat Clear Calc 67.98, Est GFR (MDRD) Non-Af 78, BUN/Creatinine Ratio 29.6 H, Glucose 115 H, Lactic Acid 2.0, Calcium 9.0, Magnesium 1.8, Total Bilirubin 2.45 H, Direct Bilirubin 1.64 H, AST 44 H, ALT 14, Alkaline Phosphatase 221 H, Ammonia 37.0, Total Protein 6.4, Albumin 2.7 L, Globulin 3.7, Lipase 22, Ethyl Alcohol < 10.1, BloodType A POSITIVE, Antibody Screen NEGATIVE, Crossmatch See Detail Micro: Microbiology 04/09/25 03:30 Stool Stool Occult Blood (LISBET) - Final Occult Blood Positive Imaging Radiology Impression Chest/Abdomen/Pelvis CTA 04/09/25 02:54 IMPRESSION: Moderate coronary artery calcifications. Mild left pleural effusion. Passive atelectatic airspace disease of the left lower lobe. Hepatomegaly. Hepatic steatosis. Diffuse irregularity of the hepatic contour, probably chronic parenchymal liver disease. Cholelithiasis. Diffuse thickening of the wall of the gallbladder. Mild ascites. Right posterolateral bladder diverticulum measuring 4.3 cm. Bilateral fat containing inguinal hernias without incarceration. Ascitic fluid is noted in the left inguinal canal. Small sliding hiatal hernia. Diffuse thickening of the stomach suggestive of gastritis. Acute hemorrhagic products are noted in the gastric lumen. No CT evidence of active bleeding during the time of the exam. Diffuse thickening of the small bowels, possibly secondary to chronic parenchymal liver disease/ascites and/or enteritis. Reading Location: [place] [address] Assessment & Plan Assessment/Plan (1) GI bleed: PLAN: Plan The patient is a 69 y/o M w/ PMHx: EtOH abuse, CKD stage II per GFR trending, History of severe diverticulosis, BPH with obstructive pathology, HTN, HLD, Asthma with allergic rhinitis, Chronic EKG changes who presents to the [facility] ED on02/07/25 with history of onset of intractable nausea and emesis over the last 24 hours however the evening prior to current presentation at approximately 2200 patient noted that his emesis started to become more dark, coffee-ground appearance prompting eventual ED evaluation to be cautious. #1. Acute GI Bleed with suspected acute gastritis with acute hemorrhagic products identified in the gastric lumen on CT imaging w/ resultant Acute Blood Loss Anemia on Chronic Macrotic Anemia with intractable recent N/V, possible viral illness and concurrent underlying chronic alcohol abuse with acute alcoholwithdrawal: Admission hemoglobin 6.5, MCV 100.5, baseline previous hemoglobin most recently 01/04/2020 510.9 however no marked lab trending from 2023 onward, will admit to the ICU, will request skull chopper consultation per protocol, will continue PRBC transfusion initiated per ED with plan 2 units, will maintain on IV fluids, will continue to obtain serial H&H assessments, will maintain on continuous Protonix drip, will also maintain on octreotide drip, will maintain NPO status, maintain on aspiration precautions, GI consulted with evaluation pending for endoscopic evaluation, will continue prophylactic Rocephin given concern for underlying cirrhotic disease. #2. Acute EtOH Withdrawal: Will initiate on IV phenobarbital regimen continued until nausea/emesis improved and acute presentation #1 further evaluated, may consider transitioning to oral taper following, mag 1.8 per ED, pending Phos, will maintain on thiamine/folic acid/multivitamin as able however may necessitate IV transition pending further emesis bouts, will maintain on concurrent overlapping CIWA protocol, case management consulted. #3. Hyperbilirubinemia, acute on chronic with possible chronic parenchymal liver disease and diffusely thickened wall of the gallbladder: Admission T. bili2.45, D bili 1.64, most recently noted T. bili 02/18/2025 4.27; however, previous D bili levels normal however this has not been obtained since 2019 that certainly could have been elevated in the interim, unclear exact etiology, but does have underlying alcohol abuse, given CT imaging liver/gallbladder ultrasound requested. #4. Chronic hyponatremia, unclear specific etiology, potential acute hypovolemic component given recent GI loss history: Admission sodium 131, chloride 98, previously had actually been in the mid to low 120 ranges, no records noted from visits corresponding to these labs, unclear exact etiology for hyponatremia, given recent GI losses certainly hypovolemic component for acute presentation currently, will continue judiciously hydrate and if persistent hyponatremia then may need to investigate further. #5. History chronic EKG changes: Patient with chronic stable T wave inversions in lead III and aVF as well as inferior ischemia type changes, previous cardiac catheterization with no notable coronary disease, most recent cardiology evaluation 04/02/2025 for preoperative assessment with no concerns at that time. #6. Chronic Kidney Disease Stage II per GFR trending: Admission BUN/Cr 31/1.04,GFR 78, baseline renal function primarily 0.8-1.0, repeat BMP in AM. #7. Hypertension: Will temporarily hold home diltiazem, lisinopril, add back once assure BP appropriate given #1. #8. Hyperlipidemia: Will temporarily hold statin therapy. #9. Chronic asthma with allergic rhinitis: Per current list does not appear to be on chronic regimen, will have PRN albuterol, HOB, IS parameters, will temporarily hold as needed home fluticasone regimen. #10. History of severe diverticulosis: Most recent noted colonoscopy 01/20/[address] Ulrich with noted severe diverticulosis in the entire colon examined with no evidence of any diverticular bleeding, 3, 1 to 2 mm polyp in the descending colon and in the transverse colon removed with hot snare with at thattime noted recommended repeat colonoscopy in 3 years for surveillance. #11. BPH with obstructive pathology: Status post TURP, not on any chronic regimen per current list. #12. DVT prophylaxis: SCDs. #13. CODE status: Patient HCPOA and living will are not in place but his who is present would be his medical decision-maker if necessary he notes. Discussed CODE status at length including difference between FULL code, DNR-CCA and DNR-CC status. Following discussions about the differences in these status, requested Full Code status. Advanced Care Planning Face to Face Time: 16 minutes. Charges/Coding Visit Charges Inpatient E&M: 09383 Init Hosp L3 Procedures Hospitalists Procedures: 50032 Advncd Care Plan 30 Min 04/09/25 0614 <Electronically signed by Misti Warren MD> Cosigner Signature (if applicable): CC: DAIRY HUSBANDRY WORKER-C Inga Arredondo; Dr. Misti Warren MD~ Signed [facility] Work Phone: [phone] [phone] Discharge summary [facility] Medical Records Department [address] [place] [address] Emergency Department Summary 04/09/25 MR#: [id number] Acct: [id number] Name: YAYA BETANCOURT Rep #:[id number] : 1955 69 From: Stan Quintana DO PCP: SRIDEVI Miller Status:ADM IN Location: ICU ICU07-1 HPI History of Present Illness Chief Complaint: GI Bleed Informant: patient and spouse/S.O. Narrative Narrative: Patient is a 69-year-old male with past medical history of hypertension hyperlipidemia who reports also roughly 40 years of drinking 8 glasses of liquor/mixed drinks per day. He states that in the last few years he has decreased his alcohol use down to approximately 4 mixed drinks per day. He states that Monday night he went to bed normally and then woke around 2 or 3 in the morning with nausea and vomiting. He states at that time the emesis was not dark or discolored. He states that then Monday evening around 10 PM or so he had a return of nausea and vomiting this time it was dark in color.He denies any history of bleeding disorder or blood thinner use. He states he has not had diarrhea and he denies any dark or bloody stool. However with his recurrent bouts of nausea and vomiting and the most recent bouts of emesis looking bloody in nature he presents for evaluation Patient states his last drink was around 11 AM on Monday [facility] Medical History CKD (chronic kidney disease), stage II Chronic anemia Alcohol abuse BPH (benign prostatic hyperplasia) Left inguinal hernia Colonic diverticular disease Tubular adenoma of colon Asthma Hyperlipidemia Hypertension Wide-complex tachycardia Abnormal EKG Arthritis Home Medications ?Medication ?Instructions ?Recorded ?Last Taken ?Type albuterol sulfate 90 mcg/actuation 1 puff IH Q4H PRN P RN Sob &/Or 07/27/17 Unknown History aerosol inhaler Wheezing lisinopril 5 mg tablet 5 mg PO DAILY 07/27/1701/20 History rosuvastatin 10 mg tablet 10 mg PO QHS 07/27/17 Unknow n History fluticasone propionate 50 1 spray intranasal PRN PRN 0 01/14/22 Unknown History mcg/actuation nasal ALLERGIES spray,suspension (Flonase Allergy Relief) diltiazem HCl 240 mg 240 mg PO DAILY #90 caps Unknown Rx capsule,extended release 24 hr Allergy/AdvReac Type Severity Reaction Status Date / Time shellfish derived AdvReac Intermediate vomiting Verified 04/09/25 02:26 Family History Father , age 80+ in his sleep, assumed cardiac CAD (coronary artery disease) Heart disease Hypertension Mother CAD (coronary artery disease) Heart disease Hypertension Diabetes Sister CAD (coronary artery disease) Heart disease Hypertension Myocardial infarction Surgical History Hx of transurethral resection of prostate History of left heart catheterization (07/28/17) H/O hernia repair Social History household members: spouse Smoking Status: Never smoker alcohol intake: current alcohol intake frequency: 3 or more drinks per day substance use type: does not use ROS ROS ED Constitutional Constitutional ED: Denies chills or fever(s) Eyes Eyes: Denies change in vision ENT ENT ED: Denies sore throat Cardiovascular Cardiovascular: Reports racing heartbeat; Denies chest pain Respiratory/Chest Respiratory/Chest: Denies cough or dyspnea Gastrointestinal Gastrointestinal: Reports nausea and vomiting; Denies abdominal pain, diarrhea or melena Genitourinary Genitourinary ED: Denies dysuria or hematuria Musculoskeletal Musculoskeletal: Denies myalgias Integumentary Denies rash Neurologic Neurologic: Reports weakness; Denies headache(s) Hematologic/Lymphatic Hematologic/Lymphatic: Denies easy bleeding or easy bruising EXAM Physical Exam Const Vital Signs: 04/09/25 02:27 04/09/25 03:15 04/09/25 04:00 Temperature 97.6 F L Temperature Source Oral Pulse Rate 108 H 89 87 Respiratory Rate 18 18 16 Blood Pressure 106/56 L 114/53 L 131/73 H Blood Pressure Mean 72 73 92 Pulse Ox 100 99 97 Oxygen Delivery Method Room Air Room Air Room Air 04/09/25 05:00 Temperature Temperature Source Pulse Rate 82 Respiratory Rate 18 Blood Pressure 114/72 Blood Pressure Mean 86 Pulse Ox 98 Oxygen Delivery Method Room Air Positive well nourished and well developed General Appearance ED: well developed HEENT HEENT Narrative: Normocephalic atraumatic No tongue or lip swelling no oral lesions no airway edema or compromise No signs of infection noted in the posterior pharynx Eyes PERRL and EOMs intact bilaterally General Eye ED: Yes pale conjunctiva and scleral icterus Neck supple Neck Narrative: No nuchal rigidity or meningeal signs Resp normal respiratory effort and clear to auscultation bilaterally Resp Narrative: Breath sounds are diminished throughout with faint rhonchi in the bilateral lower lobes without nasal flaring retractions tachypnea or accessory muscle use Cardio regular rhythm Rate: tachycardic and other Other Details: Tachycardic rate with regular rhythm Radial and carotid pulses are equal and symmetric GI non-tender GI Narrative: Abdomen is soft but slightly distended with faint fluid wave consistent with ascites from cirrhosis No voluntary guarding or rigidity or pulsatile mass No peritoneal signs Auscultation: normoactive bowel sounds Palpation: soft Narrative: Rectal exam displays normal tone without hemorrhoids or fissure noted. Stool ismelanotic in color and Hemoccult positive Extremity Extremity Narrative: +1 pitting edema to the bilateral lower extremities that is equal and symmetric Negative Homans' sign bilaterally All compartments are soft and compressible going against compartment syndrome Neuro oriented x3, CN's II-XII intact bilaterally and no sensory deficits noted Sensorium / Orientation: alert Motor Exam: strength 5/5 throughout Psych mental status grossly normal Skin Skin Narrative: There is faint jaundice noted consistent with history of alcohol use Capillary refill remains less than 3 seconds MDM MDM MDM Narrative Medical decision making narrative: Patient arrived to the ER tachycardic and borderline hypotensive. He reported multiple bouts of nausea and vomiting with the most recent being dark and discolored. With his history of daily alcohol use for 40 years or more there ishigh concern for alcoholic gastritis leading to a perforated ulcer versus esophageal varices. These could have led to acute blood loss anemia secondary to GI bleed. Patient also has physical exam findings concerning for cirrhosis with ascites. With his report of dark/coffee-ground emesis there is high concern for a bleeding ulcer therefore he was given an 80 mg bolus of Protonix followed by Protonix drip. With concern for esophageal variceal bleed he was started on 50 mcg of octreotide. He was given 2 g of IV Rocephin as well. As he was tachycardic and hypotensive he was ordered 2 L of fluid while laboratory studies are pending. Blood work came back showing a hemoglobin of 6.5 when mostprevious labs from approximately 3 months ago had a hemoglobin of approximately 11. This would correlate with acute blood loss anemia and 2 units of blood wereordered. A CTAwas obtained of the chest abdomen and pelvis to look for source of active bleeding. The radiologistnoted there are findings within the stomachconsistent with acute hemorrhagic products but no signs of active bleeding. With the patient receiving his medications and fluid his blood pressure improvedand his heart rate reduced. He had no further bouts of vomiting while in the ER. He was started on phenobarbital as there is high likelihood that he will progress to alcohol withdrawal as he has not had a drink for almost 18 hours. Even though the patient is showing improvement to his vital signs I have high concern that he could throw clot and decompensate or progress to alcohol withdrawal at any point and do feel he would benefit from placement in the ICU. I discussed the case with forest aide on-call Dr. Ulrich. He agrees withthe plan of care at this time and states that based on my report he feels safe keeping the patient here for continued care. Secondary to this I discussed the case with the hospitalist who agrees to accept the patient for continued observation and treatment. History & Record Review Discussion w/independent historian: Patient and Significant other Lab Data Attestation: I reviewed the patient's lab results. Labs: Laboratory Results - last 24 hr 04/09/25 02:30 WBC 12.8 H RBC 1.83 L Hgb 6.5 L Hct 18.4 L MCV 100.5 H MCH 35.5 H MCHC 35.3 RDW Std Deviation 52.3 H RDW Coeff of Marilee 14.6 Plt Count 213 MPV 11.1 Immature Gran % (Auto) 0.300 Neut % (Auto) 74.0 H Lymph % (Auto) 18.0 L Atlantic % (Auto) 7.2 Eos % (Auto) 0.2 Baso % (Auto) 0.3 Absolute Neuts (auto) 9.5 H Absolute Lymphs (auto) 2.30 Nucleated RBC % 0 PT 19.5 H INR 1.6 APTT 33.7 Sodium 131 L Potassium 4.3 Chloride 98 Carbon Dioxide 19.6 L Anion Gap 14 BUN 31 H Creatinine 1.04 Estim Creat Clear Calc 67.98 Est GFR (MDRD) Non-Af 78 BUN/Creatinine Ratio 29.6 H Glucose 115 H Lactic Acid 2.0 Calcium 9.0 Magnesium 1.8 Total Bilirubin 2.45 H Direct Bilirubin 1.64 H AST 44 H ALT 14 Alkaline Phosphatase 221 H Ammonia 37.0 Total Protein 6.4 Albumin 2.7 L Globulin 3.7 Lipase 22 Ethyl Alcohol < 10.1 Blood Type A POSITIVE Antibody Screen NEGATIVE Crossmatch See Detail Radiography Diagnostic Testing: Clinical Impression(s) from Imaging Studies Chest/Abdomen/Pelvis CTA 04/09/25 02:54 IMPRESSION: Moderate coronary artery calcifications. Mild left pleural effusion. Passive atelectatic airspace disease of the left lower lobe. Hepatomegaly. Hepatic steatosis. Diffuse irregularity of the hepatic contour, probably chronic parenchymal liver disease. Cholelithiasis. Diffuse thickening of the wall of the gallbladder. Mild ascites. Right posterolateral bladder diverticulum measuring 4.3 cm. Bilateral fat containing inguinal hernias without incarceration. Ascitic fluid is noted in the left inguinal canal. Small sliding hiatal hernia. Diffuse thickening of the stomach suggestive of gastritis. Acute hemorrhagic products are noted in the gastric lumen. No CT evidence of active bleeding during the time of the exam. Diffuse thickening of the small bowels, possibly secondary to chronic parenchymal liver disease/ascites and/or enteritis. Reading Location: [place] [address] Management Discussion w/another healthcare provider: Hospitalist and [employer] Critical Care Time Critical Care Time: Yes Critical care time (excluding procedures): Discussing w/Patient &/or Family/CareGiver, Discussing w/Consultants and - (Please note critical care time of 37 minutes) Discharge Plan Dx/Rx/DC Orders Clinical Impression: GI bleed, Hyperlipidemia, Hypertension, Acute blood loss anemia, Cirrhosis of liver with ascites, Alcohol abuse, Nausea & vomiting, Acute alcoholic gastritis with hemorrhage Disposition Disposition: Acute Care Hospital [facility] What to do if you have Problems For any increased pain, shortness of breath, bleeding, nausea or vomiting, chestpain, or any unexpected problems, contact your Primary Care Provider. Call [facility] ([phone]) or report tothe closest Emergency Room. Call 911 if necessary. 04/09/25 0623 Cosigner Signature (if applicable): CC: DAIRY HUSBANDRY WORKER-C Inga Arredondo ~ Signed [facility]08-20-2025 History and physical note [facility] Medical Records Department [address] [place] [address] H&P Exam - Hospitalist 04/09/25 0535 MR#: [id number] Acct: [id number] Name: YAYA BETANCOURT Rep #:[id number] : 1955 69 From: Misti Warren MD PCP: SRIDEVI Miller Status:ADM IN Location: ICU ICU07-1 HPI - General General Date of Admission: 04/09/25 Date of Service: 04/09/25 Chief Complaint: N/V, coffee ground emesis. HPI Narrative The patient is a 69 y/o M w/ PMHx: EtOH abuse, CKD stage II per GFR trending, History of severe diverticulosis, BPH with obstructive pathology, HTN, HLD, Asthma with allergic rhinitis, Chronic EKG changes who presents to the [facility] ED on02/07/25 with history of onset of intractable nausea and emesis over the last 24 hours however the evening prior to current presentation at approximately 2200 patientnoted that his emesis started to become more dark, coffee-ground appearance prompting eventual ED evaluation to be cautious. Patient denies any significant abdominal pain with his associated bouts ofnausea and emesis. He notes his last intake was ~ noon on Monday. He denies any diarrhea. He noted lightheadedness and dizziness primarily with positional changes when he was up in the ED to use therestroom. He does report currently feeling improved since initial ED arrival. Patient denies any recent ill contacts and his who is present has not been ill with similar symptoms. He notes that normally he wouldhave continued drinking through the day but secondary to beginning to not feel wellhad stopped. Workup in the ED included T97.6, heart 108, BP 106/56, respiratory rate 18, 100% on room air, CBC with WC 12.8, hemoglobin 6.5, MCV 100.5, platelet 213 with left shift, coags with PT 19.5, INR 1.6, PTT 33.7, CMP with sodium 131, carbon dioxide 19.6, BUN/creatinine 31/1.04, GFR 78, glucose 115, T. bili 2.45, D bili 1.64, AST/LT 44/14, alk phos 221, lactic acid 2.0, magnesium 1.8, ammonia level 37, ethyl alcohol less than 10.1, CTA chest/abdomen/pelvis with moderate coronary artery calcifications, mild left pleural effusion, passive atelectatic airspace disease left lower lobe, hepa tomegaly, [place]ock steatosis, diffuse irregular hepatic contour probably chronic parenchymal liver disease, cholelithiasis, diffuse thickening of the wall of the gallbladder, mild ascites, right posterior lateral bladder diverticulum measuring 4.3 cm, bilateral fat-containing inguinal hernias without incarceration, ascitic fluid noted within the left inguinal canal, small slidinghiatal hernia, diffuse thickening of the stomach suggestive of gastritis with acute hemorrhagic products noted in the gastric lumen with no CT evidence of active bleeding during the time of exam, diffuse thickening of the small bowels possibly secondary to chronic parenchymal liver disease/ascites and/or enteritis. Type and cross initiated in the ED with 2 unit PRBC requested per EDphysician to be initiate transfused. In the ED patient administered 1 L normal saline, Rocephin 2 g IV x 1, octreotide 0.5 mg IV x 1, Protonix bolus and drip as well as phenobarbital 100 mg IV x 1. ED physician discussed case with nicolette roenterology Dr. Ulrich. [facility] Medical History (Updated 04/09/25 @ 05:[address] Misti Warren MD) CKD (chronic kidney disease), stage II Chronic anemia Alcohol abuse BPH (benign prostatic hyperplasia) Left inguinal hernia Colonic diverticular disease Tubular adenoma of colon Asthma Hyperlipidemia Hypertension Wide-complex tachycardia Abnormal EKG Arthritis Home Medications ?Medication ?Instructions ?Recorded ?Last Taken ?Type albuterol sulfate 90 mcg/actuation 1 puff IH Q4H PRN P RN Sob &/Or 07/27/17 Unknown History aerosol inhaler Wheezing lisinopril 5 mg tablet 5 mg PO DAILY 07/27/1701/20 History rosuvastatin 10 mg tablet 10 mg PO QHS 07/27/17 Unknow n History fluticasone propionate 50 1 spray intranasal PRN PRN 0 01/14/22 Unknown History mcg/actuation nasal ALLERGIES spray,suspension (Flonase Allergy Relief) diltiazem HCl 240 mg 240 mg PO DAILY #90 caps Unknown Rx capsule,extended release 24 hr Allergy/AdvReac Type Severity Reaction Status Date / Time shellfish derived AdvReac Intermediate vomiting Verified 04/09/25 02:26 Family History Father , age 80+ in his sleep, assumed cardiac CAD (coronary artery disease) Heart disease Hypertension Mother CAD (coronary artery disease) Heart disease Hypertension Diabetes Sister CAD (coronary artery disease) Heart disease Hypertension Myocardial infarction Surgical History Hx of transurethral resection of prostate History of left heart catheterization (07/28/17) H/O hernia repair Social History household members: spouse Smoking Status: Never smoker alcohol intake: current alcohol intake frequency: 3 or more drinks per day substance use type: does not use ROS ROS Narrative Admission Review of Systems: CONSTITUTIONAL: No weight loss, fever, chills, + weakness or fatigue. HEENT: + Lightheadedness/dizziness. Eyes: No visual loss, blurred vision, double vision or yellow sclerae. Ears, Nose, Throat: No hearing loss, sneezing, congestion, runny nose or sore throat. SKIN: No rash or itching, lesions, wounds. CARDIOVASCULAR: + Lightheadedness/dizziness. No chest pain, chest pressure or chest discomfort, palpitations, edema, orthopnea, syncopal events. RESPIRATORY: No shortness of breath, cough or sputum, wheezing, hemoptysis. GASTROINTESTINAL: + anorexia, nausea, vomiting, onset of coffee-ground emesis. No diarrhea, abdominal pain, BRBPR. GENITOURINARY: + BPH with obstructive pathology, urinary frequency. No dysuria or urgency. NEUROLOGICAL: + Lightheadedness/dizziness. No headache, syncope, paralysis, ataxia, numbness or tingling in the extremities, focal weakness, change in bowelor bladder control, seizure. MUSCULOSKELETAL: + muscle, back pain, joint pain or stiffness. HEMATOLOGIC: + Acute on chronic anemia, active bleeding is noted. LYMPHATICS: No enlarged nodes. No history of splenectomy. PSYCHIATRIC: No history of depression or anxiety. ENDOCRINOLOGIC: No reports of sweating, cold or heat intolerance. No polyuria orpolydipsia. ALLERGIES: + History of asthma, allergic rhinitis. Vital Signs Vital Signs Vital Signs: 04/09/25 02:27 04/09/25 03:15 04/09/25 04:00 Temperature 97.6 F L Temperature Source Oral Pulse Rate 108 H 89 87 Respiratory Rate 18 18 16 Blood Pressure 106/56 L 114/53 L 131/73 H Blood Pressure Mean 72 73 92 Pulse Ox 100 99 97 Oxygen Delivery Method Room Air Room Air Room Air 04/09/25 05:00 Temperature Temperature Source Pulse Rate 82 Respiratory Rate 18 Blood Pressure 114/72 Blood Pressure Mean 86 Pulse Ox 98 Oxygen Delivery Method Room Air Weight Weight: 177 lb 0.499 oz Body Mass Index (BMI) 26.1 Physical Exam Narrative Physical Examination: General: Awake, alert, oriented x 3 and cooperative, laying in the ED bed, fatigued, does report feeling improved since initial ED arrival. Skin: Normal color, normal turgor, no icterus, no cyanosis except occasional stage ecchymoses, abrasion. HEENT: AT/NC, EOMI, PERRLA, mildly dry MM, no carotid bruits or JVD noted. Lungs: Mildly diminished, greater bases, mildly increased respiratory rate but no distress, no appreciated rales, ronchi or wheezing. Heart: Tachycardic with regular rhythm; no gallop, rub audible. Abdomen: Soft, NTTP, hyperactive BS, no obvious distention or tympany, + HM. Extremities: No cyanosis, clubbing, or edema. Neurological: Patient awake, alert, oriented as noted, cognitive function intact; pupils equally reactive to light and accommodation, cranial nerves grossly normal, moving all 4 extremities, no focaldeficits, strength severely globally decreased. Psychiatric: Affect appears fatigued, ill-appearing, no acute evidence of depressive or anxiety feelings. Results Lab / Micro Data 04/09/25 02:30 04/09/25 02:30 Labs: Laboratory Results - last 24 hr 04/09/25 02:30: WBC 12.8 H, RBC 1.83 L, Hgb 6.5 L, Hct 18.4 L, MCV 100.5 H, MCH 35.5 H, MCHC 35.3, RDW Std Deviation 52.3 H, RDW Coeff of Marilee 14.6, Plt Count 213, MPV 11.1, Immature Gran % (Auto) 0.300, Neut % (Auto) 74.0 H, Lymph % (Auto) 18.0 L, Atlantic % (Auto) 7.2, Eos % (Auto) 0.2, Baso % (Auto) 0.3, Absolute Neuts (auto) 9.5 H, Absolute Lymphs (auto) 2.30, Nucleated RBC % 0, PT 19.5 H, INR 1.6, APTT 33.7, Sodium 131 L, Potassium 4.3, Chloride 98, Carbon Dioxide 19.6 L, Anion Gap 14, BUN 31 H, Creatinine 1.04, Estim Creat Clear Calc 67.98, Est GFR (MDRD) Non-Af 78, BUN/Creatinine Ratio 29.6H, Glucose 115 H, Lactic Acid 2.0, Calcium 9.0, Magnesium 1.8, Total Bilirubin 2.45 H, Direct Bilirubin 1.64 H, AST 44 H, ALT 14, Alkaline Phosphatase 221 H, Ammonia 37.0, Total Protein 6.4, Albumin 2.7 L, Globulin 3.7, Lipase 22, Ethyl Alcohol < 10.1, BloodType A POSITIVE, Antibody Screen NEGATIVE, Crossmatch See Detail Micro: Microbiology 04/09/25 03:30 Stool Stool Occult Blood (LISBET) - Final Occult Blood Positive Imaging Radiology Impression Chest/Abdomen/Pelvis CTA 04/09/25 02:54 IMPRESSION: Moderate coronary artery calcifications. Mild left pleural effusion. Passive atelectatic airspace disease of the left lower lobe. Hepatomegaly. Hepatic steatosis. Diffuse irregularity of the hepatic contour, probably chronic parenchymal liver disease. Cholelithiasis. Diffuse thickening of the wall of the gallbladder. Mild ascites. Right posterolateral bladder diverticulum measuring 4.3 cm. Bilateral fat containing inguinal hernias without incarceration. Ascitic fluid is noted in the left inguinal canal. Small sliding hiatal hernia. Diffuse thickening of the stomach suggestive of gastritis. Acute hemorrhagic products are noted in the gastric lumen. No CT evidence of active bleeding during the time of the exam. Diffuse thickening of the small bowels, possibly secondary to chronic parenchymal liver disease/ascites and/or enteritis. Reading Location: [place] [address] Assessment & Plan Assessment/Plan (1) GI bleed: PLAN: Plan The patient is a 69 y/o M w/ PMHx: EtOH abuse, CKD stage II per GFR trending, History of severe diverticulosis, BPH with obstructive pathology, HTN, HLD, Asthma with allergic rhinitis, Chronic EKG changes who presents to the [facility] ED on02/07/25 with history of onset of intractable nausea and emesis over the last 24 hours however the evening prior to current presentation at approximately 2200 patientnoted that his emesis started to become more dark, coffee-ground appearance prompting eventual ED evaluation to be cautious. #1. Acute GI Bleed with suspected acute gastritis with acute hemorrhagic products identified in thegastric lumen on CT imaging w/ resultant Acute Blood Loss Anemia on Chronic Macrotic Anemia with intractable recent N/V, possible viral illness and concurrent underlying chronic alcohol abuse with acute alcoholwithdrawal: Admission hemoglobin 6.5, MCV 100.5, baseline previous hemoglobin most recently 01/04/2020 510.9 however no marked lab trending from 2023 onward, will admit to the ICU, will request skull chopper consultation per protocol, will continue PRBC transfusion initiated per ED with plan2 units, will maintain on IV fluids, will continue to obtain serial H&H assessments, will maintain on continuous Protonix drip, will also maintain on octreotide drip, will maintain NPO status, maintain on aspiration precautions, GI consulted with evaluation pending for endoscopic evaluation, will continue prophylactic Rocephin given concern for underlying cirrhotic disease. #2. Acute EtOH Withdrawal: Will initiate on IV phenobarbital regimen continued until nausea/emesis improved and acute presentation #1 further evaluated, may consider transitioning to oral taper following, mag 1.8 per ED, pending Phos, will maintain on thiamine/folic acid/multivitamin as able however may necessitate IV transition pending further emesis bouts, will maintain on concurrent overlapping CIWA protocol, case management consulted. #3. Hyperbilirubinemia, acute on chronic with possible chronic parenchymal liver disease and diffusely thickened wall of the gallbladder: Admission T. bili2.45, D bili 1.64, most recently noted T. bili 02/18/2025 4.27; however, previous D bili levels normal however this has not been obtained since 2019 that certainly could have been elevated in the interim, unclear exact etiology, but does have unde rlying alcohol abuse, given CT imaging liver/gallbladder ultrasound requested. #4. Chronic hyponatremia, unclear specific etiology, potential acute hypovolemic component given recent GI loss history: Admission sodium 131, chloride 98, previously had actually been in the mid to low 120 ranges, no records noted from visits corresponding to these labs, unclear exact etiology forhyponatremia, given recent GI losses certainly hypovolemic component for acute presentation currently, will continue judiciously hydrate and if persistent hyponatremia then may need to investigate further. #5. History chronic EKG changes: Patient with chronic stable T wave inversions in lead III and aVF as well as inferior ischemia type changes, previous cardiac catheterization with no notable coronarydisease, most recent cardiology evaluation 04/02/2025 for preoperative assessment with no concerns at that time. #6. Chronic Kidney Disease Stage II per GFR trending: Admission BUN/Cr 31/1.04,GFR 78, baseline renal function primarily 0.8-1.0, repeat BMP in AM. #7. Hypertension: Will temporarily hold home diltiazem, lisinopril, add back once assure BP appropriate given #1. #8. Hyperlipidemia: Will temporarily hold statin therapy. #9. Chronic asthma with allergic rhinitis: Per current list does not appear to be on chronic regimen, will have PRN albuterol, HOB, IS parameters, will temporarily hold as needed home fluticasone regimen. #10. History of severe diverticulosis: Most recent noted colonoscopy 01/20/[address] Ulrich with noted severe diverticulosis in the entire colon examined with no evidence of any diverticular bleeding, 3, 1 to 2 mm polyp in the descending colon and in the transverse colon removed with hot snare with at thattime noted recommended repeat colonoscopy in 3 years for surveillance. #11. BPH with obstructive pathology: Status post TURP, not on any chronic regimen per current list. #12. DVT prophylaxis: SCDs. #13. CODE status: Patient HCPOA and living will are not in place but his who is present would be his medical decision-maker if necessary he notes. Discussed CODE status at length including difference between FULL code, DNR-CCA and DNR-CC status. Following discussions about the differences in these status, requested Full Code status. Advanced Care Planning Face to Face Time: 16 minutes. Charges/Coding Visit Charges Inpatient E&M: 83394 Init Hosp L3 Procedures Hospitalists Procedures: 25192 Advncd Care Plan 30 Min 04/09/25 0614 Cosigner Signature (if applicable): CC: DAIRY HUSBANDRY WORKERRogers Arredondo; Dr. Misti Warren MD~ Signed [facility]08-20-2025 Radiology Diagnostic study note [facility] Imaging Services [address] [place] [address] CTA Chst, Abd, Pel W and/or WO MR#: [id number] Acct: [id number] Name: YAYA BETANCOURT Rep #: [id number] : 1955 M 69 From: Jennifer Claros MD PCP: SRIDEVI Miller Status: REG ER Study:CTA Chst, Abd, Pel W and/or WO Date of Exam: 04/09/25 Exam# [id number] Ordering Dr: Dorina Quintana DO PROCEDURE: CTA CHST, ABD, PEL W AND/OR WO 04/09/2025 REASON FOR EXAM: GI BLEED / ? ESOPHAGEAL VARICES TECHNIQUE: CTA CHST, ABD, PEL W AND/OR WO coronal and Sagittal reconstruction series were provided. One or more dose reduction techniques were used (e.g., Automated exposure control, adjustment of the mA and/or kV according to patient size, use of iterative reconstruction technique. CONTRAST: Isovue-370 VOLUME: 100 mL RADIATION DOSE SUMMARY: CTDlvol: 16.51 mGy DLP: 178 mGycm COMPARISON: Ultrasound on 03/25/2025. FINDINGS: Moderate coronary artery calcifications. Mild left pleural effusion. Passive atelectatic airspace disease of the left lower lobe. Hepatomegaly. Hepatic steatosis. Diffuse irregularity of the hepatic contour. Cholelithiasis. Diffuse thickening of the wall of the gallbladder. Mild ascites. Right posterolateral bladder diverticulum measuring 4.3 cm. Bilateral fat containing inguinal hernias without incarceration. Ascitic fluid is noted in the left inguinal canal. Small sliding hiatal hernia. Diffuse thickening of the stomach suggestive of gastritis. Acute hemorrhagic products are noted in the gastric lumen. No CT evidence of active bleeding during the time of the exam. Diffuse thickening of the small bowels, possibly secondary to chronic parenchymal liver disease/ascites and/or enteritis. Normal enhancement of the main pulmonary artery and right and left pulmonary arteries. Normal enhancement of the bilateral peripheral pulmonary arteries. There is no demonstrated pulmonary embolism. Normal thoracic aorta and visualized great vessels. There is no demonstrated aortic dissection. Normal heart and pericardium. Normal mediastinum. Normal hilar regions. Normal visualized trachea and bronchi. Normal extrahepatic biliary system. Normal spleen. Normal pancreas. Normal bilateral adrenal glands. Normal size of the right kidney. There is no right renal mass. There are no right renal calculi. There is no right hydronephrosis. Normal visualized right ureter. Normal size of the left kidney. There is no left renal mass. There are no leftrenal calculi. There is no left hydronephrosis. Normal visualized left ureter. The appendix is visualized and appears normal. Mild calcified atheromatous plaques of the abdominal aorta. Normal inferior vena cava. Normal retroperitoneum. There is no pelvic mass lesion or lymphadenopathy. CT/CTA Chst, Abd, Pel W and/or WO IMPRESSION: Moderate coronary artery calcifications. Mild left pleural effusion. Passive atelectatic airspace disease of the left lower lobe. Hepatomegaly. Hepatic steatosis. Diffuse irregularity of the hepatic contour, probably chronic parenchymal liver disease. Cholelithiasis. Diffuse thickening of the wall of the gallbladder. Mild ascites. Right posterolateral bladder diverticulum measuring 4.3 cm. Bilateral fat containing inguinal hernias without incarceration. Ascitic fluid is noted in the left inguinal canal. Small sliding hiatal hernia. Diffuse thickening of the stomach suggestive of gastritis. Acute hemorrhagic products are noted in the gastric lumen. No CT evidence of active bleeding during the time of the exam. Diffuse thickening of the small bowels, possibly secondary to chronic parenchymal liver disease/ascites and/or enteritis. Reading Location: [place] [address] CC: DAIRY HUSBANDRY WORKERRogers Arredondo; DO Artem Maldonado Supply Chain Analyst: Signed [facility]08-05-2025 Radiology Diagnostic study note [facility] Imaging Services [address] [place], [place] [address] ABD Limited w/ Elastography MR#: [id number] Acct: [id number] Name: YAYA BETANCOURT Rep #: [id number] : 1955 M 69 From: Ming Gonzalez MD PCP: SRIDEVI Miller Status: REG CLI Study:ABD Limited w/ Elastography Date of Exa m: 03/25/25 Exam# [id number] Ordering Dr: Ra kerwin Arredondo PROCEDURE: ABD LIMITED W/ ELASTOGRAPHY 03/25/2025 REASON FOR EXAM: ASSESS FOR ABNORMALITIES COMPARISON: None FINDINGS: Liver: Diffusely echogenic suggesting fatty infiltration. Hepatomegaly. The liver measures 19.2 cm. Gallbladder: Multiple echogenic gallstones are identified. Small amount of pericholecystic fluid aswell as small amount of fluid surrounding the [...] pericholecystic and Marilyn hepatic fluid. Reading Location: [id number] CC: SRIDEVI Arredondo ~ Supply Chain Analyst: Signed [facility]06-23-2025 Evaluation note* Diagnosis Onset Date Resolution Status Admit Date Left inguinal hernia acute February 10, 2025 1:01pm [facility] Work Phone: [phone]) 434-922806-23-2025 Evaluation note* Diagnosis Onset Date Resolution Status Admit Date Left inguinal hernia acute February 10, 2025 1:01pm Abnormal EKG acute April 02, 2025 11:01am Preop cardiovascular exam acute April 02, 2025 11:01am GI bleed acute April 09, 2 025 5:36am [facility] Work Phone: 1(534) 817-222806-23-2025 Evaluation note* Diagnosis Onset Date Resolution Status Admit Date Left inguinal hernia acute February 10, 2025 1:01pm Abnormal EKG acute April 02, 2025 11:01am Preop cardiovascular exam acute April 02, 2025 11:01am Alcohol abuse acute March 5:36am GI bleed acute April 09, 2 025 5:36am UGIB (upper gastrointestinal bleed) acute April 09 5:36am [facility] Work Phone: 1(774) 556-900606-23-2025 Evaluation note* Diagnosis Onset Date Resolution Status Admit Date Left inguinal hernia acute February 10, 2025 1:01pm Abnormal EKG acute April 02, 2025 11:01am Preop cardiovascular exam acute April 02, 2025 11:01am Alcohol abuse inactive March 5:36am GI bleed inactive April 09, 2 025 5:36am UGIB (upper gastrointestinal bleed) inactive April 09 5:36am Acute alcoholic gastritis wi th hemorrhage acute May 08, 2025 12:54pm Cirrhosis of liver with ascites acut e May 08, 2025 12:54pm [facility] Work Phone: 1(779) 736-575706-23-2025 Progress [facility] [address] [place] [address] OFFICE VISIT Date of Service: 02/10/25 MR#: [id number] Acct: [id number] Name: YAYA BETANCOURT Rep #: [id number] : 1955 Provider: Dr. Maral Rawls MD Age/Sex: 69/M Location: [facility] Status: Signed Intake Vital Signs 02/03/22 [...] you fallen in the past year?: No [facility] Medical History (Updated 02/10/25 @ 13:14 by [...] lack of coordination, No loss ofvision, No memoryloss, No numbness, No other visual disturbances, No radicular pain, No restless legs, No sensory deficit, No syncope, No tingling, No tremor(s), No weakness and No other Exam Const General: cooperative Orientation: alert and oriented x3 HENIL Head: normal to inspection Neck Neck: normal [...] the surgery in detail as well as therisks. I discussed the risks of bleeding, infection, injury to surrounding organs such as the bowelor bladder or blood supply to the testicle. Patient understands all the risks and is wanted proceed. I discussed mesh placement in detail with him as well. I will fix the opposite side if there is a hernia present. James Rawls MD Pager: [facility] [address] [place] [address], [address] [place] [address] Office: Coding Level of Care Code Off vis,new,level 3 Diagnoses Left inguinal hernia K40.90 Clinical Quality Measures Falls Risk Screening/Assistive Devices Have you fallen in the past year?: No 02/10/25 1322 augustina MALDONADO> Date _ James Rawls MD Cosigner Signature: Date (if applicable) CC: ~ [facility]06-23-2025 Progress note Author James Rawls [facility] Services Note Date/Time February 10, 2025 1:22 pm [facility] [address] [place] [address] OFFICE VISIT Date of Service: 02/10/25 MR#: [id number] Acct: [id number] Name: YAYA BETANCOURT Rep #: [id number] : 1955 Provider: Dr. Maral Rawls MD Age/Sex: 69/M Location: [facility] Status: Signed Intake Vital Signs 02/03/22 [...] a hernia present. James Rawls MD Pager: [facility] [address] [place] [address], [address] [place] [address] Office: Coding Level of Care Code Off vis,new,level 3 Diagnoses Left inguinal hernia K40.90 Clinical Quality Measures Falls Risk Screening/Assistive Devices Have you fallen in the past year?: No 02/10/25 1322 <Electronically signed by James jackman MD> Date _ James Hampton Signature: Date (if applicable) CC: ~ [facility] [employer] [facility] Work Phone: Discharge summary Author Stan Quintana [facility] Note Date/Time April 09, 2025 6: 23am [facility] Medical Records Department [address] [place] [address] Emergency Department Summary 04/09/25 MR#: [id number] Acct: [id number] Name: YAYA BETANCOURT Rep #:[id number] : 1955 69 From: Stan Quintana DO PCP: SRIDEVI Miller Status:ADM IN [facility] History of Present Illness Chief Complaint: GI Bleed Informant: patient and spouse/S.O. Narrative Narrative: Patient is a 69-year-old male with past medical history of hypertension hyperlipidemia who reports also roughly 40 years of drinking 8 glasses of liquor/mixed drinks per day. He states that in the last few years he has decreased his alcohol use down to approximately 4 mixed drinks per day. He states that Monday night he went to bed normally and then woke around 2 or 3 in the morning with nausea and vomiting. He states at that time the emesis was not dark or discolored. He states that then Monday evening around 10 PM or so he had a return of nausea and vomiting this time it was dark in color. He denies any history of bleeding disorder or blood thinner use. He states he has not had diarrhea and he denies any dark or bloody stool. However with his recurrent bouts of nausea and vomiting and the most recent bouts of emesis looking bloody in nature he presents for evaluation Patient states his last drink was around 11 AM on Monday [facility] Medical History CKD (chronic kidney disease), stage II Chronic anemia Alcohol abuse BPH (benign prostatic hyperplasia) Left inguinal hernia Colonic diverticular disease Tubular adenoma of colon Asthma Hyperlipidemia Hypertension Wide-complex tachycardia Abnormal EKG Arthritis Home Medications ?Medication ?Instructions ?Recorded ?Last Taken ?Type albuterol sulfate 90 mcg/actuation 1 puff IH Q4H PRN P RN Sob &/Or 07/27/17 Unknown History aerosol inhaler Wheezing lisinopril 5 mg tablet 5 mg PO DAILY 07/27/1701/20 History rosuvastatin 10 mg tablet 10 mg PO QHS 07/27/17 Unknow n History fluticasone propionate 50 1 spray intranasal PRN PRN 0 01/14/22 Unknown History mcg/actuation nasal ALLERGIES spray,suspension (Flonase Allergy Relief) diltiazem HCl 240 mg 240 mg PO DAILY #90 caps Unknown Rx capsule,extended release 24 hr Allergy/AdvReac Type Severity Reaction Status Date / Time shellfish derived AdvReac Intermediate vomiting Verified 04/09/25 02:26 Family History Father , age 80+ in his sleep, assumed cardiac CAD (coronary artery disease) Heart disease Hypertension Mother CAD (coronary artery disease) Heart disease Hypertension Diabetes Sister CAD (coronary artery disease) Heart disease Hypertension Myocardial infarction Surgical History Hx of transurethral resection of prostate History of left heart catheterization (07/28/17) H/O hernia repair Social History household members: spouse Smoking Status: Never smoker alcohol intake: current alcohol intake frequency: 3 or more drinks per day substance use type: does not use ROS ROS ED Constitutional Constitutional ED: Denies chills or fever(s) Eyes Eyes: Denies change in vision ENT ENT ED: Denies sore throat Cardiovascular Cardiovascular: Reports racing heartbeat; Denies chest pain Respiratory/Chest Respiratory/Chest: Denies cough or dyspnea Gastrointestinal Gastrointestinal: Reports nausea and vomiting; Denies abdominal pain, diarrhea or melena Genitourinary Genitourinary ED: Denies dysuria or hematuria Musculoskeletal Musculoskeletal: Denies myalgias Integumentary Denies rash Neurologic Neurologic: Reports weakness; Denies headache(s) Hematologic/Lymphatic Hematologic/Lymphatic: Denies easy bleeding or easy bruising EXAM Physical Exam Const Vital Signs: 04/09/25 02:27 04/09/25 03:15 04/09/25 04:00 Temperature 97.6 F L Temperature Source Oral Pulse Rate 108 H 89 87 Respiratory Rate 18 18 16 Blood Pressure 106/56 L 114/53 L 131/73 H Blood Pressure Mean 72 73 92 Pulse Ox 100 99 97 Oxygen Delivery Method Room Air Room Air Room Air 04/09/25 05:00 Temperature Temperature Source Pulse Rate 82 Respiratory Rate 18 Blood Pressure 114/72 Blood Pressure Mean 86 Pulse Ox 98 Oxygen Delivery Method Room Air Positive well nourished and well developed General Appearance ED: well developed HEENT HEENT Narrative: Normocephalic atraumatic No tongue or lip swelling no oral lesions no airway edema or compromise No signs of infection noted in the posterior pharynx Eyes PERRL and EOMs intact bilaterally General Eye ED: Yes pale conjunctiva and scleral icterus Neck supple Neck Narrative: No nuchal rigidity or meningeal signs Resp normal respiratory effort and clear to auscultation bilaterally Resp Narrative: Breath sounds are diminished throughout with faint rhonchi in the bilateral lower lobes without nasal flaring retractions tachypnea or accessory muscle use Cardio regular rhythm Rate: tachycardic and other Other Details: Tachycardic rate with regular rhythm Radial and carotid pulses are equal and symmetric GI non-tender GI Narrative: Abdomen is soft but slightly distended with faint fluid wave consistent with ascites from cirrhosis No voluntary guarding or rigidity or pulsatile mass No peritoneal signs Auscultation: normoactive bowel sounds Palpation: soft Narrative: Rectal exam displays normal tone without hemorrhoids or fissure noted. Stool ismelanotic in color and Hemoccult positive Extremity Extremity Narrative: +1 pitting edema to the bilateral lower extremities that is equal and symmetric Negative Homans' sign bilaterally All compartments are soft and compressible going against compartment syndrome Neuro oriented x3, CN's II-XII intact bilaterally and no sensory deficits noted Sensorium / Orientation: alert Motor Exam: strength 5/5 throughout Psych mental status grossly normal Skin Skin Narrative: There is faint jaundice noted consistent with history of alcohol use Capillary refill remains less than 3 seconds MDM MDM MDM Narrative Medical decision making narrative: Patient arrived to the ER tachycardic and borderline hypotensive. He reported multiple bouts of nausea and vomiting with the most recent being dark and discolored. With his history of daily alcohol use for 40 years or more there ishigh concern for alcoholic gastritis leading to a perforated ulcer versus esophageal varices. These could have led to acute blood loss anemia secondary to GI bleed. Patient also has physical exam findings concerning for cirrhosis with ascites. With his report of dark/coffee-ground emesis there is high concern for a bleeding ulcer therefore he was given an 80 mg bolus of Protonix followed by Protonix drip. With concern for esophageal variceal bleed he was started on 50 mcg of octreotide. He was given 2 g of IV Rocephin as well. As he was tachycardic and hypotensive he was ordered 2 L of fluid while laboratory studies are pending. Blood work came back showing a hemoglobin of 6.5 when mostprevious labs from approximately 3 months ago had a hemoglobin of approximately 11. This would correlate with acute blood loss anemia and 2 units of blood wereordered. A CTA was obtained of the chest abdomen and pelvis to look for source of active bleeding. The radiologist noted there are findings within the stomachconsistent with acute hemorrhagic products but no signs of active bleeding. With the patient receiving his medications and fluid his blood pressure improvedand his heart rate reduced. He had no further bouts of vomiting while in the ER. He was started on phenobarbital as there is high likelihood that he will progress to alcohol withdrawal as he has not had a drink for almost 18 hours. Even though the patient is showing improvement to his vital signs I have high concern that he could throw clot and decompensate or progress to alcohol withdrawal at any point and do feel he would benefit from placement in the ICU. I discussed the case with forest aide on-call Dr. Ulrich. He agrees withthe plan of care at this time and states that based on my report he feels safe keeping the patient here for continued care. Secondary to this I discussed the case with the hospitalist who agrees to accept the patient for continued observation and treatment. History & Record Review Discussion w/independent historian: Patient and Significant other Lab Data Attestation: I reviewed the patient's lab results. Labs: Laboratory Results - last 24 hr 04/09/25 02:30 WBC 12.8 H RBC 1.83 L Hgb 6.5 L Hct 18.4 L MCV 100.5 H MCH 35.5 H MCHC 35.3 RDW Std Deviation 52.3 H RDW Coeff of Marilee 14.6 Plt Count 213 MPV 11.1 Immature Gran % (Auto) 0.300 Neut % (Auto) 74.0 H Lymph % (Auto) 18.0 L Atlantic % (Auto) 7.2 Eos % (Auto) 0.2 Baso % (Auto) 0.3 Absolute Neuts (auto) 9.5 H Absolute Lymphs (auto) 2.30 Nucleated RBC % 0 PT 19.5 H INR 1.6 APTT 33.7 Sodium 131 L Potassium 4.3 Chloride 98 Carbon Dioxide 19.6 L Anion Gap 14 BUN 31 H Creatinine 1.04 Estim Creat Clear Calc 67.98 Est GFR (MDRD) Non-Af 78 BUN/Creatinine Ratio 29.6 H Glucose 115 H Lactic Acid 2.0 Calcium 9.0 Magnesium 1.8 Total Bilirubin 2.45 H Direct Bilirubin 1.64 H AST 44 H ALT 14 Alkaline Phosphatase 221 H Ammonia 37.0 Total Protein 6.4 Albumin 2.7 L Globulin 3.7 Lipase 22 Ethyl Alcohol < 10.1 Blood Type A POSITIVE Antibody Screen NEGATIVE Crossmatch See Detail Radiography Diagnostic Testing: Clinical Impression(s) from Imaging Studies Chest/Abdomen/Pelvis CTA 04/09/25 02:54 IMPRESSION: Moderate coronary artery calcifications. Mild left pleural effusion. Passive atelectatic airspace disease of the left lower lobe. Hepatomegaly. Hepatic steatosis. Diffuse irregularity of the hepatic contour, probably chronic parenchymal liver disease. Cholelithiasis. Diffuse thickening of the wall of the gallbladder. Mild ascites. Right posterolateral bladder diverticulum measuring 4.3 cm. Bilateral fat containing inguinal hernias without incarceration. Ascitic fluid is noted in the left inguinal canal. Small sliding hiatal hernia. Diffuse thickening of the stomach suggestive of gastritis. Acute hemorrhagic products are noted in the gastric lumen. No CT evidence of active bleeding during the time of the exam. Diffuse thickening of the small bowels, possibly secondary to chronic parenchymal liver disease/ascites and/or enteritis. Reading [facility] Management Discussion w/another healthcare provider: Hospitalist and Correction Officer [employer] Critical Care Time Critical Care Time: Yes Critical care time (excluding procedures): Discussing w/Patient &/or Family/CareGiver, Discussing w/Consultants and - (Please note critical care time of 37 minutes) Discharge Plan Dx/Rx/DC Orders Clinical Impression: GI bleed, Hyperlipidemia, Hypertension, Acute blood loss anemia, Cirrhosis of liver with ascites, Alcohol abuse, Nausea & vomiting, Acute alcoholic gastritis with hemorrhage Disposition Disposition: Acute Care Hospital [facility] What to do if you have Problems For any increased pain, shortness of breath, bleeding, nausea or vomiting, chestpain, or any unexpected problems, contact your Primary Care Provider. Call [facility] ([phone]) or report to the closest Emergency Room. Call 911 if necessary. 04/09/25 06 <Electronically signed by Stan Quintana DO> Cosigner Signature (if applicable): CC: DAIRY HUSBANDRY WORKER-C Inga Arredondo ~ Signed [facility] Work Phone: Discharge summary Author Arie [facility] Note Date/Time April 10, 2025 4: 56pm [facility] Medical Records Department [address] [place] [address] Instructions for Home/Discharge Instructions 04/10/25 1649 MR#: [id number] Acct: [id number] Name: YAYA BETANCOURT Rep #:[id number] : 1955 69 From: Arie Kapoor DO PCP: SRIDEVI Miller Status:ADM IN Discharge Instructions DC O2, CPAP, BIPAP needs Home O2 Discharge instructions: No Dressing / Incision Discharge Activity: Return to Normal Activity Weight Bearing Status: Full weight bearing Follow Up Care Test Results: Test results from this visit will be discussed in further detail at your follow- up appointment, if applicable. Discharge Plan Admission Admit Date/Time: 04/09/25 05:36 Primary Reason for Your Visit: Upper GI bleed secondary to gastric ulcers, smallesophageal varices Attending Provider: Arie Kapoor Primary Care Provider: Inga Arredondo Consulting Providers: Misti Warren Discharge Orders/Prescriptions Prescriptions: New pantoprazole [Protonix] 40 mg tablet,delayed release (DR/EC) 40 mg PO BID Qty: 60 0RF Continued diltiazem HCl 240 mg capsule,extended release 24hr 240 mg PO DAILY Qty: 90 3RF lisinopril 5 MG tablet 5 mg PO DAILY albuterol sulfate 6.7 GM HFA aerosol inhaler 1 puff IH Q4H PRN PRN (Reason: Sob &/Or Wheezing) rosuvastatin 10 MG tablet 10 mg PO QHS fluticasone propionate [Flonase Allergy Relief] 50 mcg/actuation Index,Suspension 1 spray INTRANASAL PRN PRN (Reason: ALLERGIES) Referrals / Follow Up: Sagar Ulrich DO [Med Staff - Active Staff] - See Referral Note (In 3 weeks, call for an appointment) Inga Arredondo NP-C [Primary Care Provider] - Within 2 Weeks Disposition Disposition (needs filled in before D/C Order can be placed): Home, Self Care 04/10/25 1656<Electronically signed by Arie Kapoor DO>Arie Kapoor DO CC: DAIRY HUSBANDRY WORKERSalmaC Inga Arredondo; Dr. Misti Warren MD ~ Signed [facility] Work Phone: evaluation note* Diagnosis Onset Date Resolution Status Positive colorectal cancer s creening using Cologuard test acute [facility] Work Phone: evaluation note* Diagnosis Onset Date Resolution Status Closed nondisp fracture of r ight medial malleolus with routine healing acute Strain of right ankle and foot acute Colonic diverticular disease acute Tubular adenoma of colon acu te [facility] Work Phone: evaluation noteNo assessment information available [facility] Work Phone: evaluation note* Diagnosis Onset Date Resolution Status Admit Date Left inguinal hernia acute February 10, 2025 1:01pm [facility] Work Phone: History and physical note Author Misti Warren [facility] Note Date/Time April 09, 2025 6: 14am [facility] Medical Records Department [address] [place] [address] H&P Exam - Hospitalist 04/09/25 0535 MR#: [id number] Acct: [id number] Name: YAYA BETANCOURT Rep #:[id number] : 1955 69 From: Misti Warren MD PCP: SRIDEVI Miller Status:ADM IN Location: ICU ICU07-1 HPI - General General Date of Admission: 04/09/25 Date of Service: 04/09/25 Chief Complaint: N/V, coffee ground emesis. HPI Narrative The patient is a 69 y/o M w/ PMHx: EtOH abuse, CKD stage II per GFR trending, History of severe diverticulosis, BPH with obstructive pathology, HTN, HLD, Asthma with allergic rhinitis, Chronic EKG changes who presents to the [facility] ED on02/07/25 with history of onset of intractable nausea and emesis over the last 24 hours however the evening prior to current presentation at approximately 2200 patient noted that his emesis started to become more dark, coffee-ground appearance prompting eventual ED evaluation to be cautious. Patient denies any significant abdominal pain with his associated bouts of nausea and emesis. He notes his last intake was ~ noon on Monday. He denies any diarrhea. He noted lightheadedness and dizziness primarily with positional changes when he was up in the ED to use the restroom. He does report currently feeling improved since initial ED arrival. Patient denies any recent ill contacts and his who is present has not been ill with similar symptoms. He notes that normally he wouldhave continued drinking through the day but secondary to beginning to not feel well had stopped. Workup in the ED included T97.6, heart 108, BP 106/56, respiratory rate 18, 100% on room air, CBC with WC 12.8, hemoglobin 6.5, MCV 100.5, platelet 213 with left shift, coags with PT 19.5, INR 1.6, PTT 33.7, CMP with sodium 131, carbon dioxide 19.6, BUN/creatinine 31/1.04, GFR 78, glucose 115, T. bili 2.45, D bili 1.64, AST/LT 44/14, alk phos 221, lactic acid 2.0, magnesium 1.8, ammonia level 37, ethyl alcohol less than 10.1, CTA chest/abdomen/pelvis with moderate coronary artery calcifications, mild left pleural effusion, passive atelectatic airspace disease left lower lobe, hepatomegaly, [place] steatosis, diffuse irregular hepatic contour probably chronic parenchymal liver disease, cholelithiasis, diffuse thickening of the wall of the gallbladder, mild ascites, right posterior lateral bladder diverticulum measuring 4.3 cm, bilateral fat-containing inguinal hernias withoutincarceration, ascitic fluid noted within the left inguinal canal, small slidinghiatal hernia, diffuse thickening of the stomach suggestive of gastritis with acute hemorrhagic products noted in the gastric lumen with no CT evidence of active bleeding during the time of exam, diffuse thickening of the small bowels possibly secondary to chronic parenchymal liver disease/ascites and/or enteritis. Type and cross initiated in the ED with 2 unit PRBC requested per EDphysician to be initiate transfused. In the ED patient administered 1 L normal saline, Rocephin 2 g IV x 1, octreotide 0.5 mg IV x 1, Protonix bolus and drip as well as phenobarbital 100 mg IV x 1. ED physician discussed case with gastroenterology Dr. Ulrich. [facility] Medical History (Updated 04/09/25 @ 05:[address] Misti Warren MD) CKD (chronic kidney disease), stage II Chronic anemia Alcohol abuse BPH (benign prostatic hyperplasia) Left inguinal hernia Colonic diverticular disease Tubular adenoma of colon Asthma Hyperlipidemia Hypertension Wide-complex tachycardia Abnormal EKG Arthritis Home Medications ?Medication ?Instructions ?Recorded ?Last Taken ?Type albuterol sulfate 90 mcg/actuation 1 puff IH Q4H PRN P RN Sob &/Or 07/27/17 Unknown History aerosol inhaler Wheezing lisinopril 5 mg tablet 5 mg PO DAILY 07/27/1701/20 History rosuvastatin 10 mg tablet 10 mg PO QHS 07/27/17 Unknow n History fluticasone propionate 50 1 spray intranasal PRN PRN 0 01/14/22 Unknown History mcg/actuation nasal ALLERGIES spray,suspension (Flonase Allergy Relief) diltiazem HCl 240 mg 240 mg PO DAILY #90 caps Unknown Rx capsule,extended release 24 hr Allergy/AdvReac Type Severity Reaction Status Date / Time shellfish derived AdvReac Intermediate vomiting Verified 04/09/25 02:26 Family History Father , age 80+ in his sleep, assumed cardiac CAD (coronary artery disease) Heart disease Hypertension Mother CAD (coronary artery disease) Heart disease Hypertension Diabetes Sister CAD (coronary artery disease) Heart disease Hypertension Myocardial infarction Surgical History Hx of transurethral resection of prostate History of left heart catheterization (07/28/17) H/O hernia repair Social History household members: spouse Smoking Status: Never smoker alcohol intake: current alcohol intake frequency: 3 or more drinks per day substance use type: does not use ROS ROS Narrative Admission Review of Systems: CONSTITUTIONAL: No weight loss, fever, chills, + weakness or fatigue. HEENT: + Lightheadedness/dizziness. Eyes: No visual loss, blurred vision, double vision or yellow sclerae. Ears, Nose, Throat: No hearing loss, sneezing, congestion, runny nose or sore throat. SKIN: No rash or itching, lesions, wounds. CARDIOVASCULAR: + Lightheadedness/dizziness. No chest pain, chest pressure or chest discomfort, palpitations, edema, orthopnea, syncopal events. RESPIRATORY: No shortness of breath, cough or sputum, wheezing, hemoptysis. GASTROINTESTINAL: + anorexia, nausea, vomiting, onset of coffee-ground emesis. No diarrhea, abdominal pain, BRBPR. GENITOURINARY: + BPH with obstructive pathology, urinary frequency. No dysuria or urgency. NEUROLOGICAL: + Lightheadedness/dizziness. No headache, syncope, paralysis, ataxia, numbness or tingling in the extremities, focal weakness, change in bowelor bladder control, seizure. MUSCULOSKELETAL: + muscle, back pain, joint pain or stiffness. HEMATOLOGIC: + Acute on chronic anemia, active bleeding is noted. LYMPHATICS: No enlarged nodes. No history of splenectomy. PSYCHIATRIC: No history of depression or anxiety. ENDOCRINOLOGIC: No reports of sweating, cold or heat intolerance. No polyuria orpolydipsia. ALLERGIES: + History of asthma, allergic rhinitis. Vital Signs Vital Signs Vital Signs: 04/09/25 02:27 04/09/25 03:15 04/09/25 04:00 Temperature 97.6 F L Temperature Source Oral Pulse Rate 108 H 89 87 Respiratory Rate 18 18 16 Blood Pressure 106/56 L 114/53 L 131/73 H Blood Pressure Mean 72 73 92 Pulse Ox 100 99 97 Oxygen Delivery Method Room Air Room Air Room Air 04/09/25 05:00 Temperature Temperature Source Pulse Rate 82 Respiratory Rate 18 Blood Pressure 114/72 Blood Pressure Mean 86 Pulse Ox 98 Oxygen Delivery Method Room Air Weight Weight: 177 lb 0.499 oz Body Mass Index (BMI) 26.1 Physical Exam Narrative Physical Examination: General: Awake, alert, oriented x 3 and cooperative, laying in the ED bed, fatigued, does report feeling improved since initial ED arrival. Skin: Normal color, normal turgor, no icterus, no cyanosis except occasional stage ecchymoses, abrasion. HEENT: AT/NC, EOMI, PERRLA, mildly dry MM, no carotid bruits or JVD noted. Lungs: Mildly diminished, greater bases, mildly increased respiratory rate but no distress, no appreciated rales, ronchi or wheezing. Heart: Tachycardic with regular rhythm; no gallop, rub audible. Abdomen: Soft, NTTP, hyperactive BS, no obvious distention or tympany, + HM. Extremities: No cyanosis, clubbing, or edema. Neurological: Patient awake, alert, oriented as noted, cognitive function intact; pupils equally reactive to light and accommodation, cranial nerves grossly normal, moving all 4 extremities, no focal deficits, strength severely globally decreased. Psychiatric: Affect appears fatigued, ill-appearing, no acute evidence of depressive or anxiety feelings. Results Lab / Micro Data 04/09/25 02:30 04/09/25 02:30 Labs: Laboratory Results - last 24 hr 04/09/25 02:30: WBC 12.8 H, RBC 1.83 L, Hgb 6.5 L, Hct 18.4 L, MCV 100.5 H, MCH 35.5 H, MCHC 35.3, RDW Std Deviation 52.3 H, RDW Coeff of Marilee 14.6, Plt Count 213, MPV 11.1, Immature Gran % (Auto) 0.300, Neut % (Auto) 74.0 H, Lymph % (Auto) 18.0 L, Atlantic % (Auto) 7.2, Eos % (Auto) 0.2, Baso % (Auto) 0.3, Absolute Neuts (auto) 9.5 H, Absolute Lymphs (auto) 2.30, Nucleated RBC % 0, PT 19.5 H, INR 1.6, APTT 33.7, Sodium 131 L, Potassium 4.3, Chloride 98, Carbon Dioxide 19.6 L, Anion Gap 14, BUN 31 H, Creatinine 1.04, Estim Creat Clear Calc 67.98, Est GFR (MDRD) Non-Af 78, BUN/Creatinine Ratio 29.6 H, Glucose 115 H, Lactic Acid 2.0, Calcium 9.0, Magnesium 1.8, Total Bilirubin 2.45 H, Direct Bilirubin 1.64 H, AST 44 H, ALT 14, Alkaline Phosphatase 221 H, Ammonia 37.0, Total Protein 6.4, Albumin 2.7 L, Globulin 3.7, Lipase 22, Ethyl Alcohol < 10.1, BloodType A POSITIVE, Antibody Screen NEGATIVE, Crossmatch See Detail Micro: Microbiology 04/09/25 03:30 Stool Stool Occult Blood (LISBET) - Final Occult Blood Positive Imaging Radiology Impression Chest/Abdomen/Pelvis CTA 04/09/25 02:54 IMPRESSION: Moderate coronary artery calcifications. Mild left pleural effusion. Passive atelectatic airspace disease of the left lower lobe. Hepatomegaly. Hepatic steatosis. Diffuse irregularity of the hepatic contour, probably chronic parenchymal liver disease. Cholelithiasis. Diffuse thickening of the wall of the gallbladder. Mild ascites. Right posterolateral bladder diverticulum measuring 4.3 cm. Bilateral fat containing inguinal hernias without incarceration. Ascitic fluid is noted in the left inguinal canal. Small sliding hiatal hernia. Diffuse thickening of the stomach suggestive of gastritis. Acute hemorrhagic products are noted in the gastric lumen. No CT evidence of active bleeding during the time of the exam. Diffuse thickening of the small bowels, possibly secondary to chronic parenchymal liver disease/ascites and/or enteritis. Reading Location: [place] [address] Assessment & Plan Assessment/Plan (1) GI bleed: PLAN: Plan The patient is a 69 y/o M w/ PMHx: EtOH abuse, CKD stage II per GFR trending, History of severe diverticulosis, BPH with obstructive pathology, HTN, HLD, Asthma with allergic rhinitis, Chronic EKG changes who presents to the [facility] ED on02/07/25 with history of onset of intractable nausea and emesis over the last 24 hours however the evening prior to current presentation at approximately 2200 patient noted that his emesis started to become more dark, coffee-ground appearance prompting eventual ED evaluation to be cautious. #1. Acute GI Bleed with suspected acute gastritis with acute hemorrhagic products identified in the gastric lumen on CT imaging w/ resultant Acute Blood Loss Anemia on Chronic Macrotic Anemia with intractable recent N/V, possible viral illness and concurrent underlying chronic alcohol abuse with acute alcoholwithdrawal: Admission hemoglobin 6.5, MCV 100.5, baseline previous hemoglobin most recently 01/04/2020 510.9 however no marked lab trending from 2023 onward, will admit to the ICU, will request skull chopper consultation per protocol, will continue PRBC transfusion initiated per ED with plan 2 units, will maintain on IV fluids, will continue to obtain serial H&H assessments, will maintain on continuous Protonix drip, will also maintain on octreotide drip, will maintain NPO status, maintain on aspiration precautions, GI consulted with evaluation pending for endoscopic evaluation, will continue prophylactic Rocephin given concern for underlying cirrhotic disease. #2. Acute EtOH Withdrawal: Will initiate on IV phenobarbital regimen continued until nausea/emesis improved and acute presentation #1 further evaluated, may consider transitioning to oral taper following, mag 1.8 per ED, pending Phos, will maintain on thiamine/folic acid/multivitamin as able however may necessitate IV transition pending further emesis bouts, will maintain on concurrent overlapping CIWA protocol, case management consulted. #3. Hyperbilirubinemia, acute on chronic with possible chronic parenchymal liver disease and diffusely thickened wall of the gallbladder: Admission T. bili2.45, D bili 1.64, most recently noted T. bili 02/18/2025 4.27; however, previous D bili levels normal however this has not been obtained since 2019 that certainly could have been elevated in the interim, unclear exact etiology, but does have underlying alcohol abuse, given CT imaging liver/gallbladder ultrasound requested. #4. Chronic hyponatremia, unclear specific etiology, potential acute hypovolemic component given recent GI loss history: Admission sodium 131, chloride 98, previously had actually been in the mid to low 120 ranges, no records noted from visits corresponding to these labs, unclear exact etiology for hyponatremia, given recent GI losses certainly hypovolemic component for acute presentation currently, will continue judiciously hydrate and if persistent hyponatremia then may need to investigate further. #5. History chronic EKG changes: Patient with chronic stable T wave inversions in lead III and aVF as well as inferior ischemia type changes, previous cardiac catheterization with no notable coronary disease, most recent cardiology evaluation 04/02/2025 for preoperative assessment with no concerns at that time. #6. Chronic Kidney Disease Stage II per GFR trending: Admission BUN/Cr 31/1.04,GFR 78, baseline renal function primarily 0.8-1.0, repeat BMP in AM. #7. Hypertension: Will temporarily hold home diltiazem, lisinopril, add back once assure BP appropriate given #1. #8. Hyperlipidemia: Will temporarily hold statin therapy. #9. Chronic asthma with allergic rhinitis: Per current list does not appear to be on chronic regimen, will have PRN albuterol, HOB, IS parameters, will temporarily hold as needed home fluticasone regimen. #10. History of severe diverticulosis: Most recent noted colonoscopy 01/20/[address] Ulrich with noted severe diverticulosis in the entire colon examined with no evidence of any diverticular bleeding, 3, 1 to 2 mm polyp in the descending colon and in the transverse colon removed with hot snare with at thattime noted recommended repeat colonoscopy in 3 years for surveillance. #11. BPH with obstructive pathology: Status post TURP, not on any chronic regimen per current list. #12. DVT prophylaxis: SCDs. #13. CODE status: Patient HCPOA and living will are not in place but his who is present would be his medical decision-maker if necessary he notes. Discussed CODE status at length including difference between FULL code, DNR-CCA and DNR-CC status. Following discussions about the differences in these status, requested Full Code status. Advanced Care Planning Face to Face Time: 16 minutes. Charges/Coding Visit Charges Inpatient E&M: 26014 Init Hosp L3 Procedures Hospitalists Procedures: 03951 Advncd Care Plan 30 Min 04/09/25 0614 <Electronically signed by Misti Warren MD> Cosigner Signature (if applicable): CC: DAIRY HUSBANDRY WORKER-C Inga Arredondo; Dr. Misti Warren MD~ Signed [facility] Work Phone: Reason for referral (narrative)No reason for referral information availableWSt. Elizabeth [facility] Work Phone: Chief Complaint and Reason [...] March 25, 2025 8:04am ABN EKG/SURG CL ([facility] April 02, 2025 11:01am Chief Complaint Admit Date FASTING January 03, 2025 9:30a m INGUINAL HERNIA February 10, 2025 1:01 pm PREOP February 18, 2025 8:31a m R79.89 Other specified abnormal findings of blood March 25, 2025 8:04am ABN EKG/SURG CL ([facility] April 02, 2025 11:01am ACUTE GI BLEED, ABLA, ETOH ABUSE W/ WITH DRAWAL April 09, 2025 5:36am Reason for Visit Admit Date Left inguinal hernia February 10, 2025 1:0 1pm Abnormal EKG April 02, 2025 11 :01am Preop cardiovascular exam April 02, 2 025 11:01am GI bleed April 09, 2025 5: 36am Chief Complaint Admit Date FASTING January 03, 2025 9:30a m INGUINAL HERNIA February 10, 2025 1:01 pm PREOP February 18, 2025 8:31a m R79.89 Other specified abnormal findings of blood March 25, 2025 8:04am ABN EKG/SURG CL ([facility] April 02, 2025 11:01am ACUTE GI BLEED, ABLA, ETOH ABUSE W/ WITH DRAWAL April 09, 2025 5:36am ACUTE GI BLEED, ABLA, ETOH ABUSE W/ WITH DRAWAL April 09, 2025 9:03am ACUTE GI BLEED, ABLA, ETOH ABUSE W/ WITH DRAWAL April 09, 2025 9:41am ACUTE GI BLEED, ABLA, ETOH ABUSE W/ WITH DRAWAL April 10, 2025 6:50am ACUTE GI BLEED, ABLA, ETOH ABUSE W/ WITH DRAWAL April 10, 2025 2:32pm Reason for Visit Admit Date Left inguinal hernia February 10, 2025 1:0 1pm Abnormal EKG April 02, 2025 11 :01am Preop cardiovascular exam April 02, 2 025 11:01am Alcohol abuse April 09, 2025 5: 36am GI bleed April 09, 2025 5: 36am UGIB (upper gastrointestinal bleed) 2024 5:36am Chief Complaint Admit Date INGUINAL HERNIA February 10, 2025 1:01 pm PREOP February 18, 2025 8:31a m R79.89 Other specified abnormal findings of blood March 25, 2025 8:04am ABN EKG/SURG CL ([facility] April 02, 2025 11:01am ACUTE GI BLEED, ABLA, ETOH ABUSE W/ WITH DRAWAL April 09, 2025 5:36am ACUTE GI BLEED, ABLA, ETOH ABUSE W/ WITH DRAWAL April 09, 2025 9:03am ACUTE GI BLEED, ABLA, ETOH ABUSE W/ WITH DRAWAL April 09, 2025 9:41am ACUTE GI BLEED, ABLA, ETOH ABUSE W/ WITH DRAWAL April 10, 2025 6:50am ACUTE GI BLEED, ABLA, ETOH ABUSE W/ WITH DRAWAL April 10, 2025 2:32pm ACUTE GI BLEED, ABLA, ETOH ABUSE W/ WITH DRAWAL April 10, 2025 4:56pm HYPERTENSION May 07, 2025 8:51am HOSP FU-Hematemesis, Active gi bleeding May 08, 2025 12:54pm Reason for Visit Admit Date Left inguinal hernia February 10, 2025 1:0 1pm Abnormal EKG April 02, 2025 11 :01am Preop cardiovascular exam April 02, 2 025 11:01am Alcohol abuse April 09, 2025 5: 36am GI bleed April 09, 2025 5: 36am UGIB (upper gastrointestinal bleed) Maru 2024 5:36am Acute alcoholic gastritis with hemorrhag e May 08, 2025 12:54pm Cirrhosis of liver with ascites Septembe r 2024 12:54pm Chief Complaint Admit Date INGUINAL HERNIA February 10, 2025 1:01 pm PREOP February 18, 2025 8:31a m R79.89 Other specified abnormal findings of blood March 25, 2025 8:04am ABN EKG/SURG CL ([place] April 02, 2025 11:01am ACUTE GI BLEED, ABLA, ETOH ABUSE W/ WITH DRAWAL April 09, 2025 5:36am ACUTE GI BLEED, ABLA, ETOH ABUSE W/ WITH DRAWAL April 09, 2025 9:03am ACUTE GI BLEED, ABLA, ETOH ABUSE W/ WITH DRAWAL April 09, 2025 9:41am ACUTE GI BLEED, ABLA, ETOH ABUSE W/ WITH DRAWAL April 10, 2025 6:50am ACUTE GI BLEED, ABLA, ETOH ABUSE W/ WITH DRAWAL April 10, 2025 2:32pm ACUTE GI BLEED, ABLA, ETOH ABUSE W/ WITH DRAWAL April 10, 2025 4:56pm HYPERTENSION May 07, 2025 8:51am HOSP FU-Hematemesis, Active gi bleeding May 08, 2025 12:54pm INT LABS May 14, 2025 8:17am Advance Directives No Advanced Directives Records Found Advance Directive Response Recorded Date/ Time Advance Directives No July 28, 2017 8:15am Living Will No January 14, 2022 1 :05pm Power of Fine Arts Instructor No January 14, 2022 1:05pm Advance Directive Response Recorded Date/ Time Advance Directives No July 28, 2017 7:15am Living Will No January 14, 2022 1 2:05pm Power of Fine Arts Instructor No January 14, 2022 12:05pm Advance Directive Response Recorded Date/ Time Advance Directives No July 28, 2017 8:15am Advance Directive Response Recorded Date/ Time Do you have a Healthcare Power of Fine Arts Instructor? No April 09, 2025 6:10am Advance Directives No July 28, 2017 8:15am Family History No Family History Records Found Relationship Condition Age at Onset Recorded Date/T adilson father Coronary artery disease Unknown Cardiac disease Unknown Hypertension Unknown mother Coronary artery disease Unknown Diabetes mellitus Unknown sister Coronary artery disease Unknown Myocardial infarction Unknown Summary Purpose Additional Source Comments Goals (unrecognized section and [...] Dr. Arie Steinberg DO Primary Care Provider, Attendin g Provider Active Team Status: Active Member Role Status Dates Dr. Ramon Arias MD Family Provider Active Team Status: Inactive Member Role Status Dates Dr. Boyd Alvarez MD Attending Provider Active Team Status: Active Member Role Status Dates Dr. Ramon Arias MD Family Provider Active Inga Arredondo NP-C Primary Care Provider Active Team Status: Inactive Member Role Status Dates Inga Arredondo NP-C Primary Care Provider, Attending Donavon hamm Active Team Status: Inactive Member Role Status Dates Inga Arredondo NP-C Primary Care Provider Active Start: January 03, 2025 End: January 03, 2025 SRIDEVI Miller Attending Provider Active St art: January 03, 2025 End: January 03, 2025 Inga Arredondo NP-C Referring Provider Active St art: January 03, 2025 End: January 03, 2025 Team Status: Inactive Member Role Status Dates Inga Arredondo NP-Zamzam Primary Care Provider Active Start: February 10, 2025 End: February 10, 2025 Dr. James Rawls MD Attending Provider Active Start: February 10, 2025 End: February 10, 2025 Dr. Boyd Alvarez MD Referring Provider Active Start: February 10, 2025 End: February 10, 2025 Team Status: Active Member Role/Relationship Status Dates Inga Arredondo NP-C Primary Care Provider Active Team Status: Inactive Member Role/Relationship Status Dates Inga Arredondo NP-C Primary Care Provider Active Start: January 03, 2025 End: January 03, 2025 Inga Arnulfo , DAIRY HUSBANDRY WORKER-C Attending Provider Active St art: January 03, 2025 End: January 03, 2025 Inga Arnulfo , DAIRY HUSBANDRY WORKER-C Referring Provider Active St art: January 03, 2025 End: January 03, 2025 Team Status: Inactive Member Role/Relationship Status Dates Inga Arnulfo , DAIRY HUSBANDRY WORKER-C Primary Care Provider Active Start: February 10, 2025 End: February 10, 2025 Dr. James Rawls MD Attending Provider Active Start: February 10, 2025 End: February 10, 2025 Dr. Boyd Alvarez MD Referring Provider Active Start: February 10, 2025 End: February 10, 2025 Team Status: Active Member Role/Relationship Status Dates Inga Arnulfo , DAIRY HUSBANDRY WORKER-C Primary Care Provider Active Start: February 18, 2025 End: February 18, 2025 Dr. West Abbott MD Attending Provider Active S tart: February 18, 2025 End: February 18, 2025 Dr. Royer Parsons MD Referring Provider Active Start: February 18, 2025 End: February 18, 2025 Team Status: Inactive Member Role/Relationship Status Dates Inga Arnulfo , DAIRY HUSBANDRY WORKER-C Primary Care Provider Active Start: March 25, 2025 End: March 25, 2025 Inga Arnulfo , DAIRY HUSBANDRY WORKER-C Attending Provider Active St art: March 25, 2025 End: March 25, 2025 Inga Arnulfo , DAIRY HUSBANDRY WORKER-C Referring Provider Active St art: March 25, 2025 End: March 25, 2025 Team Status: Inactive Member Role/Relationship Status Dates Inga Arnulfo , DAIRY HUSBANDRY WORKER-C Primary Care Provider Active Start: April 02, 2025 End: April 02, 2025 Inga Arnulfo , DAIRY HUSBANDRY WORKER-C Referring Provider Active St art: April 02, 2025 End: April 02, 2025 Dr. West Abbott MD Attending Provider Active S tart: April 02, 2025 End: April 02, 2025 Team Status: Active Member Role/Relationship Status Dates Inga Arnulfo , DAIRY HUSBANDRY WORKER-C Primary Care Provider Active Start: April 09, 2025 Dr. Stan Quintana DO Emergency Provider Active Start: April 09, 2025 Dr. Misti Warren MD Admit Provider Active St art: April 09, 2025 Dr. Misti Warren MD Attending Provider Active Start: April 09, 2025 Dr. Misti Warren MD Other Provider Active St art: April 09, 2025 Team Status: Inactive Member Role/Relationship Status Dates Inga Arredondo NP-Zamzam Primary Care Provider Active Start: April 09, 2025 End: April 10, 2025 Dr. Stan Quintana DO Emergency Provider Active Start: April 09, 2025 End: April 10, 2025 Dr. Misti Warren MD Admit Provider Active St art: April 09, 2025 End: April 10, 2025 Dr. Misti Warren MD Other Provider Active St art: April 09, 2025 End: April 10, 2025 Dr. Arie Kapoor DO Attending Provider Active Start: April 09, 2025 End: April 10, 2025 Team Status: Active Member Role/Relationship Status Dates Inga Arredondo NP-C Primary Care Provider Active Start: April 09, 2025 Dr. Stan Quintana DO Emergency Provider Active Start: April 09, 2025 Dr. Misti Warren MD Admit Provider Active St art: April 09, 2025 Dr. Misti Warren MD Other Provider Active St art: April 09, 2025 Dr. Arie Kapoor DO Other Provider Active S tart: April 09, 2025 Dr. Randy Velasquez MD Other Provider Active Start: April 09, 2025 Dr. Gus Cartaegna MD Other Provider Active Start: April 09, 2025 Dr. Severiano Reynolds MD Other Provider Active Star t: April 09, 2025 Dr. Fadi Contreras DO Attending Provider Active S tart: April 09, 2025 Dr. Fadi Contreras DO Other Provider Active Start : April 09, 2025 Dr. Marek Matt MD Other Provider Active Sta rt: April 09, 2025 Dr. Owen Nuñez MD Other Provider Active St art: April 09, 2025 Dr. Kenneth Schwartz MD Other Provider Active S tart: April 09, 2025 Dr. Saundra Courtney MD Other Provider Active Start: April 09, 2025 Dr. Danish Gonzalez MD Other Provider Active Start : April 09, 2025 Dr. Tony Okeefe MD Other Provider Active Start: April 09, 2025 Dr. Stan Feldman MD Other Provider Active Start : April 09, 2025 Dr. Precious Shelley MD Other Provider Active Star t: April 09, 2025 Dr. Codi Hanks MD Other Provider Active Sta rt: April 09, 2025 Dr. Nirmala Orozco MD Other Provider Active Sta rt: April 09, 2025 Dr. Kash Prince MD Other Provider Active Star t: April 09, 2025 Dr. Manuel Parker MD Other Provider Active St art: April 09, 2025 Dr. Ye Prater MD Other Provider Active Star t: April 09, 2025 Dr. Lit Sage , DO Other Provider Active St art: April 09, 2025 Dr. George Farmer MD Other Provider Active Start: April 09, 2025 Dr. Robert Martines MD Other Provider Active St art: April 09, 2025 Dr. Antolin Salcedo , DO Other Provider Active Start: April 09, 2025 Dr. Giuseppe Fernando MD Other Provider Active Star t: April 09, 2025 Dr. Otto Gil MD Other Provider Active Sta rt: April 09, 2025 Team Status: Active Member Role/Relationship Status Dates Inga Arredondo DAIRY HUSBANDRY WORKER-C Primary Care Provider Active Start: April 09, 2025 Dr. Stan Quintana , Emergency Provider Active Start: April 09, 2025 Dr. Misti Warren MD Admit Provider Active St art: April 09, 2025 Dr. Misti Warren MD Other Provider Active St art: April 09, 2025 Dr. Arie Kapoor , DO Other Provider Active S tart: April 09, 2025 Dr. Randy Velasquez MD Other Provider Active Start: April 09, 2025 Dr. Gus Cartagena MD Other Provider Active Start: April 09, 2025 Dr. Severiano Reynolds MD Other Provider Active Star t: April 09, 2025 Dr. Fadi Contreras , DO Other Provider Active Start : April 09, 2025 Dr. Marek Matt MD Other Provider Active Sta rt: April 09, 2025 Dr. Owen Nuñez MD Other Provider Active St art: April 09, 2025 Dr. Kenneth Schwartz MD Other Provider Active S tart: April 09, 2025 Dr. Saundra Courtney MD Other Provider Active Start: April 09, 2025 Dr. Danish Gonzalez MD Other Provider Active Start : April 09, 2025 Dr. Tony Okeefe MD Other Provider Active Start: April 09, 2025 Dr. Stan Feldman MD Other Provider Active Start : April 09, 2025 Dr. Precious Shelley MD Other Provider Active Star t: April 09, 2025 Dr. Codi Hanks MD Other Provider Active Sta rt: April 09, 2025 Dr. Nirmala Orozco MD Other Provider Active Sta rt: April 09, 2025 Dr. Kash Prince MD Other Provider Active Star t: April 09, 2025 Dr. Manuel Parker MD Other Provider Active St art: April 09, 2025 Dr. Ye Prater MD Other Provider Active Star t: April 09, 2025 Dr. Lit Sage , DO Other Provider Active St art: April 09, 2025 Dr. George Farmer MD Other Provider Active Start: April 09, 2025 Dr. Robert Martines MD Other Provider Active St art: April 09, 2025 Dr. Antolin Salcedo , DO Other Provider Active Start: April 09, 2025 Dr. Giuseppe Fernando MD Other Provider Active Star t: April 09, 2025 Dr. Otot Gil MD Other Provider Active Sta rt: April 09, 2025 Destiny Ramirez NP-C Attending Provider Active Start: April 09, 2025 Team Status: Active Member Role/Relationship Status Dates Inga Arredondo DAIRY HUSBANDRY WORKER-C Primary Care Provider Active Start: April 09, 2025 Dr. Sagar Ulrich , DO Attending Provider Active Start: April 09, 2025 Team Status: Active Member Role/Relationship Status Dates Inga Arredondo NP-C Primary Care Provider Active Start: April 10, 2025 Dr. Stan Quintana , DO Emergency Provider Active Start: April 10, 2025 Dr. Misti Warren MD Admit Provider Active St art: April 10, 2025 Dr. Misti Warren MD Other Provider Active St art: April 10, 2025 Dr. Arie Kapoor , DO Other Provider Active S tart: April 10, 2025 Dr. Fadi Contreras , DO Attending Provider Active S tart: April 10, 2025 Team Status: Active Member Role/Relationship Status Dates Inga Arredondo DAIRY HUSBANDRY WORKER-C Primary Care Provider Active Start: April 10, 2025 Dr. Stan Quintana , DO Emergency Provider Active Start: April 10, 2025 Dr. Misti Warren MD Admit Provider Active St art: April 10, 2025 Dr. Misti Warren MD Other Provider Active St art: April 10, 2025 Dr. Arie Kapoor , Other Provider Active S tart: April 10, 2025 Dr. Sagar Ulrich , Attending Provider Active Start: April 10, 2025 Team Status: Active Member Role/Relationship Status Dates Inga Arnulfo , DAIRY HUSBANDRY WORKER-C Primary care physician Active Team Status: Inactive Member Role/Relationship Status Dates Inga Arnulfo , DAIRY HUSBANDRY WORKER-C Primary care physician Active Start: February 10, 2025 End: February 10, 2025 Dr. James Rawls MD Attending physician Active Start: February 10, 2025 End: February 10, 2025 Dr. Boyd Alvarez MD Referring Provider Active Start: February 10, 2025 End: February 10, 2025 Team Status: Active Member Role/Relationship Status Dates Inga Arnulfo , DAIRY HUSBANDRY WORKER-C Primary care physician Active Start: February 18, 2025 End: February 18, 2025 Dr. West Abbott MD Attending physician Active Start: February 18, 2025 End: February 18, 2025 Dr. Royer Parsons MD Referring Provider Active Start: February 18, 2025 End: February 18, 2025 Team Status: Inactive Member Role/Relationship Status Dates Inga Arnulfo , DAIRY HUSBANDRY WORKER-C Primary care physician Active Start: March 25, 2025 End: March 25, 2025 Inga Arnulfo , DAIRY HUSBANDRY WORKER-C Attending physician Active S tart: March 25, 2025 End: March 25, 2025 Inga Arnulfo , DAIRY HUSBANDRY WORKER-C Referring Provider Active St art: March 25, 2025 End: March 25, 2025 Team Status: Inactive Member Role/Relationship Status Dates Inga Arnulfo , DAIRY HUSBANDRY WORKER-C Primary care physician Active Start: April 02, 2025 End: April 02, 2025 Inga Arnulfo , DAIRY HUSBANDRY WORKER-C Referring Provider Active St art: April 02, 2025 End: April 02, 2025 Dr. West Abbott MD Attending physician Active Start: April 02, 2025 End: April 02, 2025 Team Status: Inactive Member Role/Relationship Status Dates Inga Arnulfo , DAIRY HUSBANDRY WORKER-C Primary care physician Active Start: April 09, 2025 End: April 10, 2025 Dr. Stan Quintana DO Emergency Department Physician A ctive Start: April 09, 2025 End: April 10, 2025 Dr. Misti Warern MD Admitting physician Active Start: April 09, 2025 End: April 10, 2025 Dr. Misti Warren MD Nurse Practitioner Active Start: April 09, 2025 End: April 10, 2025 Dr. Arie Kapoor DO Attending physician Active Start: April 09, 2025 End: April 10, 2025 Team Status: Active Member Role/Relationship Status Dates Inga Arredondo NP-C Primary care physician Active Start: April 09, 2025 Dr. Stan Quintana DO Emergency Departme nt Physician Active Start: April 09, 2025 Dr. Misti Warren MD Admitting physician Active Start: April 09, 2025 Dr. Misti Warren MD Referring Provider Active Start: April 09, 2025 Dr. Misti Warren MD Nurse Practitioner Active Start: April 09, 2025 Dr. Arie Kapoor DO Nurse Practitioner Active Start: April 09, 2025 Dr. Randy Velasquez MD Nurse Practitioner Active Start: April 09, 2025 Dr. Gus Cartagena MD Nurse Practitioner Active Sta rt: April 09, 2025 Dr. Severiano Reynolds MD Nurse Practitioner Active Start: April 09, 2025 Dr. Fadi Contreras DO Attending physician Active Start: April 09, 2025 Dr. Fadi Contreras DO Nurse Practitioner Active S tart: April 09, 2025 Dr. Marek Matt MD Nurse Practitioner Active Start: April 09, 2025 Dr. Owen Nuñez MD Nurse Practitioner Active Start: April 09, 2025 Dr. Kenneth Schwartz MD Nurse Practitioner Active Start: April 09, 2025 Dr. Saundra Courtney MD Nurse Practitioner Active Start: April 09, 2025 Dr. Danish Gonzalez MD Nurse Practitioner Active S tart: April 09, 2025 Dr. Tony Okeefe MD Nurse Practitioner Active St art: April 09, 2025 Dr. Stan Feldman MD Nurse Practitioner Active S tart: April 09, 2025 Dr. Precious Shelley MD Nurse Practitioner Active Start: April 09, 2025 Dr. Codi Hanks MD Nurse Practitioner Active Start: April 09, 2025 Dr. Nirmala Orozco MD Nurse Practitioner Active Start: April 09, 2025 Dr. Kash Prince MD Nurse Practitioner Active Start: April 09, 2025 Dr. Manuel Parker MD Nurse Practitioner Active Start: April 09, 2025 Dr. Ye Prater MD Nurse Practitioner Active Start: April 09, 2025 Dr. Lit Sage , DO Nurse Practitioner Active Start: April 09, 2025 Dr. George Farmer MD Nurse Practitioner Active St art: April 09, 2025 Dr. Robert Martines MD Nurse Practitioner Active Start: April 09, 2025 Dr. Antolin Salcedo , DO Nurse Practitioner Active Start: April 09, 2025 Dr. Giuseppe eFrnando MD Nurse Practitioner Active Start: April 09, 2025 Dr. Otto Gil MD Nurse Practitioner Active Start: April 09, 2025 Team Status: Active Member Role/Relationship Status Dates Inga Arredondo DAIRY HUSBANDRY WORKER-C Primary care physician Active Start: April 09, 2025 Dr. Stan Quintana , Emergency Departme nt Physician Active Start: April 09, 2025 Dr. Misti Warren MD Admitting physician Active Start: April 09, 2025 Dr. Misti Warren MD Referring Provider Active Start: April 09, 2025 Dr. Misti Warren MD Nurse Practitioner Active Start: April 09, 2025 Dr. Arie Kapoor , Nurse Practitioner Active Start: April 09, 2025 Dr. Randy Velasquez MD Nurse Practitioner Active Start: April 09, 2025 Dr. Gus Cartagena MD Nurse Practitioner Active Sta rt: April 09, 2025 Dr. Severiano Reynolds MD Nurse Practitioner Active Start: April 09, 2025 Dr. Fadi Contreras DO Nurse Practitioner Active S tart: April 09, 2025 Dr. Marek Matt MD Nurse Practitioner Active Start: April 09, 2025 Dr. Owen Nuñez MD Nurse Practitioner Active Start: April 09, 2025 Dr. Kenneth Schwartz MD Nurse Practitioner Active Start: April 09, 2025 Dr. Saundra Courtney MD Nurse Practitioner Active Start: April 09, 2025 Dr. Danish Gonzalez MD Nurse Practitioner Active S tart: April 09, 2025 Dr. Tony Okeefe MD Nurse Practitioner Active St art: April 09, 2025 Dr. Stan Feldman MD Nurse Practitioner Active S tart: April 09, 2025 Dr. Precious Shelley MD Nurse Practitioner Active Start: April 09, 2025 Dr. Codi Hanks MD Nurse Practitioner Active Start: April 09, 2025 Dr. Nirmala Orozco MD Nurse Practitioner Active Start: April 09, 2025 Dr. Kash Prince MD Nurse Practitioner Active Start: April 09, 2025 Dr. Manuel Parker MD Nurse Practitioner Active Start: April 09, 2025 Dr. Ye Prater MD Nurse Practitioner Active Start: April 09, 2025 Dr. Lit Sage , Nurse Practitioner Active Start: April 09, 2025 Dr. George Farmer MD Nurse Practitioner Active St art: April 09, 2025 Dr. Robert Martines MD Nurse Practitioner Active Start: April 09, 2025 Dr. Antolin Salcedo DO Nurse Practitioner Active Start: April 09, 2025 Dr. Giuseppe Fernando MD Nurse Practitioner Active Start: April 09, 2025 Dr. Otto Gil MD Nurse Practitioner Active Start: April 09, 2025 Destiny Ramirez NP-C Attending physician Active Start: April 09, 2025 Team Status: Active Member Role/Relationship Status Dates Inga Arredondo NP-C Primary care physician Active Start: April 09, 2025 Dr. Sagar Ulrich , Attending physician Active Start: April 09, 2025 Dr. Arie Kapoor DO Referring Provider Active Start: April 09, 2025 Team Status: Active Member Role/Relationship Status Dates Inga Arredondo NP-C Primary care physician Active Start: April 10, 2025 Dr. Stan Quintana , Emergency Department Physician A ctive Start: April 10, 2025 Dr. Misti Warren MD Admitting physician Active Start: April 10, 2025 Dr. Misti Warren MD Nurse Practitioner Active Start: April 10, 2025 Dr. Arie Kapoor DO Referring Provider Active Start: April 10, 2025 Dr. Arie Kapoor DO Nurse Practitioner Active Start: April 10, 2025 Dr. Fadi Contreras , Attending physician Active Start: April 10, 2025 Team Status: Active Member Role/Relationship Status Dates Inga Arredondo DAIRY HUSBANDRY WORKER-C Primary care physician Active Start: April 10, 2025 Dr. Stan Quintana DO Emergency Department Physician A ctive Start: April 10, 2025 Dr. Misti Warren MD Admitting physician Active Start: April 10, 2025 Dr. Misti Warren MD Nurse Practitioner Active Start: April 10, 2025 Dr. Arie Kapoor , Referring Provider Active Start: April 10, 2025 Dr. Arie Kapoor DO Nurse Practitioner Active Start: April 10, 2025 Dr. Sagar Ulrich DO Attending physician Active Start: April 10, 2025 Team Status: Active Member Role/Relationship Status Dates Inga Arredondo , DAIRY HUSBANDRY WORKER-C Primary care physician Active Start: April 10, 2025 Dr. Stan Quintana , Emergency Department Physician A ctive Start: April 10, 2025 Dr. Misti Warren MD Admitting physician Active Start: April 10, 2025 Dr. Misti Warren MD Nurse Practitioner Active Start: April 10, 2025 Dr. Arie Kapoor DO Attending physician Active Start: April 10, 2025 Dr. Arie Kapoor DO Nurse Practitioner Active Start: April 10, 2025 Team Status: Active Member Role/Relationship Status Dates Inga Arredondo DAIRY HUSBANDRY WORKER-C Primary care physician Active Start: May 07, 2025 Dr. West Abbott MD Attending physician Active Start: May 07, 2025 Dr. West Abbott MD Referring Provider Active S tart: May 07, 2025 Team Status: Active Member Role/Relationship Status Dates Inga Arredondo DAIRY HUSBANDRY WORKER-C Primary care physician Active Start: May 07, 2025 Dr. West Abbott MD Attending physician Active Start: May 07, 2025 Team Status: Inactive Member Role/Relationship Status Dates Inga Arredondo DAIRY HUSBANDRY WORKER-C Primary care physician Active Start: May 08, 2025 End: May 08, 2025 Inga Arredondo DAIRY HUSBANDRY WORKER-C Referring Provider Active St art: May 08, 2025 End: May 08, 2025 SRIDEVI Schmitz Attending physician Active Start: May 08, 2025 End: May 08, 2025 Team Status: Inactive Member Role/Relationship Status Dates Inga Arredondo DAIRY HUSBANDRY WORKER-C Primary care physician Active Start: May 07, 2025 End: May 07, 2025 Dr. West Abbott MD Attending physician Active Start: May 07, 2025 End: May 07, 2025 Dr. West Abbott MD Referring Provider Active S tart: May 07, 2025 End: May 07, 2025 Team Status: Inactive Member Role/Relationship Status Dates SRIDEVI Miller Primary care physician Active Start: May 14, 2025 End: May 14, 2025 SRIDEVI Schmitz Attending physician Active Start: May 14, 2025 End: May 14, 2025 SRIDEVI Schmitz Referring Provider Active Start: May 14, 2025 End: May 14, 2025 (unrecognized sect ion and content) No Status Records Found INFORMATION SOURCE (unrecogn ized section and content) DATE CREATED AUTHOR 06/06/2025 [facility] FOR RECORDS PERTAINING TO PATIENTS WHO ARE [...] BE BASED ON THE PRIMARY CLINICAL RECORDS. [employer] provides no warranty or guarantee of the accuracy or completeness of information in this document.
--- NOTE | 2025-06-07 15:57 | RAD_ITS ---
PROCEDURE: CHEST PA AND LATERAL 06/07/2025 REASON FOR EXAM: COUGH TECHNIQUE: Procedure Code: RADCXR Modality: DX Procedure: CHEST PA AND LATERAL COMPARISON: None FINDINGS: Mild pulmonary vascular congestion and interstitial edema.. No focal consolidation. No pleural effusion or pneumothorax. Mild cardiomegaly. No acute fractures. RAD/Chest PA and Lateral IMPRESSION: No focal consolidations. Mild pulmonary vascular congestion and interstitial e brie. Mild cardiomegaly. Reading Location: [id number]
[2025-06-07 17:21] LABS: Prothrombin Time (Protime)PT. 20.4 SECONDS (11.7-14.9)
[2025-06-07 17:22] LABS: Partial Thromboplast Time 35.7 Seconds (24.1-36.2)
[2025-06-07 20:53] LABS: Hematocrit 25.8 % (40-54); Hemoglobin 8.8 g/dL (13.0-16.5)
[2025-06-07 21:14] LABS: Pro- Brain NATRIURETIC PEPTIDE 578 pg/mL (<=900)
[2025-06-08] VITALS: BP 118/71; PULSE 82; RESP 16; O2SAT 100
== END 2025-06-08 01:16 | disposition short-term general hospital (02) ==
PROVIDERS: Emergency Provider Emergency Medicine; PCP Nurse Practitioner Family; Visit Provider Emergency Medicine
DX: R10.9 Unspecified abdominal pain (principal); K74.60 Unspecified cirrhosis of liver; E78.00 Pure hypercholesterolemia, unspecified; K76.0 Fatty (change of) liver, not elsewhere classified; M79.81 Nontraumatic hematoma of soft tissue; R05.9 Cough, unspecified; R18.8 Other ascites; D64.9 Anemia, unspecified; I12.9 Hypertensive chronic kidney disease with stage 1 through stage 4 chronic kidney disease, or unspecified chronic kidney disease; N18.2 Chronic kidney disease, stage 2 (mild); Z79.899 Other long term (current) drug therapy; J45.909 Unspecified asthma, uncomplicated; Z79.51 Long term (current) use of inhaled steroids
CPT/HCPCS: 71046; 74177; 80053; 81001; 83690; 83880; 85014; 85018; 85025; 85610; 85730; 96374; 96375; 99285; Q9967; A4216; J2405

== ENCOUNTER 2025-07-03 07:35 | Day surgery (SDC) | payer MEDICARE, SELFPAY ==
--- NOTE | 2025-06-02 15:26 | PAT.ANESEVAL ---
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 When Was Last Pacemaker Check QUESTION #4 FULL TEXT: You/Your Family Experience fever (hyperthermia) with Anesthesia Last Oral Intake Last Oral intake: Last Oral Intake NPO since Meds taken in AM with sips of water? Meds patient instructed to take am of surgery PONV PONV - senior sales representative: PONV - senior sales representative Female No 06/02/25 13:59 HX of Motion Sickness No 06/02/25 13:59 HX of N/V After Surgery No 06/02/25 13:59 Non-Smoker Yes 06/02/25 13:59 Duration of Surgery greater No 06/02/25 13:59 than 60 minutes Number of Risk Factors 1 06/02/25 13:59 PONV Score Low Risk 06/02/25 13:59 Height & Weight Height & Weight: Anesthesia: Height & Weight Height 5 ft 9 in 05/08/25 13:16 Respiratory Assessment Respiratory Assessment - senior sales representative: Respiratory Tract Infection Hx - senior sales representative Hx Respiratory Tract Infection No 06/02/25 13:59 STOP Sleep Apnea STOP Sleep Apnea - senior sales representative: STOP Sleep Apnea - senior sales representative Hx Hypertension Yes: CONTROLLED WITH MED 06/02/25 13:59 Hx Sleep Apnea No 06/02/25 13:59 CPAP BIPAP Do you snore loudly (louder No 06/02/25 13:59 than talking or can be heard Do you often feel tired/ No 06/02/25 13:59 fatigued/ sleepy during daytime? Has anyone observed you stop No 06/02/25 13:59 breathing during sleep? STOP Results Negative 06/02/25 13:59 QUESTION #5 FULL TEXT : Do you snore loudly (louder than talking or can be heard through closed doors)? 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 Specify any problems Hx of Preganancy in last 3 N/A 06/02/25 13:59 Months Nurse Filling Out Transfusion NBUCHER 06/02/25 13:59 & Questions: Date: 06/02/25 06/02/25 13:59 Time: 14:00 06/02/25 13:59 Patient unable to answer at this time (ie. confused, unrespo /Reproduction History /Reproductive History - senior sales representative: /Reproductive Hx- senior sales representative Hx Now No 06/02/25 13:59 Gestational Age (in weeks): EDC: Hx Hx Para Hx Section SAB No 06/02/25 13:59 PFSH Medical History Wears dentures Wears glasses High cholesterol History of ulceration History of GI bleed Non-smoker Shortness of breath on exertion History of stress test History of echocardiogram Cardiology follow-up encounter UGIB (upper gastrointestinal bleed) Alcohol abuse CKD (chronic kidney disease), stage II Chronic anemia Alcohol abuse BPH (benign prostatic hyperplasia) GI bleed Abnormal EKG Arthritis Left inguinal hernia Colonic diverticular disease Tubular adenoma of colon Asthma Hyperlipidemia Hypertension Wide-complex tachycardia Home Medications Medication Instructions Recorded Last Taken Type albuterol sulfate 90 mcg/actuation 1 puff IH Q4H PRN PRN Sob &/Or 07/27/17 Unknown History aerosol inhaler Wheezing lisinopril 5 mg tablet 5 mg PO DAILY 07/27/17 01/20/22 History rosuvastatin 10 mg tablet 10 mg PO QHS 07/27/17 Unknown History fluticasone propionate 50 1 spray intranasal PRN PRN 01/14/22 Unknown History mcg/actuation nasal ALLERGIES spray,suspension (Flonase Allergy Relief) pantoprazole 40 mg tablet,delayed 40 mg PO BID #60 tabs 04/10/25 Unknown Rx release (Protonix) diltiazem HCl 120 mg 120 mg PO QAM 04/28/25 Unknown History capsule,extended release 24 hr (Cartia XT) ibuprofen 200 mg tablet 200 mg PO Q6H PRN pain 05/08/25 Unknown History lactulose 10 gram/15 mL oral 20 g (30 mL) PO BID #1,800 mL 05/08/25 Unknown Rx solution Allergy/AdvReac Type Severity Reaction Status Date / Time shellfish derived AdvReac Intermediate vomiting Verified 06/02/25 13:31 Family History Father , age 80+ in his sleep, assumed cardiac CAD (coronary artery disease) Heart disease Hypertension Mother CAD (coronary artery disease) Heart disease Hypertension Diabetes Sister CAD (coronary artery disease) Heart disease Hypertension Myocardial infarction Surgical History History of esophagogastroduodenoscopy (EGD) Hx of transurethral resection of prostate History of left heart catheterization (07/28/17) H/O hernia repair Social History household members: spouse Smoking Status: Never smoker alcohol intake: current alcohol intake frequency: 3 or more drinks per day substance use type: does not use Audit: Pertinent Findings Pertinent Findings EKG Perinent findings: 04/02/2025. Sinus rhythm with occasional PVCs. [address] and T wave abnormality, consider inferior ischemia. Echo (EF%) pertinent findings: 05/07/2025. Normal size function EF 75%. Pulmonary artery pressure 34 Consult pertinent findings: Cardiology 04/02/2025. Preop cardiovascular exam. Stable for hernia surgery. Check echocardiogram. He does have abnormal EKG which has been unchanged for about 4 years. Recommendation Anesthesia Recommendation Anesthesia recommendation: OPTIMIZED for anesthesia
[2025-07-03] VITALS (8 sets, daily range): BP systolic 99–122; BP diastolic 61–64; PULSE 72–82; RESP 14–18; TEMP 36.6–37.4; O2SAT 99–100; BMI 25.7
--- NOTE | 2025-07-03 07:52 | PCM.HP.STD ---
HPI - General General Date of Admission: 07/03/25 Date of Service: 07/03/25 Chief Complaint: Cirrhosis and anemia HPI Narrative YAYA BETANCOURT, is a 70 M who presents [ Chief Complaint: hospital follow-up Details: GI CONSULT 04/09/2025 69y/o male with history of HTN, tachycardia, HLD, CKD-II, diverticulosis, colon polyps, arthritis, and significant alcohol abuse (40 years, recent reduction) presenting with hematemesis. He presented to the ED Monday evening after developing sudden onset hematemesis. Initial HGB 6.5, WBC 12.8, INR 1.6, T. bili 2.45, albumin 2.7, ALP 221, LA 2.4, MELD 15. Received 2u PRBC, IV protonix bolus + gtt, octreotide, and ceftriaxone. CTA C/A/P reveals diffuse gastric thickening (likely gastritis), blood in gastric lumen, hepatomegaly with irregular contour, ascites, gallstones, GB wall thickening, SB thickening. No evidence of active bleeding based on CTA. Concern for variceal bleed, hemorrhagic/erosive gastritis, PUD. Plan to proceed with EGD today, maintain NPO status until procedure. Continue close monitoring of H&H, protonix gtt., CIWA protocol. He will require GI follow-up upon discharge for management of cirrhosis and he is also due for routine screening colonoscopy for history of colon polyps. EGD 04/09/2025 - Small (< 5 mm) esophageal varices. - Oozing gastric ulcers with a visible vessel. Treated with a heater probe. - No gross lesions in the entire examined duodenum. - No specimens collected. DISCHARGE 04/13/2025 This 69-year-old white male was seen in the emergency room at [facility] with complaints of emesis that was dark in color. Patient denied any diarrhea or dark or bloody stool. Workup in the emergency room showed the patient have an elevated white blood cell count of 12.8, hemoglobin was 6.5, bilirubin was elevated at 2.45 and AST was elevated at 44. Chest abdomen and pelvic CTA was performed other than cholelithiasis and possible parenchymal liver disease with mild ascites , there was thickening of the stomach suggestive of gastritis and acute hemorrhage products were noted to be present in the gastric lumen. Patient was admitted to ICU and given blood transfusions, labs were monitored, he was placed on a PPI and seen in consultation by gastroenterology. 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 Patient's blood counts stabilized during his hospitalization, on 04/10/2025, patient was seen and examined: On examination he appeared in good health and spirits. Vital signs as documented. Skin warm and dry and without overt rashes. Neck without JVD, neck was supple, trachea midline, thyroid was normal. Lungs clear bilaterally, normal air movement was noted. Heart exam notable for regular rhythm, normal sounds and absence of murmurs, rubs or gallops. Abdomen unremarkable and without evidence of organomegaly, masses, or abdominal aortic enlargement. Bowel sounds are present, abdomen is not distended. Extremities nonedematous, no cyanosis was noted, no clubbing was noted. Neuro: Cranial nerves II through XII are grossly intact, no focal motor deficits were noted, sensation to light touch and pinprick intact, motor exam 5/5 throughout. Psych: Patient is alert and oriented x3, he does not appear anxious or depressed, he does not appear agitated. Patient was felt to be stable for discharge home on 04/10/2025. LABS 04/10/2025 HGB 8.8 04/09/2025 HGB 6.5 - 7.4 CMP: 04/10/2025 T. Bili 2.83, AST 57, ALT 13, ALP 145, Albumin 2.1 ABD US Hepatomegaly and diffuse fatty infiltration of the liver. Multiple gallstones. Mild degree of bladder wall thickening with small amount of pericholecystic and Marilyn hepatic fluid. - IBU 400mg TIW for aches and pains - has decreased alcohol intake to 2-3 cocktails a day - [place] 750ml bottle, 1 bottle will now last him 10 days, prior to admission this bottle would not last him a week - Father was an alcoholic - states he has been drinking his entire life - weight is stable - having a BM daily - he is not intersted in alcohol cessation [facility] Medical History Wears dentures Wears glasses High cholesterol History of ulceration History of GI bleed Non-smoker Shortness of breath on exertion History of stress test History of echocardiogram Cardiology follow-up encounter UGIB (upper gastrointestinal bleed) Alcohol abuse CKD (chronic kidney disease), stage II Chronic anemia Alcohol abuse BPH (benign prostatic hyperplasia) GI bleed Abnormal EKG Arthritis Left inguinal hernia Colonic diverticular disease Tubular adenoma of colon Asthma Hyperlipidemia Hypertension Wide-complex tachycardia Home Medications Medication Instructions Recorded Last Taken Type albuterol sulfate 90 mcg/actuation 1 puff IH Q4H PRN PRN Sob &/Or 07/27/17 Unknown History aerosol inhaler Wheezing lisinopril 5 mg tablet 5 mg PO DAILY 07/27/17 01/20/22 History fluticasone propionate 50 1 spray intranasal PRN PRN 01/14/22 Unknown History mcg/actuation nasal ALLERGIES spray,suspension (Flonase Allergy Relief) diltiazem HCl 120 mg 120 mg PO QAM 04/28/25 Unknown History capsule,extended release 24 hr (Cartia XT) ibuprofen 200 mg tablet 200 mg PO Q6H PRN pain 05/08/25 Unknown History albuterol sulfate 90 mcg/actuation 2 puff inhalation Q4-6H PRN 06/06/25 Unknown Rx aerosol inhaler (Ventolin HFA) shortness of breath or wheezing #8.5 grams benzonatate 100 mg capsule 200 mg (2 x 100 mg) PO TID PRN 06/06/25 Unknown Rx cough #30 caps peg 3350-sod sulf,[id number] See Rx Instructions PO .COMPLEX #2 06/16/25 Unknown Rx 178.7-7.3-0.5-1.12-0.9 gram oral mL soln (Suflave) Allergy/AdvReac Type Severity Reaction Status Date / Time shellfish derived AdvReac Intermediate vomiting Verified 06/23/25 09:30 Family History Father , age 80+ in his sleep, assumed cardiac CAD (coronary artery disease) Heart disease Hypertension Mother CAD (coronary artery disease) Heart disease Hypertension Diabetes Sister CAD (coronary artery disease) Heart disease Hypertension Myocardial infarction Surgical History History of esophagogastroduodenoscopy (EGD) Hx of transurethral resection of prostate History of left heart catheterization (07/28/17) H/O hernia repair Social History household members: spouse Smoking Status: Never smoker alcohol intake: current alcohol intake frequency: 3 or more drinks per day substance use type: does not use ROS Constitutional Constitutional: Denies fatigue, fever(s), poor appetite, weight gain or weight loss Gastrointestinal Gastrointestinal: Denies belching, bloating, change in bowel habits, change in stool character, chewing difficulty, coffee ground emesis, constipation, cramping, diarrhea, dyspepsia, dysphagia, early satiety, excessive flatus, fecal incontinence, heartburn, hematemesis, hematochezia, hemorrhoids, loose stools, melena, nausea, odynophagia, rectal bleeding, tenesmus, vomiting or weight changes Physical Exam Const alert, oriented x3, no apparent distress and healthy appearing General Appearance: cooperative GI normal to inspection, nondistended, normoactive bowel sounds, soft to palpation, non-tender and non-distended Percussion: normal to percussion Rectal Exam: deferred Assessment & Plan Assessment/Plan (1) Personal history of colonic polyps: (2) Nausea & vomiting: (3) Acute alcoholic gastritis with hemorrhage: (4) Acute blood loss anemia: PLAN: Assessment and Plan Assessment and Plan (1) Cirrhosis of liver with ascites: Status: Acute Plan: Maintain blood pressure and heart rate control to prevent hemorrhage. Schedule consultation with Dr. Hernandez for liver disease management and evaluate risk mitigation with ongoing alcohol use. Educate on low sodium diet to manage fluid retention, and start recommended medications for encephalopathy prevention. Perform routine lab tests and imaging to monitor disease progression I have started him on carvedilol, lactulose, and rifaxamin. (2) Acute alcoholic gastritis with hemorrhage: Status: Acute Orders: Orders CBC W/Diff, Automated Today D64.9 - Anemia, unspecified, K29.21 - Alcoholic gastritis with bleeding, K74.60 - Unspecified cirrhosis of liver, R18.8 - Other ascites, Z86.0100 - Personal history of colon polyps, unspecified Liver Profile Today K29.21 - Alcoholic gastritis with bleeding, K74.60 - Unspecified cirrhosis of liver, R18.8 - Other ascites, Z86.0100 - Personal history of colon polyps, unspecified Basic Metabolic Profile (BMP) Today K29.21 - Alcoholic gastritis with bleeding, K74.60 - Unspecified cirrhosis of liver, R18.8 - Other ascites, Z86.0100 - Personal history of colon polyps, unspecified [facility] Misc. Today K29.21 - Alcoholic gastritis with bleeding, K74.60 - Unspecified cirrhosis of liver, R18.8 - Other ascites, Z86.0100 - Personal history of colon polyps, unspecified Hepatitis A AB, Total Today K29.21 - Alcoholic gastritis with bleeding, K74.60 - Unspecified cirrhosis of liver, R18.8 - Other ascites, Z86.0100 - Personal history of colon polyps, unspecified Hepatitis B Core Ab Total Today K29.21 - Alcoholic gastritis with bleeding, K74.60 - Unspecified cirrhosis of liver, R18.8 - Other ascites, Z86.0100 - Personal history of colon polyps, unspecified Hepatitis B Surface Antibody Today K29.21 - Alcoholic gastritis with bleeding, K74.60 - Unspecified cirrhosis of liver, R18.8 - Other ascites, Z86.0100 - Personal history of colon polyps, unspecified Hepatitis B Surface Antigen Today K29.21 - Alcoholic gastritis with bleeding, K74.60 - Unspecified cirrhosis of liver, R18.8 - Other ascites, Z86.0100 - Personal history of colon polyps, unspecified Hepatitis C Antibody Today K29.21 - Alcoholic gastritis with bleeding, K74.60 - Unspecified cirrhosis of liver, R18.8 - Other ascites, Z86.0100 - Personal history of colon polyps, unspecified AFP, Tumor Marker Today K29.21 - Alcoholic gastritis with bleeding, K74.60 - Unspecified cirrhosis of liver, R18.8 - Other ascites, Z86.0100 - Personal history of colon polyps, unspecified Prothrombin Time w/INR Today K29.21 - Alcoholic gastritis with bleeding, K74.60 - Unspecified cirrhosis of liver, R18.8 - Other ascites, Z86.0100 - Personal history of colon polyps, unspecified Medications: New rifaximin (Xifaxan) 550 mg PO BID 60 tabs 2RF carvedilol must administer with a meal/food 3.125 mg PO BID 60 tabs 2RF peg 3350-sod sulf,[id number] 178.7-7.3-0.5 gram (Suflave) Take as directed for split dose bowel prep 2 mL 0RF lactulose goal of 2-3 bowel movements daily, titrate as needed 20 grams (30 mL) PO BID 1,800 mL 1RF Plan 69-year-old male with history of cirrhosis presenting with follow-up for gastrointestinal bleeding and liver disease management. The patient's condition is linked to chronic alcohol use, with esophageal varices and gastric ulcers managed with pantoprazole 40mg BID. His reduced alcohol consumption over the past months is likely beneficial, but continued intake poses a risk of progression in liver disease and possible variceal bleeding. I have ordered labs and recommended a consult with Dr. Hernandez (hepatology). Patient Instructions: - Continue taking pantoprazole as prescribed to help heal stomach ulcers. - Reduce sodium intake in your diet to manage fluid retention. - Consult with Dr. Hernandez for liver disease assessment and management. - Schedule your colonoscopy and EGD for late June after ulcer healing. - If cleared by cardiology, consult with surgery about hernia repair. - Report any episodes of lightheadedness, unusual bleeding, or severe pain promptly. - Reduce alcohol intake at your comfort while assessing potential for cessation.] D/C Safety Score for UGIB Assessment [place] Bleeding Score (GBS): Stratifies upper GI bleeding patients who are "low-risk" and candidates for outpatient management. Score Interpretation: Score of 0: A GBS of 0 is a “Low Risk” GI bleed, and is highly sensitive (99.6% in a 2007 retrospective study) for predicting which patients did not require any “medical intervention”: blood transfusion, endoscopy, or surgery. This was confirmed in a 2009 [facility] study where patients with a score of 0 were actually discharged and had no GI bleeding mortality at 6 month followup Score above 0: A GBS greater than zero suggests a “High Risk” GI bleed that is likely to require “medical intervention”: transfusion, endoscopy, or surgery. A higher GBS also correlated with a higher likelihood of needing intervention Scores >/= 6 are associated with >50% risk of needing intervention D/C Safety Score for LGIB Assessment Assessment Tool: Readmission and adverse event risk in patients with acute lower GI bleeding. Score Interpretation: Probability Percentage of safe discharge (absence of rebleeding, blood transfusion, therapeutic intervention, 28 day readmission, or ) Score of 8 or below: Consider discharge, with appropriate precautions. Score of 9 or above: Discharge NOT recommended. Consider admission with further workup and resuscitation as necessary.
[2025-07-03] MEDS: Lactated Ringers 1,000 ML 15 ML IV (08:29)
--- NOTE | 2025-07-03 08:43 | PCM.PRE.AN2 ---
ASA Classification* ASA Classification ASA Classification: 3 Assessment & Plan Anesthesia* Anesthesia Assessment Anesthesia Assessment: Discussed sedation and/or anesthesia options, risks, benefits, and alternatives with patient/parents/legal guardian/POA. Questions invited. The patient/parents/legal guardian/POA seems to understand and agrees to proceed with anesthesia plan. Reviewed the physical assessment, medical history, allergy history and patient home medications list prior to surgery/procedure/anesthetic and documented any changes. Performed airway and anesthesia risk assessments. Anesthesia Type Anesthesia Type: MAC History Source History Obtained from:: Patient and Chart Anesthesia Focused Assessment* Temperature: 99.4 F Pulse Rate: 82 Blood Pressure: 122/61 Respiratory Rate: 18 Pulse Ox: 99 Oxygen Delivery Method: Room Air Airway Assessment Mouth opens: >3 cm Mallampati Score: I Teeth Condition: Dentures (Patient has upper dentures. They will come out.) and Missing (Some missing teeth on the lower jaw. The rest are tight.) Neck Range of motion (ROM): Limited ROM (Slight Decrease) Labs Anesthesia Preop lab: CBC WBC, (4.4-11.0) 5.9 K/mm3 06/07/25, 14:30 RBC, (4.6-6.2) 2.80 M/mm3 L 06/07/25, 14:30 Hgb, (13.0-16.5) 8.8 g/dL L 06/07/25, 20:45 Hct, (40-54) 25.8 % L 06/07/25, 20:45 Plt Count, (150-450) 203 K/mm3 06/07/25, 14:30 CHEMISTRY Potassium, (3.3-5.1) 3.8 mmol/L 06/07/25, 14:30 Sodium, (133-145) 132 mmol/L L 06/07/25, 14:30 Magnesium, (1.5-2.2) 1.8 mg/dL 04/09/25, 02:30 Phosphorus, (2.7-4.5) 2.6 mg/dL L 04/09/25, 02:30 BUN, (4-19) 11 mg/dL 06/07/25, 14:30 Creatinine, (0.70-1.20) 0.70 mg/dL 06/07/25, 14:30 Glucose, (70-99) 134 mg/dL H 06/07/25, 14:30 TSH, (0.358-3.74) 2.38 uIU/mL 09/22/21, 09:34 COAG PT, (11.7-14.9) 20.4 SECONDS H 06/07/25, 17:05 Pre-Assessment Diagnosis/Proposed Procedure Planned Operative Procedure(s): EGD CSCOPE Anesthesia History Anesthesia History - marketing professor: 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 When Was Last Pacemaker Check QUESTION #4 FULL TEXT: You/Your Family Experience fever (hyperthermia) with Anesthesia Last Oral Intake Last Oral intake: Last Oral Intake NPO since 04:30 07/03/25 08:21 Meds taken in AM with sips of Yes 07/03/25 08:21 water? Meds patient instructed to diltiazem, lisinopril 07/03/25 08:21 take am of surgery Any additional information?: Yes NPO since: 04:30 Meds taken in AM with sips of water?: Yes PONV PONV - marketing professor: PONV - marketing professor Female No 06/02/25 13:59 HX of Motion Sickness No 06/02/25 13:59 HX of N/V After Surgery No 06/02/25 13:59 Non-Smoker Yes 06/02/25 13:59 Duration of Surgery greater No 06/02/25 13:59 than 60 minutes Number of Risk Factors 1 06/02/25 13:59 PONV Score Low Risk 06/02/25 13:59 Height & Weight Height & Weight: Anesthesia: Height & Weight Height 5 ft 9 in 07/03/25 08:21 Weight: 79 kg 07/03/25 08:21 Body Mass Index (BMI) 25.7 07/03/25 08:21 Respiratory Assessment Respiratory Assessment - marketing professor: Respiratory Tract Infection Hx - marketing professor Hx Respiratory Tract Infection No 06/02/25 13:59 STOP Sleep Apnea STOP Sleep Apnea - marketing professor: STOP Sleep Apnea - marketing professor Hx Hypertension Yes: CONTROLLED WITH MED 06/02/25 13:59 Hx Sleep Apnea No 06/02/25 13:59 CPAP BIPAP Do you snore loudly (louder No 06/02/25 13:59 than talking or can be heard Do you often feel tired/ No 06/02/25 13:59 fatigued/ sleepy during daytime? Has anyone observed you stop No 06/02/25 13:59 breathing during sleep? STOP Results Negative 06/02/25 13:59 QUESTION #5 FULL TEXT : Do you snore loudly (louder than talking or can be heard through closed doors)? Tobacco Use History Tobacco Use History - marketing professor: Tobacco Use History - marketing professor Tobacco Use Smoking Status Never smoker 06/02/25 13:59 Hx Tobacco Use No 06/02/25 13:59 Years Smoking Packs Smoked per Day Smoking Cessation Date was within the last 15 years Hx Smoking Cessation Date Hx Smoking Cessation Counseling Hematologic Medial History Hematologic Hx - marketing professor: Hematologic Medical Hx - solutions analyst Hx of Blood Transfusion Yes 06/02/25 13:59 Hx of Transfusion in last 3 Yes 06/02/25 13:59 Months Date of Last Transfusion (if 04/09/25 06/02/25 13:59 within last 3 months) Ever experience any problems No 06/02/25 13:59 with transfusion(s)? Specify any problems Hx of Preganancy in last 3 N/A 06/02/25 13:59 Months Nurse Filling Out Transfusion NBUCHER 06/02/25 13:59 & Questions: Date: 06/02/25 06/02/25 13:59 Time: 14:00 06/02/25 13:59 Patient unable to answer at this time (ie. confused, unrespo /Reproduction History /Reproductive History - marketing professor: /Reproductive Hx- marketing professor Hx Now No 06/02/25 13:59 Gestational Age (in weeks): EDC: Hx Hx Para Hx Section SAB No 06/02/25 13:59 Does the father of the baby or his family experience fever w Father of the baby Malignant Hypertension history comment Active Medications Active Medications: Current Medications Generic Name Dose Route Start Last Admin Trade Name Frankie PRN Reason Stop Dose Admin Lactated Ringer's 1,000 mls @ 15 mls/hr 07/03/25 08:00 07/03/25 08:29 IV 15 mls/hr .Q48H BURT Administration PFSH Medical History Wears dentures Wears glasses High cholesterol History of ulceration History of GI bleed Non-smoker Shortness of breath on exertion History of stress test History of echocardiogram Cardiology follow-up encounter UGIB (upper gastrointestinal bleed) Alcohol abuse CKD (chronic kidney disease), stage II Chronic anemia Alcohol abuse BPH (benign prostatic hyperplasia) GI bleed Abnormal EKG Arthritis Left inguinal hernia Colonic diverticular disease Tubular adenoma of colon Asthma Hyperlipidemia Hypertension Wide-complex tachycardia Home Medications Medication Instructions Recorded Last Taken Type albuterol sulfate 90 mcg/actuation 1 puff IH Q4H PRN PRN Sob &/Or 07/27/17 07/03/25 History aerosol inhaler Wheezing lisinopril 5 mg tablet 5 mg PO DAILY 07/27/17 07/03/25 History fluticasone propionate 50 1 spray intranasal PRN PRN 01/14/22 07/03/25 History mcg/actuation nasal ALLERGIES spray,suspension (Flonase Allergy Relief) diltiazem HCl 120 mg 120 mg PO QAM 04/28/25 07/03/25 History capsule,extended release 24 hr (Cartia XT) ibuprofen 200 mg tablet 200 mg PO Q6H PRN pain 05/08/25 06/30/25 History benzonatate 100 mg capsule 200 mg (2 x 100 mg) PO TID PRN 06/06/25 Unknown Rx cough #30 caps peg 3350-sod sulf,[id number] See Rx Instructions PO .COMPLEX #2 06/16/25 07/03/25 Rx 178.7-7.3-0.5-1.12-0.9 gram oral mL soln (Suflave) Allergy/AdvReac Type Severity Reaction Status Date / Time shellfish derived AdvReac Intermediate vomiting Verified 07/03/25 08:16 Family History Father , age 80+ in his sleep, assumed cardiac CAD (coronary artery disease) Heart disease Hypertension Mother CAD (coronary artery disease) Heart disease Hypertension Diabetes Sister CAD (coronary artery disease) Heart disease Hypertension Myocardial infarction Surgical History History of esophagogastroduodenoscopy (EGD) Hx of transurethral resection of prostate History of left heart catheterization (07/28/17) H/O hernia repair Social History household members: spouse Smoking Status: Never smoker alcohol intake: current alcohol intake frequency: 3 or more drinks per day substance use type: does not use Review of Systems (Anesthesia) ROS Narrative System reviewed and no additional complaints, except as documented.
--- NOTE | 2025-07-03 08:45 | COLBX_PTH ---
PATIENT: YAYA BETANCOURT LOC: EN U#:[id number] AGE/SX: 70/M ROOM: RE07/03/[address]: Dr. Sagar Ulrich DO : 1955 BED: DIS: 07/03/2025 SPEC #: [id number] RECD: 07/03/25 10:47 STATUS: HUMERA REChris #: [id number] CYNDEE: 07/03/25 08:[address]: Sagar Ulrich DEPT: SURGICAL PATHOLOGY RECD BY: Rc Elizalde ENTERED: 07/03/25 13:19 SP TYPE: COLON BX OTHR DR: Inga Arredondo, MANAGER CARDIOLOGY-C Tissues: A - Gastric mucous membrane B - Gastric mucous membrane C - Transverse colon D - COLON BIOPSY Procedures: Immunohistochemical Stains Surgery Specimen Level IV HEADER OPERATION: Colonoscopy with biopsy, EGD with biopsy PRE-OP DIAGNOSIS: Personal history of colonic polyps, nausea / vomiting, acute alcoholic gastritis with hemorrhage, acute blood loss anemia TISSUE SUBMITTED: A- Gastric body biopsy, B- Gastric ulcer biopsy, C- Transverse colon polyp biopsy. D- Random colon biopsy MICROSCOPIC DIAGNOSIS A. Stomach, gastric body, biopsies: - Oxyntic mucosa with chronic inflammation - An immunohistochemical stain for Helicobacter pylori is negative B. Stomach, gastric ulcer: * Oxyntic mucosa with chronic active inflammation and a detached fibrinopurulent exudate, consistent with an ulcer C. Large intestine, transverse polyp: * Tubular adenoma D. Large intestine, random: * Benign colonic mucosa without active inflammation or architectural distortion MICROSCOPIC DESCRIPTION Slides are reviewed. All matched controls reacted appropriately. These tests were developed and their performance characteristics determined by [facility]. They may not have been cleared or approved by the U.S. Food and Drug Administration. The FDA has determined that such clearance or approval is not necessary. The above immunohistochemical markers are viewed by the Pathologist. GROSS DESCRIPTION A. Received in fixative is one container labeled with the patient's name and designated "Gastric body biopsy." The specimen consists of two irregular fragments of ramirez tissue that measure 0.3 and 0.6 cm. The specimen is totally submitted in one cassette. B. Received in fixative is one container labeled with the patient's name and designated "Gastric ulcer biopsy." The specimen consists of multiple irregular fragments of ramirez tissue that in aggregate measure 0.9 x 0.4 x 0.1 cm. The specimen is totally submitted in one cassette. C. Received in fixative is one container labeled with the patient's name and designated "Transverse colon polyp biopsy." The specimen consists of one irregular fragment of ramirez tissue that measures 0.2 cm. The specimen is totally submitted in one cassette. D. Received in fixative is one container labeled with the patient's name and designated "Random colon biopsy." The specimen consists of multiple irregular fragments of ramirez tissue that in aggregate measure 1.2 x 0.4 x 0.1 cm. The specimen is totally submitted in one cassette. IA 07/03/2025 CPT:[id number]
--- NOTE | 2025-07-03 09:42 | OP.PROVAT_ITS ---
07/03/2025 Dacia Miller Re : Upper GI endoscopy procedure for Yonas Brasher Dear Arnulfo This procedure was performed on June. My impressions and recommendations are as follows: Impressions : - Small (< 5 mm) esophageal varices. - Portal hypertensive gastropathy. Biopsied. - Non-bleeding gastric ulcer with no stigmata of bleeding. Biopsied. - No gross lesions in the entire examined duodenum. Recommendations : - Use sucralfate tablets 1 gram PO BID for 1 month. - Continue present medications. My findings are described in the full procedure note, which is enclosed. If I can be of further assistance, please feel free to contact me at . Sincerely, Sagar Ulrich, 07/03/2025 9:41:35 AM This report has been signed electronically.
--- NOTE | 2025-07-03 09:42 | OP.EGD_ITS ---
Patient Name: Yonas Brasher Procedure Date: 07/03/2025 8:52 AM Date of : 1955 Age: 70 Procedure: Upper GI endoscopy Indications: Epigastric abdominal pain, Cirrhosis with suspected esophageal varices Providers: Sagar Ulrich DO Referring MD: Dacia Miller Medicines: Monitored Anesthesia Care Patient Profile: This is a 70 year old male. Refer to note in patient chart for documentation of history and physical. Patient has symptoms of chronic abdominal distention, chronic dyspepsia and chronic nausea. Complications: No immediate complications. Procedure: Pre-Anesthesia Assessment: - Prior to the procedure, a History and Physical was performed, and patient medications and allergies were reviewed. The patient is competent. The risks and benefits of the procedure and the sedation options and risks were discussed with the patient. All questions were answered and informed consent was obtained. Patient identification and proposed procedure were verified by the physician in the pre-procedure area. Mental Status Examination: alert and oriented. Airway Examination: normal oropharyngeal airway and neck mobility. Respiratory Examination: clear to auscultation. CV Examination: normal. Prophylactic Antibiotics: The patient does not require prophylactic antibiotics. Prior Anticoagulants: The patient has taken no anticoagulant or antiplatelet agents. ASA Grade Assessment: III - A patient with severe systemic disease. After reviewing the risks and benefits, the patient was deemed in satisfactory condition to undergo the procedure. The anesthesia plan was to use monitored anesthesia care (MAC). Immediately prior to administration of medications, the patient was re-assessed for adequacy to receive sedatives. The heart rate, respiratory rate, oxygen saturations, blood pressure, adequacy of pulmonary ventilation, and response to care were monitored throughout the procedure. The physical status of the patient was re-assessed after the procedure. After obtaining informed consent, the endoscope was passed under direct vision. Throughout the procedure, the patient's blood pressure, pulse, and oxygen saturations were monitored continuously. The Colonoscope was introduced through the mouth, and advanced to the third part of the duodenum. Small bowel enteroscopy was deemed necessary. The upper GI endoscopy was accomplished without difficulty. The patient tolerated the procedure well. Scope In: 9:16:33 AM Scope Out: 9:20:27 AM Total Procedure Duration Time 0 hours 3 minutes 54 seconds Findings: Small (< 5 mm) varices were found at the lower esophageal sphincter. Severe portal hypertensive gastropathy was found in the entire examined stomach. Biopsies were taken with a cold forceps for histology. Biopsies were taken with a cold forceps for Helicobacter pylori testing. Verification of patient identification for the specimen was done. Estimated blood loss was minimal. One non-bleeding cratered gastric ulcer with no stigmata of bleeding was found in the gastric antrum. The lesion was 6 mm in largest dimension. Biopsies were taken with a cold forceps for histology. Biopsies were taken with a cold forceps for Helicobacter pylori testing. No gross lesions were noted in the entire examined duodenum. Impression: - Small (< 5 mm) esophageal varices. - Portal hypertensive gastropathy. Biopsied. - Non-bleeding gastric ulcer with no stigmata of bleeding. Biopsied. - No gross lesions in the entire examined duodenum. Recommendation: - Use sucralfate tablets 1 gram PO BID for 1 month. - Continue present medications. Procedure Code(s): --- Professional --- 90719, Small intestinal endoscopy, enteroscopy beyond second portion of duodenum, not including ileum; with biopsy, single or multiple CPT copyright 2021 [employer]. All rights reserved. The codes documented in this report are preliminary and upon sheeting puller review may be revised to meet current compliance requirements. Sagar Ulrich DO 07/03/2025 9:41:35 AM This report has been signed electronically. Number of Addenda: 0 Note Initiated On: 07/03/2025 8:52 AM
--- NOTE | 2025-07-03 09:44 | PCM.POST.ANE ---
Anesthesia: Postop Eval I Current Vital Signs Temperature: 97.8 F Pulse Rate: 75 Blood Pressure: 99/61 Respiratory Rate: 16 Pulse Ox: 100 Oxygen Delivery Method: Room Air Assessment Airway patent: Yes Spontaneous unlabored respirations: Yes Mental status: Awake and Calm nausea: No Vomiting: No Anesthesia Complication: No Fluid Hydration Crystalloid volume administer (ml): 400 Total IV fluid infused: 400 Progress Note Anesthesia document: Postop Eval 1 completed: Yes
--- NOTE | 2025-07-03 09:45 | OP.COLON_ITS ---
Patient Name: Yonas Brasher Procedure Date: 07/03/2025 9:20 AM Date of : 1955 Age: 70 Procedure: Colonoscopy Indications: Clinically significant diarrhea of unexplained origin Providers: Sagar Ulrich DO Referring MD: Dacia Miller Medicines: Monitored Anesthesia Care Patient Profile: This is a 70 year old male. Refer to note in patient chart for documentation of history and physical. Patient has symptoms of chronic abdominal distention, chronic dyspepsia and chronic nausea. Last Colonoscopy: date unknown. Unable to locate last colonoscopy report. Complications: No immediate complications. Procedure: Pre-Anesthesia Assessment: - Prior to the procedure, a History and Physical was performed, and patient medications and allergies were reviewed. The patient is competent. The risks and benefits of the procedure and the sedation options and risks were discussed with the patient. All questions were answered and informed consent was obtained. Patient identification and proposed procedure were verified by the physician in the pre-procedure area. Mental Status Examination: alert and oriented. Airway Examination: normal oropharyngeal airway and neck mobility. Respiratory Examination: clear to auscultation. CV Examination: normal. Prophylactic Antibiotics: The patient does not require prophylactic antibiotics. Prior Anticoagulants: The patient has taken no anticoagulant or antiplatelet agents. ASA Grade Assessment: III - A patient with severe systemic disease. After reviewing the risks and benefits, the patient was deemed in satisfactory condition to undergo the procedure. The anesthesia plan was to use monitored anesthesia care (MAC). Immediately prior to administration of medications, the patient was re-assessed for adequacy to receive sedatives. The heart rate, respiratory rate, oxygen saturations, blood pressure, adequacy of pulmonary ventilation, and response to care were monitored throughout the procedure. The physical status of the patient was re-assessed after the procedure. After I obtained informed consent, the scope was passed under direct vision. Throughout the procedure, the patient's blood pressure, pulse, and oxygen saturations were monitored continuously. The Colonoscope was introduced through the anus and advanced to the cecum, identified by appendiceal orifice and ileocecal valve. The colonoscopy was performed without difficulty. The patient tolerated the procedure well. The quality of the bowel preparation was adequate. The ileocecal valve, appendiceal orifice, and rectum were photographed. Scope In: 9:23:06 AM Scope Withdrawal Time 0 hours 6 minutes 1 second Scope Out: 9:33:19 AM Total Procedure Duration Time 0 hours 10 minutes 13 seconds Findings: The perianal and digital rectal examinations were normal. Scattered small and large-mouthed diverticula were found in the entire colon. An area of mildly congested mucosa was found in the recto-sigmoid colon, in the sigmoid colon and in the transverse colon. Biopsies were taken with a cold forceps for histology. Verification of patient identification for the specimen was done. Estimated blood loss was minimal. A 5 mm polyp was found in the transverse colon. The polyp was sessile. The polyp was removed with a cold biopsy forceps. Resection and retrieval were complete. Verification of patient identification for the specimen was done. Estimated blood loss was minimal. 5 mm rectal varices were found. Impression: - Diverticulosis in the entire examined colon. - Congested mucosa in the recto-sigmoid colon, in the sigmoid colon and in the transverse colon. Biopsied. - One 5 mm polyp in the transverse colon, removed with a cold biopsy forceps. Resected and retrieved. - Rectal varices. Recommendation: - Discharge patient to home. - Resume previous diet. - Continue present medications. - Await pathology results. - Repeat colonoscopy in 5 years for surveillance. Procedure Code(s): --- Professional --- 04373, Colonoscopy, flexible; with biopsy, single or multiple CPT copyright 2021 [employer]. All rights reserved. The codes documented in this report are preliminary and upon river and lakes boatman review may be revised to meet current compliance requirements. Sagar Ulrich DO 07/03/2025 9:44:46 AM This report has been signed electronically. Number of Addenda: 0 Note Initiated On: 07/03/2025 9:20 AM
--- NOTE | 2025-07-03 09:45 | OP.PROVAT_ITS ---
07/03/2025 Dacia Miller Re : Colonoscopy procedure for Yonas Brasher Dear Arnulfo This procedure was performed on June. My impressions and recommendations are as follows: Impressions : - Diverticulosis in the entire examined colon. - Congested mucosa in the recto-sigmoid colon, in the sigmoid colon and in the transverse colon. Biopsied. - One 5 mm polyp in the transverse colon, removed with a cold biopsy forceps. Resected and retrieved. - Rectal varices. Recommendations : - Discharge patient to home. - Resume previous diet. - Continue present medications. - Await pathology results. - Repeat colonoscopy in 5 years for surveillance. My findings are described in the full procedure note, which is enclosed. If I can be of further assistance, please feel free to contact me at . Sincerely, Sagar Ulrich, 07/03/2025 9:44:46 AM This report has been signed electronically.
--- NOTE | 2025-07-03 13:05 | PCM.POSTANE2 ---
Anesthesia Postop Eval I Sum Postop Eval Completion status Anesthesia document: Postop Eval 1 completed: Yes Anesthesia Postop Eval I Summary Anesthesia Postop Eval I Summary: Anesthesia Postop Eval I: Assessment Summary Airway patent Yes 07/03/25 09:47 [email or web address] Spontaneous unlabored Yes 07/03/25 09:47 [email or web address] respirations Mental status Awake,Calm 07/03/25 09:47 [email or web address] nausea No 07/03/25 09:47 [email or web address] Vomiting No 07/03/25 09:47 [email or web address] Anesthesia Postop Eval I: Fluid Summary Crystalloid volume administer 400 07/03/25 09:47 [email or web address] (ml) Colloids volume administered ( ml) Blood Product volume administered (ml) Total IV fluid infused 400 07/03/25 09:47 [email or web address] Anesthesia Postop Eval I: Summary Notes Anesthesia Complication No 07/03/25 09:47 [email or web address] Anesthesia Complication Comment: Post-operative progress note Anesthesia: Postop Eval II Evaluation Mental status: Awake Pain Level: 0 nausea: No Vomiting: No Complications Anesthesia Complication: No
== END 2025-07-03 10:39 | disposition home or self-care (01) ==
LOC: EN 07:42 → AC 07:43
PROVIDERS: PCP Nurse Practitioner Family; Referring Provider Nurse Practitioner Family; Visit Provider Internal Medicine Gastroenterology
DX: K29.50 Unspecified chronic gastritis without bleeding (principal); K76.6 Portal hypertension; I85.00 Esophageal varices without bleeding; K74.60 Unspecified cirrhosis of liver; E78.00 Pure hypercholesterolemia, unspecified; R18.8 Other ascites; D62 Acute posthemorrhagic anemia; Z86.0100 Personal history of colon polyps, unspecified; I12.9 Hypertensive chronic kidney disease with stage 1 through stage 4 chronic kidney disease, or unspecified chronic kidney disease; N18.2 Chronic kidney disease, stage 2 (mild); K29.21 Alcoholic gastritis with bleeding; F10.10 Alcohol abuse, uncomplicated; Z79.899 Other long term (current) drug therapy; K25.9 Gastric ulcer, unspecified as acute or chronic, without hemorrhage or perforation; K57.50 Diverticulosis of both small and large intestine without perforation or abscess without bleeding; K21.00 Gastro-esophageal reflux disease with esophagitis, without bleeding; D12.3 Benign neoplasm of transverse colon; K52.9 Noninfective gastroenteritis and colitis, unspecified
CPT/HCPCS: 44361; 45380; 88305; 88342; J2405

== ENCOUNTER → 2025-08-01 | Outpatient (CLI) | payer MEDICARE, SELFPAY ==
[2025-08-01] MEDS: Lidocaine 2% (20 ml mdv) 20 ML Vial INFILT (09:43)
[2025-08-01 10:29] VITALS: BP 122/69; PULSE 85; RESP 18; O2SAT 99
[2025-08-01 10:30] VITALS: BP 110/58; BP 119/62; PULSE 80; PULSE 82; RESP 18; O2SAT 96; O2SAT 98
--- NOTE | 2025-08-01 10:30 | OP.PCM_ITS ---
[facility] C[facility] Radiology Radiology US Procedures: 67538 Paracentesis Operative Report (Standard) Operative Information Date of Procedure: 08/01/25 Pre-Operative Diagnosis: Ascites Post-Operative Diagnosis: Ascites Surgery/Procedure Performed: Ultrasound-guided paracentesis staff cytotechnologist: No Type of Anesthesia: Local Procedure Start Time: 09:39 Procedure Stop Time: 10:14 Select all DRAINS/GRAFTS/IMPLANTS that apply: None Estimated Blood Loss: 0 Specimen collected: No Description of surgery: PROCEDURE: Ultrasound guided paracentesis ORDERING PROVIDER: Dr. Ulrich INDICATION: Male, 70 years old. Ascites. PROVIDER: SACHIN Alonzo TECHNIQUE: The risks, benefits, and alternatives to the procedure were explained to the patient. The specific risks of bleeding, infection, and damage to bowel were detailed and accepted. He is not on any blood thinning medications. Witnessed informed consent was obtained. The abdomen was ultrasonographically surveyed. An appropriate pocket of fluid was identified in the right lower quadrant of the abdomen. The skin was prepped with chlorhexidine and sterile field established. 2% lidocaine was used for local anesthetic. Using ultrasound guidance, the peritoneal cavity was accessed with a 5-[place] paracentesis needle/catheter system. The trocar was removed. A total of 8250 ml of clear yellow colored fluid was removed from the peritoneal cavity. The catheter was removed and a sterile dressing was applied. The procedure was well tolerated without any immediate complications. IV access was established and patient was transported to the infusion center for albumin administration per ordering physician. IMPRESSION: Successful ultrasound guided paracentesis with right lower quadrant access site. Surgical Findings: none Complications Complications: No
[2025-08-01] MEDS: 0.9% Saline Lock 10 ML Syringe IV (10:32)
[2025-08-01 10:41] VITALS: BP 116/67; PULSE 75; RESP 16; TEMP 36.8; O2SAT 100; BMI 25.8
[2025-08-01] MEDS: Albumin Human 25% (100 mL) 25 GM/100 ML BAG IV ×2 (10:58→12:20)
[2025-08-01 14:16] VITALS: BP 119/65; PULSE 87; RESP 16; TEMP 37.2; O2SAT 98
== END | disposition home or self-care (01) ==
LOC: US 09:04
PROVIDERS: PCP Nurse Practitioner Family; Referring Provider Internal Medicine Gastroenterology; Visit Provider Internal Medicine Gastroenterology
DX: R18.8 Other ascites (principal); K74.60 Unspecified cirrhosis of liver
CPT/HCPCS: 49083; 96365; 96366; P9047